=== PATIENT | male | born 1980 | race Caucasian/White ===

== ENCOUNTER 2023-03-02 09:36 | Day surgery (SDC) | payer MEDICARE, OTHER ==
[2023-02-20 15:21] VITALS: BMI 31.4
[~2023-03-02 09:36] MED LIST: DEXAMETHASONE SOD PHOSPHATE 4 MG/ML 1 ML VIAL IV ONE; HYDROmorphone 0.5 MG/0.5 ML SYRINGE IVP PRN; LACTATED RINGERS 1,000 ML IV SCH; LIDOCAINE 1% (10MG/ML) FOR IV START INTRADERMA PRN; ONDANSETRON 4 MG/2 ML VIAL IVP ONE; droPERidol 5 MG/2 ML VIAL IVP PRN
[2023-03-02] MEDS ORDERED: SODIUM CHLORIDE 0.9% 100 ML IV ONE (10:31)
[2023-03-02 10:44] LABS: HCT 37.2 % (39.0-53.0); HGB 12.7 gm/dL (13.0-17.5); MCHC 34.1 g/dL (31.0-37.0); MCV 90.9 fL (80.0-100.0); Mean Platelet Volume 7.8; Platelet Count 195 k/uL (150-450); RBC 4.09 m/uL (4.30-5.90); RDW 14.9 % (11.5-15.5); WBC 4.8 k/uL (3.8-10.6)
[2023-03-02] MEDS ORDERED: fentaNYL (PF) 50 MCG/1 ML VIAL IVP ONE (11:01)
[2023-03-02] MEDS ORDERED: MIDAZOLAM 2 MG/2 ML VIAL IVP ONE (11:01)
[2023-03-02 11:05] LABS: African American GFR (CKD) 11 (>60 ml/min/1.73 sqM); Anion Gap 12 mmol/L; Blood Urea Nitrogen 50 mg/dL (9-20); Calcium 8.7 mg/dL (8.4-10.2); Carbon Dioxide 27 mmol/L (22-30); Chloride 97 mmol/L (98-107); Glucose 187 mg/dL (74-99); Non-African American GFR(CKD) 10 (>60 ml/min/1.73 sqM); Potassium 4.7 mmol/L (3.5-5.1); Sodium 136 mmol/L (137-145)
[2023-03-02] MEDS ORDERED: PROPOFOL 10 MG/ML 20 ML VIAL IV ONE (12:07)
[2023-03-02] MEDS ORDERED: MIDAZOLAM 2 MG/2 ML VIAL ONE (12:07)
[2023-03-02] MEDS ORDERED: ROPIVACAINE 5 MG/ML 30 ML VIAL ONE (12:07)
[2023-03-02] MEDS ORDERED: KETAMINE 10 MG/ML 20 ML VIAL ONE (12:07)
[2023-03-02] MEDS ORDERED: HEPARIN SODIUM,PORCINE 5,000 UNIT/ML 1 ML VIAL ONE (12:07)
[2023-03-02] MEDS ORDERED: LABETALOL 5 MG/ML VIAL MDV ONE (12:07)
[2023-03-02] MEDS ORDERED: fentaNYL (PF) 50 MCG/ML 2 ML AMP ONE (12:07)
[2023-03-02] MEDS ORDERED: SODIUM CHLORIDE 0.9% 500 ML 500 ML IV ONE (12:11)
[2023-03-02] MEDS ORDERED: LIDOCAINE 1% INJ 10MG/ML (20 ML MDV) SQ ONE ×3 (12:32→14:20)
[2023-03-02] MEDS ORDERED: GELATIN SPONGE,ABSORB (LARGE) 1 EACH SPONGE TOPICAL ONE ×2 (12:32→12:55)
[2023-03-02] MEDS ORDERED: HEPARIN SODIUM,PORCINE (1 ML) 2,000 UNIT in SODIUM CHLORIDE 0.9% 500 ML 500 ML IRRIGATION ONE (12:37)
[2023-03-02] MEDS ORDERED: ceFAZolin 2 GM in SODIUM CHLORIDE 0.9% 500 ML 500 ML IRRIGATION ONE (12:39)
[2023-03-02] MEDS ORDERED: THROMBIN (BOVINE) 5,000 UNIT VIAL TOPICAL ONE (12:55)
--- NOTE | 2023-03-02 13:25 | P.ANPRN ---
Procedure Note - Anesthesia - Nerve Block Performed Right Supraclavicular Time Out Performed: Yes (11:00) Date of Procedure: 03/02/23 Procedure Start Time: 11:00 Procedure Stop Time: 11:05 Location of Patient: PreOp Indication: Acute Post-Operative Pain, Requested by Surgeon (Dr Rocha) Sedation Type: Sedate with meaningful contact maintained Preparation: Sterile Prep Position: Supine Catheter: None Needle Types: Pajunk Needle Gauge: Other (see comment) (22g) Ultrasound used to visualize needle placement: Yes Ultrasound used to observe medication spread: Yes Injectate: 0.5% Ropivacaine (see comment for volume) (20cc) Blood Aspirated: No Pain Paresthesia on Injection Noted: No Resistance on Injection: Normal Image Stored and Saved: Yes Events: Uneventful and Well Tolerated
--- NOTE | 2023-03-02 14:42 | P.OP ---
Date of Procedure: 03/02/23 Preoperative Diagnosis: 1:Chronic kidney disease, hematemesis dependent currently being dialyzed via tunneled hemodialysis catheter. 2: Intermittently dysfunctional tunneled hemodialysis catheter. Postoperative Diagnosis: Same. Procedure(s) Performed: 1: Creation of a Beck-type fistula right cephalic vein to right radial artery. 2: Exchange of tunneled hemodialysis catheter through this same incision. Anesthesia: regional (Axillary block for the AV fistula creation and local with IV sedation for the tunneled hemodialysis catheter exchange.), local Surgeon: Todd Rocha Estimated Blood Loss (ml): 10 Pathology: none sent Condition: stable Disposition: no change Indications for Procedure: Patient is a 48-year-old male with a long-standing history of dialysis dependent renal failure who is currently being dialyzed via a tunneled hemodialysis catheter placed via the right internal jugular vein. The catheter has been intermittently dysfunctional and is in need of replacement. Additionally the patient would benefit from more long-term dialysis access and is thus offered a Beck fistula right radial artery to vein position after vein mapping demonstrated the vein to be of appropriate character. The procedure, risk and benefits were discussed the patient. All questions were answered to patient's satisfaction. Consent form was signed Operative Findings: Please see below. Description of Procedure: Patient was brought the upper and placed in the supine position after having received a right axillary block administered by the department anesthesiology. The patient received intravenously administered prophylactic antibiotics in the perioperative phase. Patient's right upper extremity was sterilely prepped and draped in usual manner. Skin incision was made equidistant between the cephalic vein and the radial artery at the wrist level. The incision was deepened through the subcu change tissues. Hemostasis was achieved using electrocautery. The vein was identified and dissected free of investing tissues and appeared to be of appropriate quality for fistula creation purposes. Attention was then turned to the radial artery. This was dissected free of investing tissues and encircled Vesseloops. The patient was systemically heparinized and after adequate circulation time the vein haven't been previously marked was clipped distally and transected and easily reached the artery after mobilization. The Vesseloops surrounding the vein were drawn closed and arteriotomy in the radial artery was made and extended with scissors. Good inflow and backbleeding qualities were noted. The vein was spatulated match the arteriotomy and end-to-side anastomosis between the vein and the artery was completed with 6-0 Prolene suture placed in running fashion. Just prior to completion of the anastomotic line the artery was flushed and backbled and no thrombus was retrieved. The anastomotic line was completed and flow restored through the moapa radial system and into the cephalic vein. One point of bleeding was identified along the anastomotic line and this was controlled with 6-0 Prolene suture. Excellent pulsatile quality within the vein was identified. There was a large vein crossing the forearm draining into the cephalic vein and this vein was ligated to prevent any steal phenomenon. Both wounds were irrigated and were closed with 4-0 Monocryl placed in running fashion. Proper dressings were applied. Palpable radial pulse was noted at the completion of the procedure. Attention was turned to the right lateral neck and anterior chest wall. This area sterilely prepped and draped in usual manner. 1% Xylocaine was utilized for local anesthesia tissues overlying the tunneled catheter at the neck level. Through this anesthetized area skin incision was made carried down through the subcu change tissues. The catheter was identified doubly clamped and transected. A guidewire was then advanced down into the superior vena cava through the catheter and the catheter was removed. Vessel dilator was advanced over the guidewire obtaining hemostasis. The cuff portion of the catheter was dissected free of investing tissues and the remaining portion of the catheter wa s removed in total. 1% Xylocaine was utilized for local anesthesia of the tissues right anterior chest wall just lateral to the previous incision. A tunneled hemodialysis catheter was then tunneled between the 2 incisions assuring the cuff was in the subcu change tissues. Catheter introducer sheath and dilator advanced over the guidewire. Guidewire was withdrawn as was the dilator and through the sheath the catheter was advanced easily and the sheath peeled away. Fluoroscopy demonstrated the catheter to be in good position without twisting or kinking of the catheter. Blood was easily aspirated through both ports of the catheter and then were flushed with heparinized saline solution. Catheter secured to skin with nylon suture. Neck wound was closed with 4-0 Monocryl. Proper dressings were applied. Patient tolerated the procedure well and was taken to the recovery assessment and stable condition. Total fluoroscopy time: 3 seconds. Plan - Discharge Summary Discharge Rx Participant: No New Discharge Prescriptions: No Action carvediloL [Coreg] 25 mg PO BID Torsemide [Demadex] 20 mg PO BID hydrALAZINE HCL [Apresoline] 50 mg PO BID Calcium Acetate [Phoslo] 667 mg PO TID-W/MEALS Pantoprazole [Protonix] 40 mg PO DAILY Gabapentin 300 mg PO TID Discharge Medication List Calcium Acetate [Phoslo] 667 mg PO TID-W/MEALS 02/20/23 [History] Gabapentin 300 mg PO TID 02/20/23 [History] Pantoprazole [Protonix] 40 mg PO DAILY 02/20/23 [History] Torsemide [Demadex] 20 mg PO BID 02/20/23 [History] carvediloL [Coreg] 25 mg PO BID 02/20/23 [History] hydrALAZINE HCL [Apresoline] 50 mg PO BID 02/20/23 [History]
[2023-03-02 14:45] VITALS: TEMP 97.4
[2023-03-02 16:18] VITALS: PULSE 78
[2023-03-02 16:27] VITALS: BP 143/93; RESP 18
--- NOTE | 2023-03-02 16:37 | FL ---
Intraoperative/procedural fluoroscopic services were provided. Total fluoroscopy time is 2.0 seconds with a total of 2 submitted images to PACS. Please see the operative/procedural note for further deta ils. DAP: 0.2099 Gycm2
== END 2023-03-02 16:43 | disposition home or self-care (01) ==
LOC: OR 09:36
PROVIDERS: ATTEND Surgery
DX: N18.6 End stage renal disease (principal); I10 Essential (primary) hypertension; F17.200 Nicotine dependence, unspecified, uncomplicated; Z99.2 Dependence on renal dialysis; K21.9 Gastro-esophageal reflux disease without esophagitis; Z79.891 Long term (current) use of opiate analgesic; Z79.82 Long term (current) use of aspirin; Z79.02 Long term (current) use of antithrombotics/antiplatelets; Z79.899 Other long term (current) drug therapy
CPT/HCPCS: 64415; 80048; 85027; 77001; 36821; 36581; C1750; J2250; J1644; J0690; J2405; J2001; J3010 ×2; J2795; J2704; J1920

== ENCOUNTER 2023-06-26 19:37 | Observation (INO) | payer MEDICARE, OTHER ==
[2023-06-26 23:48] LABS: Basophils # (A) 0.1 k/uL (0-0.2); Basophils % (A) 2 %; Eosinophils # (A) 0.3 k/uL (0-0.7); Eosinophils % (A) 5 %; HCT 40.7 % (39.0-53.0); HGB 13.9 gm/dL (13.0-17.5); Lymphocytes # (A) 1.8 k/uL (1.0-4.8); Lymphocytes % (A) 34 %; MCH 31.9 pg (25.0-35.0); MCV 93.6 fL (80.0-100.0); Mean Platelet Volume 8.5; Monocytes # (A) 0.4 k/uL (0-1.0); Monocytes % (A) 7 %; Neutrophils # (A) 2.6 k/uL (1.3-7.7); Neutrophils % (A) 49 %; Platelet Count 157 k/uL (150-450); RBC 4.35 m/uL (4.30-5.90); RDW 14.3 % (11.5-15.5); WBC 5.4 k/uL (3.8-10.6)
[2023-06-27 00:14] LABS: ALT 24 U/L (4-49); AST 22 U/L (17-59); African American GFR (CKD) 5 (>60 ml/min/1.73 sqM); Albumin 4.5 g/dL (3.5-5.0); Alkaline Phosphatase 116 U/L (38-126); Anion Gap 24 mmol/L; Blood Urea Nitrogen 97 mg/dL (9-20); Calcium 8.1 mg/dL (8.4-10.2); Carbon Dioxide 18 mmol/L (22-30); Chloride 96 mmol/L (98-107); Glucose 217 mg/dL (74-99); Magnesium 2.5 mg/dL (1.6-2.3); Non-African American GFR(CKD) 4 (>60 ml/min/1.73 sqM); Phosphorus 7.5 mg/dL (2.5-4.5); Potassium 5.1 mmol/L (3.5-5.1); Sodium 138 mmol/L (137-145); Total Bilirubin 0.5 mg/dL (0.2-1.3); Total Protein 7.7 g/dL (6.3-8.2)
--- NOTE | 2023-06-27 01:19 | ED ---
General Adult HPI - General Chief complaint: Recheck/Abnormal Lab/Rx Stated complaint: Recheck Time Seen by Provider: 06/26/23 20:55 Source: patient, RN notes reviewed Mode of arrival: ambulatory Limitations: no limitations - History of Present Illness Initial comments: 42 year old male with a past medical history significant for HTN, DM, ESRD considered the emergency department with a chief complaint of hemodialysis fistula problem. He reports that he has supposed dialysis Thursday. His last dialyzed on Thursday06/25/2023. He reports that he attempted to receive dialysis today however they were unable to access his dialysis fistula and removed a clot from the site. Family report no palpable thrill. Denies any known fevers, chills, redness, pain at the site. He is complaining of some mild nausea and one episode of vomiting yesterday. - Related Data Home Medications Medication Instructions Recorded Confirmed Calcium Acetate [PhosLo] 2,001 mg PO TID-W/MEALS 02/20/23 05/01/23 Pantoprazole [Protonix] 40 mg PO DAILY 02/20/23 05/01/23 Torsemide [Demadex] 20 mg PO BID 02/20/23 05/01/23 carvediloL [Coreg] 25 mg PO HS 02/20/23 05/01/23 hydrALAZINE HCL [Apresoline] 50 mg PO HS 02/20/23 05/01/23 Calcium Acetate [PhosLo] 1,334 mg PO DIRECTED PRN 05/01/23 05/01/23 carvediloL [Coreg] 25 mg PO SUTUTHSA 05/01/23 05/01/23 hydrALAZINE HCL 50 mg PO SUTUTHSA 05/01/23 05/01/23 Previous Rx's Medication Instructions Recorded Acetaminophen Tab [Tylenol] 650 mg PO Q6HR PRN tab 05/04/23 Gabapentin [Neurontin] 100 mg PO TID cap 05/04/23 Insulin Detemir (Levemir) [Levemir] 10 unit SQ HS 30 Days #3 each 05/04/23 Allergies Allergy/AdvReac Type Severity Reaction Status Date / Time No Known Allergies Allergy Verified 06/26/23 19:56 Review of Systems ROS Statement: Those systems with pertinent positive or pertinent negative responses have been documented in the HPI. ROS Other: All systems not noted in ROS Statement are negative. Past Medical History Past Medical History: Heart Failure, Diabetes Mellitus, Hypertension, Renal Disease Additional Past Medical History / Comment(s): DIALYSIS. DIET CONTROLLED DM History of Any Multi-Drug Resistant Organisms: None Reported Past Surgical History: Orthopedic Surgery Additional Past Surgical History / Comment(s): TOE AMPUTATION. FOOT SURG. DIALYSIS CATH PLACED. FISTULA. TRACY CAT REMOVAL AND LASER EYE SURG. Past Anesthesia/Blood Transfusion Reactions: No Reported Reaction Past Psychological History: No Psychological Hx Reported Smoking Status: Current every day smoker Past Alcohol Use History: Occasional Past Drug Use History: Marijuana - Past Family History Father Family Medical History: Diabetes Mellitus General Exam - General Exam Comments Initial Comments: General: Alert, in no acute distress Head: atraumatic normocephalic. Eyes PERRL, EOMI intact, mucous membranes moist Respiratory: Lungs clear to auscultation bilaterally Cardiovascular: Regular rate and rhythm Abdominal: Soft without guarding or rebound Extremities: Normal inspection with full range of motion and normal capillary refill, Right forearm fistula without palpable thrill, or audible bruit. NO erythema, edema, tenderness. 2+ radial pulses. Neuroogic: alert and oriented 3, CN II-XII intact, able to ambulate with steady gait Skin: warm dry and intact with normal color Limitations: no limitations Course Vital Signs 06/26/23 06/26/23 06/27/23 19:53 22:39 00:36 Temperature 98.5 F Pulse Rate 85 77 74 Respiratory 18 18 18 Rate Blood Pressure 158/92 182/116 148/93 O2 Sat by Pulse 98 99 98 Oximetry 06/27/23 01:28 Temperature Pulse Rate 80 Respiratory 18 Rate Blood Pressure 150/92 O2 Sat by Pulse 98 Oximetry - Reevaluation(s) Reevaluation #1: 06/27/23 23:31 labs were discussed with primary RN in the. She reports initial symptoms were hemolyzed. Repeat draws were sent. Awaiting laboratory studies for disposition. Reevaluation #2: 06/27/23 01:19 notified of critical result. Patient reevaluated. Resting comfortably. Agreeable with the plan for admission. Reevaluation #3: 06/27/23 02:40 Case is discussed with Dr. Granado who is in the emergency department and agrees and accepts the patient for admission Medical Decision Making - Medical Decision Making Was pt. sent in by a medical professional or institution (DARYN Ng, INTERNAL SPECIALIST, urgent care, hospital, or [place] health care facility...) When possible be specific @ -[No] Did you speak to anyone other than the patient for history (EMS, parent, family, police, friend...)? What history was obtained from this source @ -[No] Did you review nursing and triage notes (agree or disagree)? Why? @ -[I reviewed and agree with nursing and triage notes] Were old charts reviewed (outside hosp., previous admission, EMS record, old EKG, old radiological studies, urgent care reports/EKG's, [place] health care facility records)? Report findings @ -[No old charts were reviewed] Differential Diagnosis (chest pain, altered mental status, abdominal pain women, abdominal pain men, vaginal bleeding, weakness, fever, dyspnea, syncope, headache, dizziness, GI bleed, back pain, seizure, CVA, palpatations, mental health, musculoskeletal)? @ -[not applicable] EKG interpreted by me (3pts min.). @ -[As above] X-rays interpreted by me (1pt min.). @ -[None done] CT interpreted by me (1pt min.). @ -[None done] U/S interpreted by me (1pt. min.). @ -[None done] What testing was considered but not performed or refused? (CT, X-rays, U/S, labs)? Why? @ -[None] What meds were considered but not given or refused? Why? @ -[None] Did you discuss the management of the patient with other professionals (professionals i.e. DARYN Ng, INTERNAL SPECIALIST, lab, RT, psych nurse, renal social worker, small lot operator, teacher, personnel officer, therapeutic case manager)? Give summary @ -Dr. Granado who agrees and accepts the patient for admission and consult to Vascular Was smoking cessation discussed for >3mins.? @ -[No] Was critical care preformed (if so, how long)? @ -[No] Were there social determinants of health that impacted care today? How? (Homelessness, low income, unemployed, alcoholism, drug addiction, transportation, low edu. Level, literacy, decrease access to med. care, [facility], rehab)? @ -[No] Was there de-escalation of care discussed even if they declined (Discuss DNR or withdrawal of care, Hospice)? DNR status @ -[No] What co-morbidities impacted this encounter? (DM, HTN, Smoking, COPD, CAD, Cancer, CVA, ARF, Chemo, Hep., AIDS, mental health diagnosis, sleep apnea, morbid obesity)? @ -HTN, DM Was patient admitted / discharged? Hospital course, mention meds given and route, prescriptions, significant lab abnormalities, going to OR and other pertinent info. @ -Admission. This is a 42-year-old male who presents the emergency department with fistula problem. Patient had a thorough history and physical exam performed. ED physician to right forearm without palpable thrill or bruit. 2+ radial pulses. Patient and laboratory studies. Potassium 5.1, sodium 138 BUN 97, creatinine 12.71 phosphorus 7.5, magnesium 1.5. Case is discussed with Dr. Granado, Who agrees and accepts the patient for admission. Undiagnosed new problem with uncertain prognosis? @ -[No] Drug Therapy requiring intensive monitoring for toxicity (Heparin, Nitro, Insulin, Cardizem)? @ -[No] Were any procedures done? @ -[No] Diagnosis/symptom? @ -AV fistula Malfunction Acute, or Chronic, or Acute on Chronic? @ -Acute Uncomplicated (without systemic symptoms) or Complicated (systemic symptoms)? @ Uncomplicated Side effects of treatment? @ -[No] Exacerbation, Progression, or Severe Exacerbation? @ -[No] Poses a threat to life or bodily function? How? (Chest pain, USA, ID, pneumonia, PE, COPD, DKA, ARF, appy, cholecystitis, CVA, Diverticulitis, Homicidal, Suicidal, threat to staff... and all critical care pts) @ -Yes, - Lab Data Result diagrams: 06/26/23 23:35 06/26/23 23:35 Lab Results 06/26/23 06/26/23 Range/Units 23:35 23:35 WBC 5.4 (3.8-10.6) k/uL RBC 4.35 (4.30-5.90) m/uL Hgb 13.9 (13.0-17.5) gm/dL Hct 40.7 (39.0-53.0) % MCV 93.6 (80.0-100.0) fL MCH 31.9 (25.0-35.0) pg MCHC 34.0 (31.0-37.0) g/dL RDW 14.3 (11.5-15.5) % Plt Count 157 (150-450) k/uL MPV 8.5 Neutrophils % 49 % Lymphocytes % 34 % Monocytes % 7 % Eosinophils % 5 % Basophils % 2 % Neutrophils # 2.6 (1.3-7.7) k/uL Lymphocytes # 1.8 (1.0-4.8) k/uL Monocytes # 0.4 (0-1.0) k/uL Eosinophils # 0.3 (0-0.7) k/uL Basophils # 0.1 (0-0.2) k/uL Sodium 138 (137-145) mmol/L Potassium 5.1 (3.5-5.1) mmol/L Chloride 96 L (98-107) mmol/L Carbon Dioxide 18 L (22-30) mmol/L Anion Gap 24 mmol/L BUN 97 H (9-20) mg/dL Creatinine 12.71 H* (0.66-1.25) mg/dL Est GFR (CKD-EPI)AfAm 5 (>60 ml/min/1.73 sqM) Est GFR (CKD-EPI)NonAf 4 (>60 ml/min/1.73 sqM) Glucose 217 H (74-99) mg/dL Calcium 8.1 L (8.4-10.2) mg/dL Phosphorus 7.5 H (2.5-4.5) mg/dL Magnesium 2.5 H (1.6-2.3) mg/dL Total Bilirubin 0.5 (0.2-1.3) mg/dL AST 22 (17-59) U/L ALT 24 (4-49) U/L Alkaline Phosphatase 116 (38-126) U/L Total Protein 7.7 (6.3-8.2) g/dL Albumin 4.5 (3.5-5.0) g/dL Disposition Clinical Impression: Dialysis AV fistula malfunction Disposition: ADMITTED IP TO THIS [facility] Condition: Fair Referrals: Ming Law MD [Primary Care Provider] - 1-2 days Time of Disposition: 01:20
[2023-06-27] MEDS ORDERED: NALOXONE 0.4 MG/ML 1 ML VIAL IV PRN (03:01)
--- NOTE | 2023-06-27 04:52 | P.HPIM ---
History of Present Illness H&P Date: 06/27/23 Patient is a 42-year-old male with a PMH of ESRD on hemodialysis MWF, type II DM, hypertension, who presents to the emergency room for a malfunctioning AV fistula. Patient reports that his dialysis center had difficulty accessing his RUE fistula during this past week and that earlier today they were unable to access it. They contacted his vascular surgeon Dr. Schwartz who advised the patient to go to the emergency room. Patient has not received his hemodialysis for today. He has no complaints with his right upper extremity. He denied any additional complaints at the time of interview. Denied experiencing chest discomfort, shortness of breath, fever, chills, cough, nausea, vomiting, abd ominal pain, diarrhea. Laboratory evaluation in the emergency room was remarkable for creatinine 12.7, close to 117, and phosphorus 7.5. ED documentation reviewed and case discussed with ED provider. Review of systems: Pertinent positives and negatives as discussed in HPI, a complete review of systems was performed and all other systems are negative. Physical examination: Vital signs reviewed General: non toxic, no distress, appears at stated age, obese Derm: no unusual rashes/lesions, warm Head: atraumatic, normocephalic, symmetric Eyes: EOMI, no lid lag, anicteric sclera, pupils equal round reactive to light ENT: Nose and ears atraumatic Neck: No cervical lymphadenopathy, trachea midline, supple Mouth: no lip lesion, mucus membranes moist Cardiovascular: S1S2 reg, no murmur, positive dorsalis pedis pulse bilateral, no edema Lungs: CTA bilateral, no rhonchi, no rales, no accessory muscle use Abdominal: soft, nontender to palpation, no guarding Ext: muscle strength 5 out of 5 in all 4 extremities grossly, no gross muscle atrophy, no contractures, RUE AV fistula noted without palpable thrill or significant bruit Neuro: CN II-XI grossly intact, no gross focal neuro deficits Psych: Alert, oriented, appropriate affect Assessment: Malfunctioning AV fistula Chronic conditions: Type II DM, hypertension, ESRD Imaging: None performed Data Review: Laboratory evaluation in the emergency room was remarkable for creatinine 12.7, close to 117, and phosphorus 7.5. Plan: Vascular surgery consulted Insulin sliding scale and blood glucose monitoring Continue with home medications once reconciled DVT prophylaxis: Heparin subq The patient is admitted with an anticipated less than 2 midnight stay for evaluation of malfuntioning AV fistula CODE STATUS: Full Code Discussed with: Patient Anticipated discharge place: Home Past Medical History Past Medical History: Heart Failure, Diabetes Mellitus, Hypertension, Renal Disease Additional Past Medical History / Comment(s): DIALYSIS. DIET CONTROLLED DM History of Any Multi-Drug Resistant Organisms: None Reported Past Surgical History: Orthopedic Surgery Additional Past Surgical History / Comment(s): TOE AMPUTATION. FOOT SURG. DI ALYSIS CATH PLACED. FISTULA. TRACY CAT REMOVAL AND LASER EYE SURG. Past Anesthesia/Blood Transfusion Reactions: No Reported Reaction Past Psychological History: No Psychological Hx Reported Smoking Status: Current every day smoker Past Alcohol Use History: Occasional Past Drug Use History: Marijuana - Past Family History Father Family Medical History: Diabetes Mellitus Medications and Allergies Home Medications Medication Instructions Recorded Confirmed Type Calcium Acetate [PhosLo] 2,001 mg PO TID-W/MEALS 02/20/23 05/01/23 History Pantoprazole [Protonix] 40 mg PO DAILY 02/20/23 05/01/23 History Torsemide [Demadex] 20 mg PO BID 02/20/23 05/01/23 History carvediloL [Coreg] 25 mg PO HS 02/20/23 05/01/23 History hydrALAZINE HCL [Apresoline] 50 mg PO HS 02/20/23 05/01/23 History Calcium Acetate [PhosLo] 1,334 mg PO DIRECTED PRN 05/01/23 05/01/23 History carvediloL [Coreg] 25 mg PO SUTUTHSA 05/01/23 05/01/23 History hydrALAZINE HCL 50 mg PO SUTUTHSA 05/01/23 05/01/23 History Acetaminophen Tab [Tylenol] 650 mg PO Q6HR PRN tab 05/04/23 Rx Gabapentin [Neurontin] 100 mg PO TID cap 05/04/23 Rx Insulin Detemir (Levemir) [Levemir] 10 unit SQ HS 30 Days #3 each 05/04/23 Rx Allergies Allergy/AdvReac Type Severity Reaction Status Date / Time No Known Allergies Allergy Verified 06/26/23 19:56 Physical Exam Vitals: Vital Signs Temp Pulse Resp BP Pulse Ox 06/27/23 01:28 80 18 150/92 98 06/27/23 00:36 74 18 148/93 98 06/26/23 22:39 77 18 182/116 99 06/26/23 19:53 98.5 F 85 18 158/92 98 Intake and Output 06/26/23 06/26/23 06/27/23 14:59 22:59 06:59 Other: Weight 106.594 kg Results CBC & Chem 7: 06/26/23 23:35 06/26/23 23:35 Labs: Abnormal Lab Results - Last 24 Hours (Table) 06/26/23 Range/Units 23:35 Chloride 96 L (98-107) mmol/L Carbon Dioxide 18 L (22-30) mmol/L BUN 97 H (9-20) mg/dL Creatinine 12.71 H* (0.66-1.25) mg/dL Glucose 217 H (74-99) mg/dL Calcium 8.1 L (8.4-10.2) mg/dL Phosphorus 7.5 H (2.5-4.5) mg/dL Magnesium 2.5 H (1.6-2.3) mg/dL
[2023-06-27 07:30] LABS: Glucose,Whole Blood 216 mg/dL (70-110)
[2023-06-27] MEDS: INSULIN ASPART (NovoLOG) 100 UNIT/ML VIAL SQ SCH ×4 (07:52→23:09)
[2023-06-27] MEDS: HEPARIN SODIUM,PORCINE 5,000 UNIT/ML 1 ML VIAL SQ SCH ×3 (07:54→23:45)
[2023-06-27 11:36] LABS: Glucose,Whole Blood 235 mg/dL (70-110)
--- NOTE | 2023-06-27 13:13 | P.GSCN ---
History of Present Illness Consult date: 06/27/23 Reason for Consult: 1: Right upper extremity AV dialysis fistula dysfunction/malfunction. History of present illness: Patient is a 42-year-old male who had previously undergone creation of a right upper extremity Beck fistula at the radial artery/cephalic vein position. This a been working quite well for the patient. Earlier this week difficulty was experienced cannulating the fistula although he did have adequate dialysis on Thursday and Thursday of this week. Yesterday cannulation was not possible. The patient was referred to the emergency department. He voices no other complaints. Past Medical History Past Medical History: Heart Failure, Diabetes Mellitus, Hypertension, Renal Disease Additional Past Medical History / Comment(s): DIALYSIS. DIET CONTROLLED DM History of Any Multi-Drug Resistant Organisms: None Reported Past Surgical History: Orthopedic Surgery Additional Past Surgical History / Comment(s): TOE AMPUTATION. FOOT SURG. DIALYSIS CATH PLACED. FISTULA. TRACY CAT REMOVAL AND LASER EYE SURG. Past Anesthesia/Blood Transfusion Reactions: No Reported Reaction Past Psychological History: No Psychological Hx Reported Smoking Status: Current every day smoker Past Alcohol Use History: Occasional Past Drug Use History: Marijuana - Past Family History Father Family Medical History: Diabetes Mellitus Medications and Allergies Home Medications Medication Instructions Recorded Confirmed Type Calcium Acetate [PhosLo] 2,001 mg PO TID-W/MEALS 02/20/23 06/27/23 History Pantoprazole [Protonix] 40 mg PO DAILY 02/20/23 06/27/23 History Torsemide [Demadex] 20 mg PO BID 02/20/23 06/27/23 History carvediloL [Coreg] 25 mg PO HS 02/20/23 06/27/23 History hydrALAZINE HCL [Apresoline] 50 mg PO HS 02/20/23 06/27/23 History Calcium Acetate [PhosLo] 1,334 mg PO DIRECTED PRN 05/01/23 06/27/23 History carvediloL [Coreg] 25 mg PO SUTUTHSA 05/01/23 06/27/23 History hydrALAZINE HCL 50 mg PO SUTUTHSA 05/01/23 06/27/23 History Acetaminophen Tab [Tylenol] 650 mg PO Q6HR PRN tab 05/04/23 06/27/23 Rx Insulin Detemir (Levemir) [Levemir] 10 unit SQ HS 30 Days #3 each 05/04/23 06/27/23 Rx Gabapentin 300 mg PO TID 06/27/23 06/27/23 History Lanthanum Carbonate [Lanthanum 1,000 mg PO TID-W/MEALS 06/27/23 06/27/23 History Carbonate Chew] Allergies Allergy/AdvReac Type Severity Reaction Status Date / Time No Known Allergies Allergy Verified 06/27/23 11:58 Surgical - Exam Osteopathic Statement: *. No significant issues noted on an osteopathic st ructural exam other than those noted in the History and Physical/Consult. Vital Signs Temp Pulse Resp BP Pulse Ox 98.5 F 85 18 158/92 98 06/26/23 19:53 06/26/23 19:53 06/26/23 19:53 06/26/23 19:53 06/26/23 19:53 The right radial pulse is appropriate. It is questionable whether the AV fistula is functional or thrombosed. To further clarify this I aborted a duplex ultrasound the fistula. If the fistula is thrombosed patient will require placement of a tunneled hemodialysis catheter and planning for new access. Results - Labs 06/26/23 23:35 06/26/23 23:35 Abnormal Lab Results - Last 24 Hours (Table) 06/26/23 06/27/23 06/27/23 Range/Units 23:35 07:29 11:32 Chloride 96 L (98-107) mmol/L Carbon Dioxide 18 L (22-30) mmol/L BUN 97 H (9-20) mg/dL Creatinine 12.71 H* (0.66-1.25) mg/dL Glucose 217 H (74-99) mg/dL POC Glucose (mg/dL) 216 H 235 H (70-110) mg/dL Calcium 8.1 L (8.4-10.2) mg/dL Phosphorus 7.5 H (2.5-4.5) mg/dL Magnesium 2.5 H (1.6-2.3) mg/dL Diabetes panel 06/26/23 Range/Units 23:35 Sodium 138 (137-145) mmol/L Potassium 5.1 (3.5-5.1) mmol/L Chloride 96 L (98-107) mmol/L Carbon Dioxide 18 L (22-30) mmol/L BUN 97 H (9-20) mg/dL Creatinine 12.71 H* (0.66-1.25) mg/dL Glucose 217 H (74-99) mg/dL Calcium 8.1 L (8.4-10.2) mg/dL AST 22 (17-59) U/L ALT 24 (4-49) U/L Alkaline Phosphatase 116 (38-126) U/L Total Protein 7.7 (6.3-8.2) g/dL Albumin 4.5 (3.5-5.0) g/dL Calcium panel 06/26/23 Range/Units 23:35 Calcium 8.1 L (8.4-10.2) mg/dL Phosphorus 7.5 H (2.5-4.5) mg/dL Albumin 4.5 (3.5-5.0) g/dL Pituitary panel 06/26/23 Range/Units 23:35 Sodium 138 (137-145) mmol/L Potassium 5.1 (3.5-5.1) mmol/L Chloride 96 L (98-107) mmol/L Carbon Dioxide 18 L (22-30) mmol/L BUN 97 H (9-20) mg/dL Creatinine 12.71 H* (0.66-1.25) mg/dL Glucose 217 H (74-99) mg/dL Calcium 8.1 L (8.4-10.2) mg/dL Adrenal panel 06/26/23 Range/Units 23:35 Sodium 138 (137-145) mmol/L Potassium 5.1 (3.5-5.1) mmol/L Chloride 96 L (98-107) mmol/L Carbon Dioxide 18 L (22-30) mmol/L BUN 97 H (9-20) mg/dL Creatinine 12.71 H* (0.66-1.25) mg/dL Glucose 217 H (74-99) mg/dL Calcium 8.1 L (8.4-10.2) mg/dL Total Bilirubin 0.5 (0.2-1.3) mg/dL AST 22 (17-59) U/L ALT 24 (4-49) U/L Alkaline Phosphatase 116 (38-126) U/L Total Protein 7.7 (6.3-8.2) g/dL Albumin 4.5 (3.5-5.0) g/dL Assessment and Plan Assessment: 1: Dialysis-dependent renal failure. 2: Dysfunctional right upper extremity AV fistula. Plan: 1: We'll obtain duplex ultrasound. If ultrasound demonstrates thrombosis will place a dialysis catheter.
[2023-06-27] MEDS ORDERED: ACETAMINOPHEN TAB 325 MG TAB PO PRN (13:47)
[2023-06-27] MEDS ORDERED: CALCIUM ACETATE 667 MG TAB PO PRN (13:47)
[2023-06-27] MEDS ORDERED: hydrALAZINE HCL 50 MG TAB PO SCH ×4 (14:00→21:00)
[2023-06-27] MEDS: carvediloL 12.5 MG TAB PO SCH (14:56)
--- NOTE | 2023-06-27 15:23 | US ---
EXAMINATION TYPE: US radial artery UE RT DATE OF EXAM: 06/27/2023 COMPARISON: NONE CLINICAL INDICATION: Male, 42 years old with history of RUE AV fistula dysfunction; Right fistula dys function TECHNIQUE color and grayscale images of the right upper extremity AV fistula and renal artery is obta ined along with Doppler waveform analysis. FINDINGS: scanned right lower arm within area of fistula. possible fistula appears thrombosed at lev el of radial artery. radial artery is patent IMPRESSION: 1. Patent fistula in the right upper extremity not identified and is likely occluded. 2. Patent radial artery with normal flow based on waveforms.
[2023-06-27 16:59] LABS: Glucose,Whole Blood 155 mg/dL (70-110)
[2023-06-27] MEDS: GABAPENTIN 300 MG CAP PO SCH ×2 (16:59→23:08)
[2023-06-27] MEDS ORDERED: CALCIUM ACETATE 667 MG TAB PO SCH (17:30)
[2023-06-27 20:40] LABS: Glucose,Whole Blood 209 mg/dL (70-110)
[2023-06-27] MEDS ORDERED: carvediloL 12.5 MG TAB PO SCH (21:00)
[2023-06-27] MEDS ORDERED: INSULIN DETEMIR (LEVEMIR) 100 UNIT/ML SYR SQ ONE ×2 (21:00→23:15)
[2023-06-27] MEDS: TORSEMIDE 20 MG TAB PO SCH (23:41)
[2023-06-28 06:15] LABS: Glucose,Whole Blood 147 mg/dL (70-110)
[2023-06-28] MEDS: INSULIN ASPART (NovoLOG) 100 UNIT/ML VIAL SQ SCH ×2 (06:22→13:29)
[2023-06-28] MEDS ORDERED: PANTOPRAZOLE 40 MG TABLET PO SCH (07:30)
[2023-06-28] MEDS ORDERED: SODIUM CHLORIDE 0.9% 250 ML IV ONE (07:45)
[2023-06-28] MEDS ORDERED: ceFAZolin 2 GM in SODIUM CHLORIDE 0.9% 100 ML IVPB STA (08:07)
[2023-06-28] MEDS: MIDAZOLAM 2 MG/2 ML VIAL IVP ONE ×2 (08:08→08:26)
[2023-06-28] MEDS ORDERED: fentaNYL (PF) 50 MCG/ML 2 ML AMP IVP ONE (08:10)
[2023-06-28] MEDS ORDERED: fentaNYL (PF) 50 MCG/ML 2 ML AMP ONE (08:11)
[2023-06-28] MEDS ORDERED: LIDOCAINE 1% INJ 10MG/ML (20 ML MDV) SQ ONE (08:20)
[2023-06-28 09:41] LABS: BUN/Creat Ratio 7.79 Ratio (12.00-20.00); Basophils # (A) 0.02 X 10*3/uL (0.00-0.10); Basophils % (A) 0.4 %; Calcium 7.9 mg/dL (8.7-10.3); Carbon Dioxide 19.6 mmol/L (21.6-31.8); Chloride 98 mmol/L (96-109); Eosinophils # (A) 0.12 X 10*3/uL (0.04-0.35); Eosinophils % (A) 2.1 %; Glucose 119 mg/dL (70-110); HCT 34.8 % (39.6-50.0); HGB 11.9 g/dL (13.0-17.0); Lymphocytes # (A) 1.57 X 10*3/uL (0.90-5.00); Lymphocytes % (A) 27.7 %; MCH 31.5 pg (27.0-32.0); MCHC 34.2 g/dL (32.0-37.0); MCV 92.1 FL (80.0-97.0); Mean Platelet Volume 10.1 FL (9.5-12.2); Monocytes # (A) 0.48 X 10*3/uL (0.20-1.00); Monocytes % (A) 8.5 %; NRBC Per 100 WBC 0 X 10*3/uL (0.00-0.01); Neutrophils # (A) 3.46 X 10*3/uL (1.80-7.70); Neutrophils % (A) 61.1 %; Platelet Count 175 X 10*3/uL (140-440); Potassium 4.3 mmol/L (3.5-5.5); RBC 3.78 X 10*6/uL (4.40-5.60); RDW 13.5 % (11.5-14.5); Sodium 140 mmol/L (135-145); WBC 5.66 X 10*3/uL (4.50-10.00)
--- NOTE | 2023-06-28 10:08 | XR ---
EXAMINATION TYPE: XR chest 1V portable DATE OF EXAM: 06/28/2023 Comparison: None Clinical History: 42-year-old male NEW HEMODIALYSIS CATHETER PLACEMENT RIGHT CHEST Findings: Right-sided double-lumen hemodialysis catheter with tips at the lower SVC level. The heart is mildly enlarged. Interstitial prominence may be technical due to large body habitus. No berta pulmonary kimberley a or sizable pleural effusion. Impression: Right-sided double-lumen hemodialysis catheter tips in the lower SVC level. Cardiomegaly.
--- NOTE | 2023-06-28 10:37 | P.OP ---
Date of Procedure: 06/28/23 Preoperative Diagnosis: Chronic kidney disease, dialysis dependent. Postoperative Diagnosis: Same. Procedure(s) Performed: Insertion of a tunneled hemodialysis catheter via the right internal jugular vein approach with ultrasound and fluoroscopic guidance. Anesthesia: local (1% Xylocaine with 2 mg of Versed and 50 g administered intravenously for moderate conscious sedation purposes.) Surgeon: Todd Rocha (Lauren Olmstead is dopplerable. He a little bit painful when he) Estimated Blood Loss (ml): 5 Urine output (ml): 0 Pathology: none sent Condition: stable Disposition: no change Indications for Procedure: Patient is a 42-year-old male suffers from dialysis-dependent renal failure who is being dialyzed via a right upper extremity arteriovenous fistula in the cephalic vein to radial artery position. This was working quite well for him until Thursday when at dialysis the fistula was not able to be cannulated. Duplex imaging of the fistula demonstrated the fistula to be completely thrombosed. To allow for a dialysis patient is now offered a tunneled hemodialysis catheter. Limits were discussed. All questions were answered to patient's satisfaction. Consent form was signed. Operative Findings: Patient brought to the special procedure suite. He did receive 2 g of intravenously administered Ancef in the perioperative phase for prophylactic antibiotic therapy. The lateral neck, supraclavicular and anterior chest wall areas were sterilely prepped and draped in usual manner. Utilizing ultrasound the right internal jugular vein was found to be normally patent without thrombus. 1% Xylocaine was utilized for local anesthesia at the confluence the 2 heads of the sternocleidomastoid muscle. With the aid of ultrasound and through the anesthetized area a micropuncture needle was advanced into the internal jugular vein. Guidewire was easily advanced into the superior vena cava as positioned confirmed with fluoroscopy. The needle was withdrawn and over the wire a micropuncture sheath and dilator were advanced. The guidewire and dilator were withdrawn and a 0.035 inch J-tipped guidewire was advanced in the superior vena cava. Its position was confirmed with fluoroscopy. The sheath and dilator were withdrawn. 1% Xylocaine was utilized for local anesthesia to use shoes in the anterior chest wall one finger breath below and lateral to the angle of clavicle. Through this anesthetized area skin incision was made and additional Xylocaine was infiltrated in the subcutaneous tissues between the chest wall and the neck incision. A palindrome type catheter was selected and tunneled between the 2 incisions with the cuff of the catheter being placed in the subcutaneous tissues. Progressively larger dilator were advanced and withdrawn from over the guidewire. The catheter sheath and dilator were advanced over the guidewire. Guidewire and dilator were withdrawn and the sheath and positioned in the superior vena cava at the cavoatrial junction. The sheath was peeled away. There was a bit of a kink in the catheter and this was corrected. Blood was easily aspirated through both ports and each port was then flushed with concentrated heparin solution. Caps were placed on the catheter. Catheter was secured to the anterior chest wall nylon suture and the neck wound was closed with 3-0 Monocryl placed at intradermal position. Proper dressings were applied. Patient tolerated the procedure well. Chest x-ray was taken which demonstrated the catheter to be in good position without evidence of pneumothorax. Total moderate conscious sedation time: 24 minutes. Total fluoroscopy time. 0.6 minutes.
[2023-06-28 12:07] LABS: Glucose,Whole Blood 143 mg/dL (70-110)
--- NOTE | 2023-06-28 12:15 | P.NPCON ---
History of Present Illness - Reason for Consult end stage renal disease - History of Present Illness Reason for consultation: End-stage renal disease History of present illness: Patient is a 42-year-old male seen in renal consultation for end-stage renal disease. He is maintained on hemodialysis on Thursday was a Thursday schedule. Patient went to hemodialysis Thursday and his right upper extremity fistula was noted to be clotted. He was sent to the hospital for further evaluation. He had a permacath placed is morning. He is undergoing hemodialysis at this time. He denies chest pain or shortness of breath. No vomiting. Did have loose bowel movement this morning. No fever or chills. Hemodynamically stable. He does make urine. Patient has long-standing history of diabetes. Vital signs are stable. General: No acute distress. HEENT: Head exam is unremarkable. LUNGS: No audible rhonchi or wheezes. HEART: Rate and Rhythm are regular. ABDOMEN: Nontender. EXTREMITITES: Trace edema. Past Medical History Past Medical History: Heart Failure, Diabetes Mellitus, Hypertension, Renal Disease Additional Past Medical History / Comment(s): DIALYSIS. DIET CONTROLLED DM History of Any Multi-Drug Resistant Organisms: None Reported Past Surgical History: Orthopedic Surgery Additional Past Surgical History / Comment(s): TOE AMPUTATION. FOOT SURG. DIALYSIS CATH PLACED. FISTULA. TRACY CAT REMOVAL AND LASER EYE SURG. Past Anesthesia/Blood Transfusion Reactions: No Reported Reaction Past Psychological History: No Psychological Hx Reported Smoking Status: Current every day smoker Past Alcohol Use History: Occasional Past Drug Use History: Marijuana - Past Family History Father Family Medical History: Diabetes Mellitus Medications and Allergies Home Medications Medication Instructions Recorded Confirmed Type Calcium Acetate [PhosLo] 2,001 mg PO TID-W/MEALS 02/20/23 06/27/23 History Pantoprazole [Protonix] 40 mg PO DAILY 02/20/23 06/27/23 History Torsemide [Demadex] 20 mg PO BID 02/20/23 06/27/23 History carvediloL [Coreg] 25 mg PO HS 02/20/23 06/27/23 History hydrALAZINE HCL [Apresoline] 50 mg PO HS 02/20/23 06/27/23 History Calcium Acetate [PhosLo] 1,334 mg PO DIRECTED PRN 05/01/23 06/27/23 History carvediloL [Coreg] 25 mg PO SUTUTHSA 05/01/23 06/27/23 History hydrALAZINE HCL 50 mg PO SUTUTHSA 05/01/23 06/27/23 History Acetaminophen Tab [Tylenol] 650 mg PO Q6HR PRN tab 05/04/23 06/27/23 Rx Insulin Detemir (Levemir) [Levemir] 10 unit SQ HS 30 Days #3 each 05/04/23 06/27/23 Rx Gabapentin 300 mg PO TID 06/27/23 06/27/23 History Lanthanum Carbonate [Lanthanum 1,000 mg PO TID-W/MEALS 06/27/23 06/27/23 History Carbonate Chew] Allergies Allergy/AdvReac Type Severity Reaction Status Date / Time No Known Allergies Allergy Verified 06/27/23 11:58 Physical Exam Vitals: Vital Signs Temp Pulse Pulse Resp BP BP Pulse Ox 06/28/23 09:00 16 06/28/23 07:00 97.6 F 74 16 145/88 95 06/28/23 02:00 97.9 F 75 155/85 95 06/27/23 20:00 16 06/27/23 18:28 98.1 F 68 16 133/91 97 06/27/23 17:04 74 18 154/99 100 Intake and Output 06/27/23 06/28/23 06/28/23 22:59 06:59 14:59 Intake Total 100 Balance 100 Intake: IV 100 Other: Voiding Method Toilet # Voids 2 1 Results - Lab Results Most recent lab results Calcium 7.9 mg/dL (8.7-10.3) L 06/28/23 03:29 Phosphorus 7.5 mg/dL (2.5-4.5) H 06/26/23 23:35 Magnesium 2.5 mg/dL (1.6-2.3) H 06/26/23 23:35 06/28/23 03:29 06/28/23 03:29 Assessment and Plan Plan: Assessment: 1. End-stage renal disease maintained on hemodialysis on Thursday schedule. 2. Clotted right upper extremity AV fistula. Permacath placed this morning. 3. Diabetes mellitus. 4. Hypertension with chronic kidney disease. 5. Chronic kidney disease mineral bone disease maintained on PhosLo. Plan: Currently seen what undergoing hemodialysis. Next treatment tomorrow per his outpatient schedule. Potential discharge after dialysis today. Follow up with vascular surgery outpatient. Thank you for the consultation. I will continue to follow the patient with you during his hospital stay.
[2023-06-28] MEDS: carvediloL 12.5 MG TAB PO SCH (13:32)
[2023-06-28] MEDS: GABAPENTIN 300 MG CAP PO SCH (13:33)
[2023-06-28] MEDS: TORSEMIDE 20 MG TAB PO SCH (13:34)
--- NOTE | 2023-06-28 14:12 | P.DS ---
Providers Date of admission: 06/27/23 03:48 Expected date of discharge: 06/28/23 Attending physician: Yahaira Granado MD Consults: 06/27/23 03:01 Consult Physician Routine Consulting Provider: Todd Rocha Consult Reason/Comments: Fistula Malfunction Do you want consulting provider notified?: Yes 06/27/23 10:48 Consult Physician Routine Consulting Provider: Dave Flores Consult Reason/Comments: esrd Do you want consulting provider notified?: Yes Primary care physician: Ming Law MD Hospital Course: Discharge Diagnosis: Malfunctioning AV fistula ESRD on hemodialysis Type 2 diabetes Hypertension Hospital Course: 42-year-old male with a PMH of ESRD on hemodialysis MWF, type II DM, hypertension, who presents to the emergency room for a malfunctioning AV fistula. Seen by vascular surgery. Right-sided tunneled hemodialysis catheter placed. Patient receiving hemodialysis today. Nephrology also consulted. Restart his normal hemodialysis schedule tomorrow. Follow-up with vascular surgery and nephrology. Patient seen and examined at bedside. Vital signs reviewed and stable. General: non toxic, no distress, appears at stated age, obese Derm: no unusual rashes/lesions, warm, right-sided chest dressing clean, dry, intact Head: atraumatic, normocephalic, symmetric Eyes: EOMI, no lid lag, anicteric sclera, pupils equal round reactive to light ENT: Nose and ears atraumatic Neck: No cervical lymphadenopathy, trachea midline, supple Mouth: no lip lesion, mucus membranes moist Cardiovascular: S1S2 reg, no murmur, positive dorsalis pedis pulse bilateral, no edema Lungs: CTA bilateral, no rhonchi, no rales, no accessory muscle use Abdominal: soft, nontender to palpation, no guarding Ext: muscle strength 5 out of 5 in all 4 extremities grossly, no gross muscle atrophy, no contractures, RUE AV fistula noted without palpable thrill or significant bruit Neuro: CN II-XI grossly intact, no gross focal neuro deficits Psych: Alert, oriented, appropriate affect A total of 33 minutes of time were spent preparing this complex discharge summary. Patient was discharged on 06/28/23 at 1409. Patient Condition at Discharge: Stable Plan - Discharge Summary New Discharge Prescriptions: Continue carvediloL [Coreg] 25 mg PO HS Torsemide [Demadex] 20 mg PO BID hydrALAZINE HCL [Apresoline] 50 mg PO HS carvediloL [Coreg] 25 mg PO SUTUTHSA Calcium Acetate [PhosLo] 1,334 mg PO DIRECTED PRN PRN Reason: snacks Insulin Detemir (Levemir) [Levemir] 10 unit SQ HS 30 Days #3 each Acetaminophen Tab [Tylenol] 650 mg PO Q6HR PRN tab PRN Reason: Mild Pain Or Fever > 100.5 Lanthanum Carbonate [Lanthanum Carbonate Chew] 1,000 mg PO TID-W/MEALS Calcium Acetate [PhosLo] 2,001 mg PO TID-W/MEALS Pantoprazole [Protonix] 40 mg PO DAILY hydrALAZINE HCL 50 mg PO SUTUTHSA Gabapentin 300 mg PO TID Discharge Medication List Calcium Acetate [PhosLo] 2,001 mg PO TID-W/MEALS 02/20/23 [History] Pantoprazole [Protonix] 40 mg PO DAILY 02/20/23 [History] Torsemide [Demadex] 20 mg PO BID 02/20/23 [History] carvediloL [Coreg] 25 mg PO HS 02/20/23 [History] hydrALAZINE HCL [Apresoline] 50 mg PO HS 02/20/23 [History] Calcium Acetate [PhosLo] 1,334 mg PO DIRECTED PRN 05/01/23 [History] carvediloL [Coreg] 25 mg PO SUTUTHSA 05/01/23 [History] hydrALAZINE HCL 50 mg PO SUTUTHSA 05/01/23 [History] Acetaminophen Tab [Tylenol] 650 mg PO Q6HR PRN tab 05/04/23 [Rx] Insulin Detemir (Levemir) [Levemir] 10 unit SQ HS 30 Days #3 each 05/04/23 [Rx] Gabapentin 300 mg PO TID 06/27/23 [History] Lanthanum Carbonate [Lanthanum Carbonate Chew] 1,000 mg PO TID-W/MEALS 06/27/23 [History] Follow up Appointment(s)/Referral(s): Ming Law MD [Primary Care Provider] - 1-2 days Todd Rocha DO [Doctor of Osteopathic Medicine] - 1 Week Dave Flores DO [STAFF PHYSICIAN] - 1 Week Patient Instructions/Handouts: Dialysis Diet (DC), End Stage Kidney Disease (DC) Activity/Diet/Wound Care/Special Instructions: Please see your PCP and trucker. Also see your vascular surgeon. Discharge Disposition: HOME SELF-CARE
[2023-06-28 14:31] VITALS: BP 137/87; PULSE 71; RESP 15; TEMP 97.9
[2023-06-28] MEDS ORDERED: INSULIN DETEMIR (LEVEMIR) 100 UNIT/ML SYR SQ SCH (21:00)
--- NOTE | 2023-06-29 08:49 | IR ---
EXAMINATION TYPE: IR cvc insert central tunneled DATE OF EXAM: 06/28/2023 COMPARISON: NONE HISTORY: Fluoroscopy time. Fluoroscopy was provided to the referring clinician.
== END 2023-06-28 15:30 | disposition home or self-care (01) ==
LOC: EC 19:37 → 6NMEDSUR 06-27 03:48
PROVIDERS: ADMIT Internal Medicine; ATTEND Internal Medicine
DX: T82.868A Thrombosis due to vascular prosthetic devices, implants and grafts, initial encounter (principal); Y71.2 Prosthetic and other implants, materials and accessory cardiovascular devices associated with adverse incidents; I13.2 Hypertensive heart and chronic kidney disease with heart failure and with stage 5 chronic kidney disease, or end stage renal disease; I50.9 Heart failure, unspecified; N18.6 End stage renal disease; E11.22 Type 2 diabetes mellitus with diabetic chronic kidney disease; M89.8X9 Other specified disorders of bone, unspecified site; F17.200 Nicotine dependence, unspecified, uncomplicated; E66.9 Obesity, unspecified; Z68.33 Body mass index [BMI] 33.0-33.9, adult; Z79.4 Long term (current) use of insulin; Z79.899 Other long term (current) drug therapy
CPT/HCPCS: 96372 ×2; 99285; 36415; 36558; 76937; 77001; 80053; 80048; 83735; 84100; 84132; 85025 ×2; 71045; 93931; G0378 ×2; C1769 ×2; C1750; J2250; J1644 ×2; J0690; J2001; J3010; 90935

== ENCOUNTER 2023-07-15 18:49 | Inpatient (IN) | payer MEDICARE, OTHER ==
[2023-07-15] MEDS ORDERED: ACETAMINOPHEN TAB 500 MG TAB PO STA (20:20)
--- NOTE | 2023-07-15 20:36 | ED ---
Recheck HPI - General Source: patient, family, RN notes reviewed Mode of arrival: ambulatory Limitations: no limitations <Joyce Platt - Last Filed: 07/15/23 20:33> <Alma Phipps - Last Filed: 07/16/23 07:18> - General Chief Complaint: Recheck/Abnormal Lab/Rx Stated Complaint: Abn labs/fever Time Seen by Provider: 07/15/23 20:33 - History of Present Illness Initial Comments: patient is a 42-year-old male presented ER with chief complaint of catheter infection. Patient states he noticed his dialysis catheter is red, strinky, and having drainage. Patient is also endorsing a fever, shortness of breath, chest pain. Patient states that he noticed increasing erythema couple of days ago and dialysis told him to monitor it and go to the ER if any changes. (Joyce Platt) Suman 42-year-old male with past medical history significant for end-stage renal disease on dialysis for the past 2 years. Patient has had failed dialysis access in bilateral upper extremities, he has had a dialysis cath for nearly 2 years now. Patient reports he was first For 18 months before became infected. Since that time he said recurrent infections and axis difficulty. Patient reports that earlier in the week he noted some redness and pus coming from the access area, dialysis nurse and advised him to keep it clean and continue watching it. Patient reports that since that times, more red and more painful swollen there is purulent drainage in his developed fevers and chills. Patient's fever was over 103 today he was advised of the hospital for evaluation. (Alma Phipps) - Related Data Home Medications Medication Instructions Recorded Confirmed Calcium Acetate [PhosLo] 2,001 mg PO TID-W/MEALS 02/20/23 06/27/23 Pantoprazole [Protonix] 40 mg PO DAILY 02/20/23 06/27/23 Torsemide [Demadex] 20 mg PO BID 02/20/23 06/27/23 carvediloL [Coreg] 25 mg PO HS 02/20/23 06/27/23 hydrALAZINE HCL [Apresoline] 50 mg PO HS 02/20/23 06/27/23 Calcium Acetate [PhosLo] 1,334 mg PO DIRECTED PRN 05/01/23 06/27/23 carvediloL [Coreg] 25 mg PO SUTUTHSA 05/01/23 06/27/23 hydrALAZINE HCL 50 mg PO SUTUTHSA 05/01/23 06/27/23 Gabapentin 300 mg PO TID 06/27/23 06/27/23 Lanthanum Carbonate [Lanthanum 1,000 mg PO TID-W/MEALS 06/27/23 06/27/23 Carbonate Chew] Previous Rx's Medication Instructions Recorded Acetaminophen Tab [Tylenol] 650 mg PO Q6HR PRN tab 05/04/23 Insulin Detemir (Levemir) [Levemir] 10 unit SQ HS 30 Days #3 each 05/04/23 Allergies Allergy/AdvReac Type Severity Reaction Status Date / Time No Known Allergies Allergy Verified 07/15/23 20:20 Review of Systems ROS Other: All systems not noted in ROS Statement are negative. <Joyce Platt - Last Filed: 07/15/23 20:33> ROS Other: All systems not noted in ROS Statement are negative. <Alma Phipps - Last Filed: 07/16/23 07:18> ROS Statement: Those systems with pertinent positive or pertinent negative responses have been documented in the HPI. Past Medical History Past Medical History: Heart Failure, Diabetes Mellitus, Hypertension, Renal Disease Additional Past Medical History / Comment(s): DIALYSIS. DIET CONTROLLED DM History of Any Multi-Drug Resistant Organisms: None Reported Past Surgical History: Orthopedic Surgery Additional Past Surgical History / Comment(s): TOE AMPUTATION. FOOT SURG. DIAL YSIS CATH PLACED. FISTULA. TRAYC CAT REMOVAL AND LASER EYE SURG. Past Anesthesia/Blood Transfusion Reactions: No Reported Reaction Past Psychological History: No Psychological Hx Reported Smoking Status: Current every day smoker Past Alcohol Use History: Occasional Past Drug Use History: Marijuana - Past Family History Father Family Medical History: Diabetes Mellitus <Joyce Platt - Last Filed: 07/15/23 20:33> General Exam Limitations: no limitations <Joyce Platt - Last Filed: 07/15/23 20:33> Limitations: no limitations General appearance: alert, other Head exam: Present: atraumatic, normocephalic (Ill appearing) Eye exam: Present: PERRL ENT exam: Present: normal exam Neck exam: Present: normal inspection Respiratory exam: Absent: respiratory distress Cardiovascular Exam: Present: normal rhythm, tachycardia, other (There is dialysis access the right upper chest, the axis point is erythematous with purulent malodorous drainage.) GI/Abdominal exam: Present: soft. Absent: distended Rectal exam: Present: deferred Neurological exam: Present: alert, oriented X3 Psychiatric exam: Present: normal affect <Alma Phipps - Last Filed: 07/16/23 07:18> - General Exam Comments Initial Comments: Visual Physical Exam Vital signs reviewed General: diaphoretic and ill Head: Normocephalic, atraumatic Eyes: PERRLA, EOMI ENT: Airway patent Chest: Nonlabored breathing Skin: surrounding erythema and purulent drainage from dialysis catheter Neuro: Alert and oriented 3 Musculoskeletal: No gross abnormalities (Joyce Platt) Course Vital Signs 07/15/23 07/15/23 07/16/23 20:17 23:16 00:00 Temperature 102.8 F H 103.1 F H 102.8 F H Pulse Rate 114 H 113 H 110 H Respiratory 20 20 22 Rate Blood Pressure 193/110 174/96 177/97 O2 Sat by Pulse 96 93 L 95 Oximetry Procedures - Sepsis Sepsis Focused Exam #1 Time Sepsis Criteria Met: 00:30 Sepsis Focused Exam Date: 07/16/23 Sepsis Focused Exam Time: 02:00 Sepsis Focused Exam Complete: Yes Vital Signs & RN Notes Reviewed: Yes Capillary Refill: < 2 Seconds: Fingers, Toes Peripheral Pulses: Strong: Radial (R), Radial (L) Skin Color: Flushed Cardiovascular Exam: tachycardia <Alma Phipps - Last Filed: 07/16/23 07:18> Medical Decision Making <Joyce Platt - Last Filed: 07/15/23 20:33> - Lab Data Result diagrams: 07/15/23 20:39 07/15/23 20:39 <Alma Phipps - Last Filed: 07/16/23 07:18> - Medical Decision Making I performed the quick note portion of the exam. Electronically signed by Joyce Platt PA-C (Joyce Platt) Was pt. sent in by a medical professional or institution (DARYN Ng, AUDIO/VIDEO TECHNICIAN, urgent care, hospital, or longterm...) When possible be specific @ -Yes - dialysis nurse Did you speak to anyone other than the patient for history (EMS, parent, family, police, friend...)? What history was obtained from this source @ -No Did you review nursing and triage notes (agree or disagree)? Why? @ -I reviewed and agree with nursing and triage notes Were old charts reviewed (outside hosp., previous admission, EMS record, old EKG, old radiological studies, urgent care reports/EKG's, longterm records)? Report findings @ -Previous notes and microbiology ordered Differential Diagnosis (chest pain, altered mental status, abdominal pain women, abdominal pain men, vaginal bleeding, weakness, fever, dyspnea, syncope, headache, dizziness, GI bleed, back pain, seizure, CVA, palpatations, mental health)? @ -Differential Fever: Pneumonia, viral URI, endocarditis, myocarditis, pericarditis, otitis, sinusitis, peritonsillar Abscess, retropharyngeal Abscess, epiglottitis, peritonitis, appendicitis, Tracy cystitis, diverticulitis, hepatitis, colitis, UTI, PID, TOA, pyelonephritis, prostatitis, epididymitis, meningitis, en cephalitis, pulmonary embolism, CVA, thyroid storm, pancreatitis, adrenal crisis, cavernous sinus thrombosis, this is not meant to be an all-inclusive list. EKG interpreted by me (3pts min.). @ -EKG interpreted by me EKG obtained due to tachycardia EKG obtained at 12:15 AM, rate is 119 rhythm is sinus tach normal axis normal intervals, CT 155 QRS 87 QTc [address] elevations or depressions no evidence of ischemia or infarction. X-rays interpreted by me (1pt min.). @ -None done CT interpreted by me (1pt min.). @ -None done U/S interpreted by me (1pt. min.). @ -None done What testing was considered but not performed or refused? (CT, X-rays, U/S, labs)? Why? @ -None What meds were considered but not given or refused? Why? @ -None Did you discuss the management of the patient with other professionals (professionals i.e. , PA, AUDIO/VIDEO TECHNICIAN, lab, RT, psych nurse, social science teacher, etl application developer, teacher, national service officer, immigration case worker)? Give summary @ -Admitting physician Dr Aguilar Was smoking cessation discussed for >3mins.? @ -No Was critical care preformed (if so, how long)? @ -No Were there social determinants of health that impacted care today? How? (Homelessness, low income, unemployed, alcoholism, drug addiction, transportation, low edu. Level, literacy, decrease access to med. care, longterm, rehab)? @ -No Was there de-escalation of care discussed even if they declined (Discuss DNR or withdrawal of care, Hospice)? DNR status @ -No What co-morbidities impacted this encounter? (DM, HTN, Smoking, COPD, CAD, Cancer, CVA, ARF, Chemo, Hep., AIDS, mental health diagnosis, sleep apnea, morbid obesity)? @ -ESRD on Dialysis, obesity Was patient admitted / discharged? Hospital course, mention meds given and route, prescriptions, significant lab abnormalities, going to OR and other pertinent info. @ -Admitted Patient seen and evaluated, septic workup was initiated immediately. Previous infectious disease notes were reviewed patient was previously treated with cefepime and vancomycin which were again ordered. Previous blood cultures showed narvaez susceptible staph patient's fever was treated with 1 g of Tylenol due to patient's end-stage renal disease he cannot take Motrin. Patient's end- stage renal disease he cannot have significant fluid bolus however given the degree of his fever 1 L bolus and gentle IV fluids were ordered. Patient care was discussed with Dr. Petersen who accepts the admission for sepsis likely secondary to line infection and a dialysis patient. Infectious disease, nephrology and vascular surgery consult upon admission. Undiagnosed new problem with uncertain prognosis? @ -Yes Drug Therapy requiring intensive monitoring for toxicity (Heparin, Nitro, Insulin, Cardizem)? @ -No Were any procedures done? @ -No Diagnosis/symptom? @ -Sepsis Acute, or Chronic, or Acute on Chronic? @ -Acute Uncomplicated (without systemic symptoms) or Complicated (systemic symptoms)? @ -default Side effects of treatment? @ -No Exacerbation, Progression, or Severe Exacerbation? @ -No Poses a threat to life or bodily function? How? (Chest pain, [place], [place], pneumonia, PE, COPD, DKA, ARF, appy, cholecystitis, CVA, Diverticulitis, Homicidal, Suic idal, threat to staff... and all critical care pts) @ Yes (Alma Phipps) - Lab Data Lab Results 07/15/23 07/15/23 07/15/23 Range/Units 20:39 20:39 20:39 WBC 8.6 (3.8-10.6) k/uL RBC 4.40 (4.30-5.90) m/uL Hgb 14.2 (13.0-17.5) gm/dL Hct 41.2 (39.0-53.0) % MCV 93.7 (80.0-100.0) fL MCH 32.3 (25.0-35.0) pg MCHC 34.5 (31.0-37.0) g/dL RDW 14.2 (11.5-15.5) % Plt Count 159 (150-450) k/uL MPV 7.6 PT (10.0-12.5) sec INR (<1.2) APTT (22.0-30.0) sec Sodium 137 (137-145) mmol/L Potassium 4.7 (3.5-5.1) mmol/L Chloride 96 L (98-107) mmol/L Carbon Dioxide 25 (22-30) mmol/L Anion Gap 16 mmol/L BUN 56 H (9-20) mg/dL Creatinine 9.30 H* (0.66-1.25) mg/dL Est GFR (CKD-EPI)AfAm 7 (>60 ml/min/1.73 sqM) Est GFR (CKD-EPI)NonAf 6 (>60 ml/min/1.73 sqM) Glucose 123 H (74-99) mg/dL Plasma Lactic Acid Ras 1.2 (0.7-2.0) mmol/L Calcium 8.1 L (8.4-10.2) mg/dL Total Bilirubin 0.8 (0.2-1.3) mg/dL AST 17 (17-59) U/L ALT 16 (4-49) U/L Alkaline Phosphatase 103 (38-126) U/L Total Protein 7.8 (6.3-8.2) g/dL Albumin 4.4 (3.5-5.0) g/dL 07/16/23 Range/Units 00:29 WBC (3.8-10.6) k/uL RBC (4.30-5.90) m/uL Hgb (13.0-17.5) gm/dL Hct (39.0-53.0) % MCV (80.0-100.0) fL MCH (25.0-35.0) pg MCHC (31.0-37.0) g/dL RDW (11.5-15.5) % Plt Count (150-450) k/uL MPV PT 11.9 (10.0-12.5) sec INR 1.1 (<1.2) APTT 28.7 (22.0-30.0) sec Sodium (137-145) mmol/L Potassium (3.5-5.1) mmol/L Chloride (98-107) mmol/L Carbon Dioxide (22-30) mmol/L Anion Gap mmol/L BUN (9-20) mg/dL Creatinine (0.66-1.25) mg/dL Est GFR (CKD-EPI)AfAm (>60 ml/min/1.73 sqM) Est GFR (CKD-EPI)NonAf (>60 ml/min/1.73 sqM) Glucose (74-99) mg/dL Plasma Lactic Acid Ras (0.7-2.0) mmol/L Calcium (8.4-10.2) mg/dL Total Bilirubin (0.2-1.3) mg/dL AST (17-59) U/L ALT (4-49) U/L Alkaline Phosphatase (38-126) U/L Total Protein (6.3-8.2) g/dL Albumin (3.5-5.0) g/dL Disposition <Joyce Platt - Last Filed: 07/15/23 20:33> Is patient prescribed a controlled substance at d/c from ED?: No <Alma Phipps - Last Filed: 07/16/23 07:18> Clinical Impression: Sepsis, Hemodialysis catheter infection, ESRD (end stage renal disease) on dialysis Disposition: ADMITTED IP TO THIS HOSP Condition: Serious
[2023-07-15 21:21] LABS: HCT 41.2 % (39.0-53.0); HGB 14.2 gm/dL (13.0-17.5); MCH 32.3 pg (25.0-35.0); MCHC 34.5 g/dL (31.0-37.0); MCV 93.7 fL (80.0-100.0); Mean Platelet Volume 7.6; Platelet Count 159 k/uL (150-450); RDW 14.2 % (11.5-15.5); WBC 8.6 k/uL (3.8-10.6)
[2023-07-15 21:38] LABS: ALT 16 U/L (4-49); AST 17 U/L (17-59); African American GFR (CKD) 7 (>60 ml/min/1.73 sqM); Albumin 4.4 g/dL (3.5-5.0); Alkaline Phosphatase 103 U/L (38-126); Anion Gap 16 mmol/L; Blood Urea Nitrogen 56 mg/dL (9-20); Calcium 8.1 mg/dL (8.4-10.2); Carbon Dioxide 25 mmol/L (22-30); Chloride 96 mmol/L (98-107); Glucose 123 mg/dL (74-99); Non-African American GFR(CKD) 6 (>60 ml/min/1.73 sqM); Potassium 4.7 mmol/L (3.5-5.1); Sodium 137 mmol/L (137-145); Total Bilirubin 0.8 mg/dL (0.2-1.3); Total Protein 7.8 g/dL (6.3-8.2)
[2023-07-16] MEDS ORDERED: VANCOMYCIN IV PER PHARMACY 1 EACH MISC MISCELLANE PRN (00:04)
[2023-07-16] MEDS ORDERED: CEFEPIME 2 GM in SODIUM CHLORIDE 0.9% 100 ML IVPB STA (00:04)
[2023-07-16] MEDS ORDERED: VANCOMYCIN 1,750 MG in SODIUM CHLORIDE 0.9% 500 ML 500 ML IVPB STA (00:08)
[2023-07-16] MEDS ORDERED: SODIUM CHLORIDE 0.9% 1,000 ML IV ONE (00:16)
[2023-07-16] MEDS ORDERED: ACETAMINOPHEN TAB 325 MG TAB PO PRN ×2 (00:36→03:22)
[2023-07-16] MEDS ORDERED: NALOXONE 0.4 MG/ML 1 ML VIAL IV PRN (00:36)
[2023-07-16] MEDS ORDERED: MORPHINE SULFATE 4 MG/ML SYRINGE IVP STA (00:43)
[2023-07-16 00:52] LABS: INR 1.1 (<1.2); Partial Thromboplastin Time 28.7 sec (22.0-30.0); Prothrombin Time 11.9 sec (10.0-12.5)
[2023-07-16] MEDS: SODIUM CHLORIDE 0.9% 1,000 ML IV SCH ×2 (00:53→15:39)
--- NOTE | 2023-07-16 01:21 | XR ---
EXAMINATION TYPE: XR chest 2V DATE OF EXAM: 07/15/2023 9:13 PM CLINICAL INDICATION:Male, 42 years old with history of fever; [facility] COMPARISON: 06/28/2023 TECHNIQUE: XR chest 2V. FINDINGS: Lines/Tubes: Stable right IJ approach tunneled dialysis catheter with tip over the cavoatrial junction.. Heart/mediastinum: Cardiomediastinal silhouette is well defined. Heart size is stable, mildly enlarg ed. Mediastinum appears within normal limits. Pulmonary vascularity: Mild central vascular congestion. Increased interstitial markings can be seen with chronic changes, with or without superimposed mild edema or pneumonitis. Lungs/Pleura: There is no evidence of pleural effusion, focal consolidation, or pneumothorax. Musculoskeletal: No acute osseous abnormality demonstrated in the limits of the exam. Degenerative c hanges of the spine with slight exaggerated kyphosis. Other findings: None. IMPRESSION: 1. Cardiomegaly with mild vascular congestion. 2. Increased interstitial markings can be seen with chronic changes, with or without superimposed mi ld edema or pneumonitis. 3. No focal airspace disease.
[2023-07-16] MEDS: ACETAMINOPHEN TAB 500 MG TAB PO PRN ×3 (02:26→20:02)
[2023-07-16] MEDS ORDERED: DEXTROSE 50% SYRINGE 50 ML IVP PRN ×2 (03:40)
--- NOTE | 2023-07-16 03:53 | P.HPIM ---
History of Present Illness H&P Date: 07/16/23 Chief Complaint: line infection 42 year old male with hypertension , ESRD on HD right permacath, DM patient coming in due to concerns regarding recurrent right permacath infection, his last HD session was Thursday, skipped Thursday due to the holidays, and Thursday evening he started having pain at insertion site of the line, with yellowish drainage, no bleeding, . he describes feeling nauseated on Thursday evening, with some fevers, he went to HD on Thursday and was told that his line looks infected and he did not get HD session. he was having fevers of 102 . he recently had line infection requiring IV antibiotics and replacing his right permacath which was done about 2 weeks ago review of systems Pertinent positives as noted in HPI. All other systems were reviewed and are negative on exam Constitutional: No acute distress, conversant, pleasant Eyes: Anicteric sclerae, moist conjunctiva, Pupils equal round reactive to light ENMT: NC/AT Oropharynx clear, no erythema, or exudates Neck: Supple, no masses, or JVD No carotid bruits No thyromegaly Lungs: Clear to auscultation Clear to percussion Normal respiratory effort, no accessory muscle use Cardiovascular: Heart regular in rate and rhythm, No murmurs, gallops, or rubs No peripheral edema Abdominal: Soft Nontender, no guarding, rebound or rigidity Abdomen moving with respiration Normoactive bowel sounds No hepatomegaly, No splenomegaly No palpable mass No abdominal wall hernia noted skin: erythema surrounding site of entry of right permacath, tenderness along the right permacath tract. no active drainage. Extremities: right knee wound vac in place No digital cyanosis No clubbing Pedal pulses intact and symmetrical Radial pulses intact and symmetrical No calf tenderness Psychiatric: Alert and oriented to person, place and time Appropriate affect fair judgement Neuro Muscles Strength 5/5 in all 4 extremities with limited exam over right lower extremity due to surgery Sensation to light touch grossly present throughout Cranial nerves II-XII grossly intact Lymphatics: no palpable cervical or supraclavicular lymph nodes Past Medical History Past Medical History: Heart Failure, Diabetes Mellitus, Hypertension, Renal Disease Additional Past Medical History / Comment(s): DIALYSIS. DIET CONTROLLED DM History of Any Multi-Drug Resistant Organisms: None Reported Past Surgical History: Orthopedic Surgery Additional Past Surgical History / Comment(s): TOE AMPUTATION. FOOT SURG. DIALYSIS CATH PLACED. FISTULA. TRACY CAT REMOVAL AND LASER EYE SURG. Past Anesthesia/Blood Transfusion Reactions: No Reported Reaction Past Psychological History: No Psychological Hx Reported Smoking Status: Current every day smoker Past Alcohol Use History: Occasional Past Drug Use History: Marijuana - Past Family History Father Family Medical History: Diabetes Mellitus Medications and Allergies Home Medications Medication Instructions Recorded Confirmed Type Calcium Acetate [PhosLo] 2,001 mg PO TID-W/MEALS 02/20/23 06/27/23 History Pantoprazole [Protonix] 40 mg PO DAILY 02/20/23 06/27/23 History Torsemide [Demadex] 20 mg PO BID 02/20/23 06/27/23 History carvediloL [Coreg] 25 mg PO HS 02/20/23 06/27/23 History hydrALAZINE HCL [Apresoline] 50 mg PO HS 02/20/23 06/27/23 History Calcium Acetate [PhosLo] 1,334 mg PO DIRECTED PRN 05/01/23 06/27/23 History carvediloL [Coreg] 25 mg PO SUTUTHSA 05/01/23 06/27/23 History hydrALAZINE HCL 50 mg PO SUTUTHSA 05/01/23 06/27/23 History Acetaminophen Tab [Tylenol] 650 mg PO Q6HR PRN tab 05/04/23 06/27/23 Rx Insulin Detemir (Levemir) [Levemir] 10 unit SQ HS 30 Days #3 each 05/04/23 06/27/23 Rx Gabapentin 300 mg PO TID 06/27/23 06/27/23 History Lanthanum Carbonate [Lanthanum 1,000 mg PO TID-W/MEALS 06/27/23 06/27/23 History Carbonate Chew] Allergies Allergy/AdvReac Type Severity Reaction Status Date / Time No Known Allergies Allergy Verified 07/15/23 20:20 Physical Exam Vitals: Vital Signs Temp Pulse Resp BP Pulse Ox 07/15/23 23:16 103.1 F H 113 H 20 174/96 93 L 07/15/23 20:17 102.8 F H 114 H 20 193/110 96 Intake and Output 07/15/23 07/15/23 07/16/23 14:59 22:59 06:59 Other: Weight 109.769 kg Results CBC & Chem 7: 07/15/23 20:39 07/15/23 20:39 Labs: Abnormal Lab Results - Last 24 Hours (Table) 07/15/23 Range/Units 20:39 Chloride 96 L (98-107) mmol/L BUN 56 H (9-20) mg/dL Creatinine 9.30 H* (0.66-1.25) mg/dL Glucose 123 H (74-99) mg/dL Calcium 8.1 L (8.4-10.2) mg/dL Assessment and Plan Assessment: 42 year old male with ESRD , recurrent dialysis catheter infection, coming in today based on recommendations of HD center to rule out line infection , I discussed the case with ED do c and I accepted the admission for suspected right permacath infection and nephrology consult for HD with anticipated length of stay > 2 midnights right permacath line infection , recurrent follow up cultures tylenol for fever empiric antibioitics with vancomycin dosing by pharma cefepime 2 gm IVPB Q8hr pain control with opiates IVF hydration with normal saline 75 cc per hour vascular consult ESRD nephro consult for HD Na 137 , K 4.7 unremarkable BUN 56, Cr 9.3 DM insulin sliding scale hypertension resume coreg and hydralazine home meds GI PPX protonix 40 mg po daily DVT PPX heparin sc tid full code blood work showed WBC 8.6 and Hgb 14 unremarkable
[2023-07-16 06:37] LABS: Glucose,Whole Blood 100 mg/dL (70-110)
[2023-07-16] MEDS: INSULIN ASPART (NovoLOG) 100 UNIT/ML VIAL SQ SCH ×4 (06:44→21:37)
[2023-07-16] MEDS: CALCIUM ACETATE 667 MG TAB PO SCH ×3 (06:49→18:36)
[2023-07-16] MEDS: GABAPENTIN 300 MG CAP PO SCH ×3 (07:42→21:37)
[2023-07-16] MEDS: PANTOPRAZOLE 40 MG TABLET PO SCH (07:43)
[2023-07-16] MEDS: HEPARIN SODIUM,PORCINE 5,000 UNIT/ML 1 ML VIAL SQ SCH ×3 (07:43→21:42)
[2023-07-16] MEDS ORDERED: CEFEPIME 2 GM in SODIUM CHLORIDE 0.9% 100 ML IVPB SCH (08:00)
[2023-07-16] MEDS ORDERED: hydrALAZINE HCL 50 MG TAB PO PRN (09:00)
[2023-07-16] MEDS ORDERED: carvediloL 12.5 MG TAB PO PRN (09:00)
--- NOTE | 2023-07-16 10:30 | P.GSCN ---
History of Present Illness Consult date: 07/16/23 Reason for Consult: Dialysis cath Requesting physician: Alma Phipps History of present illness: This is a pleasant 42-year-old white male with a history of diabetes mellitus and end-stage renal disease requiring hemodialysis. Patient states he was diagnosed with diabetes mellitus about 10 years ago and end-stage renal disease on hemodialysis for the last 2 years. Patient had a yesenia fistula that was malfunctioning and required placement of a tunneled catheter which was done on 06/28/[address] Schwartz. Prior to this patient had a infected right IJ HD catheter which was removed by Dr. Lloyd on 05/01/2023. Patient states catheter has been working well, he is a Thursday dialysis fernando edule. He did miss dialysis on Thursday due to the holiday and then Thursday he was not feeling well. He started having fevers and chills at home, noticed redness and drainage from his tunneled catheter and came to emergency department for further evaluation. He has had a max temperature of 103.0F. He did get dialysis yesterday, states he had a full treatment without any difficulty. He does complain of some tenderness surrounding the tunnel catheter site. No leukocytosis on admission. Blood cultures obtained, currently pending. He denies any shortness of breath, chest pain, abdominal pain, nausea or vomiting. Review of Systems A 14 point review systems was completed all pertinent positives and negatives as stated in the HPI. Past Medical History Past Medical History: Heart Failure, Diabetes Mellitus, Hypertension, Renal Disease Additional Past Medical History / Comment(s): DIALYSIS. DIET CONTROLLED DM History of Any Multi-Drug Resistant Organisms: None Reported Past Surgical History: Orthopedic Surgery Additional Past Surgical History / Comment(s): TOE AMPUTATION. FOOT SURG. DIALYSIS CATH PLACED. FISTULA. TRACY CAT REMOVAL AND LASER EYE SURG. Past Anesthesia/Blood Transfusion Reactions: No Reported Reaction Past Psychological History: No Psychological Hx Reported Smoking Status: Current every day smoker Past Alcohol Use History: Occasional Past Drug Use History: Marijuana - Past Family History Father Family Medical History: Diabetes Mellitus Medications and Allergies Home Medications Medication Instructions Recorded Confirmed Type Calcium Acetate [PhosLo] 2,001 mg PO TID-W/MEALS 02/20/23 07/16/23 History Pantoprazole [Protonix] 40 mg PO DAILY 02/20/23 07/16/23 History Torsemide [Demadex] 20 mg PO BID 02/20/23 07/16/23 History carvediloL [Coreg] 25 mg PO BID@0600,2000 02/20/23 07/16/23 History hydrALAZINE HCL [Apresoline] 50 mg PO BID@1200,1600 02/20/23 07/16/23 History Calcium Acetate [PhosLo] 1,334 mg PO BID PRN 05/01/23 07/16/23 History Acetaminophen Tab [Tylenol] 650 mg PO Q6HR PRN tab 05/04/23 07/16/23 Rx Insulin Detemir (Levemir) [Levemir] 10 unit SQ HS 30 Days #3 each 05/04/23 07/16/23 Rx Gabapentin 300 mg PO TID 06/27/23 07/16/23 History Lanthanum Carbonate [Lanthanum 1,000 mg PO TID-W/MEALS 06/27/23 07/16/23 History Carbonate Chew] Allergies Allergy/AdvReac Type Severity Reaction Status Date / Time No Known Allergies Allergy Verified 07/16/23 08:34 Surgical - Exam Vital Signs Temp Pulse Resp BP Pulse Ox 102.8 F H 114 H 20 193/110 96 07/15/23 20:17 07/15/23 20:17 07/15/23 20:17 07/15/23 20:17 07/15/23 20:17 General appearance: The patient is alert, oriented, appears in no acute d istress. HET: Head is normocephalic and atraumatic. Pupils are equal and reactive. Neck: Supple. Chest: Right IJ tunneled catheter intact with surrounding redness, drainage and tenderness to palpation. Heart: Regular. Lungs: Equal expansion, normal respiratory effort. Abdomen: Soft, nontender, nondistended. Extremities: Normal skin color and turgor. Neurological: No focal deficits. Strength and sensation are grossly intact. Results - Labs 07/15/23 20:39 07/15/23 20:39 Abnormal Lab Results - Last 24 Hours (Table) 07/15/23 Range/Units 20:39 Chloride 96 L (98-107) mmol/L BUN 56 H (9-20) mg/dL Creatinine 9.30 H* (0.66-1.25) mg/dL Glucose 123 H (74-99) mg/dL Calcium 8.1 L (8.4-10.2) mg/dL Microbiology - Last 24 Hours (Table) 07/15/23 20:39 Gram Stain - Preliminary Chest Diabetes panel 07/15/23 Range/Units 20:39 Sodium 137 (137-145) mmol/L Potassium 4.7 (3.5-5.1) mmol/L Chloride 96 L (98-107) mmol/L Carbon Dioxide 25 (22-30) mmol/L BUN 56 H (9-20) mg/dL Creatinine 9.30 H* (0.66-1.25) mg/dL Glucose 123 H (74-99) mg/dL Calcium 8.1 L (8.4-10.2) mg/dL AST 17 (17-59) U/L ALT 16 (4-49) U/L Alkaline Phosphatase 103 (38-126) U/L Total Protein 7.8 (6.3-8.2) g/dL Albumin 4.4 (3.5-5.0) g/dL Calcium panel 07/15/23 Range/Units 20:39 Calcium 8.1 L (8.4-10.2) mg/dL Albumin 4.4 (3.5-5.0) g/dL Pituitary panel 07/15/23 Range/Units 20:39 Sodium 137 (137-145) mmol/L Potassium 4.7 (3.5-5.1) mmol/L Chloride 96 L (98-107) mmol/L Carbon Dioxide 25 (22-30) mmol/L BUN 56 H (9-20) mg/dL Creatinine 9.30 H* (0.66-1.25) mg/dL Glucose 123 H (74-99) mg/dL Calcium 8.1 L (8.4-10.2) mg/dL Adrenal panel 07/15/23 Range/Units 20:39 Sodium 137 (137-145) mmol/L Potassium 4.7 (3.5-5.1) mmol/L Chloride 96 L (98-107) mmol/L Carbon Dioxide 25 (22-30) mmol/L BUN 56 H (9-20) mg/dL Creatinine 9.30 H* (0.66-1.25) mg/dL Glucose 123 H (74-99) mg/dL Calcium 8.1 L (8.4-10.2) mg/dL Total Bilirubin 0.8 (0.2-1.3) mg/dL AST 17 (17-59) U/L ALT 16 (4-49) U/L Alkaline Phosphatase 103 (38-126) U/L Total Protein 7.8 (6.3-8.2) g/dL Albumin 4.4 (3.5-5.0) g/dL - Imaging Chest x-ray: report reviewed (Cardiomegaly with mild vascular congestion. Increased interstitial markings can be seen with chronic changes with or without superimposed mild edema or pneumonitis. No focal airspace disease. Stable right IJ approach tunneled dialysis catheter with tip over the cavoatrial junction) Assessment and Plan Assessment: 1. Infected tunneled dialysis catheter 2. Febrile 3. End-stage renal disease on hemodialysis 4. Diabetes mellitus Plan: 1. Discussed patient and plan of care with nephrology Dr. Jaramillo. Patient will get hemodialysis today followed by removal of tunneled hemodialysis catheter 2. Await culture results 3. Continue IV antibiotics as ordered 4. Plan for tunneled dialysis catheter placement on Thursday07/21/[address] Lloyd Thank you for this consultation, we will continue to follow. The impression and plan of care has been dictated as directed. I performed a history and examination of this patient, discussed the same with the dictator. I agree with the dictator's note ,documented as a scribe. Any additional findings or plans will be noted. Due to appearance, and bacteremia was decided removal was essential. Patient did get a run of hemodialysis in hopes to temporize him for a long line holiday. At the bedside, the right chest and neck was prepped and draped in usual sterile fashion. A preprocedure timeout was performed, everyone was in agreement. The area was cleansed with chlorhexidine. 1% lidocaine was anesthetized into the area surrounding tunnel. Gentle traction was performed and the catheter and there was easy dislodgment without significant dissection necessary. The catheter was removed in its entirety. There was purulent drainage from the site. Manual pressure was held at the internal jugular access site. Manual pressure was held until hemostasis was adequate. A dressing was placed. The patient tolerated the procedure well.
[2023-07-16 11:29] LABS: Glucose,Whole Blood 121 mg/dL (70-110)
--- NOTE | 2023-07-16 13:37 | P.NPCON ---
History of Present Illness - Reason for Consult end stage renal disease - History of Present Illness Patient is a 42-year-old male with end-stage renal disease on hemodialysis on a Thursday schedule. Patient is admitted to the hospital with history of fever and drainage from his right IJ permacath. This catheter was placed about 2 months ago. History of previousLY thrombosed AV fistula. No history of nausea vomiting abdominal pain or diarrhea. History of MSSA growth from previous catheter tip on 05/01/2023. Patient has been evaluated by vascular surgery and plan is to remove the d ialysis catheter today after hemodialysis. Review of Systems As per HPI Past Medical History Past Medical History: Heart Failure, Diabetes Mellitus, Hypertension, Renal Disease Additional Past Medical History / Comment(s): DIALYSIS. DIET CONTROLLED DM History of Any Multi-Drug Resistant Organisms: None Reported Past Surgical History: Orthopedic Surgery Additional Past Surgical History / Comment(s): TOE AMPUTATION. FOOT SURG. DIALYSIS CATH PLACED. FISTULA. TRACY CAT REMOVAL AND LASER EYE SURG. Past Anesthesia/Blood Transfusion Reactions: No Reported Reaction Past Psychological History: No Psychological Hx Reported Smoking Status: Current every day smoker Past Alcohol Use History: Occasional Past Drug Use History: Marijuana - Past Family History Father Family Medical History: Diabetes Mellitus Medications and Allergies Home Medications Medication Instructions Recorded Confirmed Type Calcium Acetate [PhosLo] 2,001 mg PO TID-W/MEALS 02/20/23 07/16/23 History Pantoprazole [Protonix] 40 mg PO DAILY 02/20/23 07/16/23 History Torsemide [Demadex] 20 mg PO BID 02/20/23 07/16/23 History carvediloL [Coreg] 25 mg PO BID@0600,2000 02/20/23 07/16/23 History hydrALAZINE HCL [Apresoline] 50 mg PO BID@1200,1600 02/20/23 07/16/23 History Calcium Acetate [PhosLo] 1,334 mg PO BID PRN 05/01/23 07/16/23 History Acetaminophen Tab [Tylenol] 650 mg PO Q6HR PRN tab 05/04/23 07/16/23 Rx Insulin Detemir (Levemir) [Levemir] 10 unit SQ HS 30 Days #3 each 05/04/23 07/16/23 Rx Gabapentin 300 mg PO TID 06/27/23 07/16/23 History Lanthanum Carbonate [Lanthanum 1,000 mg PO TID-W/MEALS 06/27/23 07/16/23 History Carbonate Chew] Allergies Allergy/AdvReac Type Severity Reaction Status Date / Time No Known Allergies Allergy Verified 07/16/23 08:34 Physical Exam Vitals: Vital Signs Temp Pulse Pulse Resp BP BP Pulse Ox 07/16/23 07:28 103.0 F H 128 H 21 187/96 89 L 07/16/23 02:02 104 H 07/16/23 02:00 103.0 F H 120 H 22 172/97 92 L 07/16/23 00:00 102.8 F H 110 H 22 177/97 95 07/15/23 23:16 103.1 F H 113 H 20 174/96 93 L 07/15/23 20:17 102.8 F H 114 H 20 193/110 96 Intake and Output 07/15/23 07/16/23 07/16/23 22:59 06:59 14:59 Intake Total 50 Balance 50 Intake: Oral 50 Other: Weight 109.769 kg 109.769 kg Patient is awake, comfortable, no acute distress Examination of the heart S1 and S2 Examination of the lungs bilateral breath sounds are heard Abdomen is soft nontender Examination of lower extremities shows no significant edema IJ permacath is currently dressed CUT OFF OPERATOR SCORER exam grossly intact Results - Lab Results Most recent lab results Calcium 8.1 mg/dL (8.4-10.2) L 07/15/23 20:39 07/15/23 20:39 07/15/23 20:39 Assessment and Plan Assessment: 1. End-stage renal disease on hemodialysis on a Thursday schedule at the [facility] dialysis unit. 2. Fever secondary to tunnel infection rule out bacteremia from IJ permacath. 3. CK D mineral bone disorder 4. History of infected catheter previously with catheter tip growing staph elizabeth us on 05/01/2023. Plan: Removal of dialysis catheter today after hemodialysis today. Continue with antibiotics New catheter placement once there is no evidence of bacteremia. Thank you for the consultation. We will continue to follow the patient with you during his hospitalization.
[2023-07-16] MEDS ORDERED: LIDOCAINE 1% INJ 10MG/ML (20 ML MDV) SQ ONE (15:01)
--- NOTE | 2023-07-16 15:04 | P.PN ---
Subjective Progress Note Date: 07/16/23 Hospital course: Patient is a very pleasant 42-year-old male with a past medical history of diabetes mellitus, hypertension, and ESRD on dialysis Mondays/Wednesdays/Fridays. He presented to the emergency department secondary to reports of fevers, chills, and yellow purulent drainage from dialysis catheter site. Patient's tunneled dialysis catheter was placed on 06/28/23 status post recent infected right IJ hemodialysis catheter was removed 2 months prior. Patient reports he has been undergoing dialysis as scheduled Mondays/Wednesdays/Fridays. He reports last hemodialysis session was Thursday07/10/23, patient states he missed Thursday secondary to being a holiday and on Thursday he began feeling ill and running a fever. Upon arrival to the emergency department patient underwent full evaluation.. Vital signs reviewed and concerning for severe sepsis with temp 103.1F, heart rate 114, respiratory rate 20, blood pressure 193/110, and SpO2 of 96% on room air. Physical exam: Vital signs reviewed and stable. General: Patient appears acutely ill, cheeks are flushed. Derm: Skin warm and dry, normal coloration for ethnicity. Head: Atraumatic, normocephalic and symmetric. Eyes: EOMs intact, no lid lag, and anicteric sclera Mouth: no lip lesions, mucus membranes moist Cardiovascular: tachycardic rate and regular rhythm no murmur, positive posterior tibial pulses bilaterally, and cap refill < 2 seconds. Tunneled dialysis catheter right anterior chest with surrounding erythema and drainage on dressing Lungs: Respirations even, regular, and unlabored on room air. Lungs CTA bilaterally, no rhonchi, no rales, no wheezing, and no accessory muscle usage. Abdominal: soft, nontender to palpation, no guarding, no appreciable organomegaly Ext: ROM intact. No gross muscle atrophy, no edema, no contractures Neuro: Speech clear, face symmetrical and CN II-XII grossly intact with no noted focal neuro deficits Psych: Alert and oriented to person, place, time, and situation. Appropriate and pleasant affect. Assessment and Plan of Care: Tunneled dialysis catheter with concerns of infection Severe sepsis, suspected secondary to above Blood cultures obtained and sent to lab for analysis. Continuation of IV antibiotics of vancomycin and cefepime 1 g every 12 hours pending culture results. Consult infectious disease. Consult to vascular surgery Cardiac monitoring Tylenol 1000 mg every 6 hours as needed for fever. ESRD, missed dialysis Hypertensive urgency, believed to be secondary to missed dialysis sessions Consult to nephrology for management of dialysis and hypertensive urgency secondary to missed dialysis CODE STATUS: Full code DVT prophylaxis: Heparin Anticipated discharge date: Clinical course to determine Anticipated discharge place: Clinical course to determine Patient was seen independently by Nurse Pracitioner. This document was prepared using [employer] dictation software. Please allow for errors in obstetrical anesthesiologist, while rare they do occur. Objective - Vital Signs Vital signs: Vital Signs Temp 103.0 F H 07/16/23 07:28 Pulse 128 H 07/16/23 07:28 Resp 21 07/16/23 07:28 BP 187/96 07/16/23 07:28 Pulse Ox 89 L 07/16/23 07:28 FiO2 Intake & Output 07/15/23 07/16/23 07/16/23 18:59 06:59 18:59 Intake Total 50 Balance 50 Weight 109.769 kg Intake: Oral 50 - Labs CBC & Chem 7: 07/15/23 20:39 07/15/23 20:39 Labs: Abnormal Lab Results - Last 24 Hours (Table) 07/15/23 Range/Units 20:39 Chloride 96 L (98-107) mmol/L BUN 56 H (9-20) mg/dL Creatinine 9.30 H* (0.66-1.25) mg/dL Glucose 123 H (74-99) mg/dL Calcium 8.1 L (8.4-10.2) mg/dL Microbiology - Last 24 Hours (Table) 07/15/23 20:39 Gram Stain - Preliminary Chest
[2023-07-16] MEDS: hydrALAZINE HCL 50 MG TAB PO SCH ×3 (15:39→18:35)
[2023-07-16] MEDS: ONDANSETRON 4 MG/2 ML VIAL IVP PRN (18:02)
[2023-07-16] MEDS: CEFEPIME 1 GM in SODIUM CHLORIDE 0.9% 50 ML IVPB SCH (18:28)
[2023-07-16] MEDS: carvediloL 12.5 MG TAB PO SCH (20:01)
[2023-07-16 20:10] LABS: Glucose,Whole Blood 160 mg/dL (70-110)
[2023-07-16] MEDS ORDERED: VANCOMYCIN 1,750 MG in SODIUM CHLORIDE 0.9% 500 ML 500 ML IVPB ONE (21:00)
[2023-07-16] MEDS ORDERED: hydrALAZINE HCL 50 MG TAB PO SCH (21:00)
[2023-07-16] MEDS ORDERED: carvediloL 12.5 MG TAB PO SCH (21:00)
[2023-07-17] MEDS: CEFEPIME 1 GM in SODIUM CHLORIDE 0.9% 50 ML IVPB SCH ×2 (02:45→11:56)
[2023-07-17] MEDS: SODIUM CHLORIDE 0.9% 1,000 ML IV SCH (02:54)
[2023-07-17] MEDS: ACETAMINOPHEN TAB 500 MG TAB PO PRN ×2 (04:23→21:20)
[2023-07-17 05:34] LABS: Glucose,Whole Blood 106 mg/dL (70-110)
[2023-07-17] MEDS: INSULIN ASPART (NovoLOG) 100 UNIT/ML VIAL SQ SCH ×4 (06:59→20:08)
[2023-07-17] MEDS: CALCIUM ACETATE 667 MG TAB PO SCH ×3 (07:01→16:31)
[2023-07-17] MEDS: carvediloL 12.5 MG TAB PO SCH ×2 (08:29→21:20)
[2023-07-17] MEDS: GABAPENTIN 300 MG CAP PO SCH (08:29)
[2023-07-17] MEDS: HEPARIN SODIUM,PORCINE 5,000 UNIT/ML 1 ML VIAL SQ SCH ×3 (08:29→23:06)
[2023-07-17] MEDS: PANTOPRAZOLE 40 MG TABLET PO SCH (08:29)
[2023-07-17 11:40] LABS: Glucose,Whole Blood 133 mg/dL (70-110)
[2023-07-17] MEDS: hydrALAZINE HCL 50 MG TAB PO SCH ×2 (11:55→15:45)
--- NOTE | 2023-07-17 14:04 | P.PN ---
Subjective Patient is seen in follow-up for end-stage renal disease. He is maintained on hemodialysis on Thursday schedule. Last hemodialysis treatment was 07/16/2023. Permacath was removed on 07/16/2023 due to infection. Currently resting in bed. Vital signs are stable. General: No acute distress. HEENT: Head exam is unremarkable. LUNGS: No audible rhonchi or wheezes. HEART: Rate and Rhythm are regular. ABDOMEN: Nontender. EXTREMITITES: Trace edema. Objective - Vital Signs Vital signs: Vital Signs Temp 98.9 F 07/17/23 12:02 Pulse 94 07/17/23 06:54 Resp 21 07/17/23 06:54 BP 129/77 07/17/23 12:02 Pulse Ox 94 L 07/17/23 06:54 FiO2 Intake & Output 07/16/23 07/17/23 07/17/23 18:59 06:59 18:59 Intake Total 400 Output Total 400 Balance 0 Intake: Hemodialysis 400 Output: Hemodialysis 400 Other: # Voids 0 2 # Bowel Movements 0 - Labs CBC & Chem 7: 07/15/23 20:39 07/15/23 20:39 Labs: Abnormal Lab Results - Last 24 Hours (Table) 07/16/23 07/17/23 07/17/23 Range/Units 20:09 06:18 11:38 POC Glucose (mg/dL) 160 H 133 H (70-110) mg/dL Hemoglobin A1c 7.3 H (<=6.0) % Microbiology - Last 24 Hours (Table) 07/15/23 20:47 Blood Culture Gram Stain - Preliminary Blood Blood Culture - Preliminary Presumptive Staph aureus 07/15/23 21:02 Blood Culture Gram Stain - Preliminary Blood Blood Culture - Preliminary Presumptive Staph aureus 07/15/23 20:39 Gram Stain - Preliminary Chest Wound Culture - Preliminary Presumptive Staph aureus Assessment and Plan Plan: Assessment: 1. End-stage renal disease maintained on hemodialysis on Thursday schedule. 2. Sepsis secondary to a permacath infection. Blood culture positive for staph aureus. Permacath removed 07/16/2023. 3. Chronic kidney disease mineral bone disease maintained on PhosLo. 4. Hypertension with chronic kidney disease. Controlled. 5. Diabetes mellitus. Plan: Antibiotics per infectious disease. New permacath will be inserted once cleared by infectious disease. Continue to monitor labs daily. Hep-Lock IV fluids. Decrease dose of gabapentin.
--- NOTE | 2023-07-17 14:06 | P.PN ---
Subjective Progress Note Date: 07/17/23 Patient seen and examined. No complaints. Still not feeling great. Mild fever per his report. Objective - Vital Signs Vital signs: Vital Signs Temp 99.2 F 07/17/23 13:22 Pulse 97 07/17/23 13:22 Resp 19 07/17/23 13:22 BP 148/81 07/17/23 13:22 Pulse Ox 96 07/17/23 13:22 FiO2 Intake & Output 07/16/23 07/17/23 07/17/23 18:59 06:59 18:59 Intake Total 400 Output Total 400 Balance 0 Intake: Hemodialysis 400 Output: Hemodialysis 400 Other: # Voids 0 2 # Bowel Movements 0 - Exam Patient sitting at the bedside. No acute distress. Heart appears regular in rate and rhythm. Catheter removal site is clean and dry. No hematoma - Labs CBC & Chem 7: 07/15/23 20:39 07/15/23 20:39 Labs: Abnormal Lab Results - Last 24 Hours (Table) 07/16/23 07/17/23 07/17/23 Range/Units 20:09 06:18 11:38 POC Glucose (mg/dL) 160 H 133 H (70-110) mg/dL Hemoglobin A1c 7.3 H (<=6.0) % Microbiology - Last 24 Hours (Table) 07/15/23 20:47 Blood Culture Gram Stain - Preliminary Blood Blood Culture - Preliminary Presumptive Staph aureus 07/15/23 21:02 Blood Culture Gram Stain - Preliminary Blood Blood Culture - Preliminary Presumptive Staph aureus 07/15/23 20:39 Gram Stain - Preliminary Chest Wound Culture - Preliminary Presumptive Staph aureus Assessment and Plan Assessment: 1. Infected tunneled dialysis catheter 2. Febrile 3. End-stage renal disease on hemodialysis 4. Diabetes mellitus Plan: Catheter removed. Doing well overall. Await line holiday and clearance of bacteremia prior to placement of tunneled dialysis catheter.
--- NOTE | 2023-07-17 15:04 | P.PN ---
Subjective Progress Note Date: 07/17/23 Hospital course: Patient is a very pleasant 42-year-old male with a past medical history of diabetes mellitus, hypertension, and ESRD on dialysis Mondays/Wednesdays/Fridays. He presented to the emergency department secondary to reports of fevers, chills, and yellow purulent drainage from dialysis catheter site. Patient's tunneled dialysis catheter was placed on 06/28/23 status post recent infected right IJ hemodialysis catheter was removed 2 months prior. Patient reports he has been undergoing dialysis as scheduled Mondays/Wednesdays/Fridays. He reports last hemodialysis session was Thursday07/10/23, patient states he missed Thursday secondary to being a holiday and on Thursday he began feeling ill and running a fever. Upon arrival to the emergency department patient underwent full evaluation.. Vital signs reviewed and concerning for severe sepsis with temp 103.1F, heart rate 114, respiratory rate 20, blood pressure 193/110, and SpO2 of 96% on room air. Physical exam: Vital signs reviewed and stable. General: Patient appears acutely ill, cheeks are flushed. Derm: Skin warm and dry, normal coloration for ethnicity. Head: Atraumatic, normocephalic and symmetric. Eyes: EOMs intact, no lid lag, and anicteric sclera Mouth: no lip lesions, mucus membranes moist Cardiovascular: tachycardic rate and regular rhythm no murmur, positive posterior tibial pulses bilaterally, and cap refill < 2 seconds. Dressing from previous tunneled dialysis catheter site (right anterior chest) is clean dry and intact with no signs of bleeding or drainage upon examination. Lungs: Respirations even, regular, and unlabored on room air. Lungs CTA bilaterally, no rhonchi, no rales, no wheezing, and no accessory muscle usage. Abdominal: soft, nontender to palpation, no guarding, no appreciable organomegaly Ext: ROM intact. No gross muscle atrophy, no edema, no contractures Neuro: Speech clear, face symmetrical and CN II-XII grossly intact with no noted focal neuro deficits Psych: Alert and oriented to person, place, time, and situation. Appropriate and pleasant affect. Assessment and Plan of Care: Staph aureus bacteremia Staph aureus Infected Tunneled dialysis catheter site Severe sepsis, suspected secondary to above Blood cultures preliminarily positive for presumptive staph aureus Wound culture obtained from drainage from dialysis catheter site also positive preliminarily for presumptive Staphylococcus aureus. Antibiotics descalated to only cefepime 1 g every 12 hours pending further recommendations from infectious disease. Infectious disease following, appreciate recommendations Vascular surgery following, tunneled dialysis catheter right anterior chest was removed yesterday following completion of dialysis. Patient to remain on continuous telemetry monitoring. Tylenol 1000 mg every 6 hours as needed for fever. Repeat blood cultures until negative ESRD, missed dialysis Hypertensive urgency, believed to be secondary to missed dialysis sessions. Blood pressure much improved after dialysis completion. Nephrology following and managing dialysis. Hypertensive urgency resolved status post completion of dialysis. Patient to continue with Coreg 25 mg twice daily and hydralazine 50 mg twice daily. Insulin-dependent Diabetes mellitus. -Patient to continue Levemir 10 units nightly along with glycemic protocol with NovoLog sliding scale. -Hemoglobin A1c 7.3%. Data reviewed: Vital signs reviewed. Patient continues to run elevated temps currently temp 101.2F this morning with a temperature high of 103.0F over the past 24 hours. Blood pressure 126/73, heart rate 94, respiratory 21, and SpO2 of 94% on room air. Blood cultures preliminarily positive for presumptive staph aureus Wound culture obtained from drainage from dialysis catheter site also positive preliminarily for presumptive Staphylococcus aureus. CODE STATUS: Full code DVT prophylaxis: Heparin Anticipated discharge date: Clinical course to determine Anticipated discharge place: Clinical course to determine Patient was seen independently by Nurse Pracitioner. This document was prepared using [employer] dictation software. Please allow for errors in telesales team leader, while rare they do occur. Martin Scott NP rendered care for this patient independently, reviewed the findings and plan as documented in the note above. I did not physically speak with or examine the patient on this date. Objective - Vital Signs Vital signs: Vital Signs Temp 101.2 F H 07/17/23 06:54 Pulse 94 07/17/23 06:54 Resp 21 07/17/23 06:54 BP 126/73 07/17/23 06:54 Pulse Ox 94 L 07/17/23 06:54 FiO2 Intake & Output 07/16/23 07/17/23 07/17/23 18:59 06:59 18:59 Intake Total 400 Output Total 400 Balance 0 Intake: Hemodialysis 400 Output: Hemodialysis 400 Other: # Voids 0 2 # Bowel Movements 0 - Labs CBC & Chem 7: 07/17/23 15:31 07/17/23 15:31 Labs: Abnormal Lab Results - Last 24 Hours (Table) 07/16/23 07/16/23 Range/Units 11:28 20:09 POC Glucose (mg/dL) 121 H 160 H (70-110) mg/dL Microbiology - Last 24 Hours (Table) 07/15/23 20:39 Gram Stain - Preliminary Chest Wound Culture - Preliminary Presumptive Staph aureus 07/15/23 20:47 Blood Culture Gram Stain - Preliminary Blood 07/15/23 21:02 Blood Culture Gram Stain - Preliminary Blood
[2023-07-17] MEDS: GABAPENTIN 100 MG CAP PO SCH ×2 (15:45→21:20)
[2023-07-17] MEDS ORDERED: GABAPENTIN 300 MG CAP PO SCH (16:00)
[2023-07-17 16:18] LABS: Glucose,Whole Blood 152 mg/dL (70-110)
--- NOTE | 2023-07-17 16:19 | P.CONS ---
History of Present Illness - Reason for Consult Consult date: 07/16/23 Bacteremia Requesting physician: Martin Scott - Chief Complaint Fever and redness at the dialysis catheter site x 1 day - History of Present Illness Patient is a 42-year male with a past medical history difficult for diabetes mellitus hypertension patient did have a history of end-stage and is on dialysis through right chest wall permacatheter, patient did have a previous history of MSSA dialysis catheter infection back in April 2023 that was discontinued and new catheter was placed patient now presenting to the ER concerning for the dialysis catheter site to be right's drinking and having drainage apparently the patient symptoms started few days before presentation to the hospital has been complaining of pain to the right chest wall site of the dialysis catheter to be sharp moderate to severe intensity without any radiation did have associated swelling redness and some drainage with the symptoms the patient was evaluated on presentation to the hospital patient did have a fever of 102.8 F, patient was tachycardic white count was 8.6 creatinine 9.30, patient did have blood cultures drawn which came back positive with gram- positive cocci patient has been on vancomycin infectious disease was consulted for further management of antibiotic therapy Review of Systems Positive point and negatives has been mentioned in the HPI, complete review of systems was performed and all other systems are negative Past Medical History Past Medical History: Heart Failure, Diabetes Mellitus, Hypertension, Renal Disease Additional Past Medical History / Comment(s): DIALYSIS. DIET CONTROLLED DM History of Any Multi-Drug Resistant Organisms: None Reported Past Surgical History: Orthopedic Surgery Additional Past Surgical History / Comment(s): TOE AMPUTATION. FOOT SURG. DIALYSIS CATH PLACED. FISTULA. TRACY CAT REMOVAL AND LASER EYE SURG. Past Anesthesia/Blood Transfusion Reactions: No Reported Reaction Past Psychological History: No Psychological Hx Reported Smoking Status: Current every day smoker Past Alcohol Use History: Occasional Past Drug Use History: Marijuana - Past Family History Father Family Medical History: Diabetes Mellitus Medications and Allergies Home Medications Medication Instructions Recorded Confirmed Type Calcium Acetate [PhosLo] 2,001 mg PO TID-W/MEALS 02/20/23 07/16/23 History Pantoprazole [Protonix] 40 mg PO DAILY 02/20/23 07/16/23 History Torsemide [Demadex] 20 mg PO BID 02/20/23 07/16/23 History carvediloL [Coreg] 25 mg PO BID@0602/20/23 07/16/23 History hydrALAZINE HCL [Apresoline] 50 mg PO BID@1200,1600 02/20/23 07/16/23 History Calcium Acetate [PhosLo] 1,334 mg PO BID PRN 05/01/23 07/16/23 History Acetaminophen Tab [Tylenol] 650 mg PO Q6HR PRN tab 05/04/23 07/16/23 Rx Insulin Detemir (Levemir) [Levemir] 10 unit SQ HS 30 Days #3 each 05/04/23 07/16/23 Rx Gabapentin 300 mg PO TID 06/27/23 07/16/23 History Lanthanum Carbonate [Lanthanum 1,000 mg PO TID-W/MEALS 06/27/23 07/16/23 History Carbonate Chew] Allergies Allergy/AdvReac Type Severity Reaction Status Date / Time No Known Allergies Allergy Verified 07/16/23 08:34 Physical Exam Vitals: Vital Signs Temp Pulse Pulse Resp BP BP Pulse Ox 07/16/23 12:51 100.6 F H 120 H 21 173/85 98 07/16/23 07:28 103.0 F H 128 H 21 187/96 89 L 07/16/23 02:02 104 H 07/16/23 02:00 103.0 F H 120 H 22 172/97 92 L 07/16/23 00:00 102.8 F H 110 H 22 177/97 95 07/15/23 23:16 103.1 F H 113 H 20 174/96 93 L 07/15/23 20:17 102.8 F H 114 H 20 193/110 96 Intake and Output 07/16/23 07/16/23 07/16/23 06:59 14:59 22:59 Intake Total 50 Balance 50 Intake: Oral 50 Other: Weight 109.769 kg GENERAL DESCRIPTION: Middle-aged male lying in bed, no distress. No tachypnea or accessory muscle of respiration use. HEENT: Shows Pallor , no scleral icterus. Oral mucous membrane is dry. No pharyngeal erythema or thrush NECK: Trachea central, no thyromegaly. LUNGS: Unlabored breathing. Clear to auscultation anteriorly. No wheeze or crackle. HEART: S1, S2, regular rate and rhythm. No loud murmur ABDOMEN: Soft, no tenderness , guarding or rigidity, no organomegaly EXTREMITIES: No edema of feet. SKIN: Right chest wall dialysis catheter site did have some swelling and redness no drainage NEUROLOGICAL: The patient is awake, alert, oriented x3, mood and affect normal. Results CBC & Chem 7: 07/22/23 06:29 07/22/23 06:29 Labs: Abnormal Lab Results - Last 24 Hours (Table) 07/15/23 07/16/23 Range/Units 20:39 11:28 Chloride 96 L (98-107) mmol/L BUN 56 H (9-20) mg/dL Creatinine 9.30 H* (0.66-1.25) mg/dL Glucose 123 H (74-99) mg/dL POC Glucose (mg/dL) 121 H (70-110) mg/dL Calcium 8.1 L (8.4-10.2) mg/dL Microbiology - Last 24 Hours (Table) 07/15/23 20:47 Blood Culture Gram Stain - Preliminary Blood 07/15/23 21:02 Blood Culture Gram Stain - Preliminary Blood 07/15/23 20:39 Gram Stain - Preliminary Chest Assessment and Plan (1) Hemodialysis catheter infection Status: Acute Code(s): T82.7XXA - INFECT/INFLM REACT D/T OTH CARDI/VASC DEV/IMPLNT/GRFT, INIT SNOMED Code(s): 537667703 (2) MSSA bacteremia Status: Acute Code(s): R78.81 - BACTEREMIA; B95.61 - METHICILLIN SUSCEP STAPH INFCT CAUSING DIS CLASSD ELSWHR SNOMED Code(s): 654062534 (3) Sepsis Status: Acute Code(s): A41.9 - SEPSIS, UNSPECIFIED ORGANISM SNOMED Code(s): 23277775 Plan: 1patient presented to hospital with sepsis in this patient who did have a fever tachycardia now with evidence of gram-positive bacteremia source is right chest wall dialysis catheter infection with the previous history of MSSA with a question of possible MSSA versus MRSA 2patient has been evaluated by vascular surgery and planning for removal of the dialysis catheter 3blood cultures will be obtained in the a.m. to document clearance of his bacteremia was blood culture negative at 72 hours agreeable to get another catheter as per discussion with vascular surgery 4vancomycin to continue while waiting for the culture to finalize We will follow on clinical condition and cultures to further adjust medication if needed Thank you for this consultation we will follow the patient along with you Dictation was produced using [employer] dictation software. please excuse any grammatical, word or spelling errors. Time with Patient: Greater than 30
--- NOTE | 2023-07-17 16:22 | P.PN ---
Subjective Progress Note Date: 07/17/23 Principal diagnosis: Reason for follow-up is MSSA bacteremia and dialysis catheter infection Patient is a 42-year male with a past medical history difficult for diabetes mellitus hypertension end-stage renal disease on dialysis present to the hospital with sepsis secondary to dialysis catheter infection also evidence of MSSA bacteremia On today's evaluation that is 07/17/2023 patient did spike a fever this morning of 101.2 degrees following the patient is afebrile since then the patient is breathing comfortably on room air right-sided chest pain has decreased in i ntensity no nausea vomiting no abdominal pain no diarrhea. No labs were obtained today blood culture with MSSA Objective - Vital Signs Vital signs: Vital Signs Temp 98.9 F 07/17/23 12:02 Pulse 94 07/17/23 06:54 Resp 21 07/17/23 06:54 BP 129/77 07/17/23 12:02 Pulse Ox 94 L 07/17/23 06:54 FiO2 Intake & Output 07/16/23 07/17/23 07/17/23 18:59 06:59 18:59 Intake Total 400 Output Total 400 Balance 0 Intake: Hemodialysis 400 Output: Hemodialysis 400 Other: # Voids 0 2 # Bowel Movements 0 - Exam GENERAL DESCRIPTION: Middle-age male lying in bed in no distress RESPIRATORY SYSTEM: Unlabored breathing , decreased breath sounds at bases HEART: S1 S2 regular rate and rhythm , ABDOMEN: Soft , no tenderness EXTREMITIES: No edema feet - Labs CBC & Chem 7: 07/15/23 20:39 07/15/23 20:39 Labs: Abnormal Lab Results - Last 24 Hours (Table) 07/16/23 07/17/23 07/17/23 Range/Units 20:09 06:18 11:38 POC Glucose (mg/dL) 160 H 133 H (70-110) mg/dL Hemoglobin A1c 7.3 H (<=6.0) % Microbiology - Last 24 Hours (Table) 07/15/23 20:47 Blood Culture Gram Stain - Preliminary Blood Blood Culture - Preliminary Presumptive Staph aureus 07/15/23 21:02 Blood Culture Gram Stain - Preliminary Blood Blood Culture - Preliminary Presumptive Staph aureus 07/15/23 20:39 Gram Stain - Preliminary Chest Wound Culture - Preliminary Presumptive Staph aureus Assessment and Plan (1) MSSA bacteremia Current Visit: Yes Status: Acute Code(s): R78.81 - BACTEREMIA; B95.61 - M ETHICILLIN SUSCEP STAPH INFCT CAUSING DIS CLASSD ELSWHR SNOMED Code(s): 4 80846074 (2) Hemodialysis catheter infection Current Visit: Yes Status: Acute Code(s): T82.7XXA - INFECT/INFLM REACT D/T OTH CARDI/VASC DEV/IMPLNT/GRFT, INIT SNOMED Code(s): 227146883 (3) Sepsis Current Visit: Yes Status: Acute Code(s): A41.9 - SEPSIS, UNSPECIFIED ORGANISM SNOMED Code(s): 06587506 Plan: 1patient presented to hospital with sepsis in this patient who did have a fever tachycardia now with evidence of gram-positive bacteremia source is right chest wall dialysis catheter infection with the previous history of MSSA with a question of possible MSSA versus MRSA 2right chest wall dialysis catheter was discontinued on 07/16/2023 Has been sent for the culture. 3blood culture has been repeated this morning and will also repeated in the a.m. to document clearance of his bacteremia. 4discontinue cefepime start the patient on cefazolin and monitor clinical course closely Dictation was produced using [employer] dictation software. please excuse any grammatical, word or spelling errors.
[2023-07-17 16:32] LABS: ALT 87 U/L (4-49); AST 102 U/L (17-59); African American GFR (CKD) 8 (>60 ml/min/1.73 sqM); Albumin 3.2 g/dL (3.5-5.0); Albumin/Globulin Ratio 1.1; Alkaline Phosphatase 66 U/L (38-126); Anion Gap 16 mmol/L; Blood Urea Nitrogen 45 mg/dL (9-20); Calcium 7.2 mg/dL (8.4-10.2); Carbon Dioxide 24 mmol/L (22-30); Chloride 91 mmol/L (98-107); Globulin 2.9 g/dL; Glucose 176 mg/dL (74-99); Non-African American GFR(CKD) 7 (>60 ml/min/1.73 sqM); Potassium 4.4 mmol/L (3.5-5.1); Sodium 131 mmol/L (137-145); Total Bilirubin 0.6 mg/dL (0.2-1.3); Total Protein 6.1 g/dL (6.3-8.2)
[2023-07-17 16:34] LABS: HCT 29.9 % (39.0-53.0); MCH 32.3 pg (25.0-35.0); MCHC 34.4 g/dL (31.0-37.0); MCV 93.9 fL (80.0-100.0); Platelet Count 100 k/uL (150-450); RBC 3.19 m/uL (4.30-5.90); RDW 14.7 % (11.5-15.5); WBC 3.3 k/uL (3.8-10.6)
[2023-07-17 17:02] LABS: HGB 10.3 gm/dL (13.0-17.5)
[2023-07-17 19:24] LABS: Glucose,Whole Blood 113 mg/dL (70-110)
[2023-07-17] MEDS: INSULIN DETEMIR (LEVEMIR) 100 UNIT/ML SYR SQ SCH (21:19)
[2023-07-17] MEDS: MORPHINE SULFATE 4 MG/ML SYRINGE IVP PRN (23:05)
[2023-07-18] MEDS: CEFEPIME 1 GM in SODIUM CHLORIDE 0.9% 50 ML IVPB SCH ×2 (00:03→14:21)
[2023-07-18 05:45] LABS: Glucose,Whole Blood 106 mg/dL (70-110)
[2023-07-18] MEDS: INSULIN ASPART (NovoLOG) 100 UNIT/ML VIAL SQ SCH ×4 (05:45→21:12)
[2023-07-18] MEDS: MORPHINE SULFATE 4 MG/ML SYRINGE IVP PRN (05:54)
[2023-07-18] MEDS: carvediloL 12.5 MG TAB PO SCH ×2 (05:59→21:12)
[2023-07-18] MEDS: HEPARIN SODIUM,PORCINE 5,000 UNIT/ML 1 ML VIAL SQ SCH ×3 (08:17→23:19)
[2023-07-18] MEDS: GABAPENTIN 100 MG CAP PO SCH ×3 (08:17→21:12)
[2023-07-18] MEDS: PANTOPRAZOLE 40 MG TABLET PO SCH (08:17)
[2023-07-18] MEDS: ONDANSETRON 4 MG/2 ML VIAL IVP PRN (08:17)
[2023-07-18] MEDS: CALCIUM ACETATE 667 MG TAB PO SCH ×4 (08:18→16:52)
[2023-07-18 10:09] LABS: HCT 31.1 % (39.6-50.0); MCHC 32.2 g/dL (32.0-37.0); MCV 96.3 FL (80.0-97.0); Mean Platelet Volume 11.2 FL (9.5-12.2); NRBC Per 100 WBC 0 X 10*3/uL (0.00-0.01); Platelet Count 97 X 10*3/uL (140-440); RBC 3.23 X 10*6/uL (4.40-5.60); RDW 13.8 % (11.5-14.5); WBC 3.17 X 10*3/uL (4.50-10.00)
[2023-07-18 11:31] LABS: Glucose,Whole Blood 113 mg/dL (70-110)
--- NOTE | 2023-07-18 11:41 | P.PN ---
Subjective Patient is seen in follow-up for end-stage renal disease. He is maintained on hemodialysis on Thursday schedule. Last hemodialysis treatment was 07/16/2023. Permacath was removed on 07/16/2023 due to infection. Currently resting in bed. No active complaints. Vital signs are stable. General: No acute distress. HEENT: Head exam is unremarkable. LUNGS: No audible rhonchi or wheezes. HEART: Rate and Rhythm are regular. ABDOMEN: Nontender. EXTREMITITES: Trace edema. Objective - Vital Signs Vital signs: Vital Signs Temp 98.5 F 07/18/23 08:00 Pulse 87 07/18/23 08:00 Resp 16 07/18/23 08:00 BP 131/73 07/18/23 08:00 Pulse Ox 95 07/18/23 08:00 FiO2 Intake & Output 07/17/23 07/18/23 07/18/23 18:59 06:59 18:59 Other: # Voids 2 2 - Labs CBC & Chem 7: 07/18/23 06:39 07/17/23 15:31 Labs: Abnormal Lab Results - Last 24 Hours (Table) 07/17/23 07/17/23 07/17/23 Range/Units 11:38 15:31 15:31 WBC 3.3 L (3.8-10.6) k/uL RBC 3.19 L (4.30-5.90) m/uL Hgb 10.3 L D (13.0-17.5) gm/dL Hct 29.9 L (39.0-53.0) % Plt Count 100 L (150-450) k/uL Sodium 131 L (137-145) mmol/L Chloride 91 L (98-107) mmol/L BUN 45 H (9-20) mg/dL Creatinine 8.39 H* (0.66-1.25) mg/dL Glucose 176 H (74-99) mg/dL POC Glucose (mg/dL) 133 H (70-110) mg/dL Calcium 7.2 L (8.4-10.2) mg/dL AST 102 H (17-59) U/L ALT 87 H (4-49) U/L Total Protein 6.1 L (6.3-8.2) g/dL Albumin 3.2 L (3.5-5.0) g/dL 07/17/23 07/17/23 07/18/23 Range/Units 16:17 19:23 06:39 WBC 3.17 L (3.8-10.6) k/uL RBC 3.23 L (4.30-5.90) m/uL Hgb 10.0 L (13.0-17.5) gm/dL Hct 31.1 L (39.0-53.0) % Plt Count 97 L (150-450) k/uL Sodium (137-145) mmol/L Chloride (98-107) mmol/L BUN (9-20) mg/dL Creatinine (0.66-1.25) mg/dL Glucose (74-99) mg/dL POC Glucose (mg/dL) 152 H 113 H (70-110) mg/dL Calcium (8.4-10.2) mg/dL AST (17-59) U/L ALT (4-49) U/L Total Protein (6.3-8.2) g/dL Albumin (3.5-5.0) g/dL 07/18/23 Range/Units 11:29 WBC (3.8-10.6) k/uL RBC (4.30-5.90) m/uL Hgb (13.0-17.5) gm/dL Hct (39.0-53.0) % Plt Count (150-450) k/uL Sodium (137-145) mmol/L Chloride (98-107) mmol/L BUN (9-20) mg/dL Creatinine (0.66-1.25) mg/dL Glucose (74-99) mg/dL POC Glucose (mg/dL) 113 H (70-110) mg/dL Calcium (8.4-10.2) mg/dL AST (17-59) U/L ALT (4-49) U/L Total Protein (6.3-8.2) g/dL Albumin (3.5-5.0) g/dL Microbiology - Last 24 Hours (Table) 07/15/23 20:39 Gram Stain - Final Chest Wound Culture - Final Staphylococcus aureus 07/15/23 20:47 Blood Culture Gram Stain - Preliminary Blood Blood Culture - Preliminary Presumptive Staph aureus 07/15/23 21:02 Blood Culture Gram Stain - Preliminary Blood Blood Culture - Preliminary Presumptive Staph aureus Assessment and Plan Plan: Assessment: 1. End-stage renal disease maintained on hemodialysis on Thursday schedule. 2. Sepsis secondary to a permacath infection. Blood culture positive for staph aureus. Permacath removed 07/16/2023. 3. Chronic kidney disease mineral bone disease maintained on PhosLo. 4. Hypertension with chronic kidney disease. Controlled. 5. Diabetes mellitus. Plan: Antibiotics per infectious disease. New permacath will be inserted once cleared by infectious disease. Continue to monitor labs daily. Add torsemide 40 mg twice daily. Renal diet and 1500 mL fluid restriction. Decreased dose of gabapentin.
[2023-07-18 11:55] LABS: ALT 81 U/L (10-49); AST 61 U/L (14-35); Albumin 3.4 g/dL (3.8-4.9); Albumin/Globulin Ratio 1.26 Ratio (1.60-3.17); Alkaline Phosphatase 74 U/L (41-126); BUN/Creat Ratio 4.94 Ratio (12.00-20.00); Blood Urea Nitrogen 48.4 mg/dL (9.0-27.0); Calcium 7.9 mg/dL (8.7-10.3); Carbon Dioxide 21.3 mmol/L (21.6-31.8); Chloride 93 mmol/L (96-109); Globulin 2.7 g/dL (1.6-3.3); Glucose 105 mg/dL (70-110); Sodium 132 mmol/L (135-145); Total Bilirubin 0.4 mg/dL (0.3-1.2); Total Protein 6.1 g/dL (6.2-8.2)
[2023-07-18] MEDS: TORSEMIDE 20 MG TAB PO SCH ×2 (12:51→21:11)
[2023-07-18] MEDS: hydrALAZINE HCL 50 MG TAB PO SCH ×2 (12:52→16:52)
--- NOTE | 2023-07-18 15:18 | P.PN ---
Subjective Progress Note Date: 07/18/23 Hospital course: Patient is a very pleasant 42-year-old male with a past medical history of diabetes mellitus, hypertension, and ESRD on dialysis Mondays/Wednesdays/Fridays. He presented to the emergency department secondary to reports of fevers, chills, and yellow purulent drainage from dialysis catheter site. Patient's tunneled dialysis catheter was placed on 06/28/23 status post recent infected right IJ hemodialysis catheter was removed 2 months prior. Patient reports he has been undergoing dialysis as scheduled Mondays/Wednesdays/Fridays. He reports last hemodialysis session was Thursday07/10/23, patient states he missed Thursday secondary to being a holiday and on Thursday he began feeling ill and running a fever. Upon arrival to the emergency department patient underwent full evaluation.. Vital signs reviewed and concerning for severe sepsis with temp 103.1F, heart rate 114, respiratory rate 20, blood pressure 193/110, and SpO2 of 96% on room air. Physical exam: Vital signs reviewed and stable. General: Patient appears acutely ill, cheeks are flushed. Derm: Skin warm and dry, normal coloration for ethnicity. Head: Atraumatic, normocephalic and symmetric. Eyes: EOMs intact, no lid lag, and anicteric sclera Mouth: no lip lesions, mucus membranes moist Cardiovascular: tachycardic rate and regular rhythm no murmur, positive posterior tibial pulses bilaterally, and cap refill < 2 seconds. Dressing from previous tunneled dialysis catheter site (right anterior chest) is clean dry and intact with no signs of bleeding or drainage upon examination. Lungs: Respirations even, regular, and unlabored on room air. Lungs CTA bilaterally, no rhonchi, no rales, no wheezing, and no accessory muscle usage. Abdominal: soft, nontender to palpation, no guarding, no appreciable organomegaly Ext: ROM intact. No gross muscle atrophy, no edema, no contractures Neuro: Speech clear, face symmetrical and CN II-XII grossly intact with no noted focal neuro deficits Psych: Alert and oriented to person, place, time, and situation. Appropriate and pleasant affect. Assessment and Plan of Care: Staph aureus bacteremia Staph aureus Infected Tunneled dialysis catheter site Severe sepsis, suspected secondary to above Blood cultures positive for Staphylococcus aureus 2 sets. Repeat blood culture obtained 07/17/23 showing no growth to date. Wound culture obtained from drainage from dialysis catheter site also positive for Staphylococcus aureus. Continue IV antibiotics with cefazolin per recommendations of infectious disease Infectious disease following, discussed plan of care Dr. Summers and he is recommending to discontinue cefepime and starting the patient on cefazolin Vascular surgery following, tunneled dialysis catheter right anterior chest was removed yesterday following completion of dialysis. Patient to remain on continuous telemetry monitoring. Tylenol 1000 mg every 6 hours as needed for fever. Metabolic acidosis secondary to ESRD ESRD on dialysis Hypertensive urgency, believed to be secondary to missed dialysis sessions. Blood pressure much improved after dialysis completion. Nephrology following and managing dialysis. Discussed case with Dr. Flores and he is recommending continued close monitoring with repeat daily labs, we will attempt to keep patient off of dialysis until permanent dialysis catheter can be placed, however it was discussed that if electrolytes are not controlled and patient requires dialysis a temporary dialysis catheter may be inserted into the region to enable patient to undergo dialysis pending ability to place a new permanent tunneled dialysis catheter. Nephrology also recommending starting patient on furosemide 40 mg twice daily. Hypertensive urgency resolved status post completion of dialysis. Patient to continue with Coreg 25 mg twice daily and hydralazine 50 mg twice daily. We are monitoring patient and electrolytes very closely while patient is on holiday from dialysis secondary to need of removal of previous tunneled dialysis catheter and awaiting negative blood cultures to schedule reinsertion of a new dialysis catheter. Insulin-dependent Diabetes mellitus. -Patient to continue Levemir 10 units nightly along with glycemic protocol with NovoLog sliding scale. -Blood glucose levels have been stable ranging from 106-152 over the past 24 hours. -Hemoglobin A1c 7.3%. Data reviewed: Vital signs reviewed. Fevers seem to have improved with current temp of 98.5F and temperature high over the past 24 hours being 101.2F. Blood pressure 131/73, heart rate 87, respiratory rate 16, and SpO2 of 95% on room air. Blood cultures positive for Staphylococcus aureus 2 sets, repeat culture obtained 07/17/23 showing no growth to date. Wound culture/dialysis catheter insertion site positive for Staphylococcus aureus. Morning labs reviewed. CBC showing normocytic anemia with hemoglobin of 10.0 and thrombocytopenia with platelet count of 97. BMP showing hyponatremia with sodium 132, hyperchloremia with chloride of 93, hypercarbia of 21.3, an elevated anion gap of 17.70. CODE STATUS: Full code DVT prophylaxis: Heparin Anticipated discharge date: Clinical course to determine Anticipated discharge place: Clinical course to determine Patient was seen independently by Nurse Pracitioner. This document was prepared using [employer] dictation software. Please allow for errors in staffing operations manager, while rare they do occur. Martin Scott STRAP BUCKLER rendered care for this patient independently, reviewed the findings and plan as documented in the note above. I did not physically speak with or examine the patient on this date. Objective - Vital Signs Vital signs: Vital Signs Temp 98.6 F 07/18/23 01:45 Pulse 84 07/18/23 01:45 Resp 18 07/18/23 01:45 BP 133/81 07/18/23 05:48 Pulse Ox 95 07/18/23 01:45 FiO2 Intake & Output 07/17/23 07/18/23 07/18/23 18:59 06:59 18:59 Other: # Voids 2 2 - Labs CBC & Chem 7: 07/18/23 06:39 07/18/23 06:39 Labs: Abnormal Lab Results - Last 24 Hours (Table) 07/17/23 07/17/23 07/17/23 Range/Units 06:18 11:38 15:31 WBC 3.3 L (3.8-10.6) k/uL RBC 3.19 L (4.30-5.90) m/uL Hgb 10.3 L D (13.0-17.5) gm/dL Hct 29.9 L (39.0-53.0) % Plt Count 100 L (150-450) k/uL Sodium (137-145) mmol/L Chloride (98-107) mmol/L BUN (9-20) mg/dL Creatinine (0.66-1.25) mg/dL Glucose (74-99) mg/dL POC Glucose (mg/dL) 133 H (70-110) mg/dL Hemoglobin A1c 7.3 H (<=6.0) % Calcium (8.4-10.2) mg/dL AST (17-59) U/L ALT (4-49) U/L Total Protein (6.3-8.2) g/dL Albumin (3.5-5.0) g/dL 07/17/23 07/17/23 07/17/23 Range/Units 15:31 16:17 19:23 WBC (3.8-10.6) k/uL RBC (4.30-5.90) m/uL Hgb (13.0-17.5) gm/dL Hct (39.0-53.0) % Plt Count (150-450) k/uL Sodium 131 L (137-145) mmol/L Chloride 91 L (98-107) mmol/L BUN 45 H (9-20) mg/dL Creatinine 8.39 H* (0.66-1.25) mg/dL Glucose 176 H (74-99) mg/dL POC Glucose (mg/dL) 152 H 113 H (70-110) mg/dL Hemoglobin A1c (<=6.0) % Calcium 7.2 L (8.4-10.2) mg/dL AST 102 H (17-59) U/L ALT 87 H (4-49) U/L Total Protein 6.1 L (6.3-8.2) g/dL Albumin 3.2 L (3.5-5.0) g/dL Microbiology - Last 24 Hours (Table) 07/15/23 20:39 Gram Stain - Final Chest Wound Culture - Final Staphylococcus aureus 07/15/23 20:47 Blood Culture Gram Stain - Preliminary Blood Blood Culture - Preliminary Presumptive Staph aureus 07/15/23 21:02 Blood Culture Gram Stain - Preliminary Blood Blood Culture - Preliminary Presumptive Staph aureus
[2023-07-18 16:38] LABS: Glucose,Whole Blood 110 mg/dL (70-110)
[2023-07-18 19:38] LABS: Glucose,Whole Blood 176 mg/dL (70-110)
[2023-07-18] MEDS: INSULIN DETEMIR (LEVEMIR) 100 UNIT/ML SYR SQ SCH (21:12)
--- NOTE | 2023-07-18 23:08 | P.PN ---
Subjective Progress Note Date: 07/18/23 Principal diagnosis: Reason for follow-up is MSSA bacteremia and dialysis catheter infection Patient is a 42-year male with a past medical history difficult for diabetes mellitus hypertension end-stage renal disease on dialysis present to the hospital with sepsis secondary to dialysis catheter infection also evidence of MSSA bacteremia On today's evaluation that is 07/18/2023, the patient did have a low-grade fever 100.3 last night however the patient is afebrile since then patient mention not feeling that good however denies any headache or URI symptoms right-sided chest pain has decreased in intensity some nausea but no vomiting no abdominal pain no diarrhea. Patient did have white count of 3.17 creatinine is 9.8 blood culture repeat 07/17/2023 so far negative. Objective - Vital Signs Vital signs: Vital Signs Temp 98.5 F 07/18/23 08:00 Pulse 87 07/18/23 08:00 Resp 16 07/18/23 08:00 BP 131/73 07/18/23 08:00 Pulse Ox 95 07/18/23 08:00 FiO2 Intake & Output 07/17/23 07/18/23 07/18/23 18:59 06:59 18:59 Other: # Voids 2 2 - Exam GENERAL DESCRIPTION: Middle-age male lying in bed in no distress RESPIRATORY SYSTEM: Unlabored breathing , decreased breath sounds at bases HEART: S1 S2 regular rate and rhythm , ABDOMEN: Soft , no tenderness EXTREMITIES: No edema feet - Labs CBC & Chem 7: 07/18/23 06:39 07/18/23 06:39 Labs: Abnormal Lab Results - Last 24 Hours (Table) 07/17/23 07/17/23 07/17/23 Range/Units 15:31 15:31 16:17 WBC 3.3 L (3.8-10.6) k/uL RBC 3.19 L (4.30-5.90) m/uL Hgb 10.3 L D (13.0-17.5) gm/dL Hct 29.9 L (39.0-53.0) % Plt Count 100 L (150-450) k/uL Sodium 131 L (137-145) mmol/L Chloride 91 L (98-107) mmol/L BUN 45 H (9-20) mg/dL Creatinine 8.39 H* (0.66-1.25) mg/dL Glucose 176 H (74-99) mg/dL POC Glucose (mg/dL) 152 H (70-110) mg/dL Calcium 7.2 L (8.4-10.2) mg/dL AST 102 H (17-59) U/L ALT 87 H (4-49) U/L Total Protein 6.1 L (6.3-8.2) g/dL Albumin 3.2 L (3.5-5.0) g/dL 07/17/23 07/18/23 07/18/23 Range/Units 19:23 06:39 11:29 WBC 3.17 L (3.8-10.6) k/uL RBC 3.23 L (4.30-5.90) m/uL Hgb 10.0 L (13.0-17.5) gm/dL Hct 31.1 L (39.0-53.0) % Plt Count 97 L (150-450) k/uL Sodium (137-145) mmol/L Chloride (98-107) mmol/L BUN (9-20) mg/dL Creatinine (0.66-1.25) mg/dL Glucose (74-99) mg/dL POC Glucose (mg/dL) 113 H 113 H (70-110) mg/dL Calcium (8.4-10.2) mg/dL AST (17-59) U/L ALT (4-49) U/L Total Protein (6.3-8.2) g/dL Albumin (3.5-5.0) g/dL Microbiology - Last 24 Hours (Table) 07/15/23 20:39 Gram Stain - Final Chest Wound Culture - Final Staphylococcus aureus 07/15/23 20:47 Blood Culture Gram Stain - Preliminary Blood Blood Culture - Preliminary Presumptive Staph aureus 07/15/23 21:02 Blood Culture Gram Stain - Preliminary Blood Blood Culture - Preliminary Presumptive Staph aureus Assessment and Plan (1) MSSA bacteremia Current Visit: Yes Status: Acute Code(s): R78.81 - BACTEREMIA; B95.61 - M ETHICILLIN SUSCEP STAPH INFCT CAUSING DIS CLASSD ELSWHR SNOMED Code(s): 4 71345129 (2) Hemodialysis catheter infection Current Visit: Yes Status: Acute Code(s): T82.7XXA - INFECT/INFLM REACT D/T OTH CARDI/VASC DEV/IMPLNT/GRFT, INIT SNOMED Code(s): 154335619 (3) Sepsis Current Visit: Yes Status: Acute Code(s): A41.9 - SEPSIS, UNSPECIFIED ORGANISM SNOMED Code(s): 85089968 Plan: 1patient presented to hospital with sepsis in this patient who did have a fever tachycardia now with evidence of gram-positive bacteremia source is right chest wall dialysis catheter infection with the previous history of MSSA with a question of possible MSSA versus MRSA 2right chest wall dialysis catheter was discontinued on 07/16/2023 Has been sent for the culture. 3-Patient did have blood culture repeated on 07/17/2023 so far negative and was also repeated on 07/18/2023. 4we will keep the patient on cefazolin patient will be able to get any abdominal catheter once and blood cultures negative at 72 hours Dictation was produced using [employer] dictation software. please excuse any grammatical, word or spelling errors.
[2023-07-19 06:08] LABS: Glucose,Whole Blood 114 mg/dL (70-110)
[2023-07-19] MEDS: INSULIN ASPART (NovoLOG) 100 UNIT/ML VIAL SQ SCH ×4 (06:22→19:59)
[2023-07-19] MEDS: CALCIUM ACETATE 667 MG TAB PO SCH ×3 (06:43→16:41)
[2023-07-19] MEDS: carvediloL 12.5 MG TAB PO SCH ×2 (06:43→20:46)
[2023-07-19 09:10] LABS: Magnesium 2.1 mg/dL (1.5-2.4)
[2023-07-19] MEDS: GABAPENTIN 100 MG CAP PO SCH ×3 (09:16→20:46)
[2023-07-19] MEDS: TORSEMIDE 20 MG TAB PO SCH (09:16)
[2023-07-19] MEDS: PANTOPRAZOLE 40 MG TABLET PO SCH (09:16)
[2023-07-19] MEDS: HEPARIN SODIUM,PORCINE 5,000 UNIT/ML 1 ML VIAL SQ SCH ×3 (09:16→23:12)
[2023-07-19 10:01] LABS: BUN/Creat Ratio 5.19 Ratio (12.00-20.00); Calcium 7.8 mg/dL (8.7-10.3); Carbon Dioxide 21.9 mmol/L (21.6-31.8); Chloride 92 mmol/L (96-109); Glucose 117 mg/dL (70-110); Sodium 132 mmol/L (135-145)
--- NOTE | 2023-07-19 10:38 | P.PN ---
Subjective Patient is seen in follow-up for end-stage renal disease. He is maintained on hemodialysis on Thursday schedule. Last hemodialysis treatment was 07/16/2023. Permacath was removed on 07/16/2023 due to infection. Currently resting in bed. No active complaints. Vital signs are stable. General: No acute distress. HEENT: Head exam is unremarkable. LUNGS: No audible rhonchi or wheezes. HEART: Rate and Rhythm are regular. ABDOMEN: Nontender. EXTREMITITES: Trace edema. Objective - Vital Signs Vital signs: Vital Signs Temp 98.5 F 07/19/23 07:36 Pulse 74 07/19/23 07:36 Resp 16 07/19/23 07:36 BP 134/80 07/19/23 07:36 Pulse Ox 92 L 07/19/23 07:36 FiO2 - Labs CBC & Chem 7: 07/18/23 06:39 07/19/23 04:21 Labs: Abnormal Lab Results - Last 24 Hours (Table) 07/18/23 07/18/23 07/18/23 Range/Units 06:39 11:29 19:37 Sodium 132 L (135-145) mmol/L Chloride 93 L (96-109) mmol/L Carbon Dioxide 21.3 L (21.6-31.8) mmol/L Anion Gap 17.70 H (4.00-12.00) mmol/L BUN 48.4 H (9.0-27.0) mg/dL Creatinine 9.8 A* (0.6-1.5) mg/dL Est GFR (CKD-EPI) 6 L (>=60) BUN/Creatinine Ratio 4.94 L (12.00-20.00) Ratio Glucose (70-110) mg/dL POC Glucose (mg/dL) 113 H 176 H (70-110) mg/dL Calcium 7.9 L (8.7-10.3) mg/dL AST 61 H (14-35) U/L ALT 81 H (10-49) U/L Total Protein 6.1 L (6.2-8.2) g/dL Albumin 3.4 L (3.8-4.9) g/dL Albumin/Globulin Ratio 1.26 L (1.60-3.17) Ratio 07/19/23 07/19/23 Range/Units 04:21 06:07 Sodium 132 L (135-145) mmol/L Chloride 92 L (96-109) mmol/L Carbon Dioxide (21.6-31.8) mmol/L Anion Gap 18.10 H (4.00-12.00) mmol/L BUN 56.0 H (9.0-27.0) mg/dL Creatinine 10.8 A* (0.6-1.5) mg/dL Est GFR (CKD-EPI) 6 L (>=60) BUN/Creatinine Ratio 5.19 L (12.00-20.00) Ratio Glucose 117 H (70-110) mg/dL POC Glucose (mg/dL) 114 H (70-110) mg/dL Calcium 7.8 L (8.7-10.3) mg/dL AST (14-35) U/L ALT (10-49) U/L Total Protein (6.2-8.2) g/dL Albumin (3.8-4.9) g/dL Albumin/Globulin Ratio (1.60-3.17) Ratio Microbiology - Last 24 Hours (Table) 07/15/23 20:47 Blood Culture Gram Stain - Final Blood Blood Culture - Final Staphylococcus aureus 07/15/23 21:02 Blood Culture Gram Stain - Final Blood Blood Culture - Final Staphylococcus aureus 07/17/23 06:18 Blood Culture - Preliminary Blood Assessment and Plan Plan: Assessment: 1. End-stage renal disease maintained on hemodialysis on Thursday schedule. 2. Sepsis secondary to a permacath infection. Blood culture positive for staph aureus. Permacath removed 07/16/2023. 3. Chronic kidney disease mineral bone disease maintained on PhosLo. 4. Hypertension with chronic kidney disease. Controlled. 5. Diabetes mellitus. Plan: Antibiotics per infectious disease. New permacath will be inserted once cleared by infectious disease. Continue to monitor labs daily. Change torsemide to IV Lasix. Renal diet and 1500 mL fluid restriction. Decreased dose of gabapentin. Follow-up cultures.
[2023-07-19 11:10] LABS: Glucose,Whole Blood 159 mg/dL (70-110)
[2023-07-19] MEDS: hydrALAZINE HCL 50 MG TAB PO SCH ×2 (11:55→16:04)
--- NOTE | 2023-07-19 13:08 | P.PN ---
Subjective Progress Note Date: 07/19/23 Hospital course: Patient is a very pleasant 42-year-old male with a past medical history of diabetes mellitus, hypertension, and ESRD on dialysis Mondays/Wednesdays/Fridays. He presented to the emergency department secondary to reports of fevers, chills, and yellow purulent drainage from dialysis catheter site. Patient's tunneled dialysis catheter was placed on 06/28/23 status post recent infected right IJ hemodialysis catheter was removed 2 months prior. Patient reports he has been undergoing dialysis as scheduled Mondays/Wednesdays/Fridays. He reports last hemodialysis session was Thursday07/10/23, patient states he missed Thursday secondary to being a holiday and on Thursday he began feeling ill and running a fever. Upon arrival to the emergency department patient underwent full evaluation.. Vital signs reviewed and concerning for severe sepsis with temp 103.1F, heart rate 114, respiratory rate 20, blood pressure 193/110, and SpO2 of 96% on room air. Physical exam: Patient seen and fully evaluated at bedside this morning. Patient was sitting up on the edge of bed this morning and appears to be doing well. Patient reports he is starting to feel better overall. Patient has remained afebrile for greater than 24 hours now. Patient denies having any new questions or concerns at this time. Patient was updated on plan and change in medication from torsemide to Lasix. Vital signs reviewed and stable. General: Patient appears acutely ill, cheeks are flushed. Derm: Skin warm and dry, normal coloration for ethnicity. Head: Atraumatic, normocephalic and symmetric. Eyes: EOMs intact, no lid lag, and anicteric sclera Mouth: no lip lesions, mucus membranes moist Cardiovascular: tachycardic rate and regular rhythm no murmur, positive posterior tibial pulses bilaterally, and cap refill < 2 seconds. Dressing from previous tunneled dialysis catheter site (right anterior chest) is clean dry and intact with no signs of bleeding or drainage upon examination. Lungs: Respirations even, regular, and unlabored on room air. Lungs CTA bilaterally, no rhonchi, no rales, no wheezing, and no accessory muscle usage. Abdominal: soft, nontender to palpation, no guarding, no appreciable organomegaly Ext: ROM intact. No gross muscle atrophy, no edema, no contractures Neuro: Speech clear, face symmetrical and CN II-XII grossly intact with no noted focal neuro deficits Psych: Alert and oriented to person, place, time, and situation. Appropriate and pleasant affect. Assessment and Plan of Care: Staph aureus bacteremia Staph aureus Infected Tunneled dialysis catheter site Severe sepsis, suspected secondary to above Blood cultures positive for Staphylococcus aureus 2 sets. Repeat blood culture obtained 07/17/23 showing no growth to date. Wound culture obtained from drainage from dialysis catheter site also positive for Staphylococcus aureus. Continue IV antibiotics with cefazolin per recommendations of infectious disease Infectious disease following, discussed plan of care Dr. Summers and he is recommending to discontinue cefepime and starting the patient on cefazolin Vascular surgery following, tunneled dialysis catheter right anterior chest was removed yesterday following completion of dialysis. Patient to remain on continuous telemetry monitoring. Tylenol 1000 mg every 6 hours as needed for fever. Metabolic acidosis secondary to ESRD ESRD on dialysis Hypertensive urgency, believed to be secondary to missed dialysis sessions. Bl ood pressure much improved after dialysis completion. Nephrology following and managing dialysis. Discussed case with Dr. Flores and he is recommending discontinuation of torsemide and starting patient on Lasix 80 mg IVP twice daily with continued close monitoring and repeat daily labs, we will attempt to keep patient off of dialysis until permanent dialysis catheter can be placed, however it was discussed that if electrolytes are not controlled and patient requires dialysis, a temporary dialysis catheter may be inserted into the region to enable patient to undergo dialysis pending ability to place a new permanent tunneled dialysis catheter. Torsemide discontinued and patient started on Lasix 80 mg IVP twice daily. Continue strict I's and O's and daily weights. Hypertensive urgency resolved status post completion of dialysis. Patient to continue with Coreg 25 mg twice daily and hydralazine 50 mg twice daily. We are monitoring patient and electrolytes very closely while patient is on holiday from dialysis secondary to need of removal of previous tunneled dialysis catheter and awaiting negative blood cultures to schedule reinsertion of a new dialysis catheter. Insulin-dependent Diabetes mellitus. -Patient to continue Levemir 10 units nightly along with glycemic protocol with NovoLog sliding scale. -Blood glucose levels have been stable ranging from 106-152 over the past 24 hours. -Hemoglobin A1c 7.3%. Data reviewed: Vital signs reviewed. Patient has now been afebrile for greater than 24 hours. Morning vital signs reviewed with blood pressure 134/80, heart rate 74, respiratory rate 16, temp 98.5F, SpO2 of 92% on room air. Blood cultures positive for Staphylococcus aureus 2 sets, repeat culture obtained 07/17/23 showing no growth to date. Wound culture/dialysis catheter insertion site positive for Staphylococcus aureus. Morning labs reviewed. BMP showing hyponatremia with sodium of 132, hyperchloremia with chloride of 92, bicarb 21.9, and elevated anion gap of 18.10. BUN 56, creatinine 10.80, and GFR of 6. CODE STATUS: Full code DVT prophylaxis: Heparin Anticipated discharge date: Clinical course to determine Anticipated discharge place: Clinical course to determine Patient was seen independently by Nurse Pracitioner. This document was prepared using [employer] dictation software. Please allow for errors in tinning equipment tender, while rare they do occur. Martin Scott NP rendered care for this patient independently, reviewed the findings and plan as documented in the note above. I did not physically speak with or examine the patient on this date. Objective - Vital Signs Vital signs: Vital Signs Temp 98.5 F 07/19/23 07:36 Pulse 74 07/19/23 07:36 Resp 16 07/19/23 07:36 BP 134/80 07/19/23 07:36 Pulse Ox 92 L 07/19/23 07:36 FiO2 - Labs CBC & Chem 7: 07/19/23 04:21 07/19/23 04:21 Labs: Abnormal Lab Results - Last 24 Hours (Table) 07/18/23 07/18/23 07/18/23 Range/Units 06:39 06:39 11:29 WBC 3.17 L (4.50-10.00) X 10*3/uL RBC 3.23 L (4.40-5.60) X 10*6/uL Hgb 10.0 L (13.0-17.0) g/dL Hct 31.1 L (39.6-50.0) % Plt Count 97 L (140-440) X 10*3/uL Sodium 132 L (135-145) mmol/L Chloride 93 L (96-109) mmol/L Carbon Dioxide 21.3 L (21.6-31.8) mmol/L Anion Gap 17.70 H (4.00-12.00) mmol/L BUN 48.4 H (9.0-27.0) mg/dL Creatinine 9.8 A* (0.6-1.5) mg/dL Est GFR (CKD-EPI) 6 L (>=60) BUN/Creatinine Ratio 4.94 L (12.00-20.00) Ratio POC Glucose (mg/dL) 113 H (70-110) mg/dL Calcium 7.9 L (8.7-10.3) mg/dL AST 61 H (14-35) U/L ALT 81 H (10-49) U/L Total Protein 6.1 L (6.2-8.2) g/dL Albumin 3.4 L (3.8-4.9) g/dL Albumin/Globulin Ratio 1.26 L (1.60-3.17) Ratio 07/18/23 07/19/23 Range/Units 19:37 06:07 WBC (4.50-10.00) X 10*3/uL RBC (4.40-5.60) X 10*6/uL Hgb (13.0-17.0) g/dL Hct (39.6-50.0) % Plt Count (140-440) X 10*3/uL Sodium (135-145) mmol/L Chloride (96-109) mmol/L Carbon Dioxide (21.6-31.8) mmol/L Anion Gap (4.00-12.00) mmol/L BUN (9.0-27.0) mg/dL Creatinine (0.6-1.5) mg/dL Est GFR (CKD-EPI) (>=60) BUN/Creatinine Ratio (12.00-20.00) Ratio POC Glucose (mg/dL) 176 H 114 H (70-110) mg/dL Calcium (8.7-10.3) mg/dL AST (14-35) U/L ALT (10-49) U/L Total Protein (6.2-8.2) g/dL Albumin (3.8-4.9) g/dL Albumin/Globulin Ratio (1.60-3.17) Ratio Microbiology - Last 24 Hours (Table) 07/15/23 20:47 Blood Culture Gram Stain - Final Blood Blood Culture - Final Staphylococcus aureus 07/15/23 21:02 Blood Culture Gram Stain - Final Blood Blood Culture - Final Staphylococcus aureus 07/17/23 06:18 Blood Culture - Preliminary Blood
[2023-07-19 13:21] LABS: HCT 29.8 % (39.6-50.0); HGB 9.8 g/dL (13.0-17.0); MCH 31.2 pg (27.0-32.0); MCHC 32.9 g/dL (32.0-37.0); MCV 94.9 FL (80.0-97.0); Mean Platelet Volume 11.2 FL (9.5-12.2); NRBC Per 100 WBC 0 X 10*3/uL (0.00-0.01); Platelet Count 133 X 10*3/uL (140-440); RBC 3.14 X 10*6/uL (4.40-5.60)
--- NOTE | 2023-07-19 14:14 | P.PN ---
Subjective Progress Note Date: 07/19/23 Patient seen and examined. No complaints. Feeling better. Frustrated with his overall fluid status Objective - Vital Signs Vital signs: Vital Signs Temp 98.5 F 07/19/23 07:36 Pulse 74 07/19/23 07:36 Resp 16 07/19/23 07:36 BP 134/80 07/19/23 07:36 Pulse Ox 92 L 07/19/23 07:36 FiO2 - Exam Patient sitting at the bedside. No acute distress. Heart appears regular in rate and rhythm. Catheter removal site is clean and dry. No hematoma - Labs CBC & Chem 7: 07/19/23 04:21 07/19/23 04:21 Labs: Abnormal Lab Results - Last 24 Hours (Table) 07/18/23 07/19/23 07/19/23 Range/Units 19:37 04:21 04:21 WBC 3.80 L (4.50-10.00) X 10*3/uL RBC 3.14 L (4.40-5.60) X 10*6/uL Hgb 9.8 L (13.0-17.0) g/dL Hct 29.8 L (39.6-50.0) % Plt Count 133 L (140-440) X 10*3/uL Sodium 132 L (135-145) mmol/L Chloride 92 L (96-109) mmol/L Anion Gap 18.10 H (4.00-12.00) mmol/L BUN 56.0 H (9.0-27.0) mg/dL Creatinine 10.8 A* (0.6-1.5) mg/dL Est GFR (CKD-EPI) 6 L (>=60) BUN/Creatinine Ratio 5.19 L (12.00-20.00) Ratio Glucose 117 H (70-110) mg/dL POC Glucose (mg/dL) 176 H (70-110) mg/dL Calcium 7.8 L (8.7-10.3) mg/dL 07/19/23 07/19/23 Range/Units 06:07 11:08 WBC (4.50-10.00) X 10*3/uL RBC (4.40-5.60) X 10*6/uL Hgb (13.0-17.0) g/dL Hct (39.6-50.0) % Plt Count (140-440) X 10*3/uL Sodium (135-145) mmol/L Chloride (96-109) mmol/L Anion Gap (4.00-12.00) mmol/L BUN (9.0-27.0) mg/dL Creatinine (0.6-1.5) mg/dL Est GFR (CKD-EPI) (>=60) BUN/Creatinine Ratio (12.00-20.00) Ratio Glucose (70-110) mg/dL POC Glucose (mg/dL) 114 H 159 H (70-110) mg/dL Calcium (8.7-10.3) mg/dL Microbiology - Last 24 Hours (Table) 07/18/23 06:39 Blood Culture - Preliminary Blood 07/17/23 06:18 Blood Culture - Preliminary Blood 07/15/23 20:47 Blood Culture Gram Stain - Final Blood Blood Culture - Final Staphylococcus aureus 07/15/23 21:02 Blood Culture Gram Stain - Final Blood Blood Culture - Final Staphylococcus aureus Assessment and Plan Assessment: 1. Infected tunneled dialysis catheter 2. Febrile 3. End-stage renal disease on hemodialysis 4. Diabetes mellitus Plan: Continuing line holiday and awaiting clearance of bacteremia prior to placement of tunneled dialysis catheter.. Most recent cultures with no growth, if they continue with no growth, hopeful to place catheter 1/2
--- NOTE | 2023-07-19 15:23 | P.PN ---
Subjective Progress Note Date: 07/19/23 Principal diagnosis: Reason for follow-up is MSSA bacteremia and dialysis catheter infection Patient is a 42-year male with a past medical history difficult for diabetes mellitus hypertension end-stage renal disease on dialysis present to the hospital with sepsis secondary to dialysis catheter infection also evidence of MSSA bacteremia On today's evaluation that is 07/19/2023 patient denies having any fever or any chills, the patient is breathing comfortably on room air patient right-sided chest pain has decreased in intensity but denies any nausea vomiting no abd ominal pain or any diarrhea. The patient white count of 3.0 creatinine is 10.8. Blood culture repeat 07/17/2023 as well as 07/18/2023 so far negative Objective - Vital Signs Vital signs: Vital Signs Temp 98.5 F 07/19/23 07:36 Pulse 74 07/19/23 07:36 Resp 16 07/19/23 07:36 BP 134/80 07/19/23 07:36 Pulse Ox 92 L 07/19/23 07:36 FiO2 - Exam GENERAL DESCRIPTION: Middle-age male lying in bed in no distress RESPIRATORY SYSTEM: Unlabored breathing , decreased breath sounds at bases HEART: S1 S2 regular rate and rhythm , ABDOMEN: Soft , no tenderness EXTREMITIES: No edema feet - Labs CBC & Chem 7: 07/19/23 04:21 07/19/23 04:21 Labs: Abnormal Lab Results - Last 24 Hours (Table) 07/18/23 07/19/23 07/19/23 Range/Units 19:37 04:21 04:21 WBC 3.80 L (4.50-10.00) X 10*3/uL RBC 3.14 L (4.40-5.60) X 10*6/uL Hgb 9.8 L (13.0-17.0) g/dL Hct 29.8 L (39.6-50.0) % Plt Count 133 L (140-440) X 10*3/uL Sodium 132 L (135-145) mmol/L Chloride 92 L (96-109) mmol/L Anion Gap 18.10 H (4.00-12.00) mmol/L BUN 56.0 H (9.0-27.0) mg/dL Creatinine 10.8 A* (0.6-1.5) mg/dL Est GFR (CKD-EPI) 6 L (>=60) BUN/Creatinine Ratio 5.19 L (12.00-20.00) Ratio Glucose 117 H (70-110) mg/dL POC Glucose (mg/dL) 176 H (70-110) mg/dL Calcium 7.8 L (8.7-10.3) mg/dL 07/19/23 07/19/23 Range/Units 06:07 11:08 WBC (4.50-10.00) X 10*3/uL RBC (4.40-5.60) X 10*6/uL Hgb (13.0-17.0) g/dL Hct (39.6-50.0) % Plt Count (140-440) X 10*3/uL Sodium (135-145) mmol/L Chloride (96-109) mmol/L Anion Gap (4.00-12.00) mmol/L BUN (9.0-27.0) mg/dL Creatinine (0.6-1.5) mg/dL Est GFR (CKD-EPI) (>=60) BUN/Creatinine Ratio (12.00-20.00) Ratio Glucose (70-110) mg/dL POC Glucose (mg/dL) 114 H 159 H (70-110) mg/dL Calcium (8.7-10.3) mg/dL Microbiology - Last 24 Hours (Table) 07/18/23 06:39 Blood Culture - Preliminary Blood 07/17/23 06:18 Blood Culture - Preliminary Blood 07/15/23 20:47 Blood Culture Gram Stain - Final Blood Blood Culture - Final Staphylococcus aureus 07/15/23 21:02 Blood Culture Gram Stain - Final Blood Blood Culture - Final Staphylococcus aureus Assessment and Plan (1) MSSA bacteremia Current Visit: Yes Status: Acute Code(s): R78.81 - BACTEREMIA; B95.61 - METHICILLIN SUSCEP STAPH INFCT CAUSING DIS CLASSD ELSWHR SNOMED Code(s): 472799490 (2) Hemodialysis catheter infection Current Visit: Yes Status: Acute Code(s): T82.7XXA - INFECT/INFLM REACT D/T OTH CARDI/VASC DEV/IMPLNT/GRFT, INIT SNOMED Code(s): 096508425 (3) Sepsis Current Visit: Yes Status: Acute Code(s): A41.9 - SEPSIS, UNSPECIFIED ORGANISM SNOMED Code(s): 38977940 Plan: 1patient presented to hospital with sepsis in this patient who did have a fever tachycardia now with evidence of gram-positive bacteremia source is right chest wall dialysis catheter infection with the previous history of MSSA with a question of possible MSSA versus MRSA 2right chest wall dialysis catheter was discontinued on 07/16/2023 , Chest wall cultures are growing MSSA. 3repeat blood culture 07/17/2023 as well as 07/18/2023 so far negative 4patient to continue cefazolin and the blood culture remains to be negative he will be able to get new permacatheter on 07/21/2023 Dictation was produced using [employer] dictation software. please excuse any grammatical, word or spelling errors.
[2023-07-19 16:13] LABS: Glucose,Whole Blood 145 mg/dL (70-110)
[2023-07-19 19:46] LABS: Glucose,Whole Blood 137 mg/dL (70-110)
[2023-07-19] MEDS: FUROSEMIDE 10 MG/ML 10 ML VIAL IV SCH (20:45)
[2023-07-19] MEDS: INSULIN DETEMIR (LEVEMIR) 100 UNIT/ML SYR SQ SCH (20:46)
[2023-07-20 05:52] LABS: Glucose,Whole Blood 135 mg/dL (70-110)
[2023-07-20] MEDS: INSULIN ASPART (NovoLOG) 100 UNIT/ML VIAL SQ SCH ×4 (05:58→20:41)
[2023-07-20] MEDS: carvediloL 12.5 MG TAB PO SCH ×2 (06:07→20:41)
[2023-07-20] MEDS: CALCIUM ACETATE 667 MG TAB PO SCH ×3 (06:07→16:44)
[2023-07-20] MEDS: GABAPENTIN 100 MG CAP PO SCH ×3 (07:46→20:41)
[2023-07-20] MEDS: HEPARIN SODIUM,PORCINE 5,000 UNIT/ML 1 ML VIAL SQ SCH ×3 (07:47→23:04)
[2023-07-20] MEDS: PANTOPRAZOLE 40 MG TABLET PO SCH (07:47)
[2023-07-20] MEDS: FUROSEMIDE 10 MG/ML 10 ML VIAL IV SCH ×2 (09:46→20:41)
[2023-07-20 10:32] LABS: HCT 29.5 % (39.6-50.0); HGB 9.7 g/dL (13.0-17.0); MCH 30.6 pg (27.0-32.0); MCHC 32.9 g/dL (32.0-37.0); MCV 93.1 FL (80.0-97.0); Mean Platelet Volume 10.6 FL (9.5-12.2); NRBC Per 100 WBC 0 X 10*3/uL (0.00-0.01); Platelet Count 141 X 10*3/uL (140-440); RBC 3.17 X 10*6/uL (4.40-5.60); RDW 13.9 % (11.5-14.5); WBC 4.74 X 10*3/uL (4.50-10.00)
[2023-07-20 10:51] LABS: Magnesium 2.2 mg/dL (1.5-2.4)
--- NOTE | 2023-07-20 10:53 | P.PN ---
Subjective Patient is seen in follow-up for end-stage renal disease. He is maintained on hemodialysis on Thursday schedule. Last hemodialysis treatment was 07/16/2023. Permacath was removed on 07/16/2023 due to infection. Currently resting in bed. No active complaints. Vital signs are stable. General: No acute distress. HEENT: Head exam is unremarkable. LUNGS: No audible rhonchi or wheezes. HEART: Rate and Rhythm are regular. ABDOMEN: Nontender. EXTREMITITES: Trace edema. Objective - Vital Signs Vital signs: Vital Signs Temp 98.1 F 07/20/23 06:51 Pulse 73 07/20/23 07:40 Resp 18 07/20/23 06:51 BP 121/64 07/20/23 06:51 Pulse Ox 98 07/20/23 06:51 FiO2 Intake & Output 07/19/23 07/20/23 07/20/23 18:59 06:59 18:59 Output Total 925 Balance -925 Output: Urine 925 Other: # Voids 1 - Labs CBC & Chem 7: 07/20/23 03:55 07/19/23 04:21 Labs: Abnormal Lab Results - Last 24 Hours (Table) 07/19/23 07/19/23 07/19/23 Range/Units 04:21 11:08 16:05 WBC 3.80 L (4.50-10.00) X 10*3/uL RBC 3.14 L (4.40-5.60) X 10*6/uL Hgb 9.8 L (13.0-17.0) g/dL Hct 29.8 L (39.6-50.0) % Plt Count 133 L (140-440) X 10*3/uL POC Glucose (mg/dL) 159 H 145 H (70-110) mg/dL 07/19/23 07/20/23 07/20/23 Range/Units 19:43 03:55 05:50 WBC (4.50-10.00) X 10*3/uL RBC 3.17 L (4.40-5.60) X 10*6/uL Hgb 9.7 L (13.0-17.0) g/dL Hct 29.5 L (39.6-50.0) % Plt Count (140-440) X 10*3/uL POC Glucose (mg/dL) 137 H 135 H (70-110) mg/dL Microbiology - Last 24 Hours (Table) 07/18/23 06:39 Blood Culture - Preliminary Blood 07/17/23 06:18 Blood Culture - Preliminary Blood Assessment and Plan Plan: Assessment: 1. End-stage renal disease maintained on hemodialysis on Thursday schedule. 2. Sepsis secondary to a permacath infection. Blood culture positive for staph aureus. Permacath removed 07/16/2023 - the catheter was placed in the second week of June.. Patient had similar infection in April 2023 and required permacath removal at that time and completed IV antibiotics. 3. Chronic kidney disease mineral bone disease maintained on PhosLo. 4. Hypertension with chronic kidney disease. Controlled. 5. Diabetes mellitus. 6. Anemia of chronic kidney disease. Plan: Antibiotics per infectious disease. New permacath will be inserted once cleared by infectious disease. Continue to monitor labs daily. Maintain IV Lasix. Renal diet and 1500 mL fluid restriction. Decreased dose of gabapentin. Follow-up cultures. Consider echocardiogram/KAYLAN. Add Aranesp Discussed with primary team.
[2023-07-20 11:09] LABS: BUN/Creat Ratio 5.36 Ratio (12.00-20.00); Blood Urea Nitrogen 67.5 mg/dL (9.0-27.0); Calcium 7.9 mg/dL (8.7-10.3); Carbon Dioxide 20.8 mmol/L (21.6-31.8); Chloride 94 mmol/L (96-109); Glucose 154 mg/dL (70-110); Sodium 135 mmol/L (135-145)
[2023-07-20 11:36] LABS: Glucose,Whole Blood 155 mg/dL (70-110)
--- NOTE | 2023-07-20 11:48 | P.PN ---
Subjective Progress Note Date: 07/20/23 Hospital course: Patient is a very pleasant 42-year-old male with a past medical history of diabetes mellitus, hypertension, and ESRD on dialysis Mondays/Wednesdays/Fridays. He presented to the emergency department secondary to reports of fevers, chills, and yellow purulent drainage from dialysis catheter site. Patient's tunneled dialysis catheter was placed on 06/28/23 status post recent infected right IJ hemodialysis catheter was removed 2 months prior. Patient reports he has been undergoing dialysis as scheduled Mondays/Wednesdays/Fridays. He reports last hemodialysis session was Thursday07/10/23, patient states he missed Thursday secondary to being a holiday and on Thursday he began feeling ill and running a fever. Upon arrival to the emergency department patient underwent full evaluation.. Vital signs reviewed and concerning for severe sepsis with temp 103.1F, heart rate 114, respiratory rate 20, blood pressure 193/110, and SpO2 of 96% on room air. Patient was started on IV antibiotics and admitted under our services with consultation to nephrology, vascular surgery, and infectious disease. Blood cultures positive for Staphylococcus aureus 2 sets. Wound culture obtained from drainage from dialysis catheter site also positive for Staphylococcus aureus.Vascular surgery following, tunneled dialysis catheter right anterior chest was removed 07/16/23 following completion of dialysis. Repeat blood culture obtained 07/17/23 showing no growth to date. Tentative plan is for placement of new tunneled catheter on 07/21/23 if repeat blood culture remains negative. Physical exam: Patient seen and fully evaluated at bedside this morning. Patient sleeping and appears comfortable. Showing no signs of acute distress at this time. Vital signs reviewed and stable. General: Patient appears acutely ill, cheeks are flushed. Derm: Skin warm and dry, normal coloration for ethnicity. Head: Atraumatic, normocephalic and symmetric. Eyes: EOMs intact, no lid lag, and anicteric sclera Mouth: no lip lesions, mucus membranes moist Cardiovascular: tachycardic rate and regular rhythm no murmur, positive posterior tibial pulses bilaterally, and cap refill < 2 seconds. Dressing from previous tunneled dialysis catheter site (right anterior chest) is clean dry and intact with no signs of bleeding or drainage upon examination. Lungs: Respirations even, regular, and unlabored on room air. Lungs CTA bilaterally, no rhonchi, no rales, no wheezing, and no accessory muscle usage. Abdominal: soft, nontender to palpation, no guarding, no appreciable organomegaly Ext: ROM intact. No gross muscle atrophy, no edema, no contractures Neuro: Speech clear, face symmetrical and CN II-XII grossly intact with no noted focal neuro deficits Psych: Alert and oriented to person, place, time, and situation. Appropriate and pleasant affect. Assessment and Plan of Care: Staph aureus bacteremia Staph aureus Infected Tunneled dialysis catheter site Severe sepsis, suspected secondary to above Blood cultures positive for Staphylococcus aureus 2 sets. Repeat blood culture obtained 07/17/23 showing no growth to date. Wound culture obtained from drainage from dialysis catheter site also positive for Staphylococcus aureus. Continue IV antibiotics with cefazolin per recommendations of infectious disease Infectious disease following, discussed plan of care Dr. Summers and he is recommending to discontinue cefepime and starting the patient on cefazolin Vascular surgery following, tunneled dialysis catheter right anterior chest was removed 07/16/23 following completion of dialysis. Patient to remain on continuous telemetry monitoring. Tylenol 1000 mg every 6 hours as needed for fever. Metabolic acidosis secondary to ESRD ESRD on dialysis Hypertensive urgency, believed to be secondary to missed dialysis sessions. Blood pressure much improved after dialysis completion. Nephrology following and managing dialysis. Discussed case with Dr. Flores and he is recommending discontinuation of torsemide and starting patient on Lasix 80 mg IVP twice daily with continued close monitoring and repeat daily labs, we will attempt to keep patient off of dialysis until permanent dialysis catheter can be placed, however it was discussed that if electrolytes are not controlled and patient requires dialysis, a temporary dialysis catheter may be inserted into the region to enable patient to undergo dialysis pending ability to place a new permanent tunneled dialysis catheter. Torsemide discontinued and patient started on Lasix 80 mg IVP twice daily. Continue strict I's and O's and daily weights. Hypertensive urgency resolved status post completion of dialysis. Patient to continue with Coreg 25 mg twice daily and hydralazine 50 mg twice daily. We are monitoring patient and electrolytes very closely while patient is on holiday from dialysis secondary to need of removal of previous tunneled dialysis catheter and awaiting negative blood cultures to schedule reinsertion of a new dialysis catheter. Plan is for placement of new tunneled dialysis catheter on 07/21/23 followed by dialysis. Insulin-dependent Diabetes mellitus. -Patient to continue Levemir 10 units nightly along with glycemic protocol with NovoLog sliding scale. -Blood glucose levels have been stable ranging from 106-152 over the past 24 hours. -Hemoglobin A1c 7.3%. Data reviewed: Vital signs reviewed. Patient has now been afebrile for greater than 48 hours. Morning vital signs reviewed with blood pressure 121/64, heart rate 72, respiratory rate 18, temp 98.1F, and SpO2 of 98% on room air. Blood cultures positive for Staphylococcus aureus 2 sets, repeat culture obtained 07/17/23 showing no growth to date. Wound culture/dialysis catheter insertion site positive for Staphylococcus aureus. Morning labs reviewed. CBC showing stable normocytic anemia with hemoglobin of 9.7. BMP revealing chloride 94, bicarb 20.8, anion gap 20.20, BUN of 67.5, creatinine 12.6, and GFR 5. Magnesium normal findings at 2.2. Calcium 7.9. CODE STATUS: Full code DVT prophylaxis: Heparin Anticipated discharge date: Clinical course to determine Anticipated discharge place: Clinical course to determine Patient was seen independently by Nurse Pracitioner. This document was prepared using [employer] dictation software. Please allow for errors in bankruptcy attorney, while rare they do occur. Martin Scott NP rendered care for this patient independently, reviewed the findings and plan as documented in the note above. I did not physically speak with or examine the patient on this date. Objective - Vital Signs Vital signs: Vital Signs Temp 98.1 F 07/20/23 06:51 Pulse 72 07/20/23 06:51 Resp 18 07/20/23 06:51 BP 121/64 07/20/23 06:51 Pulse Ox 98 07/20/23 06:51 FiO2 Intake & Output 07/19/23 07/20/23 07/20/23 18:59 06:59 18:59 Output Total 925 Balance -925 Output: Urine 925 Other: # Voids 1 - Labs CBC & Chem 7: 07/20/23 03:55 07/20/23 03:55 Labs: Abnormal Lab Results - Last 24 Hours (Table) 07/19/23 07/19/23 07/19/23 Range/Units 04:21 04:21 11:08 WBC 3.80 L (4.50-10.00) X 10*3/uL RBC 3.14 L (4.40-5.60) X 10*6/uL Hgb 9.8 L (13.0-17.0) g/dL Hct 29.8 L (39.6-50.0) % Plt Count 133 L (140-440) X 10*3/uL Sodium 132 L (135-145) mmol/L Chloride 92 L (96-109) mmol/L Anion Gap 18.10 H (4.00-12.00) mmol/L BUN 56.0 H (9.0-27.0) mg/dL Creatinine 10.8 A* (0.6-1.5) mg/dL Est GFR (CKD-EPI) 6 L (>=60) BUN/Creatinine Ratio 5.19 L (12.00-20.00) Ratio Glucose 117 H (70-110) mg/dL POC Glucose (mg/dL) 159 H (70-110) mg/dL Calcium 7.8 L (8.7-10.3) mg/dL 07/19/23 07/19/23 07/20/23 Range/Units 16:05 19:43 05:50 WBC (4.50-10.00) X 10*3/uL RBC (4.40-5.60) X 10*6/uL Hgb (13.0-17.0) g/dL Hct (39.6-50.0) % Plt Count (140-440) X 10*3/uL Sodium (135-145) mmol/L Chloride (96-109) mmol/L Anion Gap (4.00-12.00) mmol/L BUN (9.0-27.0) mg/dL Creatinine (0.6-1.5) mg/dL Est GFR (CKD-EPI) (>=60) BUN/Creatinine Ratio (12.00-20.00) Ratio Glucose (70-110) mg/dL POC Glucose (mg/dL) 145 H 137 H 135 H (70-110) mg/dL Calcium (8.7-10.3) mg/dL Microbiology - Last 24 Hours (Table) 07/18/23 06:39 Blood Culture - Preliminary Blood 07/17/23 06:18 Blood Culture - Preliminary Blood
[2023-07-20] MEDS ORDERED: DARBEPOETIN ALFA 40 MCG/0.4 ML SYRINGE SQ SCH (12:00)
[2023-07-20] MEDS: hydrALAZINE HCL 50 MG TAB PO SCH ×2 (12:43→15:19)
--- NOTE | 2023-07-20 15:41 | P.PN ---
Subjective Progress Note Date: 07/20/23 Principal diagnosis: Reason for follow-up is MSSA bacteremia and dialysis catheter infection Patient is a 42-year male with a past medical history difficult for diabetes mellitus hypertension end-stage renal disease on dialysis present to the hospital with sepsis secondary to dialysis catheter infection also evidence of MSSA bacteremia On today's evaluation that is 07/20/2023, the patient remains to be afebrile, the patient is breathing comfortably on room air without need for supplemental oxygen patient denies having any chest pain shortness of breath or cough no n ausea vomiting no abdominal pain and no diarrhea right chest wall discomfort has decreased in intensity. The patient did have white count of 4.74, creatinine is 12.6 blood culture repeat on 07/17/2023 as well as 07/18/2023 has been negative Objective - Vital Signs Vital signs: Vital Signs Temp 98.6 F 07/20/23 13:45 Pulse 61 07/20/23 13:45 Resp 20 07/20/23 13:45 BP 151/84 07/20/23 13:45 Pulse Ox 94 L 07/20/23 13:45 FiO2 Intake & Output 07/19/23 07/20/23 07/20/23 18:59 06:59 18:59 Intake Total 600 Output Total 925 400 Balance -925 200 Intake: Oral 600 Output: Urine 925 400 Other: # Voids 1 - Exam GENERAL DESCRIPTION: Middle-age male lying in bed in no distress RESPIRATORY SYSTEM: Unlabored breathing , decreased breath sounds at bases HEART: S1 S2 regular rate and rhythm , ABDOMEN: Soft , no tenderness EXTREMITIES: No edema feet - Labs CBC & Chem 7: 07/20/23 03:55 07/20/23 03:55 Labs: Abnormal Lab Results - Last 24 Hours (Table) 07/19/23 07/19/23 07/20/23 Range/Units 16:05 19:43 03:55 RBC 3.17 L (4.40-5.60) X 10*6/uL Hgb 9.7 L (13.0-17.0) g/dL Hct 29.5 L (39.6-50.0) % Chloride (96-109) mmol/L Carbon Dioxide (21.6-31.8) mmol/L Anion Gap (4.00-12.00) mmol/L BUN (9.0-27.0) mg/dL Creatinine (0.6-1.5) mg/dL Est GFR (CKD-EPI) (>=60) BUN/Creatinine Ratio (12.00-20.00) Ratio Glucose (70-110) mg/dL POC Glucose (mg/dL) 145 H 137 H (70-110) mg/dL Calcium (8.7-10.3) mg/dL 07/20/23 07/20/23 07/20/23 Range/Units 03:55 05:50 11:35 RBC (4.40-5.60) X 10*6/uL Hgb (13.0-17.0) g/dL Hct (39.6-50.0) % Chloride 94 L (96-109) mmol/L Carbon Dioxide 20.8 L (21.6-31.8) mmol/L Anion Gap 20.20 H (4.00-12.00) mmol/L BUN 67.5 H (9.0-27.0) mg/dL Creatinine 12.6 A* (0.6-1.5) mg/dL Est GFR (CKD-EPI) 5 L (>=60) BUN/Creatinine Ratio 5.36 L (12.00-20.00) Ratio Glucose 154 H (70-110) mg/dL POC Glucose (mg/dL) 135 H 155 H (70-110) mg/dL Calcium 7.9 L (8.7-10.3) mg/dL Microbiology - Last 24 Hours (Table) 07/19/23 04:21 Blood Culture - Preliminary Blood 07/18/23 06:39 Blood Culture - Preliminary Blood 07/17/23 06:18 Blood Culture - Preliminary Blood Assessment and Plan (1) MSSA bacteremia Current Visit: Yes Status: Acute Code(s): R78.81 - BACTEREMIA; B95.61 - METHICILLIN SUSCEP STAPH INFCT CAUSING DIS CLASSD ELSWHR SNOMED Code(s): 317587578 (2) Hemodialysis catheter infection Current Visit: Yes Status: Acute Code(s): T82.7XXA - INFECT/INFLM REACT D/T OTH CARDI/VASC DEV/IMPLNT/GRFT, INIT SNOMED Code(s): 176775804 (3) Sepsis Current Visit: Yes Status: Acute Code(s): A41.9 - SEPSIS, UNSPECIFIED ORGANISM SNOMED Code(s): 74440570 Plan: 1patient presented to hospital with sepsis in this patient who did have a fever tachycardia now with evidence of gram-positive bacteremia source is right chest wall dialysis catheter infection with the previous history of MSSA with a question of possible MSSA versus MRSA 2right chest wall dialysis catheter was discontinued on 07/16/2023 , Chest wall cultures are growing MSSA. 3repeat blood culture 07/17/2023 as well as 07/18/2023 so far negative 4patient seem to have clear his bacteremia he will be able to get a new permacatheter placement on 07/21/2023 the patient be able to get his cefazolin through the dialysis catheter so no need for placement of a PICC line or midline for outpatient IV antibiotics Dictation was produced using [employer] dictation software. please excuse any grammatical, word or spelling errors. Time with Patient: Less than 30
[2023-07-20 16:43] LABS: Glucose,Whole Blood 134 mg/dL (70-110)
[2023-07-20 20:12] LABS: Glucose,Whole Blood 175 mg/dL (70-110)
[2023-07-20] MEDS: INSULIN DETEMIR (LEVEMIR) 100 UNIT/ML SYR SQ SCH (21:17)
[2023-07-21 06:01] LABS: Glucose,Whole Blood 127 mg/dL (70-110)
[2023-07-21] MEDS: INSULIN ASPART (NovoLOG) 100 UNIT/ML VIAL SQ SCH ×4 (06:25→21:19)
[2023-07-21] MEDS: carvediloL 12.5 MG TAB PO SCH ×2 (06:29→22:01)
[2023-07-21] MEDS: HEPARIN SODIUM,PORCINE 5,000 UNIT/ML 1 ML VIAL SQ SCH ×2 (07:42→15:39)
[2023-07-21] MEDS: CALCIUM ACETATE 667 MG TAB PO SCH ×3 (07:43→18:34)
[2023-07-21 08:49] LABS: HCT 27.8 % (39.6-50.0); HGB 9.4 g/dL (13.0-17.0); MCH 31.8 pg (27.0-32.0); MCHC 33.8 g/dL (32.0-37.0); MCV 93.9 FL (80.0-97.0); Mean Platelet Volume 10.6 FL (9.5-12.2); NRBC Per 100 WBC 0 X 10*3/uL (0.00-0.01); Platelet Count 169 X 10*3/uL (140-440); RBC 2.96 X 10*6/uL (4.40-5.60); RDW 13.8 % (11.5-14.5); WBC 5.16 X 10*3/uL (4.50-10.00)
[2023-07-21 08:59] LABS: Magnesium 2.3 mg/dL (1.5-2.4)
[2023-07-21] MEDS: GABAPENTIN 100 MG CAP PO SCH ×3 (09:07→22:01)
[2023-07-21] MEDS: PANTOPRAZOLE 40 MG TABLET PO SCH (09:07)
[2023-07-21] MEDS: FUROSEMIDE 10 MG/ML 10 ML VIAL IV SCH ×3 (09:07→22:01)
[2023-07-21 09:12] LABS: BUN/Creat Ratio 5.82 Ratio (12.00-20.00); Blood Urea Nitrogen 75.7 mg/dL (9.0-27.0); Calcium 7.6 mg/dL (8.7-10.3); Carbon Dioxide 21.3 mmol/L (21.6-31.8); Chloride 98 mmol/L (96-109); Glucose 125 mg/dL (70-110); Potassium 3.9 mmol/L (3.5-5.5); Sodium 138 mmol/L (135-145)
--- NOTE | 2023-07-21 10:47 | P.PN ---
Subjective Patient is seen in follow-up for end-stage renal disease. He is maintained on hemodialysis on Thursday schedule. Last hemodialysis treatment was 07/16/2023. Permacath was removed on 07/16/2023 due to infection. Currently resting in bed. No active complaints. Scheduled for permacath placement and dialysis today. Vital signs are stable. General: No acute distress. HEENT: Head exam is unremarkable. LUNGS: No audible rhonchi or wheezes. HEART: Rate and Rhythm are regular. ABDOMEN: Nontender. EXTREMITITES: Trace edema. Objective - Vital Signs Vital signs: Vital Signs Temp 98 F 07/21/23 08:13 Pulse 64 07/21/23 08:13 Resp 18 07/21/23 08:13 BP 142/81 07/21/23 08:13 Pulse Ox 96 07/21/23 08:13 FiO2 Intake & Output 07/20/23 07/21/23 07/21/23 18:59 06:59 18:59 Intake Total 600 Output Total 400 400 Balance 200 -400 Intake: Oral 600 Output: Urine 400 400 Other: Voiding Method Urinal - Labs CBC & Chem 7: 07/21/23 04:34 07/21/23 04:34 Labs: Abnormal Lab Results - Last 24 Hours (Table) 07/20/23 07/20/23 07/20/23 Range/Units 03:55 11:35 16:42 RBC (4.40-5.60) X 10*6/uL Hgb (13.0-17.0) g/dL Hct (39.6-50.0) % Chloride 94 L (96-109) mmol/L Carbon Dioxide 20.8 L (21.6-31.8) mmol/L Anion Gap 20.20 H (4.00-12.00) mmol/L BUN 67.5 H (9.0-27.0) mg/dL Creatinine 12.6 A* (0.6-1.5) mg/dL Est GFR (CKD-EPI) 5 L (>=60) BUN/Creatinine Ratio 5.36 L (12.00-20.00) Ratio Glucose 154 H (70-110) mg/dL POC Glucose (mg/dL) 155 H 134 H (70-110) mg/dL Calcium 7.9 L (8.7-10.3) mg/dL 07/20/23 07/21/23 07/21/23 Range/Units 20:10 04:34 04:34 RBC 2.96 L (4.40-5.60) X 10*6/uL Hgb 9.4 L (13.0-17.0) g/dL Hct 27.8 L (39.6-50.0) % Chloride (96-109) mmol/L Carbon Dioxide 21.3 L (21.6-31.8) mmol/L Anion Gap 18.70 H (4.00-12.00) mmol/L BUN 75.7 H (9.0-27.0) mg/dL Creatinine 13.0 A* (0.6-1.5) mg/dL Est GFR (CKD-EPI) 4 L (>=60) BUN/Creatinine Ratio 5.82 L (12.00-20.00) Ratio Glucose 125 H (70-110) mg/dL POC Glucose (mg/dL) 175 H (70-110) mg/dL Calcium 7.6 L (8.7-10.3) mg/dL 07/21/23 Range/Units 05:57 RBC (4.40-5.60) X 10*6/uL Hgb (13.0-17.0) g/dL Hct (39.6-50.0) % Chloride (96-109) mmol/L Carbon Dioxide (21.6-31.8) mmol/L Anion Gap (4.00-12.00) mmol/L BUN (9.0-27.0) mg/dL Creatinine (0.6-1.5) mg/dL Est GFR (CKD-EPI) (>=60) BUN/Creatinine Ratio (12.00-20.00) Ratio Glucose (70-110) mg/dL POC Glucose (mg/dL) 127 H (70-110) mg/dL Calcium (8.7-10.3) mg/dL Microbiology - Last 24 Hours (Table) 07/19/23 04:21 Blood Culture - Preliminary Blood 07/18/23 06:39 Blood Culture - Preliminary Blood 07/17/23 06:18 Blood Culture - Preliminary Blood Assessment and Plan Plan: Assessment: 1. End-stage renal disease maintained on hemodialysis on Thursday schedule. 2. Sepsis secondary to a permacath infection. Blood culture positive for staph aureus. Permacath removed 07/16/2023 - the catheter was placed in the second week of June.. Patient had similar infection in April 2023 and required permacath removal at that time and completed IV antibiotics. 3. Chronic kidney disease mineral bone disease maintained on PhosLo. 4. Hypertension with chronic kidney disease. Controlled. 5. Diabetes mellitus. 6. Anemia of chronic kidney disease. On Aranesp. Plan: Antibiotics per infectious disease. Permacath to be placed today. Hemodialysis today and tomorrow. Maintain IV Lasix. Renal diet and 1500 mL fluid restriction. Decreased dose of gabapentin. Follow-up cultures. Follow-up for cardiac rhythm.
--- NOTE | 2023-07-21 11:46 | CA ---
Transthoracic Echo Report Name: Suman Robles Age: 42 Gender: M : 1980 Exam Date: 07/21/2023 10:24 Exam Location: [facility] Ht (in): 70 Wt (lb): 242 Ordering Physician: Martin Scott Attending/Referring Phys: Side Guider Nikhil Gastelum Procedure CPT: Indications: Evaluate structure and function Cardiac Hx: Technical Quality: Technically difficult study Contrast 1: Definity Total Dose (mL): 2 Contrast 2: Total Dose (mL): MEASUREMENTS (Male / Female) Normal Values 2D ECHO LV Diastolic Diameter PLAX 5.0 cm 4.2 - 5.9 / 3.9 - 5.3 cm LV Systolic Diameter PLAX 3.8 cm IVS Diastolic Thickness 1.6 cm 0.6 - 1.0 / 0.6 - 0.9 cm LVPW Diastolic Thickness 1.4 cm 0.6 - 1.0 / 0.6 - 0.9 cm LV Relative Wall Thickness 0.6 RV Internal Dim ED PLAX 3.8 cm LVOT Diameter 2.4 cm Aortic Root Diameter 2.9 cm LA Systolic Diameter LX 3.8 cm 3.0 - 4.0 / 2.7 - 3.8 cm LV Diastolic Volume MOD 4C 113.8 cm??? LV Systolic Volume MOD 4C 48.4 cm??? LV Ejection Fraction MOD 4C 57.4 % LV Cardiac Index MOD 4C 1766.6 cm???/min???m??? LV Diastolic Length 4C 9.1 cm LV Systolic Length 4C 8.1 cm LA Volume 86.6 cm??? 18 - 58 / 22 - 52 cm??? LA Volume Index 36.6 cm???/m??? 16 - 28 cm???/m??? DOPPLER AV Peak Velocity 148.2 cm/s AV Peak Gradient 8.8 mmHg LVOT Peak Velocity 74.3 cm/s LVOT Peak Gradient 2.2 mmHg LVOT Velocity Time Integral 17.7 cm LVOT Stroke Volume 77.3 cm??? LVOT Stroke Volume Index 34.2 ml/m??? LVOT Cardiac Index 2090.9 cm???/min???m??? AV Area Cont Eq pk 2.2 cm??? MV Peak Velocity 134.5 cm/s MV Peak Gradient 7.2 mmHg MV Mean Velocity 57.4 cm/s MV Mean Gradient 1.9 mmHg MV Velocity Time Integral 36.5 cm MR Peak Velocity 302.6 cm/s MR Peak Gradient 36.6 mmHg Mitral E Point Velocity 107.6 cm/s Mitral A Point Velocity 54.4 cm/s Mitral E to A Ratio 2.0 MV Deceleration Time 164.7 ms MV E' Velocity 7.3 cm/s Mitral E to MV E' Ratio 14.8 TR Peak Velocity 293.9 cm/s TR Peak Gradient 34.6 mmHg Right Ventricular Systolic Press 39.6 mmHg PV Peak Velocity 94.4 cm/s PV Peak Gradient 3.6 mmHg FINDINGS Left Ventricle Mildly increased septal wall thickness. Normal LV size. Left ventricular ejection fraction is estimated at 55-60 %. Right Ventricle Normal right ventricular size. RVSP= 40mmHg. Right Atrium Normal right atrial size. Left Atrium Moderately increased left atrial volume. Mildly increased left atrial area. A volume index= 38ml/m2 Mitral Valve Structurally normal mitral valve. Trace MR. Aortic Valve Aortic valve not well visualized yet grossly normal. No aortic valve stenosis or regurgitation. Tricuspid Valve Structurally normal tricuspid valve. Mild TR. Pulmonic Valve Pulmonic valve not well visualized. No pulmonic regurgitation. Pericardium Normal pericardium. Aorta Normal size aortic root. CONCLUSIONS Technically suboptimal study endocardial margins are not well seen. LV size and systolic function appears to be in the normal range. Mild enlargement of left atrium. Mild mitral and tricuspid regurgitation. Mild pulmonary hypertension. Probable fat pad anteriorly no clearcut pericardial effusion Previewed by: Dr. Edwin Alberto MD (Electronically Signed) Final Date: 21 July 2023 11:45
--- NOTE | 2023-07-21 13:06 | P.PN ---
Subjective Progress Note Date: 07/21/23 Principal diagnosis: Reason for follow-up is MSSA bacteremia and dialysis catheter infection Patient is a 42-year male with a past medical history difficult for diabetes mellitus hypertension end-stage renal disease on dialysis present to the hospital with sepsis secondary to dialysis catheter infection also evidence of MSSA bacteremia On today's evaluation that is 07/21/2023 patient remains to be afebrile, the patient is breathing comfortably on room air, the patient denies chest pain shortness of breath or cough., The patient denies nausea vomiting, denies abdom inal pain no diarrhea currently waiting for the permacatheter placement The patient white count of 5.16, creatinine is 13, repeat blood culture 07/17/2023 negative Objective - Vital Signs Vital signs: Vital Signs Temp 98 F 07/21/23 08:13 Pulse 64 07/21/23 08:13 Resp 18 07/21/23 08:13 BP 142/81 07/21/23 08:13 Pulse Ox 96 07/21/23 08:13 FiO2 Intake & Output 07/20/23 07/21/23 07/21/23 18:59 06:59 18:59 Intake Total 600 Output Total 400 400 Balance 200 -400 Intake: Oral 600 Output: Urine 400 400 Other: Voiding Method Urinal - Exam GENERAL DESCRIPTION: Middle-age male lying in bed in no distress RESPIRATORY SYSTEM: Unlabored breathing , decreased breath sounds at bases HEART: S1 S2 regular rate and rhythm , ABDOMEN: Soft , no tenderness EXTREMITIES: No edema feet - Labs CBC & Chem 7: 07/21/23 04:34 07/21/23 04:34 Labs: Abnormal Lab Results - Last 24 Hours (Table) 07/20/23 07/20/23 07/21/23 Range/Units 16:42 20:10 04:34 RBC 2.96 L (4.40-5.60) X 10*6/uL Hgb 9.4 L (13.0-17.0) g/dL Hct 27.8 L (39.6-50.0) % Carbon Dioxide (21.6-31.8) mmol/L Anion Gap (4.00-12.00) mmol/L BUN (9.0-27.0) mg/dL Creatinine (0.6-1.5) mg/dL Est GFR (CKD-EPI) (>=60) BUN/Creatinine Ratio (12.00-20.00) Ratio Glucose (70-110) mg/dL POC Glucose (mg/dL) 134 H 175 H (70-110) mg/dL Calcium (8.7-10.3) mg/dL 07/21/23 07/21/23 Range/Units 04:34 05:57 RBC (4.40-5.60) X 10*6/uL Hgb (13.0-17.0) g/dL Hct (39.6-50.0) % Carbon Dioxide 21.3 L (21.6-31.8) mmol/L Anion Gap 18.70 H (4.00-12.00) mmol/L BUN 75.7 H (9.0-27.0) mg/dL Creatinine 13.0 A* (0.6-1.5) mg/dL Est GFR (CKD-EPI) 4 L (>=60) BUN/Creatinine Ratio 5.82 L (12.00-20.00) Ratio Glucose 125 H (70-110) mg/dL POC Glucose (mg/dL) 127 H (70-110) mg/dL Calcium 7.6 L (8.7-10.3) mg/dL Microbiology - Last 24 Hours (Table) 07/19/23 04:21 Blood Culture - Preliminary Blood 07/18/23 06:39 Blood Culture - Preliminary Blood 07/17/23 06:18 Blood Culture - Preliminary Blood Assessment and Plan (1) MSSA bacteremia Current Visit: Yes Status: Acute Code(s): R78.81 - BACTEREMIA; B95.61 - METHICILLIN SUSCEP STAPH INFCT CAUSING DIS CLASSD ELSWHR SNOMED Code(s): 331651305 (2) Hemodialysis catheter infection Current Visit: Yes Status: Acute Code(s): T82.7XXA - INFECT/INFLM REACT D/T OTH CARDI/VASC DEV/IMPLNT/GRFT, INIT SNOMED Code(s): 414910375 (3) Sepsis Current Visit: Yes Status: Acute Code(s): A41.9 - SEPSIS, UNSPECIFIED ORGANISM SNOMED Code(s): 29980446 Plan: 1patient presented to hospital with sepsis in this patient who did have a fever tachycardia now with evidence of gram-positive bacteremia source is right chest wall dialysis catheter infection with the previous history of MSSA with a question of possible MSSA versus MRSA 2right chest wall dialysis catheter was discontinued on 07/16/2023 , Chest wall cultures are growing MSSA. 3repeat blood culture 07/17/2023 as well as 07/18/2023 so far negative 4patient is currently waiting for permacatheter placement he will continue with cefazolin outpatient cefazolin prescription was provided to the shelter case manager th at can be done to dialysis so we can avoid placement of PICC or midline Dictation was produced using [employer] dictation software. please excuse any grammatical, word or spelling errors. Time with Patient: Less than 30
--- NOTE | 2023-07-21 13:40 | P.PN ---
Subjective Progress Note Date: 07/21/23 Hospital course: Patient is a very pleasant 42-year-old male with a past medical history of diabetes mellitus, hypertension, and ESRD on dialysis Mondays/Wednesdays/Fridays. He presented to the emergency department secondary to reports of fevers, chills, and yellow purulent drainage from dialysis catheter site. Patient's tunneled dialysis catheter was placed on 06/28/23 status post recent infected right IJ hemodialysis catheter was removed 2 months prior. Patient reports he has been undergoing dialysis as scheduled Mondays/Wednesdays/Fridays. He reports last hemodialysis session was Thursday07/10/23, patient states he missed Thursday secondary to being a holiday and on Thursday he began feeling ill and running a fever. Upon arrival to the emergency department patient underwent full evaluation.. Vital signs reviewed and concerning for severe sepsis with temp 103.1F, heart rate 114, respiratory rate 20, blood pressure 193/110, and SpO2 of 96% on room air. Patient was started on IV antibiotics and admitted under our services with consultation to nephrology, vascular surgery, and infectious disease. Blood cultures positive for Staphylococcus aureus 2 sets. Wound culture obtained from drainage from dialysis catheter site also positive for Staphylococcus aureus.Vascular surgery following, tunneled dialysis catheter right anterior chest was removed 07/16/23 following completion of dialysis. Repeat blood culture obtained 07/17/23 showing no growth to date. Tentative plan is for placement of new tunneled catheter on 07/21/23 if repeat blood culture remains negative. Physical exam: Patient seen and fully evaluated at bedside this morning. Patient sitting on the edge of bed this morning, he denies having any complaints or needs at this time. Patient reports feeling better and slightly agitated expressing frustration over length of stay in the hospital. Patient updated plan is for placement of tunneled dialysis catheter later today followed by hemodialysis. Showing no signs of acute distress at this time. Vital signs reviewed and stable. General: Patient appears acutely ill, cheeks are flushed. Derm: Skin warm and dry, normal coloration for ethnicity. Head: Atraumatic, normocephalic and symmetric. Eyes: EOMs intact, no lid lag, and anicteric sclera Mouth: no lip lesions, mucus membranes moist Cardiovascular: tachycardic rate and regular rhythm no murmur, positive posterior tibial pulses bilaterally, and cap refill < 2 seconds. Dressing from previous tunneled dialysis catheter site (right anterior chest) is clean dry and intact with no signs of bleeding or drainage upon examination. Lungs: Respirations even, regular, and unlabored on room air. Lungs CTA bilaterally, no rhonchi, no rales, no wheezing, and no accessory muscle usage. Abdominal: soft, nontender to palpation, no guarding, no appreciable organomegaly Ext: ROM intact. No gross muscle atrophy, no edema, no contractures Neuro: Speech clear, face symmetrical and CN II-XII grossly intact with no noted focal neuro deficits Psych: Alert and oriented to person, place, time, and situation. Appropriate and pleasant affect. Assessment and Plan of Care: Staph aureus bacteremia Staph aureus Infected Tunneled dialysis catheter site Severe sepsis, suspected secondary to above Blood cultures positive for Staphylococcus aureus 2 sets. Repeat blood culture obtained 07/17/23 showing no growth to date. Wound culture obtained from drainage from dialysis catheter site also positive for Staphylococcus aureus. Continue IV antibiotics with cefazolin per recommendations of infectious disease Infectious disease following, discussed plan of care Dr. Summers and he is recommending to discontinue cefepime and starting the patient on cefazolin Vascular surgery following, removed tunneled right dialysis catheter from right anterior chest on 07/16/23 following completion of dialysis and planning to take patient for placement of new tunneled dialysis catheter later today. Patient to remain on continuous telemetry monitoring. Tylenol 1000 mg every 6 hours as needed for fever. Metabolic acidosis secondary to ESRD ESRD on dialysis Hypertensive urgency, believed to be secondary to missed dialysis sessions. Blood pressure much improved after dialysis completion. Nephrology following and managing dialysis. Discussed case with Dr. Flores and he is recommending discontinuation of torsemide and starting patient on Lasix 80 mg IVP twice daily with continued close monitoring and repeat daily labs, we will attempt to keep patient off of dialysis until permanent dialysis catheter can be placed later today. Torsemide discontinued and patient started on Lasix 80 mg IVP twice daily. Continue strict I's and O's and daily weights. Hypertensive urgency resolved status post completion of dialysis. Patient to continue with Coreg 25 mg twice daily and hydralazine 50 mg twice daily. Continued close monitoring with repeat labs to monitor renal and electrolyte function and continuous telemetry monitoring. Plan is for placement of new tunneled dialysis catheter later today followed by hemodialysis. Insulin-dependent Diabetes mellitus. -Patient to continue Levemir 10 units nightly along with glycemic protocol with NovoLog sliding scale. -Blood glucose levels have been stable ranging from 106-152 over the past 24 hours. -Hemoglobin A1c 7.3%. Data reviewed: Vital signs reviewed. Patient has now been afebrile for greater than 72 hours. Morning vital signs reviewed with blood pressure 142/81, heart rate 64, respiratory rate 18, temp 98.0F, SpO2 of 96% on room air. Repeat blood cultures drawn on 07/17/23, 07/18/23, and 07/19/23 are all negative at this time showing no growth to date. Morning labs reviewed. CBC showing stable normocytic anemia with hemoglobin of 9.4. BMP showing stable electrolytes despite further elevation of renal function with potassium 3.9 and magnesium of 2.3. Renal function showing BUN 75.7, creatinine 13.0, and GFR of 4. patient also with persistent metabolic acidosis secondary to ESRD with chloride 98, bicarb 21.3, and anion gap of 18.70. CODE STATUS: Full code DVT prophylaxis: Heparin Anticipated discharge date: Clinical course to determine Anticipated discharge place: Clinical course to determine Patient was seen independently by Nurse Pracitioner. This document was prepared using [employer] dictation software. Please allow for errors in rn night, while rare they do occur. Martin Scott NP rendered care for this patient independently, reviewed the findings and plan as documented in the note above. I did not physically speak with or examine the patient on this date. Objective - Vital Signs Vital signs: Vital Signs Temp 98.6 F 07/21/23 00:47 Pulse 64 07/21/23 00:47 Resp 18 07/21/23 00:47 BP 167/93 07/21/23 00:47 Pulse Ox 97 07/21/23 00:47 FiO2 Intake & Output 07/20/23 07/21/23 07/21/23 18:59 06:59 18:59 Intake Total 600 Output Total 400 400 Balance 200 -400 Intake: Oral 600 Output: Urine 400 400 - Labs CBC & Chem 7: 07/21/23 04:34 07/21/23 04:34 Labs: Abnormal Lab Results - Last 24 Hours (Table) 07/20/23 07/20/23 07/20/23 Range/Units 03:55 03:55 11:35 RBC 3.17 L (4.40-5.60) X 10*6/uL Hgb 9.7 L (13.0-17.0) g/dL Hct 29.5 L (39.6-50.0) % Chloride 94 L (96-109) mmol/L Carbon Dioxide 20.8 L (21.6-31.8) mmol/L Anion Gap 20.20 H (4.00-12.00) mmol/L BUN 67.5 H (9.0-27.0) mg/dL Creatinine 12.6 A* (0.6-1.5) mg/dL Est GFR (CKD-EPI) 5 L (>=60) BUN/Creatinine Ratio 5.36 L (12.00-20.00) Ratio Glucose 154 H (70-110) mg/dL POC Glucose (mg/dL) 155 H (70-110) mg/dL Calcium 7.9 L (8.7-10.3) mg/dL 07/20/23 07/20/23 07/21/23 Range/Units 16:42 20:10 05:57 RBC (4.40-5.60) X 10*6/uL Hgb (13.0-17.0) g/dL Hct (39.6-50.0) % Chloride (96-109) mmol/L Carbon Dioxide (21.6-31.8) mmol/L Anion Gap (4.00-12.00) mmol/L BUN (9.0-27.0) mg/dL Creatinine (0.6-1.5) mg/dL Est GFR (CKD-EPI) (>=60) BUN/Creatinine Ratio (12.00-20.00) Ratio Glucose (70-110) mg/dL POC Glucose (mg/dL) 134 H 175 H 127 H (70-110) mg/dL Calcium (8.7-10.3) mg/dL Microbiology - Last 24 Hours (Table) 07/19/23 04:21 Blood Culture - Preliminary Blood 07/18/23 06:39 Blood Culture - Preliminary Blood 07/17/23 06:18 Blood Culture - Preliminary Blood
[2023-07-21] MEDS: hydrALAZINE HCL 50 MG TAB PO SCH ×2 (13:48→17:53)
[2023-07-21] MEDS ORDERED: SODIUM CHLORIDE 0.9% 250 ML IV ONE (14:40)
[2023-07-21] MEDS ORDERED: fentaNYL (PF) 50 MCG/ML 2 ML AMP ONE (16:31)
[2023-07-21] MEDS: LIDOCAINE 1% INJ 10MG/ML (20 ML MDV) SQ ONE ×2 (16:44→16:50)
[2023-07-21] MEDS ORDERED: MIDAZOLAM 2 MG/2 ML VIAL IVP ONE ×2 (16:45→16:59)
[2023-07-21] MEDS: fentaNYL (PF) 50 MCG/ML 2 ML AMP IVP ONE ×2 (16:45→16:55)
--- NOTE | 2023-07-21 17:22 | P.OP ---
Date of Procedure: 07/21/23 Description of Procedure: Preoperative diagnosis: End-stage renal failure Postoperative diagnosis: Same Procedure: Placement of tunneled hemodialysis catheter via right internal jugular vein ultrasound-guided access Surgeon: Pratik Lloyd D.O. Anesthesia: Local with sedation Estimated blood loss: Minimal Complications: None Condition: Stable Indication for procedure: 42-year-old gentleman with history of incisional disease on hemodialysis via right-sided tunneled hemodialysis catheter who was admitted to the hospital for infection and bacteremia. He had his catheter removed at that time and treated with IV antibiotics with recent blood cultures that are negative and therefore presents today for tunneled dialysis catheter placement. Operative narrative: After written and informed consent was obtained and all risks, benefits and competitions were described the patient was brought to the Trainer and laid in a supine position. The area of the right neck was prepped and draped in the usual sterile fashion. Timeout was performed in normal fashion and antibiotics were administered prior to access. Utilizing ultrasound the right internal jugular vein was visualized and shown to be patent without any thrombus. Under ultrasound guidance the vein was then cannulated with dark nonpulsatile blood flow visualized. Guidewire was placed under direct visualization of fluoroscopy into the superior vena cava. Attention was then placed to the chest wall. A small incision was created on the lateral aspect of the chest wall as well as the access site at the neck. A 23 centimeter palindrome hemodialysis catheter was then tunneled from the chest wall to the neck. Serial dilation was then performed and breakaway sheath was placed into the internal jugular vein under direct visualization of fluoroscopy. The catheter was then placed within the break away sheath the sheath was removed. The ports were assessed for patency and vannessa and flushed easily and then were hep-locked. The catheter was then sutured in place, cleansed and dressings were placed. The patient tolerated procedure well.
--- NOTE | 2023-07-21 18:01 | XR ---
EXAMINATION TYPE: XR chest 1V DATE OF EXAM: 07/21/2023 5:51 PM CLINICAL INDICATION:Male, 42 years old with history of confirm placement of tunneled dialysis cathete r; [facility] COMPARISON: Chest x-ray 07/15/2023 TECHNIQUE: XR chest 1V Portable AP radiograph of the chest.. FINDINGS: Lines/Tubes/Devices: Right IJ approach dual-lumen dialysis catheter has been placed, the tips terminate over the mid right atrium. EKG leads overlie the chest. No indwelling lines are seen. Heart/mediastinum: Heart is mildly enlarged and stable. Mediastinum otherwise appears stable. Pulmonary vascularity: Similar mild pulmonary vascular congestion with increased interstitial marking s suggestive of edema. Lungs/Pleura: No confluent consolidation, sizable effusion, or pneumothorax demonstrated. Musculoskeletal: No acute osseous abnormality demonstrated in the limits of the exam. Degenerative c hanges of the spine and shoulders. Other findings: None. IMPRESSION: 1. Right IJ approach dialysis catheter placed, tips terminating over the mid right atrium. 2. No evidence of pneumothorax. 3. Cardiomegaly with mild vascular congestion and interstitial edema.
[2023-07-21 20:54] LABS: Glucose,Whole Blood 111 mg/dL (70-110)
[2023-07-21] MEDS: ACETAMINOPHEN TAB 500 MG TAB PO PRN (21:24)
[2023-07-21] MEDS: INSULIN DETEMIR (LEVEMIR) 100 UNIT/ML SYR SQ SCH (23:17)
[2023-07-22] MEDS: HEPARIN SODIUM,PORCINE 5,000 UNIT/ML 1 ML VIAL SQ SCH ×2 (00:32→07:59)
[2023-07-22 02:11] VITALS: RESP 16
[2023-07-22 06:11] LABS: Glucose,Whole Blood 166 mg/dL (70-110)
[2023-07-22] MEDS: INSULIN ASPART (NovoLOG) 100 UNIT/ML VIAL SQ SCH ×2 (06:19→11:55)
[2023-07-22] MEDS: carvediloL 12.5 MG TAB PO SCH (06:19)
[2023-07-22 06:47] LABS: HCT 34.7 % (39.0-53.0); HGB 11.6 gm/dL (13.0-17.5); MCH 31.6 pg (25.0-35.0); MCHC 33.6 g/dL (31.0-37.0); MCV 94.2 fL (80.0-100.0); Mean Platelet Volume 8.5; RBC 3.69 m/uL (4.30-5.90); RDW 14.2 % (11.5-15.5); WBC 5.2 k/uL (3.8-10.6)
[2023-07-22 07:04] LABS: African American GFR (CKD) 7 (>60 ml/min/1.73 sqM); Anion Gap 16 mmol/L; Blood Urea Nitrogen 52 mg/dL (9-20); Calcium 7.9 mg/dL (8.4-10.2); Carbon Dioxide 24 mmol/L (22-30); Chloride 96 mmol/L (98-107); Glucose 155 mg/dL (74-99); Non-African American GFR(CKD) 6 (>60 ml/min/1.73 sqM); Platelet Count 241 k/uL (150-450); Potassium 3.7 mmol/L (3.5-5.1); Sodium 136 mmol/L (137-145)
[2023-07-22] MEDS ORDERED: MORPHINE SULFATE 4 MG/ML SYRINGE IVP STA (07:51)
[2023-07-22] MEDS: CALCIUM ACETATE 667 MG TAB PO SCH ×3 (07:58→12:05)
[2023-07-22] MEDS: FUROSEMIDE 10 MG/ML 10 ML VIAL IV SCH (07:59)
[2023-07-22] MEDS: GABAPENTIN 100 MG CAP PO SCH (08:00)
[2023-07-22] MEDS: PANTOPRAZOLE 40 MG TABLET PO SCH (08:00)
[2023-07-22 08:55] VITALS: BP 165/99; PULSE 69; TEMP 98.3
--- NOTE | 2023-07-22 10:17 | P.PN ---
Subjective Patient is seen in follow-up for end-stage renal disease. He is maintained on hemodialysis on Thursday schedule. Permacath was removed on 07/16/2023 due to infection. New permacath placed in 07/21/2023. No problems with dialysis yesterday. Tolerating dialysis well currently. No active complaints. Vital signs are stable. General: No acute distress. HEENT: Head exam is unremarkable. LUNGS: No audible rhonchi or wheezes. HEART: Rate and Rhythm are regular. ABDOMEN: Nontender. EXTREMITITES: Trace edema. Objective - Vital Signs Vital signs: Vital Signs Temp 98.3 F 07/22/23 07:42 Pulse 69 07/22/23 07:42 Resp 16 07/22/23 07:42 BP 165/99 07/22/23 07:42 Pulse Ox 95 07/22/23 07:42 FiO2 Intake & Output 07/21/23 07/22/23 07/22/23 18:59 06:59 18:59 Intake Total 25 400 Output Total 800 3000 Balance -775 -8430 Intake: IV 25 Hemodialysis 400 Output: Urine 800 Hemodialysis 3000 Other: Voiding Method Urinal - Labs CBC & Chem 7: 07/22/23 06:29 07/22/23 06:29 Labs: Abnormal Lab Results - Last 24 Hours (Table) 07/21/23 07/22/23 07/22/23 Range/Units 20:53 06:10 06:29 RBC 3.69 L (4.30-5.90) m/uL Hgb 11.6 L (13.0-17.5) gm/dL Hct 34.7 L (39.0-53.0) % Sodium (137-145) mmol/L Chloride (98-107) mmol/L BUN (9-20) mg/dL Creatinine (0.66-1.25) mg/dL Glucose (74-99) mg/dL POC Glucose (mg/dL) 111 H 166 H (70-110) mg/dL Calcium (8.4-10.2) mg/dL 07/22/23 Range/Units 06:29 RBC (4.30-5.90) m/uL Hgb (13.0-17.5) gm/dL Hct (39.0-53.0) % Sodium 136 L (137-145) mmol/L Chloride 96 L (98-107) mmol/L BUN 52 H (9-20) mg/dL Creatinine 9.40 H* (0.66-1.25) mg/dL Glucose 155 H (74-99) mg/dL POC Glucose (mg/dL) (70-110) mg/dL Calcium 7.9 L (8.4-10.2) mg/dL Microbiology - Last 24 Hours (Table) 07/19/23 04:21 Blood Culture - Preliminary Blood 07/18/23 06:39 Blood Culture - Preliminary Blood Assessment and Plan Plan: Assessment: 1. End-stage renal disease maintained on hemodialysis on Thursday schedule. 2. Sepsis secondary to a permacath infection. Blood culture positive for staph aureus. Permacath removed 07/16/2023 - the catheter was placed in the second we ek of June.. Patient had similar infection in April 2023 and required permacath removal at that time and completed IV antibiotics. 3. Chronic kidney disease mineral bone disease maintained on PhosLo. 4. Hypertension with chronic kidney disease. 5. Diabetes mellitus. 6. Anemia of chronic kidney disease. On Aranesp. Plan: Antibiotics per infectious disease. Permacath placed 07/21/2023. Currently seen while undergoing hemodialysis. Next treatment on Thursday. Stop IV Lasix. Add torsemide 40 mg once daily. Renal diet and 1500 mL fluid restriction. Decreased dose of gabapentin. No vegetation noted on echocardiogram.
--- NOTE | 2023-07-22 10:34 | P.PN ---
Subjective Progress Note Date: 07/22/23 Principal diagnosis: Infected tunneled dialysis catheter Patient is seen and examined sitting up in bed. Currently he states he feels overall okay. Said he's been afebrile. Has a right IJ tunneled catheter placed yesterday. He underwent hemodialysis yesterday without any complications and is about to start hemodialysis again today. Repeat blood cultures preliminary after 72 hours no growth Objective - Vital Signs Vital signs: Vital Signs Temp 98.3 F 07/22/23 07:42 Pulse 69 07/22/23 07:42 Resp 16 07/22/23 07:42 BP 165/99 07/22/23 07:42 Pulse Ox 95 07/22/23 07:42 FiO2 Intake & Output 07/21/23 07/22/23 07/22/23 18:59 06:59 18:59 Intake Total 25 400 Output Total 800 3000 Balance -775 -2600 Intake: IV 25 Hemodialysis 400 Output: Urine 800 Hemodialysis 3000 Other: Voiding Method Urinal - Exam General appearance: The patient is alert, oriented, appears in no acute distress . HET: Head is normocephalic and atraumatic. Pupils are equal and reactive. Neck: Supple. Heart: Regular. Chest: Right IJ tunnel catheter in place and secured. Lungs: Equal expansion, normal respiratory effort. Abdomen: Soft, nontender, nondistended. Extremities: Normal skin color and turgor. Neurological: No focal deficits. - Labs CBC & Chem 7: 07/22/23 06:29 07/22/23 06:29 Labs: Abnormal Lab Results - Last 24 Hours (Table) 07/21/23 07/22/23 07/22/23 Range/Units 20:53 06:10 06:29 RBC 3.69 L (4.30-5.90) m/uL Hgb 11.6 L (13.0-17.5) gm/dL Hct 34.7 L (39.0-53.0) % Sodium (137-145) mmol/L Chloride (98-107) mmol/L BUN (9-20) mg/dL Creatinine (0.66-1.25) mg/dL Glucose (74-99) mg/dL POC Glucose (mg/dL) 111 H 166 H (70-110) mg/dL Calcium (8.4-10.2) mg/dL 07/22/23 Range/Units 06:29 RBC (4.30-5.90) m/uL Hgb (13.0-17.5) gm/dL Hct (39.0-53.0) % Sodium 136 L (137-145) mmol/L Chloride 96 L (98-107) mmol/L BUN 52 H (9-20) mg/dL Creatinine 9.40 H* (0.66-1.25) mg/dL Glucose 155 H (74-99) mg/dL POC Glucose (mg/dL) (70-110) mg/dL Calcium 7.9 L (8.4-10.2) mg/dL Microbiology - Last 24 Hours (Table) 07/19/23 04:21 Blood Culture - Preliminary Blood 07/18/23 06:39 Blood Culture - Preliminary Blood Assessment and Plan Assessment: 1. Infected tunneled dialysis catheter status post removal 2. Febrile 3. End-stage renal disease on hemodialysis, replacement of right IJ tunnel catheter 4. Diabetes mellitus Plan: 1. Continue with hemodialysis as recommended from nephrology 2. Patient to follow-up with Dr. Schwartz as scheduled Thank you for this consultation, we will sign off at this time. The impression and plan of care has been dictated as directed. I performed a history and examination of this patient, discussed the same with the dictator. I agree with the dictator's note ,documented as a scribe. Any additional findings or plans will be noted.
--- NOTE | 2023-07-22 11:18 | P.DS ---
Providers Date of admission: 07/16/23 00:36 Expected date of discharge: 07/22/23 Attending physician: Magaly Aguilar MD Consults: 07/16/23 00:36 Consult Physician Routine Consulting Provider: Todd Rocha Consult Reason/Comments: dialysis cath Do you want consulting provider notified?: Yes, Notify in am Consult Physician Routine Consulting Provider: Latrice Jaramillo Consult Reason/Comments: dialysis Do you want consulting provider notified?: Yes, Notify in am 07/16/23 17:10 Consult Physician Urgent Consulting Provider: Joshua Summers Consult Reason/Comments: bacteremia Do you want consulting provider notified?: Yes Primary care physician: Ming Law MD Hospital Course: Patient is a very pleasant 42-year-old male with PMH of diabetes mellitus, hypertension, and ESRD on dialysis Mondays/Wednesdays/Fridays. He presented to the emergency department secondary to reports of fevers, chills, and yellow purulent drainage from dialysis catheter site. Patient's tunneled dialysis catheter was placed on 06/28/23 status post recent infected right IJ hemodialysis catheter was removed 2 months prior. Patient reports he has been undergoing dialysis as scheduled Mo /Wednesdays/Fridays. He reports last hemodialysis session was Thursday07/10/23, patient states he missed Thursday secondary to being a holiday and on Thursday he began feeling ill and running a fever. Upon arrival to the emergency department patient underwent full evaluation. Vital signs reviewed and concerning for severe sepsis with temp 103.1F, heart rate 114, respiratory rate 20, blood pressure 193/110, and SpO2 of 96% on room air. Patient was started on IV antibiotics and admitted under our services with consultation to nephrology, vascular surgery, and infectious disease. Blood cultures positive for Staphylococcus aureus 2 sets. Wound culture obtained from drainage from dialysis catheter site also positive for Staphylococcus aureus. Vascular surgery following, tunneled dialysis catheter right anterior chest was removed 07/16/23 following completion of dialysis. Repeat blood culture obtained 07/17/23 showing no growth to date. Underwent tunneled hemodialysis catheter via right internal jugular vein ultrasound-guided access on 07/[address] Lloyd. Underwent HD on 07/21 and 07/22. Dr. Summers recommended 2 weeks of cefzolin which was arranged with HD per case management. 07/22 Patient was seen and examined. Upset was told he would be discharged yesterday. Complains of mild pain at the site of R IJ HD catheter. Pertinent studies include CXR, EKG, Echo. Pertinent procedures include tunneled hemodialysis catheter via right internal jugular vein ultrasound-guided access. General: non toxic, no distress, appears at stated age Derm: warm, dry. Dressing from previous tunneled dialysis catheter site (right anterior chest) is clean dry and intact Head: atraumatic, normocephalic, symmetric, R IJ HD catheter. Eyes: EOMI, no lid lag, anicteric sclera Mouth: no lip lesion, mucus membranes moist Cardiovascular: S1S2 reg, no murmur Lungs: CTA bilateral, no rhonchi, no rales , no accessory muscle use Ext: no gross muscle atrophy, no edema, no contractures Neuro: no focal neuro deficits Psych: Alert, oriented, appropriate affect Discharge Diagnosis: Staph aureus bacteremia Staph aureus infected tunneled dialysis catheter site Severe sepsis, suspected secondary to above Metabolic acidosis secondary to ESRD ESRD on dialysis Hypertensive urgency Insulin-dependent Diabetes mellitus This complex discharge took 35 minutes to complete. Patient Condition at Discharge: Stable Plan - Discharge Summary Discharge Rx Participant: No New Discharge Prescriptions: Continue carvediloL [Coreg] 25 mg PO BID@0600,2000 Torsemide [Demadex] 20 mg PO BID hydrALAZINE HCL [Apresoline] 50 mg PO BID@1200,1600 Calcium Acetate [PhosLo] 1,334 mg PO BID PRN PRN Reason: snacks Insulin Detemir (Levemir) [Levemir] 10 unit SQ HS 30 Days #3 each Acetaminophen Tab [Tylenol] 650 mg PO Q6HR PRN tab PRN Reason: Mild Pain Or Fever > 100.5 Lanthanum Carbonate [Lanthanum Carbonate Chew] 1,000 mg PO TID-W/MEALS Calcium Acetate [PhosLo] 2,001 mg PO TID-W/MEALS Pantoprazole [Protonix] 40 mg PO DAILY Gabapentin 300 mg PO TID Discharge Medication List Calcium Acetate [PhosLo] 2,001 mg PO TID-W/MEALS 02/20/23 [History] Pantoprazole [Protonix] 40 mg PO DAILY 02/20/23 [History] Torsemide [Demadex] 20 mg PO BID 02/20/23 [History] carvediloL [Coreg] 25 mg PO BID@0600,2000 02/20/23 [History] hydrALAZINE HCL [Apresoline] 50 mg PO BID@1200,1600 02/20/23 [History] Calcium Acetate [PhosLo] 1,334 mg PO BID PRN 05/01/23 [History] Acetaminophen Tab [Tylenol] 650 mg PO Q6HR PRN tab 05/04/23 [Rx] Insulin Detemir (Levemir) [Levemir] 10 unit SQ HS 30 Days #3 each 05/04/23 [Rx] Gabapentin 300 mg PO TID 06/27/23 [History] Lanthanum Carbonate [Lanthanum Carbonate Chew] 1,000 mg PO TID-W/MEALS 06/27/23 [History] Follow up Appointment(s)/Referral(s): Dialysis,[facility] [NON-STAFF] - 07/22/23 Ming Law MD [Primary Care Provider] - 1-2 days Joshua Summers MD [STAFF PHYSICIAN] - 1 Week (office not answering Please call to schedule appointment ) Activity/Diet/Wound Care/Special Instructions: Cefazolin for 2 weeks with hemodialysis set up. Diet: Renal Discharge Disposition: HOME SELF-CARE
[2023-07-22 11:28] LABS: Glucose,Whole Blood 114 mg/dL (70-110)
[2023-07-22] MEDS: hydrALAZINE HCL 50 MG TAB PO SCH (12:04)
[2023-07-22] MEDS: MORPHINE SULFATE 4 MG/ML SYRINGE IVP PRN (12:33)
[2023-07-23] MEDS ORDERED: TORSEMIDE 20 MG TAB PO SCH (09:00)
--- NOTE | 2023-07-25 11:47 | IR ---
EXAMINATION TYPE: IR cvc insert central tunneled DATE OF EXAM: 07/21/2023 FLUOROSCOPY Dialysis, 3.4m/7.57DAP, 14.5F x 23cm rt IJ dialysis cath. 87 images provided.
--- NOTE | 2023-07-25 20:00 | CDI ---
Documentation Clarification Form Date: 07/25/2023 07:47:49 PM From: Kendra Desai Phone: Admit Date: 07/16/2023 12:36:00 AM Patient Name: Suman Robles Visit Number: [id number] Discharge Date: 07/22/2023 01:20:00 PM ATTENTION: The Clinical Documentation Specialists (CDI) and [facility] Coding Staff appreciate your assistance in clarifying documentation. Please respond to the clarification below the line at the bottom and electronically sign. The CDI & [facility] Coding staff will review the response and follow-up if needed. Please note: Queries are made part of the Legal Health Record. If you have any questions, please contact the author of this message via ITS. Dr. Marie Oleary Your patient has the documented diagnosis of unspecified CHF per the Patients Medical History. Additional information regarding the type and acuity of CHF is requested. History/Risk Factors: 42yo M, tunneled HD Cath w Staph aureus severe sepsis, metabolic acidosis, ESRD, HTN w urgency, IDDMII, anemia, obesity, smoker Clinical Indicators: VS/Pulse OX: 93- 96 Echocardiogram Results: Technically suboptimalstudyendocardial margins are not well seen. LV size and SFx appears to be in the normal range. Mildenlargementof LA. MildMR, TR. MildPHTN. Probablefat padanteriorlynoclear-cutpericardial effusion Chest X Ray: Cardiomegalywith mild vascularcongestion. Increased interstitial markings can be seen with chronic changes, with or without superimposed mildedemaorpneumonitis. Treatment: Stop IV Lasix. Add torsemide 40 mg once daily. Renal diet and 1500 mL fluidrestriction. Decreased dose of gabapentin. In your professional opinion, can you please clarify the acuity and type of CHF if known? [ ] Chronic Systolic Heart Failure (reduced EF) [ ] Chronic Diastolic Heart Failure (preserved EF) [ ] Chronic Systolic & Diastolic Heart Failure [ X ] Other, please specify____mild pulm HTN, no CHF [ ] Unable to determine (Template Last Revised: August 2020) MTDD
--- NOTE | 2023-07-29 18:14 | P.PN ---
Subjective Progress Note Date: 07/22/23 Principal diagnosis: Reason for follow-up is MSSA bacteremia and dialysis catheter infection Patient is a 42-year male with a past medical history difficult for diabetes mellitus hypertension end-stage renal disease on dialysis present to the hospital with sepsis secondary to dialysis catheter infection also evidence of MSSA bacteremia On today's evaluation that is 07/22/2023 patient continues to be afebrile, the patient is breathing comfortably on room air, the patient denies chest pain shortness of breath or cough., The patient denies nausea vomiting, denies ab dominal pain no diarrhea, the patient did have permacatheter placement and currently undergoing dialysis The patient white count of 5.2, creatinine is 9.40 repeat blood culture 07/17/2023 negative Objective - Vital Signs Vital signs: Vital Signs Temp 98.3 F 07/22/23 07:42 Pulse 69 07/22/23 07:42 Resp 16 07/22/23 07:42 BP 165/99 07/22/23 07:42 Pulse Ox 95 07/22/23 07:42 FiO2 Intake & Output 07/21/23 07/22/23 07/22/23 18:59 06:59 18:59 Intake Total 25 400 Output Total 800 3000 Balance -035 -8380 Intake: IV 25 Hemodialysis 400 Output: Urine 800 Hemodialysis 3000 Other: Voiding Method Urinal - Exam GENERAL DESCRIPTION: Middle-age male lying in bed in no distress RESPIRATORY SYSTEM: Unlabored breathing , decreased breath sounds at bases HEART: S1 S2 regular rate and rhythm , ABDOMEN: Soft , no tenderness EXTREMITIES: No edema feet - Labs CBC & Chem 7: 07/22/23 06:29 07/22/23 06:29 Labs: Abnormal Lab Results - Last 24 Hours (Table) 07/21/23 07/22/23 07/22/23 Range/Units 20:53 06:10 06:29 RBC 3.69 L (4.30-5.90) m/uL Hgb 11.6 L (13.0-17.5) gm/dL Hct 34.7 L (39.0-53.0) % Sodium (137-145) mmol/L Chloride (98-107) mmol/L BUN (9-20) mg/dL Creatinine (0.66-1.25) mg/dL Glucose (74-99) mg/dL POC Glucose (mg/dL) 111 H 166 H (70-110) mg/dL Calcium (8.4-10.2) mg/dL 07/22/23 07/22/23 Range/Units 06:29 11:26 RBC (4.30-5.90) m/uL Hgb (13.0-17.5) gm/dL Hct (39.0-53.0) % Sodium 136 L (137-145) mmol/L Chloride 96 L (98-107) mmol/L BUN 52 H (9-20) mg/dL Creatinine 9.40 H* (0.66-1.25) mg/dL Glucose 155 H (74-99) mg/dL POC Glucose (mg/dL) 114 H (70-110) mg/dL Calcium 7.9 L (8.4-10.2) mg/dL Microbiology - Last 24 Hours (Table) 07/19/23 04:21 Blood Culture - Preliminary Blood 07/18/23 06:39 Blood Culture - Preliminary Blood Assessment and Plan (1) MSSA bacteremia Status: Acute Code(s): R78.81 - BACTEREMIA; B95.61 - METHICILLIN SUSCEP STAPH INFCT CAUSING DIS CLASSD ELSWHR SNOMED Code(s): 448316490 (2) Hemodialysis catheter infection Status: Acute Code(s): T82.7XXA - INFECT/INFLM REACT D/T OTH CARDI/VASC DEV/IMPLNT/GRFT, INIT SNOMED Code(s): 729370888 (3) Sepsis Status: Acute Code(s): A41.9 - SEPSIS, UNSPECIFIED ORGANISM SNOMED Code(s): 59218126 Plan: 1patient presented to hospital with sepsis in this patient who did have a fever tachycardia now with evidence of gram-positive bacteremia source is right chest wall dialysis catheter infection with the previous history of MSSA with a question of possible MSSA versus MRSA 2right chest wall dialysis catheter was discontinued on 07/16/2023 , Chest wall cultures are growing MSSA. 3repeat blood culture 07/17/2023 as well as 07/18/2023 so far negative 4patient did have a new permacatheter placement, plan is to continue with the cefazolin through the dialysis x 2 weeks prescription was provided to the case coordinator and close outpatient follow-up Dictation was produced using dragon dictation software. please excuse any grammatical, word or spelling errors. Time with Patient: Less than 30
== END 2023-07-22 13:20 | disposition home or self-care (01) | DRG 314 ==
LOC: EC 18:49 → 4SSUR 07-16 00:36
PROVIDERS: ADMIT Internal Medicine; ATTEND Internal Medicine
PROC: 5A1D70Z Performance of Urinary Filtration, Intermittent, Less than 6 Hours Per Day (ICD-10-PCS; 2023-07-16)
PROC: 02PYX3Z Removal of Infusion Device from Great Vessel, External Approach (ICD-10-PCS; 2023-07-16)
PROC: 0JH63XZ Insertion of Tunneled Vascular Access Device into Chest Subcutaneous Tissue and Fascia, Percutaneous Approach (ICD-10-PCS; principal; 2023-07-21 15:30)
PROC: 02HV33Z Insertion of Infusion Device into Superior Vena Cava, Percutaneous Approach (ICD-10-PCS; 2023-07-21 15:30)
DX: T80.211A Bloodstream infection due to central venous catheter, initial encounter (principal); A41.01 Sepsis due to Methicillin susceptible Staphylococcus aureus; N18.6 End stage renal disease; R65.20 Severe sepsis without septic shock; E87.20 Acidosis, unspecified; I13.11 Hypertensive heart and chronic kidney disease without heart failure, with stage 5 chronic kidney disease, or end stage renal disease; I27.20 Pulmonary hypertension, unspecified; E11.22 Type 2 diabetes mellitus with diabetic chronic kidney disease; Z89.429 Acquired absence of other toe(s), unspecified side; Z99.2 Dependence on renal dialysis; Z79.4 Long term (current) use of insulin; D63.1 Anemia in chronic kidney disease; F17.210 Nicotine dependence, cigarettes, uncomplicated; E66.9 Obesity, unspecified; I16.0 Hypertensive urgency; M89.8X9 Other specified disorders of bone, unspecified site; Y71.1 Therapeutic (nonsurgical) and rehabilitative cardiovascular devices associated with adverse incidents; Z68.34 Body mass index [BMI] 34.0-34.9, adult; Z86.19 Personal history of other infectious and parasitic diseases; Z86.718 Personal history of other venous thrombosis and embolism; Z28.310 Unvaccinated for COVID-19; Z79.899 Other long term (current) drug therapy
CPT/HCPCS: 36415; 36558; 71045; 71046; 76937; 77001; 80048; 80053; 80202; 83036; 83605; 83735; 85027; 85610; 85730; 87040; 87070; 87077; 87186; 87205; 87636; 90935; 93005; 93306; 96365; 96375; 99285

== ENCOUNTER 2023-10-01 14:25 | Emergency (ER) | payer MEDICARE, OTHER ==
[2023-10-01] MEDS: ALTEPLASE 2 MG VIAL (CATHFLO) IV STA ×2 (16:09)
[2023-10-01 16:36] LABS: Basophils # (A) 0.1 k/uL (0-0.2); Basophils % (A) 1 %; Eosinophils # (A) 0.6 k/uL (0-0.7); Eosinophils % (A) 8 %; HCT 34.6 % (39.0-53.0); HGB 11.5 gm/dL (13.0-17.5); Lymphocytes # (A) 1.5 k/uL (1.0-4.8); Lymphocytes % (A) 21 %; MCH 31.8 pg (25.0-35.0); MCHC 33.1 g/dL (31.0-37.0); Mean Platelet Volume 7.9; Monocytes # (A) 0.4 k/uL (0-1.0); Monocytes % (A) 5 %; Neutrophils # (A) 4.5 k/uL (1.3-7.7); Neutrophils % (A) 63 %; Platelet Count 182 k/uL (150-450); RDW 14.1 % (11.5-15.5); WBC 7.1 k/uL (3.8-10.6)
[2023-10-01 16:56] LABS: ALT <6 U/L (4-49); AST 17 U/L (17-59); African American GFR (CKD) 5 (>60 ml/min/1.73 sqM); Albumin 3.7 g/dL (3.5-5.0); Alkaline Phosphatase 74 U/L (38-126); Anion Gap 8 mmol/L; Blood Urea Nitrogen 69 mg/dL (9-20); Calcium 8.6 mg/dL (8.4-10.2); Carbon Dioxide 21 mmol/L (22-30); Chloride 111 mmol/L (98-107); Glucose 116 mg/dL (74-99); Non-African American GFR(CKD) 5 (>60 ml/min/1.73 sqM); Potassium 5.9 mmol/L (3.5-5.1); Sodium 140 mmol/L (137-145); Total Bilirubin 0.5 mg/dL (0.2-1.3); Total Protein 6.6 g/dL (6.3-8.2)
--- NOTE | 2023-10-01 17:02 | ED ---
General Adult HPI <Rodrick Muir - Last Filed: 10/01/23 21:58> - General Source: patient, RN notes reviewed Mode of arrival: ambulatory Limitations: no limitations <Constance Falcon - Last Filed: 10/06/23 15:58> - General Chief complaint: Recheck/Abnormal Lab/Rx Stated complaint: dialysis catheter plugged Time Seen by Provider: 10/01/23 15:35 - History of Present Illness Initial comments: 43-year-old male presents to the emergency department for chronic dialysis catheter. Patient was sent in by Dr. Mike. Patient typically has dialysis Thursday, Thursday, Thursday. Last dialysis was >1 week ago. He attempted to go to dialysis today but states his port was clogged and was unable to have dialysis performed. (Constance Falcon) - Related Data Home Medications Medication Instructions Recorded Confirmed Calcium Acetate [PhosLo] 2,001 mg PO TID-W/MEALS 02/20/23 07/16/23 Pantoprazole [Protonix] 40 mg PO DAILY 02/20/23 07/16/23 Torsemide [Demadex] 20 mg PO BID 02/20/23 07/16/23 carvediloL [Coreg] 25 mg PO BID@0600,2000 02/20/23 07/16/23 hydrALAZINE HCL [Apresoline] 50 mg PO BID@1200,1600 02/20/23 07/16/23 Calcium Acetate [PhosLo] 1,334 mg PO BID PRN 05/01/23 07/16/23 Gabapentin 300 mg PO TID 06/27/23 07/16/23 Lanthanum Carbonate [Lanthanum 1,000 mg PO TID-W/MEALS 06/27/23 07/16/23 Carbonate Chewable] Previous Rx's Medication Instructions Recorded Acetaminophen Tab [Tylenol] 650 mg PO Q6HR PRN tab 05/04/23 Insulin Detemir (Levemir) [Levemir] 10 unit SQ HS 30 Days #3 each 05/04/23 Allergies Allergy/AdvReac Type Severity Reaction Status Date / Time No Known Allergies Allergy Verified 10/01/23 14:55 Review of Systems ROS Other: All systems not noted in ROS Statement are negative. <Rodrick Muir - Last Filed: 10/01/23 21:58> ROS Other: All systems not noted in ROS Statement are negative. <RonaldmorenaConstance magaña - Last Filed: 10/06/23 15:58> ROS Statement: Those systems with pertinent positive or pertinent negative responses have been documented in the HPI. Past Medical History Past Medical History: Heart Failure, Diabetes Mellitus, Hypertension, Renal Disease Additional Past Medical History / Comment(s): DIALYSIS M,W,F. DIET CONTROLLED DM History of Any Multi-Drug Resistant Organisms: None Reported Past Surgical History: Orthopedic Surgery Additional Past Surgical History / Comment(s): TOE AMPUTATION. FOOT SURG. DIALYSIS CATH PLACED. FISTULA. TRACY CAT REMOVAL AND LASER EYE SURG. Past Anesthesia/Blood Transfusion Reactions: No Reported Reaction Past Psychological History: No Psychological Hx Reported Smoking Status: Current every day smoker Past Alcohol Use History: Occasional Past Drug Use History: Marijuana - Past Family History Father Family Medical History: Diabetes Mellitus <TerrieConstance - Last Filed: 10/06/23 15:58> General Exam Limitations: no limitations General appearance: alert, in no apparent distress Head exam: Present: atraumatic, normocephalic, normal inspection Eye exam: Present: normal appearance, PERRL, EOMI. Absent: scleral icterus, conjunctival injection, periorbital swelling ENT exam: Present: normal exam, mucous membranes moist Respiratory exam: Present: normal lung sounds bilaterally. Absent: respiratory distress, wheezes, rales, rhonchi, stridor Cardiovascular Exam: Present: regular rate, normal rhythm, normal heart sounds. Absent: systolic murmur, diastolic murmur, rubs, gallop, clicks Extremities exam: Present: normal inspection, full ROM, normal capillary refill. Absent: tenderness, pedal edema, joint swelling, calf tenderness Neurological exam: Present: alert, oriented X3 Psychiatric exam: Present: normal affect, normal mood Skin exam: Present: warm, dry, intact, normal color. Absent: rash <TerrieConstance - Last Filed: 10/06/23 15:58> Course Vital Signs 10/01/23 10/01/23 10/01/23 14:52 20:47 22:03 Temperature 98.4 F 98.3 F 98.9 F Pulse Rate 83 91 Pulse Rate [ 82 Right Brachial] Respiratory 18 18 16 Rate Blood Pressure 171/94 162/93 Blood Pressure 168/98 [Right Arm] O2 Sat by Pulse 97 95 Oximetry Medical Decision Making - Lab Data Result diagrams: 10/01/23 16:16 10/01/23 16:16 <Rodrick Muir - Last Filed: 10/01/23 21:58> - Lab Data Result diagrams: 10/01/23 16:16 10/01/23 16:16 <RonaldmorenaConstance magaña - Last Filed: 10/06/23 15:58> - Medical Decision Making Was pt. sent in by a medical professional or institution (, DARYN, ACUTE CARE OCCUPATIONAL THERAPIST, urgent care, hospital, or group home...) When possible be specific @ -No Did you speak to anyone other than the patient for history (EMS, parent, family, police, friend...)? What history was obtained from this source @ -No Did you review nursing and triage notes (agree or disagree)? Why? @ -I reviewed and agree with nursing and triage notes Were old charts reviewed (outside hosp., previous admission, EMS record, old EKG, old radiological studies, urgent care reports/EKG's, group home records)? Report findings @ -No old charts were reviewed Differential Diagnosis (chest pain, altered mental status, abdominal pain women, abdominal pain men, vaginal bleeding, weakness, fever, dyspnea, syncope, headache, dizziness, GI bleed, back pain, seizure, CVA, palpatations, mental health, musculoskeletal)? @ -Not applicable EKG interpreted by me (3pts min.). @ -None X-rays interpreted by me (1pt min.). @ -None done CT interpreted by me (1pt min.). @ -None done U/S interpreted by me (1pt. min.). @ -None done What testing was considered but not performed or refused? (CT, X-rays, U/S, labs)? Why? @ -None What meds were considered but not given or refused? Why? @ -None Did you discuss the management of the patient with other professionals (professionals i.e. DARYN Ng, ACUTE CARE OCCUPATIONAL THERAPIST, lab, RT, psych nurse, manager social responsibility, tile setter, teacher, chief technology officer, telehealth case manager)? Give summary @ -Management discussed with Dr. Mike, patient's access is functioning and he is receiving dialysis patient will follow-up tomorrow for outpatient dialysis Was smoking cessation discussed for >3mins.? @ -No Was critical care preformed (if so, how long)? @ -No Were there social determinants of health that impacted care today? How? (Homelessness, low income, unemployed, alcoholism, drug addiction, transportation, low edu. Level, literacy, decrease access to med. care, longterm, rehab)? @ -No Was there de-escalation of care discussed even if they declined (Discuss DNR or withdrawal of care, Hospice)? DNR status @ -No What co-morbidities impacted this encounter? (DM, HTN, Smoking, COPD, CAD, Cancer, CVA, ARF, Chemo, Hep., AIDS, mental health diagnosis, sleep apnea, morbid obesity)? @ -None Was patient admitted / discharged? Hospital course, mention meds given and route, prescriptions, significant lab abnormalities, going to OR and other pertinent info. @ -Discharge. Patient presented to the emergency department for evaluation of clogged dialysis catheter. Patient was sent in by Dr. Mike his salesperson jewelry. Dr. Mike inputted orders for an alteplase flush. Patient was evaluated by dialysis nurse, port was flushed and again functional. Laboratory studies were received from patient, potassium 5.9, creatinine 11.69, consistent with not having dialysis for over 1 week. Patient will undergo dialysis in the emergency department today. Discussed with Dr. Mike laboratory studies and that the patient is receiving dialysis. Patient can be discharged home since his port is functioning appropriately and he will follow-up for his outpatient dialysis tomorrow. Undiagnosed new problem with uncertain prognosis? @ -No Drug Therapy requiring intensive monitoring for toxicity (Heparin, Nitro, Insulin, Cardizem)? @ -No Were any procedures done? @ -No Diagnosis/symptom? @ -Dialysis port issue Acute, or Chronic, or Acute on Chronic? @ -Acute Uncomplicated (without systemic symptoms) or Complicated (systemic symptoms)? @ -Uncomplicated Side effects of treatment? @ -No Exacerbation, Progression, or Severe Exacerbation? @ -No Poses a threat to life or bodily function? How? (Chest pain, USA, CA, pneumonia, PE, COPD, DKA, ARF, appy, cholecystitis, CVA, Diverticulitis, Homicidal, Suicidal, threat to staff... and all critical care pts) @ -No (Constance Falcon) - Lab Data Lab Results 10/01/23 10/01/23 10/01/23 Range/Units 16:16 16:16 20:35 WBC 7.1 (3.8-10.6) k/uL RBC 3.60 L (4.30-5.90) m/uL Hgb 11.5 L (13.0-17.5) gm/dL Hct 34.6 L (39.0-53.0) % MCV 96.0 (80.0-100.0) fL MCH 31.8 (25.0-35.0) pg MCHC 33.1 (31.0-37.0) g/dL RDW 14.1 (11.5-15.5) % Plt Count 182 (150-450) k/uL MPV 7.9 Neutrophils % 63 % Lymphocytes % 21 % Monocytes % 5 % Eosinophils % 8 % Basophils % 1 % Neutrophils # 4.5 (1.3-7.7) k/uL Lymphocytes # 1.5 (1.0-4.8) k/uL Monocytes # 0.4 (0-1.0) k/uL Eosinophils # 0.6 (0-0.7) k/uL Basophils # 0.1 (0-0.2) k/uL PT 10.6 (10.0-12.5) sec INR 1.0 (<1.2) APTT 26.3 (22.0-30.0) sec Sodium 140 (137-145) mmol/L Potassium 5.9 H (3.5-5.1) mmol/L Chloride 111 H (98-107) mmol/L Carbon Dioxide 21 L (22-30) mmol/L Anion Gap 8 mmol/L BUN 69 H (9-20) mg/dL Creatinine 11.69 H* (0.66-1.25) mg/dL Est GFR (CKD-EPI)AfAm 5 (>60 ml/min/1.73 sqM) Est GFR (CKD-EPI)NonAf 5 (>60 ml/min/1.73 sqM) Glucose 116 H (74-99) mg/dL Calcium 8.6 (8.4-10.2) mg/dL Total Bilirubin 0.5 (0.2-1.3) mg/dL AST 17 (17-59) U/L ALT <6 (4-49) U/L Alkaline Phosphatase 74 (38-126) U/L Total Protein 6.6 (6.3-8.2) g/dL Albumin 3.7 (3.5-5.0) g/dL Disposition <Rodrick Muir - Last Filed: 10/01/23 21:58> Is patient prescribed a controlled substance at d/c from ED?: No <Constance Falcon - Last Filed: 10/06/23 15:58> Clinical Impression: Chronic kidney disease requiring chronic dialysis Disposition: HOME SELF-CARE Condition: Stable Additional Instructions: Follow up for your outpatient dialysis tomorrow. Return to the emergency department for new or worsening symptoms. Referrals: Carmen Morris FNPBC [Primary Care Provider] - 1-2 days
[2023-10-01 21:02] LABS: Partial Thromboplastin Time 26.3 sec (22.0-30.0); Prothrombin Time 10.6 sec (10.0-12.5)
[2023-10-01 22:12] VITALS: BP 162/93; PULSE 91; RESP 16; TEMP 98.9
== END 2023-10-01 22:04 | disposition home or self-care (01) ==
LOC: EC 14:25
DX: T82.49XA Other complication of vascular dialysis catheter, initial encounter (principal); I13.2 Hypertensive heart and chronic kidney disease with heart failure and with stage 5 chronic kidney disease, or end stage renal disease; E11.22 Type 2 diabetes mellitus with diabetic chronic kidney disease; N18.6 End stage renal disease; I50.9 Heart failure, unspecified; F17.200 Nicotine dependence, unspecified, uncomplicated; Z99.2 Dependence on renal dialysis; Z79.899 Other long term (current) drug therapy
CPT/HCPCS: 99283; 37195; 36415; 90935; 80053; 85025; 85610; 85730; J2997

== ENCOUNTER 2024-02-28 21:00 | Inpatient (IN) | payer MEDICARE ==
[~2024-02-28 21:00] MED LIST changes: +ACETAMINOPHEN IV (For NPO) 1,000 MG/100 ML VIAL ONE; -DEXAMETHASONE SOD PHOSPHATE 4 MG/ML 1 ML VIAL IV ONE; -HYDROmorphone 0.5 MG/0.5 ML SYRINGE IVP PRN; -LACTATED RINGERS 1,000 ML IV SCH; -LIDOCAINE 1% (10MG/ML) FOR IV START INTRADERMA PRN; -ONDANSETRON 4 MG/2 ML VIAL IVP ONE; +SODIUM CHLORIDE 0.9% 1,000 ML BAG ONE; +cefTRIAXone IN SWFI 1,000 MG/10 ML SYRINGE IVP ONE; -droPERidol 5 MG/2 ML VIAL IVP PRN
[2024-02-28] MEDS ORDERED: NALOXONE 0.4 MG/ML 1 ML VIAL ONE (21:18)
[2024-02-28] MEDS ORDERED: DEXTROSE 50% SYRINGE 50 ML IVP ONE (22:43)
[2024-02-28] MEDS ORDERED: INSULIN REGULAR 100 UNIT/ML VIAL (IV) ONE (22:44)
[2024-02-28] MEDS ORDERED: VANCOMYCIN 1,000 MG VIAL ONE (23:00)
[2024-02-28] MEDS ORDERED: SODIUM CHLORIDE 0.9% 500 ML BAG ONE (23:00)
[2024-02-28] MEDS ORDERED: CALCIUM GLUCONATE IN NACL 100 ML IVPB ONE (23:08)
[2024-02-29] MEDS ORDERED: SODIUM CHLORIDE 0.9% 100 ML BAG IV ONE (02:00)
[2024-02-29] MEDS ORDERED: DEXTROSE 50% SYRINGE 50 ML IVP ONE (13:58)
[2024-02-29] MEDS ORDERED: INSULIN REGULAR 100 UNIT/ML VIAL (IV) ONE (13:59)
[2024-02-29] MEDS ORDERED: PIPERACILLIN-TAZOBACTAM 3.375 GM VIAL ONE (14:02)
[2024-02-29] MEDS ORDERED: CALCIUM GLUCONATE IN NACL 100 ML IVPB ONE (14:10)
[2024-02-29] MEDS ORDERED: ACETAMINOPHEN TAB 325 MG TAB ONE (22:09)
[2024-03-01] MEDS ORDERED: PIPERACILLIN-TAZOBACTAM 3.375 GM VIAL ONE ×2 (03:32→16:01)
[2024-03-01] MEDS ORDERED: PANTOPRAZOLE 40 MG/10 ML VIAL ONE (09:55)
[2024-03-01] MEDS ORDERED: ONDANSETRON 4 MG/2 ML VIAL ONE (10:12)
[2024-03-01] MEDS ORDERED: LORazepam 2 MG/ML INJ ONE (10:13)
[2024-03-01] MEDS ORDERED: LIDOCAINE 1% INJ 10MG/ML (20 ML MDV) ONE (13:26)
[2024-03-01] MEDS ORDERED: RIVAROXABAN 2.5 MG TABLET PO ONE (21:00)
[2024-03-01] MEDS ORDERED: PANTOPRAZOLE 40 MG TABLET PO ONE (21:42)
[2024-03-01] MEDS ORDERED: hydrALAZINE HCL 50 MG TAB ONE (21:42)
[2024-03-01] MEDS ORDERED: carvediloL 12.5 MG TAB ONE (21:43)
[2024-03-01] MEDS ORDERED: TORSEMIDE 20 MG TAB ONE (21:43)
[2024-03-02] MEDS ORDERED: LORazepam 2 MG/ML INJ ONE (01:36)
[2024-03-02] MEDS ORDERED: PANTOPRAZOLE 40 MG TABLET PO ONE (06:51)
[2024-03-02] MEDS ORDERED: carvediloL 12.5 MG TAB ONE ×2 (09:14→21:30)
[2024-03-02] MEDS ORDERED: hydrALAZINE HCL 50 MG TAB ONE ×3 (12:18→21:30)
[2024-03-02] MEDS ORDERED: TORSEMIDE 20 MG TAB ONE ×2 (12:18→21:30)
[2024-03-02] MEDS ORDERED: MORPHINE SULFATE 2 MG/ML SYRINGE ONE ×2 (18:00→22:02)
[2024-03-03] MEDS ORDERED: ACETAMINOPHEN TAB 325 MG TAB ONE (01:22)
[2024-03-03] MEDS ORDERED: MORPHINE SULFATE 2 MG/ML SYRINGE ONE ×3 (01:59→23:59)
[2024-03-03] MEDS ORDERED: PANTOPRAZOLE 40 MG TABLET PO ONE (06:38)
[2024-03-03] MEDS ORDERED: TORSEMIDE 20 MG TAB ONE ×2 (09:30→20:43)
[2024-03-03] MEDS ORDERED: hydrALAZINE HCL 50 MG TAB ONE ×3 (09:30→20:43)
[2024-03-03] MEDS ORDERED: carvediloL 12.5 MG TAB ONE ×2 (09:30→20:43)
[2024-03-03] MEDS ORDERED: HYDROcodone/APAP 5-325MG 1 EACH TAB ONE ×2 (13:57→20:43)
[2024-03-03] MEDS ORDERED: DARBEPOETIN ALFA 40 MCG/0.4 ML SYRINGE ONE (23:59)
[2024-03-03] MEDS ORDERED: SODIUM CHLORIDE 0.9% 50 ML BAG IV ONE (23:59)
[2024-03-03] MEDS ORDERED: SODIUM CHLORIDE 0.9% 1,000 ML BAG ONE (23:59)
[2024-03-03] MEDS ORDERED: ALTEPLASE 2 MG VIAL (CATHFLO) ONE (23:59)
[2024-03-04] MEDS ORDERED: HYDROcodone/APAP 5-325MG 1 EACH TAB ONE ×4 (02:35→20:33)
[2024-03-04] MEDS ORDERED: PANTOPRAZOLE 40 MG TABLET PO ONE (06:18)
[2024-03-04] MEDS ORDERED: LIDOCAINE 1% INJ 10MG/ML (20 ML MDV) ONE (13:51)
[2024-03-04] MEDS ORDERED: hydrALAZINE HCL 50 MG TAB ONE ×2 (14:24→20:33)
[2024-03-04] MEDS ORDERED: TORSEMIDE 20 MG TAB ONE (20:33)
[2024-03-04] MEDS ORDERED: carvediloL 12.5 MG TAB ONE (20:33)
[2024-03-05] MEDS ORDERED: HYDROcodone/APAP 5-325MG 1 EACH TAB ONE ×6 (00:49→20:40)
[2024-03-05] MEDS ORDERED: PANTOPRAZOLE 40 MG TABLET PO ONE (06:13)
[2024-03-05] MEDS ORDERED: hydrALAZINE HCL 50 MG TAB ONE ×3 (06:13→20:39)
[2024-03-05] MEDS ORDERED: carvediloL 12.5 MG TAB ONE ×2 (08:54→20:40)
[2024-03-05] MEDS ORDERED: TORSEMIDE 20 MG TAB ONE ×2 (08:54→20:40)
[2024-03-05] MEDS ORDERED: SODIUM CHLORIDE 0.9% 50 ML BAG IV ONE (23:59)
[2024-03-06] MEDS ORDERED: HYDROcodone/APAP 5-325MG 1 EACH TAB ONE ×5 (00:46→20:54)
[2024-03-06] MEDS ORDERED: hydrALAZINE HCL 50 MG TAB ONE ×3 (05:40→20:53)
[2024-03-06] MEDS ORDERED: PANTOPRAZOLE 40 MG TABLET PO ONE (09:36)
[2024-03-06] MEDS ORDERED: carvediloL 12.5 MG TAB ONE ×2 (09:37→20:54)
[2024-03-06] MEDS ORDERED: TORSEMIDE 20 MG TAB ONE ×2 (09:37→20:54)
[2024-03-06] MEDS ORDERED: LIDOCAINE 4% PATCH TOPICAL ONE ×2 (15:22→17:58)
[2024-03-06] MEDS ORDERED: DEXTROSE 5% IN WATER 50 ML BAG ONE (23:59)
[2024-03-07] MEDS ORDERED: HYDROcodone/APAP 5-325MG 1 EACH TAB ONE ×2 (01:11→05:16)
[2024-03-07] MEDS ORDERED: PANTOPRAZOLE 40 MG TABLET PO ONE ×2 (06:57→10:02)
[2024-03-07] MEDS ORDERED: TORSEMIDE 20 MG TAB ONE ×2 (10:02→20:58)
[2024-03-07] MEDS ORDERED: carvediloL 12.5 MG TAB ONE ×2 (10:03→20:59)
[2024-03-07] MEDS ORDERED: LIDOCAINE 4% PATCH TOPICAL ONE (10:04)
[2024-03-07] MEDS ORDERED: hydrALAZINE HCL 50 MG TAB ONE ×2 (13:32→20:58)
[2024-03-07] MEDS ORDERED: HYDROcodone/APAP 7.5-325MG 1 EACH TAB ONE ×2 (14:54→20:58)
[2024-03-07] MEDS ORDERED: LORazepam 2 MG/ML INJ ONE (16:01)
[2024-03-07] MEDS ORDERED: DEXTROSE 5% IN WATER 50 ML BAG ONE (23:59)
[2024-03-08] MEDS ORDERED: HYDROcodone/APAP 7.5-325MG 1 EACH TAB ONE ×5 (01:31→20:12)
[2024-03-08] MEDS ORDERED: PANTOPRAZOLE 40 MG TABLET PO ONE (05:43)
[2024-03-08] MEDS ORDERED: hydrALAZINE HCL 50 MG TAB ONE ×3 (05:43→21:02)
[2024-03-08] MEDS ORDERED: LIDOCAINE 4% PATCH TOPICAL ONE (09:38)
[2024-03-08] MEDS ORDERED: TORSEMIDE 20 MG TAB ONE ×2 (09:38→19:57)
[2024-03-08] MEDS ORDERED: carvediloL 12.5 MG TAB ONE ×2 (09:38→19:58)
[2024-03-08] MEDS ORDERED: DEXTROSE 5% IN WATER 50 ML BAG ONE (23:59)
[2024-03-09] MEDS ORDERED: HYDROcodone/APAP 7.5-325MG 1 EACH TAB ONE ×3 (03:14→20:00)
[2024-03-09] MEDS ORDERED: hydrALAZINE HCL 50 MG TAB ONE ×2 (06:24→20:00)
[2024-03-09] MEDS ORDERED: PANTOPRAZOLE 40 MG TABLET PO ONE (06:24)
[2024-03-09] MEDS ORDERED: carvediloL 12.5 MG TAB ONE ×2 (08:06→20:00)
[2024-03-09] MEDS ORDERED: TORSEMIDE 20 MG TAB ONE ×2 (08:06→20:00)
[2024-03-09] MEDS ORDERED: LIDOCAINE 4% PATCH TOPICAL ONE (09:22)
[2024-03-09] MEDS ORDERED: DEXTROSE 5% IN WATER 50 ML BAG ONE (23:59)
[2024-03-10] MEDS ORDERED: PANTOPRAZOLE 40 MG TABLET PO ONE (04:56)
[2024-03-10] MEDS ORDERED: hydrALAZINE HCL 50 MG TAB ONE ×2 (05:21→19:55)
[2024-03-10] MEDS ORDERED: HYDROcodone/APAP 7.5-325MG 1 EACH TAB ONE ×3 (05:22→19:55)
[2024-03-10] MEDS ORDERED: carvediloL 12.5 MG TAB ONE ×2 (08:06→19:56)
[2024-03-10] MEDS ORDERED: TORSEMIDE 20 MG TAB ONE ×2 (08:06→19:56)
[2024-03-10] MEDS ORDERED: LIDOCAINE 4% PATCH TOPICAL ONE (08:06)
[2024-03-10] MEDS ORDERED: SODIUM BICARBONATE TAB 650 MG TAB ONE (19:56)
[2024-03-10] MEDS ORDERED: DEXTROSE 5% IN WATER 50 ML BAG ONE (23:59)
[2024-03-10] MEDS ORDERED: NIFEdipine 10 MG CAP PO ONE ×2 (23:59)
[2024-03-10] MEDS ORDERED: DARBEPOETIN ALFA 40 MCG/0.4 ML SYRINGE ONE (23:59)
[2024-03-10] MEDS ORDERED: SODIUM CHLORIDE 0.9% 1,000 ML BAG ONE (23:59)
[2024-03-10] MEDS ORDERED: RIVAROXABAN 2.5 MG TABLET PO ONE (23:59)
[2024-03-11] MEDS ORDERED: hydrALAZINE HCL 50 MG TAB ONE ×2 (08:28→20:48)
[2024-03-11] MEDS ORDERED: HYDROcodone/APAP 7.5-325MG 1 EACH TAB ONE (08:28)
[2024-03-11] MEDS ORDERED: TORSEMIDE 20 MG TAB ONE ×2 (08:29→20:49)
[2024-03-11] MEDS ORDERED: LIDOCAINE 4% PATCH TOPICAL ONE (08:29)
[2024-03-11] MEDS ORDERED: carvediloL 12.5 MG TAB ONE ×2 (08:29→20:49)
[2024-03-11] MEDS ORDERED: SODIUM BICARBONATE TAB 650 MG TAB ONE ×2 (08:29→20:48)
[2024-03-11] MEDS ORDERED: fentaNYL (PF) 50 MCG/ML 2 ML AMP ONE (10:29)
[2024-03-11] MEDS ORDERED: MIDAZOLAM 2 MG/2 ML VIAL ONE ×2 (10:29→11:09)
[2024-03-11] MEDS ORDERED: SODIUM CHLORIDE 0.9% 500 ML BAG ONE (10:30)
[2024-03-11] MEDS ORDERED: HYDROmorphone 0.5 MG/0.5 ML SYRINGE ONE (20:49)
[2024-03-11] MEDS ORDERED: DEXTROSE 5% IN WATER 50 ML BAG ONE (23:59)
[2024-03-11] MEDS ORDERED: NIFEdipine 10 MG CAP PO ONE (23:59)
[2024-03-12] MEDS ORDERED: HYDROmorphone 0.5 MG/0.5 ML SYRINGE ONE ×5 (02:12→23:47)
[2024-03-12] MEDS ORDERED: hydrALAZINE HCL 50 MG TAB ONE ×4 (07:44→20:50)
[2024-03-12] MEDS ORDERED: SODIUM BICARBONATE TAB 650 MG TAB ONE ×2 (07:44→20:44)
[2024-03-12] MEDS ORDERED: LIDOCAINE 4% PATCH TOPICAL ONE (07:44)
[2024-03-12] MEDS ORDERED: TORSEMIDE 20 MG TAB ONE ×3 (07:44→23:59)
[2024-03-12] MEDS ORDERED: carvediloL 12.5 MG TAB ONE ×3 (07:45→23:59)
[2024-03-12] MEDS ORDERED: PANTOPRAZOLE 40 MG TABLET PO ONE (08:05)
[2024-03-12] MEDS ORDERED: RIVAROXABAN 15 MG TAB ONE (08:38)
[2024-03-12] MEDS ORDERED: DEXTROSE 5% IN WATER 50 ML BAG ONE (23:59)
[2024-03-12] MEDS ORDERED: RIVAROXABAN 2.5 MG TABLET PO ONE (23:59)
[2024-03-12] MEDS ORDERED: NIFEdipine 10 MG CAP PO ONE (23:59)
[2024-03-13] MEDS ORDERED: ACETAMINOPHEN TAB 325 MG TAB PO PRN
[2024-03-13] MEDS ORDERED: ONDANSETRON 4 MG/2 ML VIAL IVP PRN
[2024-03-13] MEDS: NAFCILLIN 2 GM in DEXTROSE 5% IN WATER 100 ML IVPB SCH (03:14)
[2024-03-13] MEDS: HYDROmorphone 0.5 MG/0.5 ML SYRINGE IVP PRN (03:50)
[2024-03-13] MEDS: SODIUM CHLORIDE 0.9% 1,000 ML IV SCH (03:52)
[2024-03-13 04:57] LABS: HCT 33.9 % (39.0-53.0); HGB 11.1 gm/dL (13.0-17.5); Hypochromasia Slight; MCH 30.8 pg (25.0-35.0); MCHC 32.8 g/dL (31.0-37.0); Mean Platelet Volume 7.7; Platelet Count 406 k/uL (150-450); RBC 3.61 m/uL (4.30-5.90); RDW 15.1 % (11.5-15.5)
[2024-03-13 05:32] LABS: African American GFR (CKD) 8 (>60 ml/min/1.73 sqM); Anion Gap 12 mmol/L; Blood Urea Nitrogen 39 mg/dL (9-20); Calcium 8.1 mg/dL (8.4-10.2); Carbon Dioxide 24 mmol/L (22-30); Chloride 97 mmol/L (98-107); Glucose 88 mg/dL (74-99); Magnesium 2.1 mg/dL (1.6-2.3); Non-African American GFR(CKD) 7 (>60 ml/min/1.73 sqM); Potassium 3.4 mmol/L (3.5-5.1); Sodium 133 mmol/L (137-145)
[2024-03-13] MEDS: HYDROcodone/APAP 7.5-325MG 1 EACH TAB PO PRN (06:17)
[2024-03-13] MEDS: PANTOPRAZOLE 40 MG TABLET PO SCH (06:17)
[2024-03-13] MEDS: carvediloL 12.5 MG TAB PO SCH (06:17)
[2024-03-13] MEDS: hydrALAZINE HCL 50 MG TAB PO SCH (08:22)
[2024-03-13] MEDS: TORSEMIDE 20 MG TAB PO SCH (08:22)
[2024-03-13] MEDS: LIDOCAINE 4% PATCH TOPICAL SCH (08:22)
[2024-03-13] MEDS: NIFEdipine 10 MG CAP PO SCH (08:24)
[2024-03-13] MEDS: RIVAROXABAN 2.5 MG TABLET PO SCH (08:34)
[2024-03-13] MEDS: SODIUM BICARBONATE TAB 650 MG TAB PO SCH (08:34)
[2024-03-13] MEDS ORDERED: NIFEdipine 10 MG CAP PO SCH (09:00)
--- NOTE | 2024-03-13 10:50 | P.PN ---
Subjective Patient is seen in follow-up for end-stage renal disease. He is maintained on hemodialysis on Thursday schedule. Temporary dialysis catheter placed March 11, 2024. No problems with dialysis yesterday. No active complaints. Vital signs are stable. General: No acute distress. HEENT: Head exam is unremarkable. On nasal cannula. LUNGS: No audible rhonchi or wheezes. HEART: Rate and Rhythm are regular. ABDOMEN: Nontender. EXTREMITITES: No edema. Objective - Vital Signs Vital signs: Vital Signs Temp 97.8 F 03/13/24 04:00 Pulse 86 03/13/24 08:00 Resp 18 03/13/24 08:00 BP 181/86 03/13/24 08:00 Pulse Ox 97 03/13/24 08:00 FiO2 Intake & Output 03/12/24 03/13/24 03/13/24 18:59 06:59 18:59 Weight 98.5 kg - Labs CBC & Chem 7: 03/13/24 03:38 03/13/24 03:38 Labs: Abnormal Lab Results - Last 24 Hours (Table) 03/13/24 03/13/24 Range/Units 03:38 03:38 RBC 3.61 L (4.30-5.90) m/uL Hgb 11.1 L (13.0-17.5) gm/dL Hct 33.9 L (39.0-53.0) % Sodium 133 L (137-145) mmol/L Potassium 3.4 L (3.5-5.1) mmol/L Chloride 97 L (98-107) mmol/L BUN 39 H (9-20) mg/dL Creatinine 8.12 H* (0.66-1.25) mg/dL Calcium 8.1 L (8.4-10.2) mg/dL Assessment and Plan Plan: Assessment: #1. End-stage renal disease maintained on hemodialysis on Thursday schedule. 2. MSSA bacteremia status post line holiday. Temporary dialysis catheter placed March 11, 2024. On IV antibiotics. ID following. 3. Hypertension with chronic kidney disease. 4. Anemia of chronic kidney disease maintained on Aranesp. 5. CKD-MBD. Plan: HD tomorrow. Check phosphorus level. Nifedipine dose increased. Add as needed hydralazine as well. Permanent catheter placement pending. Vascular surgery following.
[2024-03-13 11:40] LABS: Glucose,Whole Blood 96 mg/dL (70-110)
[2024-03-13] MEDS: POTASSIUM CHLORIDE ER 20 MEQ TAB.ER PO STA (11:47)
[2024-03-13] MEDS: hydrALAZINE HCL 20 MG/ML 1 ML VIAL IVP PRN (11:53)
--- NOTE | 2024-03-13 11:59 | P.PN ---
Subjective Progress Note Date: 03/13/24 Principal diagnosis: End-stage renal disease Patient doing well. Temporary dialysis catheter functioning well without issues. Objective - Vital Signs Vital signs: Vital Signs Temp 97.8 F 03/13/24 04:00 Pulse 79 03/13/24 11:55 Resp 16 03/13/24 11:55 BP 170/79 03/13/24 11:55 Pulse Ox 94 L 03/13/24 11:55 FiO2 Intake & Output 03/12/24 03/13/24 03/13/24 18:59 06:59 18:59 Weight 98.5 kg - Exam Left femoral temp cath clean, dry and intact. - Labs CBC & Chem 7: 03/13/24 03:38 03/13/24 03:38 Labs: Abnormal Lab Results - Last 24 Hours (Table) 03/13/24 03/13/24 Range/Units 03:38 03:38 RBC 3.61 L (4.30-5.90) m/uL Hgb 11.1 L (13.0-17.5) gm/dL Hct 33.9 L (39.0-53.0) % Sodium 133 L (137-145) mmol/L Potassium 3.4 L (3.5-5.1) mmol/L Chloride 97 L (98-107) mmol/L BUN 39 H (9-20) mg/dL Creatinine 8.12 H* (0.66-1.25) mg/dL Calcium 8.1 L (8.4-10.2) mg/dL Assessment and Plan Assessment: #1 end-stage renal disease on hemodialysis #2 status post left femoral vein temporary catheter placement #3 bacteremia Plan: Hemodialysis per nephrology Will place tunneled hemodialysis catheter when stable and no evidence of bacteremia.
--- NOTE | 2024-03-13 14:53 | P.PN ---
Subjective Progress Note Date: 03/13/24 Principal diagnosis: Reason for follow up with MSSA bacteremia secondary to dialysis catheter infection Patient is a 43-year-old male with multiple comorbidities including renal failure on hemodialysis admitted to the hospital with MSSA bacteremia concerning for right groin dialysis catheter infection which has been discontinued, did require temporary dialysis catheter placement for hemodialysis. On today's evaluation that is 03/13/2024,the patient denies any fever or any chills, patient is breathing comfortably on room air, the patient denies chest pain shortness of breath and no significant cough, patient denies abdominal pain, no nausea vomiting or diarrhea. Patient white count 6.0, creatinine is 8.12 Objective - Vital Signs Vital signs: Vital Signs Temp 97.8 F 03/13/24 04:00 Pulse 79 03/13/24 11:55 Resp 16 03/13/24 11:55 BP 170/79 03/13/24 11:55 Pulse Ox 94 L 03/13/24 11:55 FiO2 Intake & Output 03/12/24 03/13/24 03/13/24 18:59 06:59 18:59 Weight 98.5 kg - Exam GENERAL DESCRIPTION: Middle-aged male lying in bed in no distress RESPIRATORY SYSTEM: Unlabored breathing , decreased breath sounds at bases HEART: S1 S2 regular rate and rhythm , ABDOMEN: Soft , no tenderness EXTREMITIES: No edema feet - Labs CBC & Chem 7: 03/13/24 03:38 03/13/24 03:38 Labs: Abnormal Lab Results - Last 24 Hours (Table) 03/13/24 03/13/24 Range/Units 03:38 03:38 RBC 3.61 L (4.30-5.90) m/uL Hgb 11.1 L (13.0-17.5) gm/dL Hct 33.9 L (39.0-53.0) % Sodium 133 L (137-145) mmol/L Potassium 3.4 L (3.5-5.1) mmol/L Chloride 97 L (98-107) mmol/L BUN 39 H (9-20) mg/dL Creatinine 8.12 H* (0.66-1.25) mg/dL Calcium 8.1 L (8.4-10.2) mg/dL Assessment and Plan (1) Hemodialysis catheter infection Current Visit: No Status: Acute Code(s): T82.7XXA - INFECT/INFLM REACT D/T OTH CARDI/VASC DEV/IMPLNT/GRFT, INIT SNOMED Code(s): 343191195 (2) MSSA bacteremia Current Visit: No Status: Acute Code(s): R78.81 - BACTEREMIA; B95.61 - METHICILLIN SUSCEP STAPH INFCT CAUSING DIS CLASSD ELSWHR SNOMED Code(s): 874685755 Plan: 1patient with MSSA bacteremia source is likely right groin dialysis catheter infection which has been discontinued patient did have a negative KAYLAN and also have a negative MRI of the cervical spine 2patient currently being treated with a Naficillin waiting for repeat blood culture to be finalized and if negative he will be able to get a permanent dialysis catheter Dictation was produced using [employer] dictation software. please excuse any grammatical, word or spelling errors. Time with Patient: Less than 30
[2024-03-13 16:53] LABS: Glucose,Whole Blood 114 mg/dL (70-110)
[2024-03-13] MEDS: diphenhydrAMINE 25 MG CAP PO PRN (19:06)
[2024-03-13 20:35] LABS: Glucose,Whole Blood 97 mg/dL (70-110)
[2024-03-14 06:14] LABS: Glucose,Whole Blood 103 mg/dL (70-110)
--- NOTE | 2024-03-14 08:00 | P.PN ---
Subjective Progress Note Date: 03/13/24 Hospital Course: 43-year-old male with history of ESRD on hemodialysis, frequent line infections, frequent bacteremia, hypertension presented with MSSA bacteremia. KAYLAN negative for endocarditis, blood cultures repeated, most recent reportedly negative. Had a temporary dialysis catheter placed. Pending permanent dialysis catheter placement. Subjective: Patient seen and examined at bedside. No acute events overnight. Pertinent positives and negatives as discussed above, a complete review of systems was performed and all other systems are negative. Vitals Signs Reviewed. General: Nontoxic, no distress, appears at stated age Derm: Warm, dry, left groin catheter site clean, dry, intact Head: Atraumatic, normocephalic, symmetric Eyes: EOMI, no lid lag, anicteric sclera Mouth: No lip lesion, mucus membranes moist Cardiovascular: S1S2 reg, no murmur Lungs: CTA bilateral, no rhonchi, no rales, no accessory muscle use Abdominal: Soft, nontender to palpation, no guarding, no appreciable organomegaly Ext: No gross muscle atrophy, no edema, no contractures Neuro: CN II-XI grossly intact, no focal neuro deficits Psych: Alert, oriented, appropriate affect Data Reviewed Today: Pertinent Labs: WBC 6, hemoglobin 11.1, platelet 4 6, creatinine 8.12, potassium 3.4, magnesium 2.1 Imaging: No new imaging Assessment and Plan: Active: MSSA bacteremia Hemodialysis catheter infection, status post removal ESRD on hemodialysis Mild hyponatremia Mild hypokalemia Hypertension Anemia of chronic kidney disease PAD/CAD? -ID note reviewed, continue nafcillin 2 g IV every 4 hours -Nephrology note reviewed, as needed hydralazine added, continue carvedilol 12.5 twice daily, hydralazine 100 3 times daily, nifedipine 30 twice daily, torsemide 20 twice daily, bicarb 650 twice daily -Cardiology also following, on Xarelto 2.5 twice daily -Continue hemodialysis -Needs permanent dialysis catheter placement DVT ppx: Xarelto Code status: Full code Anticipated discharge place: Pending clinical course Anticipated discharge time: Pending clinical course Objective - Vital Signs Vital signs: Vital Signs Temp 97.8 F 03/14/24 03:59 Pulse 89 03/14/24 03:59 Resp 17 03/14/24 03:59 BP 174/81 03/14/24 04:46 Pulse Ox 97 03/14/24 03:59 FiO2 Intake & Output 03/13/24 03/14/24 03/14/24 18:59 06:59 18:59 Weight 98.3 kg Other: # Bowel Movements 1 - Labs CBC & Chem 7: 03/13/24 03:38 03/13/24 03:38 Labs: Abnormal Lab Results - Last 24 Hours (Table) 03/13/24 Range/Units 16:51 POC Glucose (mg/dL) 114 H (70-110) mg/dL
[2024-03-14 08:17] LABS: Basophils % (A) 0 %; Eosinophils # (A) 0.3 k/uL (0-0.7); Eosinophils % (A) 4 %; HCT 38.4 % (39.0-53.0); HGB 12.2 gm/dL (13.0-17.5); Lymphocytes # (A) 0.9 k/uL (1.0-4.8); Lymphocytes % (A) 12 %; MCH 30.4 pg (25.0-35.0); MCHC 31.7 g/dL (31.0-37.0); MCV 95.8 fL (80.0-100.0); Mean Platelet Volume 8.3; Monocytes # (A) 0.3 k/uL (0-1.0); Monocytes % (A) 4 %; Neutrophils % (A) 80 %; Platelet Count 419 k/uL (150-450); RBC 4.01 m/uL (4.30-5.90); RDW 15.5 % (11.5-15.5); WBC 7.5 k/uL (3.8-10.6)
[2024-03-14] MEDS: LORazepam 2 MG/ML INJ IV PRN (08:39)
[2024-03-14 08:56] LABS: African American GFR (CKD) 7 (>60 ml/min/1.73 sqM); Anion Gap 16 mmol/L; Blood Urea Nitrogen 47 mg/dL (9-20); Calcium 8.8 mg/dL (8.4-10.2); Carbon Dioxide 20 mmol/L (22-30); Chloride 99 mmol/L (98-107); Glucose 92 mg/dL (74-99); Magnesium 2.2 mg/dL (1.6-2.3); Non-African American GFR(CKD) 6 (>60 ml/min/1.73 sqM); Potassium 3.7 mmol/L (3.5-5.1); Sodium 135 mmol/L (137-145)
--- NOTE | 2024-03-14 10:22 | P.PN ---
Subjective Patient is seen in follow-up for end-stage renal disease. He is maintained on hemodialysis on Thursday schedule. Temporary dialysis catheter placed March 11, 2024. No active complaints. Vital signs are stable. Blood pressure high. General: No acute distress. HEENT: Head exam is unremarkable. On room air. LUNGS: No audible rhonchi or wheezes. HEART: Rate and Rhythm are regular. ABDOMEN: Nontender. EXTREMITITES: No edema. Objective - Vital Signs Vital signs: Vital Signs Temp 97.9 F 03/14/24 08:00 Pulse 91 03/14/24 08:00 Resp 16 03/14/24 08:00 BP 202/91 03/14/24 08:00 Pulse Ox 95 03/14/24 09:43 FiO2 Intake & Output 03/13/24 03/14/24 03/14/24 18:59 06:59 18:59 Weight 98.3 kg Other: # Bowel Movements 1 - Labs CBC & Chem 7: 03/14/24 07:08 03/14/24 07:08 Labs: Abnormal Lab Results - Last 24 Hours (Table) 03/13/24 03/14/24 03/14/24 Range/Units 16:51 07:08 07:08 RBC 4.01 L (4.30-5.90) m/uL Hgb 12.2 L (13.0-17.5) gm/dL Hct 38.4 L (39.0-53.0) % Lymphocytes # 0.9 L (1.0-4.8) k/uL Sodium 135 L (137-145) mmol/L Carbon Dioxide 20 L (22-30) mmol/L BUN 47 H (9-20) mg/dL Creatinine 9.93 H* (0.66-1.25) mg/dL POC Glucose (mg/dL) 114 H (70-110) mg/dL Assessment and Plan Plan: Assessment: #1. End-stage renal disease maintained on hemodialysis on Thursday schedule. 2. MSSA bacteremia status post line holiday. Temporary dialysis catheter placed March 11, 2024. On IV antibiotics. ID following. 3. Hypertension with chronic kidney disease. 4. Anemia of chronic kidney disease maintained on Aranesp. 5. CKD-MBD. Plan: HD today. Increase dose of Coreg to 25 mg twice daily. Increase dose of nifedipine to 60 mg twice daily. Maintain torsemide. Maintain as needed hydralazine. Follow-up phosphorus level. Permanent catheter placement pending. Vascular surgery following.
[2024-03-14 11:36] LABS: Glucose,Whole Blood 116 mg/dL (70-110)
[2024-03-14] MEDS: HYDROcodone/APAP 7.5-325MG 1 EACH TAB ONE ×2 (11:37→11:58)
[2024-03-14] MEDS: HYDROmorphone 0.5 MG/0.5 ML SYRINGE ONE ×9 (11:37→11:58)
[2024-03-14] MEDS: PANTOPRAZOLE 40 MG TABLET PO ONE ×2 (11:37→11:58)
[2024-03-14] MEDS: hydrALAZINE HCL 20 MG/ML 1 ML VIAL ONE ×3 (11:38→11:58)
[2024-03-14] MEDS: diphenhydrAMINE 25 MG CAP ONE ×2 (11:38→11:58)
[2024-03-14] MEDS: POTASSIUM CHLORIDE ER 20 MEQ TAB.ER PO ONE (11:38)
[2024-03-14] MEDS: LORazepam 2 MG/ML INJ ONE (11:58)
[2024-03-14] MEDS: CALCIUM ACETATE 667 MG TAB PO SCH (12:12)
[2024-03-14 16:21] LABS: Glucose,Whole Blood 128 mg/dL (70-110)
[2024-03-14] MEDS: carvediloL 12.5 MG TAB PO SCH (16:21)
--- NOTE | 2024-03-14 17:34 | P.PN ---
Subjective Progress Note Date: 03/14/24 Hospital Course: 43-year-old male with history of ESRD on hemodialysis, frequent line infections, frequent bacteremia, hypertension presented with MSSA bacteremia. KAYLAN negative for endocarditis, blood cultures repeated, most recent reportedly negative. Had a temporary dialysis catheter placed. Pending permanent dialysis catheter placement. Subjective: Patient seen and examined at bedside. No acute events overnight. Pertinent positives and negatives as discussed above, a complete review of systems was performed and all other systems are negative. Vitals Signs Reviewed. General: Nontoxic, no distress, appears at stated age Derm: Warm, dry, left groin catheter site clean, dry, intact Head: Atraumatic, normocephalic, symmetric Eyes: EOMI, no lid lag, anicteric sclera Mouth: No lip lesion, mucus membranes moist Cardiovascular: S1S2 reg, no murmur Lungs: CTA bilateral, no rhonchi, no rales, no accessory muscle use Abdominal: Soft, nontender to palpation, no guarding, no appreciable organomegaly Ext: No gross muscle atrophy, no edema, no contractures Neuro: CN II-XI grossly intact, no focal neuro deficits Psych: Alert, oriented, appropriate affect Data Reviewed Today: Pertinent Labs: WBC 7.5, hemoglobin 12.2, platelet 419, sodium 135, potassium 3.7, creatinine 9.93, Phos 9.1, magnesium 2.2, blood sugars range between 92-1 28 Imaging: No new imaging Assessment and Plan: Active: MSSA bacteremia Hemodialysis catheter infection, status post removal ESRD on hemodialysis Mild hyponatremia Mild hypokalemia Hypophosphatemia Hypertension Anemia of chronic kidney disease PAD/CAD? -ID following, continue nafcillin 2 g IV every 4 hours -Nephrology note reviewed, carvedilol increased to 25 twice daily, nifedipine increased to 60 twice daily, continue as needed hydralazine added, hydralazine 100 3 times daily, torsemide 20 twice daily, bicarb 650 twice daily -PhosLo 3 times daily added -Cardiology also following, on Xarelto 2.5 twice daily -Continue hemodialysis -Needs permanent dialysis catheter placement, likely today or tomorrow Pruritic rash -Possibly secondary to uremia -Currently on Benadryl oral 25 twice daily as needed DVT ppx: Xarelto Code status: Full code Anticipated discharge place: Pending clinical course Anticipated discharge time: Pending clinical course Objective - Vital Signs Vital signs: Vital Signs Temp 98.1 F 03/14/24 16:00 Pulse 89 03/14/24 16:00 Resp 18 03/14/24 16:00 BP 172/81 03/14/24 16:00 Pulse Ox 95 03/14/24 16:00 FiO2 Intake & Output 03/13/24 03/14/24 03/14/24 18:59 06:59 18:59 Intake Total 400 Output Total 6400 Balance -6000 Weight 98.3 kg Intake: Hemodialysis 400 Output: Hemodialysis 3400 Hemodialysis Net Amount 3000 Other: # Bowel Movements 1 - Labs CBC & Chem 7: 03/14/24 07:08 03/14/24 07:08 Labs: Abnormal Lab Results - Last 24 Hours (Table) 03/14/24 03/14/24 03/14/24 Range/Units 07:08 07:08 07:08 RBC 4.01 L (4.30-5.90) m/uL Hgb 12.2 L (13.0-17.5) gm/dL Hct 38.4 L (39.0-53.0) % Lymphocytes # 0.9 L (1.0-4.8) k/uL Sodium 135 L (137-145) mmol/L Carbon Dioxide 20 L (22-30) mmol/L BUN 47 H (9-20) mg/dL Creatinine 9.93 H* (0.66-1.25) mg/dL POC Glucose (mg/dL) (70-110) mg/dL Phosphorus 9.1 H* (2.5-4.5) mg/dL 03/14/24 03/14/24 Range/Units 11:35 16:19 RBC (4.30-5.90) m/uL Hgb (13.0-17.5) gm/dL Hct (39.0-53.0) % Lymphocytes # (1.0-4.8) k/uL Sodium (137-145) mmol/L Carbon Dioxide (22-30) mmol/L BUN (9-20) mg/dL Creatinine (0.66-1.25) mg/dL POC Glucose (mg/dL) 116 H 128 H (70-110) mg/dL Phosphorus (2.5-4.5) mg/dL
[2024-03-14 20:09] LABS: Glucose,Whole Blood 131 mg/dL (70-110)
[2024-03-14] MEDS: NIFEdipine 10 MG CAP PO SCH (20:30)
[2024-03-15 05:37] LABS: Glucose,Whole Blood 109 mg/dL (70-110)
--- NOTE | 2024-03-15 10:48 | P.PN ---
Subjective Patient is seen in follow-up for end-stage renal disease. He is maintained on hemodialysis on Thursday schedule. Temporary dialysis catheter placed March 11, 2024. No active complaints. Vital signs are stable. General: No acute distress. HEENT: Head exam is unremarkable. On room air. LUNGS: No audible rhonchi or wheezes. HEART: Rate and Rhythm are regular. ABDOMEN: Nontender. EXTREMITITES: No edema. Objective - Vital Signs Vital signs: Vital Signs Temp 99.1 F 03/15/24 07:50 Pulse 79 03/15/24 07:51 Resp 16 03/15/24 07:51 BP 154/71 03/15/24 07:50 Pulse Ox 97 03/15/24 07:50 FiO2 Intake & Output 03/14/24 03/15/24 03/15/24 18:59 06:59 18:59 Intake Total 400 240 Output Total 6400 Balance -6000 240 Weight 98.3 kg Intake: Oral 240 Hemodialysis 400 Output: Hemodialysis 3400 Hemodialysis Net Amount 3000 Other: # Voids 0 # Bowel Movements 0 - Labs CBC & Chem 7: 03/14/24 07:08 03/14/24 07:08 Labs: Abnormal Lab Results - Last 24 Hours (Table) 03/14/24 03/14/24 03/14/24 Range/Units 07:08 11:35 16:19 POC Glucose (mg/dL) 116 H 128 H (70-110) mg/dL Phosphorus 9.1 H* (2.5-4.5) mg/dL 03/14/24 Range/Units 20:08 POC Glucose (mg/dL) 131 H (70-110) mg/dL Phosphorus (2.5-4.5) mg/dL Assessment and Plan Plan: Assessment: 1. End-stage renal disease maintained on hemodialysis on Thursday schedule. 2. MSSA bacteremia status post line holiday. Temporary dialysis catheter placed March 11, 2024. On IV antibiotics. ID following. 3. Hypertension with chronic kidney disease. 4. Anemia of chronic kidney disease maintained on Aranesp. 5. Chronic kidney disease mineral bone disease maintained on PhosLo. Phosphorus level 9.1 dated March 14, 2024. Plan: Hemodialysis tomorrow. Maintain torsemide. Maintain as needed hydralazine. Increase dose of PhosLo. Permanent catheter placement pending. Vascular surgery following.
--- NOTE | 2024-03-15 11:23 | P.PN ---
Subjective Progress Note Date: 03/14/24 Principal diagnosis: Reason for follow up with MSSA bacteremia secondary to dialysis catheter infection Patient is a 43-year-old male with multiple comorbidities including renal failure on hemodialysis admitted to the hospital with MSSA bacteremia concerning for right groin dialysis catheter infection which has been discontinued, did require temporary dialysis catheter placement for hemodialysis. On today's evaluation that is 03/14/2024,the patient remains to be afebrile, patient is on room air not requiring supplemental oxygen and denies any shortness of breath no chest pain or cough.Patient denies having any nausea or vomiting, no abdominal pain and no diarrhea has been reported, no new symptoms. Patient white count 7.5, creatinine is 9.93 Objective - Vital Signs Vital signs: Vital Signs Temp 97.9 F 03/14/24 12:00 Pulse 83 03/14/24 12:00 Resp 16 03/14/24 12:00 BP 147/79 03/14/24 12:00 Pulse Ox 94 L 03/14/24 12:00 FiO2 Intake & Output 03/13/24 03/14/24 03/14/24 18:59 06:59 18:59 Weight 98.3 kg Other: # Bowel Movements 1 - Exam GENERAL DESCRIPTION: Middle-aged male lying in bed in no distress RESPIRATORY SYSTEM: Unlabored breathing , decreased breath sounds at bases HEART: S1 S2 regular rate and rhythm , ABDOMEN: Soft , no tenderness EXTREMITIES: No edema feet - Labs CBC & Chem 7: 03/14/24 07:08 03/14/24 07:08 Labs: Abnormal Lab Results - Last 24 Hours (Table) 03/13/24 03/14/24 03/14/24 Range/Units 16:51 07:08 07:08 RBC 4.01 L (4.30-5.90) m/uL Hgb 12.2 L (13.0-17.5) gm/dL Hct 38.4 L (39.0-53.0) % Lymphocytes # 0.9 L (1.0-4.8) k/uL Sodium 135 L (137-145) mmol/L Carbon Dioxide 20 L (22-30) mmol/L BUN 47 H (9-20) mg/dL Creatinine 9.93 H* (0.66-1.25) mg/dL POC Glucose (mg/dL) 114 H (70-110) mg/dL Phosphorus (2.5-4.5) mg/dL 03/14/24 03/14/24 Range/Units 07:08 11:35 RBC (4.30-5.90) m/uL Hgb (13.0-17.5) gm/dL Hct (39.0-53.0) % Lymphocytes # (1.0-4.8) k/uL Sodium (137-145) mmol/L Carbon Dioxide (22-30) mmol/L BUN (9-20) mg/dL Creatinine (0.66-1.25) mg/dL POC Glucose (mg/dL) 116 H (70-110) mg/dL Phosphorus 9.1 H* (2.5-4.5) mg/dL Assessment and Plan (1) Hemodialysis catheter infection Current Visit: No Status: Acute Code(s): T82.7XXA - INFECT/INFLM REACT D/T OTH CARDI/VASC DEV/IMPLNT/GRFT, INIT SNOMED Code(s): 447305052 (2) MSSA bacteremia Current Visit: No Status: Acute Code(s): R78.81 - BACTEREMIA; B95.61 - METHICILLIN SUSCEP STAPH INFCT CAUSING DIS CLASSD ELSWHR SNOMED Code(s): 168515954 Plan: 1patient with MSSA bacteremia source is likely right groin dialysis catheter infection which has been discontinued patient did have a negative KAYLAN and also have a negative MRI of the cervical spine 2patient on Naficillin waiting for repeat blood culture to be finalized to clear the patient for permanent dialysis catheter placement and monitor clinical course closely Dictation was produced using [employer] dictation software. please excuse any grammatical, word or spelling errors. Time with Patient: Less than 30
[2024-03-15 11:35] LABS: Glucose,Whole Blood 142 mg/dL (70-110)
[2024-03-15] MEDS: CALCIUM ACETATE 667 MG TAB PO SCH (12:18)
--- NOTE | 2024-03-15 12:29 | P.PN ---
Subjective Progress Note Date: 03/15/24 Principal diagnosis: End-stage renal disease Patient doing well. Temporary dialysis catheter functioning well without issues. Objective - Vital Signs Vital signs: Vital Signs Temp 99.1 F 03/15/24 07:50 Pulse 79 03/15/24 07:51 Resp 16 03/15/24 07:51 BP 154/71 03/15/24 07:50 Pulse Ox 97 03/15/24 07:50 FiO2 Intake & Output 03/14/24 03/15/24 03/15/24 18:59 06:59 18:59 Intake Total 400 240 Output Total 6400 Balance -6000 240 Weight 98.3 kg Intake: Oral 240 Hemodialysis 400 Output: Hemodialysis 3400 Hemodialysis Net Amount 3000 Other: # Voids 0 1 # Bowel Movements 0 1 - Exam Left femoral temp cath clean, dry and intact. - Labs CBC & Chem 7: 03/14/24 07:08 03/14/24 07:08 Labs: Abnormal Lab Results - Last 24 Hours (Table) 03/14/24 03/14/24 03/15/24 Range/Units 16:19 20:08 11:29 POC Glucose (mg/dL) 128 H 131 H 142 H (70-110) mg/dL Assessment and Plan Assessment: #1 end-stage renal disease on hemodialysis #2 status post left femoral vein temporary catheter placement #3 bacteremia Plan: Hemodialysis per nephrology Will schedule tunneled hemodialysis catheter with Dr. Rocha .
--- NOTE | 2024-03-15 13:23 | P.PN ---
Subjective Progress Note Date: 03/15/24 Subjective: Patient seen and examined at bedside. No acute events overnight. Pertinent positives and negatives as discussed above, a complete review of systems was performed and all other systems are negative. Vitals Signs Reviewed. General: Nontoxic, no distress, appears at stated age Derm: Warm, dry, left groin catheter site clean, dry, intact Head: Atraumatic, normocephalic, symmetric Eyes: EOMI, no lid lag, anicteric sclera Mouth: No lip lesion, mucus membranes moist Cardiovascular: S1S2 reg, no murmur Lungs: CTA bilateral, no rhonchi, no rales, no accessory muscle use Abdominal: Soft, nontender to palpation, no guarding, no appreciable organomegaly Ext: No gross muscle atrophy, no edema, no contractures Neuro: CN II-XI grossly intact, no focal neuro deficits Psych: Alert, oriented, appropriate affect Data Reviewed Today: Imaging: No new imaging Assessment and Plan: 1. MSSA bacteremia secondary to hemodialysis catheter -Continue with nafcillin 2 g IV every 4 hours -ID following: Per ID blood culture to be drawn today, permanent dialysis cath pending negative blood culture 2. ESRD on hemodialysis Mild hyponatremia Mild hypokalemia Hypophosphatemia Hypertension Anemia of chronic kidney disease - Hemodialysis on every Thursday, Thursday, Thursday - Permanent dialysis catheter pending negative blood culture - Continue renal diet -Continue with carvedilol 25 twice daily, nifedipine 60 twice daily, continue as needed IV hydralazine and hydralazine 100 mg p.o. 3 times, torsemide 20 twice daily, bicarb 650 twice daily -Continue with PhosLo 3 times daily -Cardiology also following, on Xarelto 2.5 twice daily 3. Pruritic rash -Possibly secondary to uremia -Currently on Benadryl oral 25 twice daily as needed DVT ppx: Xarelto Code status: Full code Anticipated discharge place: Pending clinical course Anticipated discharge time: Pending clinical course I saw and evaluated the patient during the dunn and critical portions of this encounter, and discussed the case in detail with the resident author of this note, I agree with the Assessment and Plan, and my changes, if any, are highlighted in blue. Objective - Vital Signs Vital signs: Vital Signs Temp 99.1 F 03/15/24 07:50 Pulse 79 03/15/24 07:51 Resp 16 08/27/24 07:51 BP 154/71 03/15/24 07:50 Pulse Ox 97 03/15/24 07:50 FiO2 Intake & Output 03/14/24 03/15/24 03/15/24 18:59 06:59 18:59 Intake Total 400 240 Output Total 6400 Balance -6000 240 Weight 98.3 kg Intake: Oral 240 Hemodialysis 400 Output: Hemodialysis 3400 Hemodialysis Net Amount 3000 Other: # Voids 0 1 # Bowel Movements 0 1 - Labs CBC & Chem 7: 03/14/24 07:08 03/14/24 07:08 Labs: Abnormal Lab Results - Last 24 Hours (Table) 03/14/24 03/14/24 03/15/24 Range/Units 16:19 20:08 11:29 POC Glucose (mg/dL) 128 H 131 H 142 H (70-110) mg/dL
--- NOTE | 2024-03-15 14:43 | P.PN ---
Subjective Progress Note Date: 03/15/24 Principal diagnosis: Reason for follow up with MSSA bacteremia secondary to dialysis catheter infection Patient is a 43-year-old male with multiple comorbidities including renal failure on hemodialysis admitted to the hospital with MSSA bacteremia concerning for right groin dialysis catheter infection which has been discontinued, did require temporary dialysis catheter placement for hemodialysis. On today's evaluation that is 03/15/2024, the patient continues to be afebrile, the patient is on room air and breathing comfortably, the Pt denies having any chest pain or cough, the patient denies having any abdominal pain no vomiting or any diarrhea has been reported by the nursing staff, no new symptoms. No new lab has been obtained today Objective - Vital Signs Vital signs: Vital Signs Temp 99.1 F 03/15/24 07:50 Pulse 79 03/15/24 07:51 Resp 16 03/15/24 07:51 BP 154/71 03/15/24 07:50 Pulse Ox 97 03/15/24 07:50 FiO2 Intake & Output 03/14/24 03/15/24 03/15/24 18:59 06:59 18:59 Intake Total 400 240 Output Total 6400 Balance -6000 240 Weight 98.3 kg Intake: Oral 240 Hemodialysis 400 Output: Hemodialysis 3400 Hemodialysis Net Amount 3000 Other: # Voids 0 # Bowel Movements 0 - Exam GENERAL DESCRIPTION: Middle-aged male lying in bed in no distress RESPIRATORY SYSTEM: Unlabored breathing , decreased breath sounds at bases HEART: S1 S2 regular rate and rhythm , ABDOMEN: Soft , no tenderness EXTREMITIES: No edema feet - Labs CBC & Chem 7: 03/14/24 07:08 03/14/24 07:08 Labs: Abnormal Lab Results - Last 24 Hours (Table) 03/14/24 03/14/24 03/14/24 Range/Units 11:35 16:19 20:08 POC Glucose (mg/dL) 116 H 128 H 131 H (70-110) mg/dL Assessment and Plan (1) Hemodialysis catheter infection Current Visit: No Status: Acute Code(s): T82.7XXA - INFECT/INFLM REACT D/T OTH CARDI/VASC DEV/IMPLNT/GRFT, INIT SNOMED Code(s): 608911804 (2) MSSA bacteremia Current Visit: No Status: Acute Code(s): R78.81 - BACTEREMIA; B95.61 - METHICILLIN SUSCEP STAPH INFCT CAUSING DIS CLASSD ELSWHR SNOMED Code(s): 956483293 Plan: 1patient with MSSA bacteremia source is likely right groin dialysis catheter infection which has been discontinued patient did have a negative KAYLAN and also have a negative MRI of the cervical spine 2patient on Naficillin, we are still waiting for any ulcer from the micro lab regarding his follow-up blood culture nursing staff to contact the micro lab will also get a blood cultures today Dictation was produced using [employer] dictation software. please excuse any grammatical, word or spelling errors. Time with Patient: Less than 30
[2024-03-15 16:50] LABS: Glucose,Whole Blood 139 mg/dL (70-110)
[2024-03-15 20:26] LABS: Glucose,Whole Blood 111 mg/dL (70-110)
[2024-03-16 06:04] LABS: Glucose,Whole Blood 94 mg/dL (70-110)
--- NOTE | 2024-03-16 09:52 | P.PN ---
Subjective Progress Note Date: 03/16/24 Principal diagnosis: End-stage renal disease Patient doing well. Temporary dialysis catheter functioning well without issues. Currently getting dialysis Objective - Vital Signs Vital signs: Vital Signs Temp 98.7 F 03/16/24 07:56 Pulse 79 03/16/24 07:57 Resp 18 03/16/24 07:57 BP 168/81 03/16/24 07:56 Pulse Ox 95 03/16/24 07:56 FiO2 Intake & Output 03/15/24 03/16/24 03/16/24 18:59 06:59 18:59 Intake Total 480 Balance 480 Weight 96.7 kg Intake: Oral 480 Other: # Voids 1 1 # Bowel Movements 1 1 - Exam Left femoral temp cath clean, dry and intact. - Labs CBC & Chem 7: 03/14/24 07:08 03/14/24 07:08 Labs: Abnormal Lab Results - Last 24 Hours (Table) 03/15/24 03/15/24 03/15/24 Range/Units 11:29 16:48 20:23 POC Glucose (mg/dL) 142 H 139 H 111 H (70-110) mg/dL Assessment and Plan Assessment: #1 end-stage renal disease on hemodialysis #2 status post left femoral vein temporary catheter placement #3 bacteremia Plan: Hemodialysis per nephrology Will schedule tunneled hemodialysis catheter with Dr. Rocha .
--- NOTE | 2024-03-16 10:21 | P.PN ---
Subjective Patient is seen in follow-up for end-stage renal disease. He is maintained on hemodialysis on Thursday schedule. Temporary dialysis catheter placed March 11, 2024. No active complaints. Tolerating dialysis well. Vital signs are stable. General: No acute distress. HEENT: Head exam is unremarkable. On room air. LUNGS: No audible rhonchi or wheezes. HEART: Rate and Rhythm are regular. ABDOMEN: Nontender. EXTREMITITES: No edema. Objective - Vital Signs Vital signs: Vital Signs Temp 98.7 F 03/16/24 07:56 Pulse 79 03/16/24 07:57 Resp 18 03/16/24 07:57 BP 168/81 03/16/24 07:56 Pulse Ox 95 03/16/24 07:56 FiO2 Intake & Output 03/15/24 03/16/24 03/16/24 18:59 06:59 18:59 Intake Total 480 Balance 480 Weight 96.7 kg Intake: Oral 480 Other: # Voids 1 1 # Bowel Movements 1 1 - Labs CBC & Chem 7: 03/14/24 07:08 03/14/24 07:08 Labs: Abnormal Lab Results - Last 24 Hours (Table) 03/15/24 03/15/24 03/15/24 Range/Units 11:29 16:48 20:23 POC Glucose (mg/dL) 142 H 139 H 111 H (70-110) mg/dL Assessment and Plan Plan: Assessment: 1. End-stage renal disease maintained on hemodialysis on Thursday schedule. 2. MSSA bacteremia status post line holiday. Temporary dialysis catheter placed March 11, 2024. On IV antibiotics. ID following. 3. Hypertension with chronic kidney disease. 4. Anemia of chronic kidney disease maintained on Aranesp. 5. Chronic kidney disease mineral bone disease maintained on PhosLo (dose increased March 15, 2024). Phosphorus level 9.1 dated March 14, 2024. Plan: Currently seen while undergoing hemodialysis. Maintain torsemide. Maintain as needed hydralazine. Permanent catheter placement pending -scheduled for tomorrow. Discussed with vascular surgery.
[2024-03-16 11:21] VITALS: BMI 30.6
[2024-03-16 11:40] LABS: Glucose,Whole Blood 91 mg/dL (70-110)
--- NOTE | 2024-03-16 12:12 | P.PN ---
Subjective Progress Note Date: 03/16/24 Principal diagnosis: Reason for follow up with MSSA bacteremia secondary to dialysis catheter infection Patient is a 43-year-old male with multiple comorbidities including renal failure on hemodialysis admitted to the hospital with MSSA bacteremia concerning for right groin dialysis catheter infection which has been discontinued, did require temporary dialysis catheter placement for hemodialysis. On today's evaluation that is 03/16/2024, Patient is afebrile patient is currently on room air and denies having any shortness of breath, the patient denies any chest pain or cough, the patient denies any nausea vomiting did not have any abdominal pain and no diarrhea, no new symptoms undergoing dialysis. No new labs were drawn today Objective - Vital Signs Vital signs: Vital Signs Temp 98.7 F 03/16/24 07:56 Pulse 74 03/16/24 11:25 Resp 18 03/16/24 11:25 BP 174/90 03/16/24 11:25 Pulse Ox 97 03/16/24 11:25 FiO2 Intake & Output 03/15/24 03/16/24 03/16/24 18:59 06:59 18:59 Intake Total 480 Balance 480 Weight 96.7 kg 96.7 kg Intake: Oral 480 Other: # Voids 1 1 # Bowel Movements 1 1 - Exam GENERAL DESCRIPTION: Middle-aged male lying in bed in no distress RESPIRATORY SYSTEM: Unlabored breathing , decreased breath sounds at bases HEART: S1 S2 regular rate and rhythm , ABDOMEN: Soft , no tenderness EXTREMITIES: No edema feet - Labs CBC & Chem 7: 03/14/24 07:08 03/14/24 07:08 Labs: Abnormal Lab Results - Last 24 Hours (Table) 03/15/24 03/15/24 Range/Units 16:48 20:23 POC Glucose (mg/dL) 139 H 111 H (70-110) mg/dL Assessment and Plan (1) Hemodialysis catheter infection Current Visit: No Status: Acute Code(s): T82.7XXA - INFECT/INFLM REACT D/T OTH CARDI/VASC DEV/IMPLNT/GRFT, INIT SNOMED Code(s): 991964482 (2) MSSA bacteremia Current Visit: No Status: Acute Code(s): R78.81 - BACTEREMIA; B95.61 - METHICILLIN SUSCEP STAPH INFCT CAUSING DIS CLASSD ELSWHR SNOMED Code(s): 728375329 Plan: 1patient with MSSA bacteremia source is likely right groin dialysis catheter infection which has been discontinued patient did have a negative KAYLAN and also have a negative MRI of the cervical spine 2patient remains to be afebrile white count has been normal, patient currently being treated Naficillin, once follow-up blood culture negative he will be able to get a permanent dialysis catheter Dictation was produced using [employer] dictation software. please excuse any grammatical, word or spelling errors. Time with Patient: Less than 30
--- NOTE | 2024-03-16 13:52 | P.PN ---
Subjective Progress Note Date: 03/16/24 Subjective: Patient seen and examined at bedside. No acute events overnight. Pertinent positives and negatives as discussed above, a complete review of systems was performed and all other systems are negative. Vitals Signs Reviewed. General: Nontoxic, no distress, appears at stated age Derm: Warm, dry, left groin catheter site clean, dry, intact Head: Atraumatic, normocephalic, symmetric Eyes: EOMI, no lid lag, anicteric sclera Mouth: No lip lesion, mucus membranes moist Cardiovascular: S1S2 reg, no murmur Lungs: CTA bilateral, no rhonchi, no rales, no accessory muscle use Abdominal: Soft, nontender to palpation, no guarding, no appreciable organomegaly Ext: No gross muscle atrophy, no edema, no contractures Neuro: CN II-XI grossly intact, no focal neuro deficits Psych: Alert, oriented, appropriate affect Data Reviewed Today: Imaging: No new imaging Assessment and Plan: 1. MSSA bacteremia secondary to hemodialysis catheter -Continue with nafcillin 2 g IV every 4 hours -ID following: Per ID blood culture to be drawn today, permanent dialysis cath pending negative blood culture 2. ESRD on hemodialysis Mild hyponatremia Mild hypokalemia Hypophosphatemia Hypertension Anemia of chronic kidney disease - Hemodialysis on every Thursday, Thursday, Thursday - Permanent dialysis catheter pending negative blood culture - Continue renal diet -Continue with carvedilol 25 twice daily, nifedipine 60 twice daily, continue as needed IV hydralazine and hydralazine 100 mg p.o. 3 times, torsemide 20 twice daily, bicarb 650 twice daily -Continue with PhosLo 3 times daily -Cardiology also following, on Xarelto 2.5 twice daily 3. Pruritic rash -Possibly secondary to uremia -Currently on Benadryl oral 25 twice daily as needed DVT ppx: Xarelto Code status: Full code Anticipated discharge place: Pending clinical course Anticipated discharge time: Pending clinical course Objective - Vital Signs Vital signs: Vital Signs Temp 97.6 F 03/16/24 13:22 Pulse 75 03/16/24 13:22 Resp 20 03/16/24 13:22 BP 158/94 03/16/24 13:22 Pulse Ox 98 03/16/24 13:14 FiO2 Intake & Output 03/15/24 03/16/24 03/16/24 18:59 06:59 18:59 Intake Total 480 400 Output Total 6400 Balance 480 -6000 Weight 96.7 kg 96.7 kg Intake: Oral 480 Hemodialysis 400 Output: Hemodialysis 3400 Hemodialysis Net Amount 3000 Other: # Voids 1 1 1 # Bowel Movements 1 1 1 - Labs CBC & Chem 7: 03/14/24 07:08 03/14/24 07:08 Labs: Abnormal Lab Results - Last 24 Hours (Table) 03/15/24 03/15/24 Range/Units 16:48 20:23 POC Glucose (mg/dL) 139 H 111 H (70-110) mg/dL
[2024-03-16 17:02] LABS: Glucose,Whole Blood 146 mg/dL (70-110)
[2024-03-16 20:35] LABS: Glucose,Whole Blood 103 mg/dL (70-110)
[2024-03-16] MEDS ORDERED: GABAPENTIN 300 MG CAP ONE (22:00)
[2024-03-17] MEDS ORDERED: HYDROmorphone 0.5 MG/0.5 ML SYRINGE ONE (01:20)
[2024-03-17 04:37] LABS: HCT 34.8 % (39.0-53.0); Hypochromasia Slight; MCH 30.5 pg (25.0-35.0); MCHC 31.7 g/dL (31.0-37.0); MCV 96.3 fL (80.0-100.0); Mean Platelet Volume 8.2; Platelet Count 323 k/uL (150-450); RBC 3.61 m/uL (4.30-5.90); RDW 15.5 % (11.5-15.5); WBC 5.8 k/uL (3.8-10.6)
[2024-03-17] MEDS: GABAPENTIN 300 MG CAP PO SCH (05:05)
[2024-03-17 05:14] LABS: ALT 14 U/L (4-49); AST 21 U/L (17-59); African American GFR (CKD) 9 (>60 ml/min/1.73 sqM); Albumin 3.6 g/dL (3.5-5.0); Alkaline Phosphatase 65 U/L (38-126); Anion Gap 13 mmol/L; Blood Urea Nitrogen 20 mg/dL (9-20); Calcium 9.1 mg/dL (8.4-10.2); Carbon Dioxide 25 mmol/L (22-30); Chloride 94 mmol/L (98-107); Glucose 97 mg/dL (74-99); Non-African American GFR(CKD) 8 (>60 ml/min/1.73 sqM); Potassium 3.3 mmol/L (3.5-5.1); Sodium 132 mmol/L (137-145); Total Bilirubin 1.5 mg/dL (0.2-1.3); Total Protein 7.5 g/dL (6.3-8.2)
[2024-03-17 06:15] LABS: Glucose,Whole Blood 102 mg/dL (70-110)
[2024-03-17] MEDS: DARBEPOETIN ALFA 40 MCG/0.4 ML SYRINGE SQ SCH (08:22)
--- NOTE | 2024-03-17 10:05 | P.PN ---
Subjective Patient is seen in follow-up for end-stage renal disease. He is maintained on hemodialysis on Thursday schedule. Temporary dialysis catheter placed March 11, 2024. No active complaints. No problems with dialysis yesterday. Vital signs are stable. General: No acute distress. HEENT: Head exam is unremarkable. On room air. LUNGS: No audible rhonchi or wheezes. HEART: Rate and Rhythm are regular. ABDOMEN: Nontender. EXTREMITITES: No edema. Objective - Vital Signs Vital signs: Vital Signs Temp 98.2 F 03/17/24 08:00 Pulse 82 03/17/24 08:00 Resp 16 03/17/24 08:00 BP 181/86 03/17/24 08:00 Pulse Ox 95 03/17/24 08:00 FiO2 Intake & Output 03/16/24 03/17/24 03/17/24 18:59 06:59 18:59 Intake Total 400 Output Total 6400 Balance -6000 Weight 96.7 kg 93.1 kg Intake: Hemodialysis 400 Output: Hemodialysis 3400 Hemodialysis Net Amount 3000 Other: # Voids 1 1 # Bowel Movements 1 1 - Labs CBC & Chem 7: 03/17/24 02:51 03/17/24 02:51 Labs: Abnormal Lab Results - Last 24 Hours (Table) 03/16/24 03/17/24 03/17/24 Range/Units 16:51 02:51 02:51 RBC 3.61 L (4.30-5.90) m/uL Hgb 11.0 L (13.0-17.5) gm/dL Hct 34.8 L (39.0-53.0) % Sodium 132 L (137-145) mmol/L Potassium 3.3 L (3.5-5.1) mmol/L Chloride 94 L (98-107) mmol/L Creatinine 7.75 H* (0.66-1.25) mg/dL POC Glucose (mg/dL) 146 H (70-110) mg/dL Total Bilirubin 1.5 H (0.2-1.3) mg/dL Microbiology - Last 24 Hours (Table) 03/15/24 12:09 Blood Culture - Preliminary Blood Assessment and Plan Plan: Assessment: 1. End-stage renal disease maintained on hemodialysis on Thursday schedule. 2. MSSA bacteremia status post line holiday. Temporary dialysis catheter placed March 11, 2024. On IV antibiotics. ID following. 3. Hypertension with chronic kidney disease. 4. Anemia of chronic kidney disease maintained on Aranesp. 5. Chronic kidney disease mineral bone disease maintained on PhosLo (dose increased March 15, 2024). Phosphorus level 9.1 dated March 14, 2024. Plan: Hemodialysis tomorrow. Maintain torsemide. Maintain as needed hydralazine. Permanent catheter placement pending -scheduled for today.
[2024-03-17 11:29] LABS: Glucose,Whole Blood 107 mg/dL (70-110)
[2024-03-17] MEDS: POTASSIUM CHLORIDE ER 20 MEQ TAB.ER PO STA (12:14)
[2024-03-17] MEDS ORDERED: HEPARIN SODIUM 1,000 UN/ML (10ML VL) ONE (12:18)
[2024-03-17] MEDS ORDERED: LIDOCAINE 1% INJ 10MG/ML (20 ML MDV) ONE (12:19)
--- NOTE | 2024-03-17 12:23 | P.PN ---
Subjective Progress Note Date: 03/17/24 Principal diagnosis: Hemodialysis dependent renal failure. Objective - Vital Signs Vital signs: Vital Signs Temp 98.2 F 03/17/24 08:00 Pulse 72 03/17/24 12:00 Resp 16 03/17/24 12:00 BP 140/72 03/17/24 12:00 Pulse Ox 95 03/17/24 12:00 FiO2 Intake & Output 03/16/24 03/17/24 03/17/24 18:59 06:59 18:59 Intake Total 400 Output Total 6400 Balance -6000 Weight 96.7 kg 93.1 kg Intake: Hemodialysis 400 Output: Hemodialysis 3400 Hemodialysis Net Amount 3000 Other: # Voids 1 1 # Bowel Movements 1 1 - Exam Patient is awake and alert. We discussed planned dialysis catheter placement. I indicated that we will try to place from either the right or left internal jugular vein approach however previous attempts at this have been met with the degree of difficulty/failure secondary to venous thrombosis. Patient clearly understands he may require a catheter to be replaced in the femoral area. All questions were answered patient's satisfaction. - Labs CBC & Chem 7: 03/17/24 02:51 03/17/24 02:51 Labs: Abnormal Lab Results - Last 24 Hours (Table) 03/16/24 03/17/24 03/17/24 Range/Units 16:51 02:51 02:51 RBC 3.61 L (4.30-5.90) m/uL Hgb 11.0 L (13.0-17.5) gm/dL Hct 34.8 L (39.0-53.0) % Sodium 132 L (137-145) mmol/L Potassium 3.3 L (3.5-5.1) mmol/L Chloride 94 L (98-107) mmol/L Creatinine 7.75 H* (0.66-1.25) mg/dL POC Glucose (mg/dL) 146 H (70-110) mg/dL Total Bilirubin 1.5 H (0.2-1.3) mg/dL Microbiology - Last 24 Hours (Table) 03/15/24 12:09 Blood Culture - Preliminary Blood Assessment and Plan Assessment: Renal failure, dialysis dependent Plan: Placement of tunneled hemodialysis catheter today.
[2024-03-17] MEDS ORDERED: fentaNYL (PF) 50 MCG/ML 2 ML AMP ONE (12:33)
[2024-03-17] MEDS ORDERED: MIDAZOLAM 2 MG/2 ML VIAL ONE (12:34)
[2024-03-17] MEDS: fentaNYL (PF) 50 MCG/ML 2 ML AMP IVP ONE (13:10)
[2024-03-17] MEDS: MIDAZOLAM 2 MG/2 ML VIAL IVP ONE (13:10)
[2024-03-17] MEDS: LIDOCAINE 1% INJ 10MG/ML (20 ML MDV) SQ ONE (13:14)
[2024-03-17] MEDS: SODIUM CHLORIDE 0.9% 500 ML 500 ML IV ONE (13:52)
--- NOTE | 2024-03-17 14:45 | XR ---
EXAMINATION TYPE: XR chest 1V confirm line [facility] DATE OF EXAM: 03/17/2024 COMPARISON: 07/21/2023 HISTORY: 43-year-old male hemodialysis catheter placement TECHNIQUE: Single frontal view of the chest is obtained. FINDINGS: Heart upper limits of normal in size. Right-sided double-lumen hemodialysis catheter tip n oted at the cavoatrial junction. No consolidation or pleural effusion. IMPRESSION: Right-sided hemodialysis catheter tips at the cavoatrial junction. No acute cardiopulmon emigdio process.
--- NOTE | 2024-03-17 15:14 | P.OP ---
Date of Procedure: 03/17/24 Preoperative Diagnosis: Chronic kidney disease, hemodialysis dependent. Postoperative Diagnosis: Same. Procedure(s) Performed: 1: Ultrasound-guided cannulation right internal jugular vein. 2: Placement of a tunneled hemodialysis catheter via the right internal jugular vein approach with fluoroscopic guidance. 3: Moderate conscious sedation for 40 minutes. Anesthesia: local (2% Xylocaine), other (50 mcg of fentanyl and 2 mg of Versed for moderate conscious sedation.) Surgeon: Todd Rocha Estimated Blood Loss (ml): 10 IV fluids (ml): 0 Pathology: none sent Condition: stable Disposition: no change Indications for Procedure: Patient is a 43-year-old male with a longstanding history of hemodialysis dependent renal failure. He has been experiencing multiple recurrent catheter infections and this has required extended hospitalization and administration of IV antibiotics. He is currently being dialyzed via a nontunneled catheter placed via the right femoral vein approach. Patient has been cleared from an infectious disease standpoint for placement of a new tunneled hemodialysis catheter. The procedure, risk and benefits were discussed with the patient. All questions were answered to patient's satisfaction. Consent form signed. Description of Procedure: Patient was brought to the cardiac cath suite. His antibiotic regimen was continued. The cervical, supraclavicular and anterior chest wall areas were sterilely prepped and draped in usual manner. Utilizing ultrasound the right internal jugular vein was interrogated. This was found to be normally patent with no thrombus noted and easily compressed. 1% Xylocaine was utilized for local anesthesia of the tissues overlying this venous segment. Through thisarea with aid of ultrasound a micropuncture needle was utilized to cannulate the vein. Once cannulated soft tipped guidewires were advanced into the vein. The needle was withdrawn and a micropuncture sheath and dilator were advanced over the guidewire. Fluoroscopy demonstrated the wire to be in the appropriate anatomic location. 1% Xylocaine visualized for local anesthesia tissues 1 fingerbreadth below and lateral to the angle of the clavicle on the right. Xylocaine was injected in the soft tissues between this area and the right neck wound. Skin incision was made and a 19 cm tunneled hemodialysis catheter was brought through this incision to the neck incision. The micropuncture dilator and wire were removed and a 0.035 inch J-tip guidewire was advanced into the superior vena cava. Its position was confirmed with fluoroscopy. The sheath was removed and vascular dilators were advanced and removed from over the guidewire. Finally the catheter sheath and dilator were advanced over the guidewire. Guidewire and dilator were withdrawn and the catheter was advanced through the sheath and the sheath was peeled away. The distal tip of the catheter was found on fluoroscopy to be in good position. There appeared to be some kinking of the catheter in the neck area. The soft tissues were mobilized in this area and in an LPO projection the catheter was found to have no kinking. Blood was then easily aspirated via both ports and each port was blocked with appropriate volume of heparinized solution. Caps were placed. Catheter was secured to the skin with nylon suture in the neck wound was closed with 4-0 Monocryl placed in the intradermal position. Appropriate dressings were applied. Patient tolerated the procedure well and was returned to his room in satisfactory and stable condition. A chest x-ray will be obtained to confirm placement of the catheter and to rule out the possibility of a pneumothorax.
[2024-03-17] MEDS ORDERED: oxyCODONE-APAP 10-325MG 1 EACH TAB PO PRN (15:39)
--- NOTE | 2024-03-17 16:05 | P.PN ---
Subjective Progress Note Date: 03/17/24 Principal diagnosis: Reason for follow up with MSSA bacteremia secondary to dialysis catheter infection Patient is a 43-year-old male with multiple comorbidities including renal failure on hemodialysis admitted to the hospital with MSSA bacteremia concerning for right groin dialysis catheter infection which has been discontinued, did require temporary dialysis catheter placement for hemodialysis. On today's evaluation that is 03/17/2024, patient has been afebrile, patient is breathing comfortably and is currently on room air, patient denies having any significant cough no chest pain shortness of breath, patient denies nausea vomiting or diarrhea and no abdominal pain, did have a right IJ dialysis catheter placement today did have slight bleeding from it. The patient went what is 5.8, creatinine 7.75 Objective - Vital Signs Vital signs: Vital Signs Temp 98.2 F 03/17/24 08:00 Pulse 72 03/17/24 12:00 Resp 16 03/17/24 12:00 BP 140/72 03/17/24 12:00 Pulse Ox 95 03/17/24 12:00 FiO2 Intake & Output 03/16/24 03/17/24 03/17/24 18:59 06:59 18:59 Intake Total 400 50 Output Total 6400 Balance -6000 50 Weight 96.7 kg 93.1 kg Intake: IV 50 Hemodialysis 400 Output: Hemodialysis 3400 Hemodialysis Net Amount 3000 Other: # Voids 1 1 # Bowel Movements 1 1 - Exam GENERAL DESCRIPTION: Middle-aged male lying in bed in no distress RESPIRATORY SYSTEM: Unlabored breathing , decreased breath sounds at bases HEART: S1 S2 regular rate and rhythm , ABDOMEN: Soft , no tenderness EXTREMITIES: No edema feet - Labs CBC & Chem 7: 03/17/24 02:51 03/17/24 02:51 Labs: Abnormal Lab Results - Last 24 Hours (Table) 03/16/24 03/17/24 03/17/24 Range/Units 16:51 02:51 02:51 RBC 3.61 L (4.30-5.90) m/uL Hgb 11.0 L (13.0-17.5) gm/dL Hct 34.8 L (39.0-53.0) % Sodium 132 L (137-145) mmol/L Potassium 3.3 L (3.5-5.1) mmol/L Chloride 94 L (98-107) mmol/L Creatinine 7.75 H* (0.66-1.25) mg/dL POC Glucose (mg/dL) 146 H (70-110) mg/dL Total Bilirubin 1.5 H (0.2-1.3) mg/dL Microbiology - Last 24 Hours (Table) 03/15/24 12:09 Blood Culture - Preliminary Blood Assessment and Plan (1) Hemodialysis catheter infection Current Visit: No Status: Acute Code(s): T82.7XXA - INFECT/INFLM REACT D/T OTH CARDI/VASC DEV/IMPLNT/GRFT, INIT SNOMED Code(s): 487194508 (2) MSSA bacteremia Current Visit: No Status: Acute Code(s): R78.81 - BACTEREMIA; B95.61 - METHICILLIN SUSCEP STAPH INFCT CAUSING DIS CLASSD ELSWHR SNOMED Code(s): 303385232 Plan: 1patient with MSSA bacteremia source is likely right groin dialysis catheter infection which has been discontinued patient did have a negative KAYLAN and also have a negative MRI of the cervical spine 2patient did have a right IJ dialysis catheter placement once successfully dialyzed through the right IJ the groin dialysis catheter will be discontinued as per discussion with the vascular surgeon 3-patient is currently being treated with Naficillin, however we will switch to cefazolin through the dialysis on discharge Dictation was produced using [employer] dictation software. please excuse any grammatical, word or spelling errors. Time with Patient: Less than 30
[2024-03-17 16:50] LABS: Glucose,Whole Blood 133 mg/dL (70-110)
--- NOTE | 2024-03-17 18:07 | P.PN ---
Subjective Progress Note Date: 03/17/24 Subjective: Patient seen and examined at bedside. No acute events overnight. Pertinent positives and negatives as discussed above, a complete review of systems was performed and all other systems are negative. Vitals Signs Reviewed. General: Nontoxic, no distress, appears at stated age Derm: Warm, dry, left groin catheter site clean, dry, intact Head: Atraumatic, normocephalic, symmetric Eyes: EOMI, no lid lag, anicteric sclera Mouth: No lip lesion, mucus membranes moist Cardiovascular: S1S2 reg, no murmur Lungs: CTA bilateral, no rhonchi, no rales, no accessory muscle use Abdominal: Soft, nontender to palpation, no guarding, no appreciable organomegaly Ext: No gross muscle atrophy, no edema, no contractures Neuro: CN II-XI grossly intact, no focal neuro deficits Psych: Alert, oriented, appropriate affect Data Reviewed Today: WBC 5.8, hemoglobin 11.0, hematocrit 34.8, MCV 96.3, sodium 132, potassium 3.3, chloride 94, bicarb 25, anion gap 13, BUN 20, creatinine 7.75, EGFR 8, glucose 97, calcium 9.1, total bili 1.5, AST 21, ALT 14, alkaline phosphatase 65, albumin 3.6 Imaging: No new imaging Assessment and Plan: 1. MSSA bacteremia secondary to hemodialysis catheter - Continue with nafcillin 2 g IV every 4 hours - ID following: Patient is currently being treated with nafcillin, however will be switched to cefazolin through dialysis on discharge 2. ESRD on hemodialysis Mild hyponatremia Mild hypokalemia Hypophosphatemia Hypertension Anemia of chronic kidney disease - Hemodialysis on every Thursday, Thursday, Thursday - permanent dialysis catheter placed via right internal jugular vein on 03/17/2024 - Continue renal diet - Continue with carvedilol 25 twice daily, nifedipine 60 twice daily, continue as needed IV hydralazine and hydralazine 100 mg p.o. 3 times, torsemide 20 twice daily, bicarb 650 twice daily - Continue with PhosLo 3 times daily - Cardiology also following, on Xarelto 2.5 twice daily 3. Pruritic rash - Possibly secondary to uremia - Currently on Benadryl oral 25 twice daily as needed DVT ppx: Xarelto Code status: Full code Anticipated discharge place: Pending clinical course Anticipated discharge time: Pending clinical course Patient was seen and examined by me and the resident. I agree with the subjective and objective as above. We discussed the assessment and plan as do cumented below: Patient reports persistent shoulder pain though improved. Plans for permacath today with Vascular. MSSA bacteremia secondary to hemodialysis catheter: Continue Nafcillin 2g IV Q4H. ID on board. Repeat BCx negative so far. ESRD on hemodialysis: Nephrology on board. Resume HD on MWF schedule. Hyponatremia: Hopeful improvement with HD. Hypokalemia: KCl 40 meq PO x 1 today. Hyperphosphatemia: Phoslo 1334 mg PO TID. Hypertension: Coreg 25 mg PO BID. Hydralazine 100 mg PO TID. Procardia 60 mg PO BID. Anemia of chronic kidney disease Objective - Vital Signs Vital signs: Vital Signs Temp 98.3 F 03/17/24 05:00 Pulse 62 03/17/24 05:00 Resp 16 03/17/24 05:00 BP 158/72 03/17/24 05:00 Pulse Ox 97 03/17/24 05:00 FiO2 Intake & Output 03/16/24 03/17/24 03/17/24 18:59 06:59 18:59 Intake Total 400 Output Total 6400 Balance -6000 Weight 96.7 kg 93.1 kg Intake: Hemodialysis 400 Output: Hemodialysis 3400 Hemodialysis Net Amount 3000 Other: # Voids 1 1 # Bowel Movements 1 1 - Labs CBC & Chem 7: 03/17/24 02:51 03/17/24 02:51 Labs: Abnormal Lab Results - Last 24 Hours (Table) 03/16/24 03/17/24 03/17/24 Range/Units 16:51 02:51 02:51 RBC 3.61 L (4.30-5.90) m/uL Hgb 11.0 L (13.0-17.5) gm/dL Hct 34.8 L (39.0-53.0) % Sodium 132 L (137-145) mmol/L Potassium 3.3 L (3.5-5.1) mmol/L Chloride 94 L (98-107) mmol/L Creatinine 7.75 H* (0.66-1.25) mg/dL POC Glucose (mg/dL) 146 H (70-110) mg/dL Total Bilirubin 1.5 H (0.2-1.3) mg/dL Microbiology - Last 24 Hours (Table) 03/15/24 12:09 Blood Culture - Preliminary Blood
[2024-03-17 20:01] LABS: Glucose,Whole Blood 121 mg/dL (70-110)
[2024-03-18 06:00] LABS: Glucose,Whole Blood 153 mg/dL (70-110)
--- NOTE | 2024-03-18 10:16 | P.PN ---
Subjective Patient is seen in follow-up for end-stage renal disease. He is maintained on hemodialysis on Thursday schedule. Temporary dialysis catheter placed March 11, 2024. Permacath placed March 17, 2024. Tolerating dialysis well. No active complaints. Vital signs are stable. General: No acute distress. HEENT: Head exam is unremarkable. On room air. LUNGS: No audible rhonchi or wheezes. HEART: Rate and Rhythm are regular. ABDOMEN: Nontender. EXTREMITITES: No edema. Objective - Vital Signs Vital signs: Vital Signs Temp 98.3 F 03/18/24 08:00 Pulse 74 03/18/24 08:00 Resp 16 03/18/24 08:00 BP 164/79 03/18/24 08:00 Pulse Ox 94 L 03/18/24 08:00 FiO2 Intake & Output 03/17/24 03/18/24 03/18/24 18:59 06:59 18:59 Intake Total 762 Balance 762 Weight 93.4 kg Intake: IV 50 Oral 712 Other: # Voids 3 # Bowel Movements 1 - Labs CBC & Chem 7: 03/17/24 02:51 03/17/24 02:51 Labs: Abnormal Lab Results - Last 24 Hours (Table) 03/17/24 03/17/24 03/18/24 Range/Units 16:46 20:00 05:58 POC Glucose (mg/dL) 133 H 121 H 153 H (70-110) mg/dL Microbiology - Last 24 Hours (Table) 03/15/24 12:09 Blood Culture - Preliminary Blood Assessment and Plan Plan: Assessment: 1. End-stage renal disease maintained on hemodialysis on Thursday schedule. 2. MSSA bacteremia status post line holiday. Temporary dialysis catheter placed March 11, 2024. Permacath placed March 17, 2024. On IV antibiotics. ID following. 3. Hypertension with chronic kidney disease. 4. Anemia of chronic kidney disease maintained on Aranesp. 5. Chronic kidney disease mineral bone disease maintained on PhosLo (dose increased March 15, 2024). Phosphorus level 9.1 dated March 14, 2024. Plan: Currently seen while undergoing hemodialysis. Maintain torsemide. Maintain as needed hydralazine. Permacath placed March 17, 2024. If no problems with dialysis today, temporary dialysis catheter will be removed.
[2024-03-18 11:39] LABS: Glucose,Whole Blood 126 mg/dL (70-110)
--- NOTE | 2024-03-18 11:43 | P.PN ---
Subjective Progress Note Date: 03/18/24 Principal diagnosis: End-stage renal disease Patient doing well. Currently getting dialysis via right tunneled catheter without issues. Objective - Vital Signs Vital signs: Vital Signs Temp 98.3 F 03/18/24 08:00 Pulse 74 03/18/24 08:00 Resp 16 03/18/24 08:00 BP 164/79 03/18/24 08:00 Pulse Ox 94 L 03/18/24 08:00 FiO2 Intake & Output 03/17/24 03/18/24 03/18/24 18:59 06:59 18:59 Intake Total 762 Balance 762 Weight 93.4 kg Intake: IV 50 Oral 712 Other: # Voids 3 # Bowel Movements 1 - Exam Left femoral temp cath clean, dry and intact. Right chest catheter clean, dry and intact - Labs CBC & Chem 7: 03/17/24 02:51 03/17/24 02:51 Labs: Abnormal Lab Results - Last 24 Hours (Table) 03/17/24 03/17/24 03/18/24 Range/Units 16:46 20:00 05:58 POC Glucose (mg/dL) 133 H 121 H 153 H (70-110) mg/dL 03/18/24 Range/Units 11:38 POC Glucose (mg/dL) 126 H (70-110) mg/dL Microbiology - Last 24 Hours (Table) 03/15/24 12:09 Blood Culture - Preliminary Blood Assessment and Plan Assessment: #1 end-stage renal disease on hemodialysis #2 status post left femoral vein temporary catheter placement #3 bacteremia- resolved #4 POD 1 right tunneled dialysis catheter Plan: Ok to remove left temporary catheter Stable for discharge from vascular standpoint. Follow up with Dr. Rocha in 2 weeks. Will sign off.
--- NOTE | 2024-03-18 12:14 | P.PN ---
Subjective Progress Note Date: 03/18/24 Principal diagnosis: Reason for follow up with MSSA bacteremia secondary to dialysis catheter infection Patient is a 43-year-old male with multiple comorbidities including renal failure on hemodialysis admitted to the hospital with MSSA bacteremia concerning for right groin dialysis catheter infection which has been discontinued, did require temporary dialysis catheter placement for hemodialysis. On today's evaluation that is 03/18/2024, Patient is afebrile this morning patient denies having any chest pain shortness of breath or cough, the patient is breathing comfortably and currently on room air, patient denies any abdominal pain no diarrhea no nausea no vomiting currently undergoing dialysis through the right IJ permacatheter. And no new lab has been obtained today blood culture from 03/15/2024 so far negative Objective - Vital Signs Vital signs: Vital Signs Temp 97.7 F 03/18/24 12:09 Pulse 81 03/18/24 12:09 Resp 18 03/18/24 12:09 BP 128/73 03/18/24 12:09 Pulse Ox 100 03/18/24 11:59 FiO2 Intake & Output 03/17/24 03/18/24 03/18/24 18:59 06:59 18:59 Intake Total 762 400 Output Total 6600 Balance 762 -6200 Weight 93.4 kg Intake: IV 50 Oral 712 Hemodialysis 400 Output: Hemodialysis 3500 Hemodialysis Net Amount 3100 Other: # Voids 3 # Bowel Movements 1 - Exam GENERAL DESCRIPTION: Middle-aged male lying in bed in no distress RESPIRATORY SYSTEM: Unlabored breathing , decreased breath sounds at bases HEART: S1 S2 regular rate and rhythm , ABDOMEN: Soft , no tenderness EXTREMITIES: No edema feet - Labs CBC & Chem 7: 03/17/24 02:51 03/17/24 02:51 Labs: Abnormal Lab Results - Last 24 Hours (Table) 03/17/24 03/17/24 03/18/24 Range/Units 16:46 20:00 05:58 POC Glucose (mg/dL) 133 H 121 H 153 H (70-110) mg/dL 03/18/24 Range/Units 11:38 POC Glucose (mg/dL) 126 H (70-110) mg/dL Microbiology - Last 24 Hours (Table) 03/15/24 12:09 Blood Culture - Preliminary Blood Assessment and Plan (1) Hemodialysis catheter infection Current Visit: No Status: Acute Code(s): T82.7XXA - INFECT/INFLM REACT D/T OTH CARDI/VASC DEV/IMPLNT/GRFT, INIT SNOMED Code(s): 550186378 (2) MSSA bacteremia Current Visit: No Status: Acute Code(s): R78.81 - BACTEREMIA; B95.61 - METHICILLIN SUSCEP STAPH INFCT CAUSING DIS CLASSD ELSWHR SNOMED Code(s): 539998450 Plan: 1patient with MSSA bacteremia source is likely right groin dialysis catheter infection which has been discontinued patient did have a negative KAYLAN and also have a negative MRI of the cervical spine 2patient did have a right IJ dialysis catheter placement once successfully dialyzed through the right IJ the groin dialysis catheter should be discontinued 3-patient to continue with Naficillin while inpatient, however however plan to finish therapy with cefazolin through the dialysis on discharge, prescription provided to the catalytic case operator Dictation was produced using [employer] dictation software. please excuse any grammatical, word or spelling errors. Time with Patient: Less than 30
[2024-03-18 15:15] LABS: HCT 40.3 % (39.0-53.0); HGB 12.4 gm/dL (13.0-17.5); Hypochromasia Marked; MCH 29.7 pg (25.0-35.0); MCHC 30.8 g/dL (31.0-37.0); MCV 96.5 fL (80.0-100.0); Platelet Count 329 k/uL (150-450); RBC 4.18 m/uL (4.30-5.90); RDW 15.3 % (11.5-15.5); WBC 7.9 k/uL (3.8-10.6)
[2024-03-18 15:50] LABS: African American GFR (CKD) 12 (>60 ml/min/1.73 sqM); Anion Gap 11 mmol/L; Blood Urea Nitrogen 16 mg/dL (9-20); Calcium 9.2 mg/dL (8.4-10.2); Carbon Dioxide 28 mmol/L (22-30); Chloride 96 mmol/L (98-107); Glucose 178 mg/dL (74-99); Non-African American GFR(CKD) 10 (>60 ml/min/1.73 sqM); Potassium 3.4 mmol/L (3.5-5.1); Sodium 135 mmol/L (137-145)
[2024-03-18 16:03] LABS: Glucose,Whole Blood 197 mg/dL (70-110)
--- NOTE | 2024-03-18 16:31 | P.DS ---
Providers Date of admission: 02/29/24 12:34 Attending physician: Magaly Aguilar MD Discharge Diagnosis: 1. MSSA bacteremia secondary to hemodialysis catheter 2. ESRD on hemodialysis 3. Hypertension 4. Anemia of the chronic kidney disease 5. Hypokalemia 6. Hyponatremia 7. Hyperphosphatemia Hospital Course: 43-year-old man with past medical history of end-stage renal disease, hypertension, hyperlipidemia, DVT presented to the ER on 02/28/2024 for evaluation of altered mental status. Patient gets intermittent hemodialysis through right femoral Mohamud catheter on Mondays, Wednesdays, Fridays. On 02/26/2024, he had an abridged dialysis session due to inability to tolerate the procedure. It was not clear as to why he was unable to tolerate the whole procedure. Apparently, his daughter was trying to get in touch with the patient called 911 when she found the patient in his house with altered mental status and lethargy. He was subsequently brought into the hospital for further evaluation. According to the patient, he is here for visit and all limits states today right shoulder pain which is very significant with any sort of movement. Pain started 1 to 2 days ago it was acute onset. In the ER, the patient was febrile with maximum temperature 102.2, blood pressure 120/76, heart rate 75, 97% saturation on room air. WBC 10.8, hemoglobin 10.8, platelet count 97. Sodium 126, potassium 6.1, chloride 91, bicarb 17, BUN 86, creatinine 13.5. Magnesium 2.1, calcium 8.2, phosphorus 9.1. EKG demonstrated ectopic atrial rhythm with PT with left axis deviation with no evidence of ischemia. Chest x- ray did show increased pulmonary vascularity, borderline cardiomegaly. Troponin was 0.04. COVID, influenza A, B, RSV were all negative. Patient was initially started on empiric antibiotic vancomycin and Zosyn. Vascular surgery was consulted with removal of permacath. Nephrology was consulted for ESRD. Urine and blood culture were drawn. Patient was noticed to have positive blood culture for with Staph aureus and therefore infectious disease was consulted. Patient patient was started on IV nafcillin for MSSA bacteremia based on culture and sensitivity report. In the interim, cardiology was consulted for the evaluation of heart valves for the concerns of endocarditis. KAYLAN was unremarkable for endocarditis. Left ventricle ejection fraction was 50%. MRI of the cervical spine without contrast was performed on 03/07/2024 which showed no evidence for disc herniation or significant spinal canal stenosis. Patient reported progressive improvement in the right shoulder pain. Patient continued to have schedule hemodialysis sessions on Mondays, Wednesdays, and Fridays while he was hospitalized. Repeat blood culture report on 03/17/2024 was unremarkable for bacterial growth. Patient had a placement of tunneled hemodialysis catheter via the right internal jugular vein by Dr. Rocha on 03/17/2024. Patient to be discharged on 03/18/2024 with cefazolin through dialysis as per infectious disease. Discharge medications: New medications:nifedipine 60 mg p.o. twice daily, hydralazine 100 mg p.o. 3 times daily, Percocet 10-325 mg p.o. every 4 hours as needed, sodium bicarbonate 650 mg p.o. twice daily Home medications: carvedilol 25 mg p.o. twice daily, torsemide 20 mg p.o. twice daily, PhosLo 133 4 mg p.o. twice daily as needed, Tylenol 650 mg p.o. every 6 hours as needed, lanthanum carbonate 1000 mg p.o. 3 times daily, gabapentin 300 mg p.o. 3 times daily, PhosLo 2001 mg p.o. 3 times daily, Protonix 40 mg p.o. daily Discharge instructions: Outpatient follow-up with PCP in 1 to 2 days, infectious disease and 1 week, orthopedic in 1 week and vascular in 2 weeks. Patient is going to continue with renal diet Patient is informed that he will receive his antibiotic during hemodialysis has been set up by case management Vital signs reviewed. Gen: in no apparent distress, resting comfortably in bed Eyes: PERRL, no scleral injection or icterus HENT: normocephalic, atraumatic, good hearing acuity, moist mucous membranes Resp: CTAB, no rales, rhonchi, or wheezes CVS: normal S1 and S2, no murmurs, rubs or gallops, no edema GI: soft, NTTP, ND, no hepatosplenomegaly : no suprapubic tenderness, no CVAT MSK: no clubbing, no cyanosis, no noted contractures of extremities Skin: Right IJV hemodialysis catheter is in place Neuro: CN II-XII intact Psych: cooperative, euthymic mood, insight and judgment intact Consults: 02/28/24 22:40 Consult Physician Routine Consulting Provider: Octavio Vicente Consult Reason/Comments: right shoulder pain Do you want consulting provider notified?: Already Contacted Consult Physician Routine Consulting Provider: Joshua Summers Consult Reason/Comments: bacteremia Do you want consulting provider notified?: Already Contacted 03/01/24 13:30 Consult Physician Routine Consulting Provider: Marlen Oliva Consult Reason/Comments: dialysis catheter, original consult for removal Do you want consulting provider notified?: Already Contacted 03/12/24 20:27 Consult Physician Routine Consulting Provider: Dave Flores Consult Reason/Comments: chronic renal failure, dialysis dependent Do you want consulting provider notified?: Already Contacted Primary care physician: Stated None Hospital Course: Patient was seen and examined by me and the resident. I agree with the subjective and objective as above. We discussed the assessment and plan as documented below: Patient reports persistent shoulder pain though improved. Underwent permacath with Vascular yesterday and successful HD session today. Discussed with BRENT E[facility], patient is homeless and does not qualify for SNF. He plans to stay at a [facility]el near for the time being. Rides to HD is arranged through his insurance as prior to his admission. He was get infusion of Cefzolin during his HD sessions. Advised to follow up with PCP within 1-2 days, Vascular surgery within 2 weeks, Infectious disease within 1 week and Orthopedic Sx within 1 week of discharge. New prescriptions sent to his pharmacy. Discharge Diagnosis: MSSA bacteremia secondary to hemodialysis catheter ESRD on hemodialysis Hyponatremia Hypokalemia Hyperphosphatemia Hypertension Anemia of chronic kidney disease This complex discharge took 35 minutes to complete. Patient Condition at Discharge: Stable Plan - Discharge Summary New Discharge Prescriptions: New NIFEdipine [Adalat CC] 60 mg PO BID #60 tab hydrALAZINE HCL [Apresoline] 100 mg PO TID #90 tab oxyCODONE-APAP 10-325MG [Percocet 10-325 mg] 1 each PO Q4HR PRN #18 tab PRN Reason: Pain Sodium Bicarbonate Tab 650 mg PO BID #60 tab Rivaroxaban [Xarelto] 2.5 mg PO BID tab Continue carvediloL [Coreg] 25 mg PO BID@0600,2000 Torsemide [Demadex] 20 mg PO BID Calcium Acetate [PhosLo] 1,334 mg PO BID PRN PRN Reason: snacks Acetaminophen Tab [Tylenol] 650 mg PO Q6HR PRN tab PRN Reason: Mild Pain Or Fever > 100.5 Lanthanum Carbonate [Lanthanum Carbonate Chewable] 1,000 mg PO TID-W/MEALS Gabapentin 300 mg PO TID #90 cap Calcium Acetate [PhosLo] 2,001 mg PO TID-W/MEALS Pantoprazole [Protonix] 40 mg PO DAILY Discontinued hydrALAZINE HCL [Apresoline] 50 mg PO BID@1200,1600 Insulin Detemir (Levemir) [Levemir] 10 unit SQ HS 30 Days #3 each Discharge Medication List Calcium Acetate [PhosLo] 2,001 mg PO TID-W/MEALS 02/20/23 [History] Pantoprazole [Protonix] 40 mg PO DAILY 02/20/23 [History] Torsemide [Demadex] 20 mg PO BID 02/20/23 [History] carvediloL [Coreg] 25 mg PO BID@0600,2000 02/20/23 [History] Calcium Acetate [PhosLo] 1,334 mg PO BID PRN 05/01/23 [History] Acetaminophen Tab [Tylenol] 650 mg PO Q6HR PRN tab 05/04/23 [Rx] Lanthanum Carbonate [Lanthanum Carbonate Chewable] 1,000 mg PO TID-W/MEALS 06/27/23 [History] Gabapentin 300 mg PO TID #90 cap 03/18/24 [Rx] NIFEdipine [Adalat CC] 60 mg PO BID #60 tab 03/18/24 [Rx] Rivaroxaban [Xarelto] 2.5 mg PO BID tab 03/18/24 [Rx] Sodium Bicarbonate Tab 650 mg PO BID #60 tab 03/18/24 [Rx] hydrALAZINE HCL [Apresoline] 100 mg PO TID #90 tab 03/18/24 [Rx] oxyCODONE-APAP 10-325MG [Percocet 10-325 mg] 1 each PO Q4HR PRN #18 tab 03/18/24 [Rx] Follow up Appointment(s)/Referral(s): Todd Rocha DO [Doctor of Osteopathic Medicine] - 2 Weeks Nonstaff,Physician [REFERRING] - 1-2 Days Joshua Summers MD [STAFF PHYSICIAN] - 1 Week Octavio Vicente MD [STAFF PHYSICIAN] - 1 Week Activity/Diet/Wound Care/Special Instructions: Diet: Renal You will receive antibiotics during your hemodialysis which has been set up by Case management. DO NOT MISS ANY HEMODIALYSIS APPOINTMENTS. Discharge/Stand Alone Forms: [facility], [facility] Shel[facility], Who Do I Call?, Community Resources, Outpatient Counseling Discharge Disposition: HOME SELF-CARE
[2024-03-18 20:36] LABS: Glucose,Whole Blood 180 mg/dL (70-110)
[2024-03-19 06:31] LABS: Glucose,Whole Blood 214 mg/dL (70-110)
[2024-03-19 07:58] VITALS: TEMP 98.6
[2024-03-19 11:45] VITALS: BP 110/72; PULSE 71; RESP 16
--- NOTE | 2024-03-19 12:16 | P.PN ---
Subjective Patient is seen for follow-up for end-stage renal disease. Status post removal of temporary dialysis catheter this morning. Patient tolerated hemodialysis well with right tunneled IJ catheter. Plans for discharge today. No significant complaints today. Objective - Vital Signs Vital signs: Vital Signs Temp 98.6 F 03/19/24 07:57 Pulse 71 03/19/24 11:45 Resp 16 03/19/24 11:45 BP 110/72 03/19/24 11:45 Pulse Ox 97 03/19/24 11:45 FiO2 Intake & Output 03/18/24 03/19/24 03/19/24 18:59 06:59 18:59 Intake Total 400 700 Output Total 6600 Balance -6200 700 Weight 92.3 kg Intake: Intake, IV Titration 160 Amount Nafcillin 2 gm In 100 Dextrose 5% in Water 100 ml @ 100 mls/hr IVPB Q4HR [facility] Rx#:[id number] Sodium Chloride 0.9% 1, 60 000 ml @ 20 mls/hr IV . Q24H [facility] Rx#:[id number] Oral 540 Hemodialysis 400 Output: Hemodialysis 3500 Hemodialysis Net Amount 3100 Other: Voiding Method Toilet Toilet - Exam Patient is awake, comfortable, no acute distress. Patient appears euvolemic. Examination of lower extremities shows no significant edema MEDICAL DELIVERY DRIVER exam grossly intact. - Labs CBC & Chem 7: 03/18/24 14:59 03/18/24 14:59 Labs: Abnormal Lab Results - Last 24 Hours (Table) 03/18/24 03/18/24 03/18/24 Range/Units 14:59 14:59 16:02 RBC 4.18 L (4.30-5.90) m/uL Hgb 12.4 L (13.0-17.5) gm/dL MCHC 30.8 L (31.0-37.0) g/dL Sodium 135 L (137-145) mmol/L Potassium 3.4 L (3.5-5.1) mmol/L Chloride 96 L (98-107) mmol/L Creatinine 6.24 H (0.66-1.25) mg/dL Glucose 178 H (74-99) mg/dL POC Glucose (mg/dL) 197 H (70-110) mg/dL 03/18/24 03/19/24 Range/Units 20:34 06:28 RBC (4.30-5.90) m/uL Hgb (13.0-17.5) gm/dL MCHC (31.0-37.0) g/dL Sodium (137-145) mmol/L Potassium (3.5-5.1) mmol/L Chloride (98-107) mmol/L Creatinine (0.66-1.25) mg/dL Glucose (74-99) mg/dL POC Glucose (mg/dL) 180 H 214 H (70-110) mg/dL Microbiology - Last 24 Hours (Table) 03/15/24 12:09 Blood Culture - Preliminary Blood Assessment and Plan Assessment: 1. End-stage renal disease maintained on hemodialysis on Thursday schedule. 2. MSSA bacteremia status post line holiday. Temporary dialysis catheter placed March 11, 2024. Permacath placed March 17, 2024. On IV antibiotics. ID following. 3. Hypertension with chronic kidney disease. 4. Anemia of chronic kidney disease maintained on Aranesp. 5. Chronic kidney disease mineral bone disease maintained on PhosLo (dose increased March 15, 2024). Phosphorus level 9.1 dated March 14, 2024. Plan: Stable for discharge from nephrology standpoint. Follow-up as outpatient for hemodialysis.
--- NOTE | 2024-03-20 13:24 | P.PN ---
Subjective Progress Note Date: 03/19/24 Principal diagnosis: Reason for follow up with MSSA bacteremia secondary to dialysis catheter infection Patient is a 43-year-old male with multiple comorbidities including renal failure on hemodialysis admitted to the hospital with MSSA bacteremia concerning for right groin dialysis catheter infection which has been discontinued, did require temporary dialysis catheter placement for hemodialysis. On today's evaluation that is 03/19/2024,the patient denies any fever or any chills, patient is breathing comfortably on room air, the patient denies chest pain shortness of breath and no significant cough, patient denies abdominal pain, no nausea vomiting or diarrhea. Patient is feeling better no new symptoms. Patient white count 7.9, creatinine 6.04 blood culture 03/15/2024 has been negative Objective - Vital Signs Vital signs: Vital Signs Temp 98.0 F 03/19/24 03:12 Pulse 99 03/19/24 06:36 Resp 16 03/19/24 06:36 BP 118/86 03/19/24 06:36 Pulse Ox 99 03/19/24 06:36 FiO2 Intake & Output 03/18/24 03/19/24 03/19/24 18:59 06:59 18:59 Intake Total 400 700 Output Total 6600 Balance -6200 700 Weight 92.3 kg Intake: Intake, IV Titration 160 Amount Nafcillin 2 gm In 100 Dextrose 5% in Water 100 ml @ 100 mls/hr IVPB Q4HR [facility] Rx#:[id number] Sodium Chloride 0.9% 1, 60 000 ml @ 20 mls/hr IV . Q24H [facility] Rx#:[id number] Oral 540 Hemodialysis 400 Output: Hemodialysis 3500 Hemodialysis Net Amount 3100 Other: Voiding Method Toilet - Exam GENERAL DESCRIPTION: Middle-aged male lying in bed in no distress RESPIRATORY SYSTEM: Unlabored breathing , decreased breath sounds at bases HEART: S1 S2 regular rate and rhythm , ABDOMEN: Soft , no tenderness EXTREMITIES: No edema feet - Labs CBC & Chem 7: 03/18/24 14:59 03/18/24 14:59 Labs: Abnormal Lab Results - Last 24 Hours (Table) 03/18/24 03/18/24 03/18/24 Range/Units 11:38 14:59 14:59 RBC 4.18 L (4.30-5.90) m/uL Hgb 12.4 L (13.0-17.5) gm/dL MCHC 30.8 L (31.0-37.0) g/dL Sodium 135 L (137-145) mmol/L Potassium 3.4 L (3.5-5.1) mmol/L Chloride 96 L (98-107) mmol/L Creatinine 6.24 H (0.66-1.25) mg/dL Glucose 178 H (74-99) mg/dL POC Glucose (mg/dL) 126 H (70-110) mg/dL 03/18/24 03/18/24 03/19/24 Range/Units 16:02 20:34 06:28 RBC (4.30-5.90) m/uL Hgb (13.0-17.5) gm/dL MCHC (31.0-37.0) g/dL Sodium (137-145) mmol/L Potassium (3.5-5.1) mmol/L Chloride (98-107) mmol/L Creatinine (0.66-1.25) mg/dL Glucose (74-99) mg/dL POC Glucose (mg/dL) 197 H 180 H 214 H (70-110) mg/dL Microbiology - Last 24 Hours (Table) 03/15/24 12:09 Blood Culture - Preliminary Blood Assessment and Plan (1) Hemodialysis catheter infection Status: Acute Code(s): T82.7XXA - INFECT/INFLM REACT D/T OTH CARDI/VASC DEV/IMPLNT/GRFT, INIT SNOMED Code(s): 335132580 (2) MSSA bacteremia Status: Acute Code(s): R78.81 - BACTEREMIA; B95.61 - METHICILLIN SUSCEP STAPH INFCT CAUSING DIS CLASSD ELSWHR SNOMED Code(s): 881377192 Plan: 1patient with MSSA bacteremia source is likely right groin dialysis catheter infection which has been discontinued patient did have a negative KAYLAN and also have a negative MRI of the cervical spine 2patient did have a right IJ dialysis catheter placement once successfully dialyzed through the right IJ the groin dialysis catheter should be discontinued before discharge 3-patient has cleared his bacteremia, plan to finish therapy with cefazolin with dialysis x 2 weeks prescription already given to the disability case manager yesterday and close outpatient follow-up Dictation was produced using [employer] software. please excuse any grammatical, word or spelling errors. Time with Patient: Less than 30
--- NOTE | 2024-03-25 08:45 | CA ---
Transthoracic Echo Report Name: Suman Robles Age: 43 Gender: M : 1980 Exam Date: 03/05/2024 11:03 Exam Location: [place] [facility] Ht (in): 70 Wt (lb): 226 Ordering Physician: Attending/Referring Phys: Farm Rancher Carmen Arana RDCS Procedure CPT: Indications: Cardiac Hx: Technical Quality: Technically difficult study Contrast 1: Definity Total Dose (mL): 2 Contrast 2: Total Dose (mL): MEASUREMENTS (Male / Female) Normal Values 2D ECHO LV Diastolic Diameter PLAX 5.3 cm 4.2 - 5.9 / 3.9 - 5.3 cm LV Systolic Diameter PLAX 3.7 cm IVS Diastolic Thickness 1.0 cm 0.6 - 1.0 / 0.6 - 0.9 cm LVPW Diastolic Thickness 1.3 cm 0.6 - 1.0 / 0.6 - 0.9 cm LV Relative Wall Thickness 0.4 LVOT Diameter 2.4 cm LV Diastolic Volume MOD BP 122.2 cm??? 67 - 155 / 56 - 104 cm??? LV Systolic Volume MOD BP 60.7 cm??? 22 - 58 / 19 - 49 cm??? LV Ejection Fraction MOD BP 50.3 % >= 55 % LV Cardiac Index MOD BP 1911.3 cm???/min???m??? LV Diastolic Volume MOD 4C 133.4 cm??? LV Systolic Volume MOD 4C 64.5 cm??? LV Ejection Fraction MOD 4C 51.7 % LV Cardiac Index MOD 4C 2146.2 cm???/min???m??? LV Diastolic Length 4C 9.7 cm LV Systolic Length 4C 8.7 cm LV Diastolic Volume MOD 2C 107.8 cm??? LV Systolic Volume MOD 2C 56.2 cm??? LV Ejection Fraction MOD 2C 47.9 % LV Cardiac Index MOD 2C 1606.2 cm???/min???m??? LV Diastolic Length 2C 9.3 cm LV Systolic Length 2C 8.5 cm LA Volume 93.1 cm??? 18 - 58 / 22 - 52 cm??? LA Volume Index 40.8 cm???/m??? 16 - 28 cm???/m??? Ascending Aorta Diameter 2.8 cm DOPPLER AV Peak Velocity 168.1 cm/s AV Peak Gradient 11.3 mmHg AV Mean Velocity 125.2 cm/s AV Mean Gradient 6.7 mmHg AV Velocity Time Integral 34.8 cm LVOT Peak Velocity 112.4 cm/s LVOT Peak Gradient 5.1 mmHg LVOT Velocity Time Integral 22.6 cm LVOT Stroke Volume 98.3 cm??? LVOT Stroke Volume Index 44.7 ml/m??? LVOT Cardiac Index 3059.0 cm???/min???m??? AV Area Cont Eq vti 2.8 cm??? AV Area Cont Eq pk 2.9 cm??? MV Area PHT 4.6 cm??? Mitral E Point Velocity 61.1 cm/s Mitral A Point Velocity 91.2 cm/s Mitral E to A Ratio 0.7 MV Deceleration Time 164.1 ms PV Peak Velocity 125.8 cm/s PV Peak Gradient 6.3 mmHg FINDINGS Left Ventricle Left ventricular ejection fraction is estimated at 50 %. Mildly increased left ventricular systolic volume. Mildly decreased left ventricular ejection fraction. Left ventricular wall thickness normal. No obvious regional wall motion abnormalities. Right Ventricle Normal right ventricular size and function. Unable to estimate the right ventricular systolic pressure. Right Atrium Normal right atrial size. Left Atrium Severely increased left atrial volume. Mildly increased left atrial area. Mitral Valve Structurally normal mitral valve. No mitral stenosis, regurgitation or prolapse. Aortic Valve Aortic valve not well visualized. No aortic valve stenosis or regurgitation. Tricuspid Valve Structurally normal tricuspid valve. No tricuspid stenosis. No tricuspid regurgitation. Pulmonic Valve Pulmonic valve not well visualized. Pericardium No pericardial effusion. Aorta Normal size aortic root and proximal ascending aorta. CONCLUSIONS Left ventricular ejection fraction 50% Mildly dilated left atrium No pericardial effusion Previewed by: Dr. Lenny Drew DO (Electronically Signed) Final Date: 05 March 2024 17:59
--- NOTE | 2024-03-26 19:55 | US ---
EXAM: US Duplex Right Lower Extremity Veins CLINICAL HISTORY: Right leg pain TECHNIQUE: Real-time duplex ultrasound scan of the right lower extremity veins integrating B-mode two dimensional vascular structure, Doppler spectral analysis, color flow Doppler imaging and compression. COMPARISON: No relevant prior studies available. FINDINGS: Deep veins:Unremarkable. No DVT in the visualized common femoral, femoral, proximal deep femoral or popliteal veins. The veins demonstrate normal color flow, are normally compressible, with normal phasic flow and/or augmentation response. Superficial veins:Unremarkable. No thrombus in the visualized great saphenous vein. Soft tissues:No acute findings. No popliteal cyst. IMPRESSION: Normal right lower extremity duplex venous ultrasound. Radiologist: Nathan Gonzalez MD Electronically Signed: 02/29/24 01:09 Study ready at 23:45 and initial results transmitted at 01:09 [facility]
--- NOTE | 2024-03-28 17:22 | CT ---
Patient Suman Robles ID [id number] Order # EXAMINATION TYPE: CT chest wo con DATE OF EXAM: 03/05/2024 COMPARISON: No comparison available on downtime PACS. HISTORY: Right shoulder chest pain CT DLP: 7 5.9 mGycm, Automated exposure control for dose reduction was used. CONTRAST: Performed injected with 0 mL of Isovue 300. TECHNIQUE: Axial images were obtained at 5 mm thick sections. Reconstructed images are reviewed on [employer] computer in the coronal plane. FINDINGS: Portion of the thyroid visualized is normal. Bilateral lung consolidations are present. Air bronchograms are present. Correlate for pneumonia. Fol low-up to clearing is recommended. There is some nodular type density within the right middle lobe measuring 3.6 cm and possibly the arvin gula measuring 3.0 cm. Mass should be potentially within the differential and follow-up is recommende d. No enlarged mediastinal or hilar adenopathy is evident. The ascending aorta diameter at the level o f the main pulmonary artery is 3.2 cm. The main pulmonary artery diameter at the bifurcation is 2.[address] sections are obtained through the upper abdomen. Spleen appears somewhat prominent. This m easures 15.5 cm. Normal less than 12.5 cm. IMPRESSION: 1. Bibasilar consolidations. Correlate for pneumonia. Follow-up to clearing is recommended. Underlyin g mass is not excluded. 2. Splenomegaly
--- NOTE | 2024-03-29 11:14 | MR ---
Patient: Suman Robles Ordering Physician: Unknown, Unknown ID: [id number] Phone, Pager: Phone: N /A Pager: N/A : N/A Age/Gender: N/A, O Primary Location: N/A Procedure: MR cervical spine wo con Lauren martinez Date: 03/07/2024 3:36:34 PM EXAMINATION TYPE: MR cervical spine wo con DATE OF EXAM: 03/07/2024 5:22 PM CLINICAL INDICATION: Right shoulder pain COMPARISON: None. TECHNIQUE: Multi planar, multi sequence imaging was performed utilizing: T1-weighted, T2-weighted, an d turbo inversion recovery imaging of the cervical spine. IV Contrast: cc (none if empty) FINDINGS: Alignment: The cervical vertebral bodies have preserved heights. Alignment is within normal limits gi mariam patient positioning. Bones: Osteophytes and disc space narrowing most pronounced at the C5-C7 vertebral levels. Cord: The spinal cord is unremarkable with regards to their signal intensity and morphology. Discs: Intervertebral disc signal is maintained. C2-C3: No significant disc pathology. The spinal canal is patent. No neural foraminal stenosis. C3-C4: No significant disc pathology. The spinal canal is patent. No neural foraminal stenosis. C4-C5: No significant disc pathology. The spinal canal is patent. No neural foraminal stenosis. C5-C6: No significant disc pathology. The spinal canal is patent. No neural foraminal stenosis. C6-C7: No significant disc pathology. The spinal canal is patent. No neural foraminal stenosis. C7-T1: No significant disc pathology. The spinal canal is patent. No neural foraminal stenosis. Other: Edema within the musculature of the posterior neck. IMPRESSION: 1. No evidence for disc herniation or significant spinal canal stenosis. 2. Minimal disc degeneration with associated osteoarthritic changes. 3. Posterior neck musculature edema correlate for muscle strain .
--- NOTE | 2024-04-05 15:29 | XR ---
Patient: Suman Robles Ordering Physician: Unknown, Unknown ID: [id number] Phone, Pager: Phone: N /A Pager: N/A : N/A Age/Gender: N/A, O Primary Location: N/A Procedure: XR CERVICAL SPINE COMP Mynor dy Date: 03/07/2024 4:56:00 PM EXAMINATION TYPE: Cervical Spine X-Ray Complete DATE OF EXAM: 03/08/2024 CLINICAL HISTORY: pain COMPARISON: NONE TECHNIQUE: Frontal, lateral, oblique, swimmers, and open mouth view of the cervical spine are obtaine d. FINDINGS: The cervical spine is visualized in its entirety from C1 thru the top of T1 level. It is s atisfactory in alignment without evidence of acute fracture or dislocation. The pre-vertebral soft t issue appears within normal limits. Disc spaces are well preserved. The C1-C2 articulation is unremar kable on the open mouth view. The oblique images are within normal limits. IMPRESSION: No acute fracture or dislocation is seen in the cervical spine.ICD 10 NO FRACTURE, INITI AL EVALUATION
--- NOTE | 2024-04-05 15:49 | US ---
[facility] Patient Suman Robles ID [id number] Order # Procedure US VENOUS DUPLEX UPPER BILAT EXAMINATION TYPE: US venous doppler duplex UE BI DATE OF EXAM: 03/03/2024 COMPARISON: THIS EXAM WAS READ DURING PACS DOWNTIME, NO PRIORS AVAILABLE. CLINICAL INDICATION: Pain SIDE PERFORMED: Bilateral Rt IJV distal subclavian vein, cephalic, brachial and radial veins neg for DVT/SVT Right Arm: Negative for DVT,- Rt prox and mid subclavian veins, axillary and basilic veins not visual ized Left Arm: Negative for DVT, negative for deep vein thrombosis in superficial venous thrombophlebitis. IMPRESSION: Grayscale, color doppler, spectral doppler imaging performed of the deep veins of the upper extremiti es. There is normal flow, compressibility and vascular waveforms.
--- NOTE | 2024-04-06 05:58 | XR ---
Site ID [facility] Patient Suman Robles ID [id number] Order # Procedure 1v cxr portable EXAMINATION TYPE: XR chest 1V DATE OF EXAM: 03/03/2024 1:42 PM CLINICAL INDICATION: Hypoxemia COMPARISON: THIS EXAM WAS READ DURING PACS DOWNTIME, NO PRIORS AVAILABLE. TECHNIQUE: XR chest 1V Frontal view of the chest. FINDINGS: Lungs/Pleura: Diffuse airspace opacities are seen throughout the lungs. There is no evidence of pleur al effusion, or pneumothorax. Pulmonary vascularity: Unremarkable. Heart/mediastinum: Cardiomediastinal silhouette is partially obscured due to overlying and adjacent o pacities. Musculoskeletal: No acute osseous pathology. IMPRESSION: Diffuse airspace opacities correlate for pneumonia. Attention follow-up imaging. Correlate with serum BNP to exclude a component of pulmonary edema.
--- NOTE | 2024-04-13 14:49 | XR ---
Patient Suman Robles ID [id number] [id number] Order # Procedure SHOULDER RIGHT EXAMINATION TYPE: XR shoulder complete RT DATE OF EXAM: 03/02/2024 12:42 PM CLINICAL INDICATION: Pain COMPARISON: THIS EXAM WAS READ DURING PACS DOWNTIME, NO PRIORS AVAILABLE. TECHNIQUE: XR shoulder complete RT; examined in AP, internally rotated and scapular Y projections. FINDINGS: No evidence of acute osseous pathology, joint dislocation, or soft tissue swelling. The remaining po rtions of the visualized chest are unremarkable. Degeneration changes of the acromion, distal clavic le with osteophyte formation. There is osteophyte formation of the glenoid and humeral head. There is joint space narrowing of glenohumeral joint. IMPRESSION: 1. No acute osseous pathology. 2. Mild shoulder osteoarthrosis.
--- NOTE | 2024-04-13 14:54 | XR ---
Patient Suman Robles ID [id number] [id number] Order # Procedure 1 VIEW CXR EXAMINATION TYPE: XR chest 1V DATE OF EXAM: 03/02/2024 12:16 PM CLINICAL INDICATION: Shortness of breath COMPARISON: None THIS EXAM WAS READ DURING PACS DOWNTIME, NO PRIORS AVAILABLE. TECHNIQUE: XR chest 1V Frontal view of the chest. FINDINGS: Lungs/Pleura: There is no evidence of pleural effusion, focal consolidation, or pneumothorax. Pulmonary vascularity: Pulmonary vascular congestion. Heart/mediastinum: Cardiomediastinal silhouette is unremarkable. Musculoskeletal: No acute osseous pathology. Other findings: None IMPRESSION: Cardiomegaly and mild pulmonary vascular congestion. Correlate with BNP for congestive heart failure versus pneumonia.
--- NOTE | 2024-04-14 14:40 | CONS ---
Date of service 03/01/2024 CONSULTATION LOCATION: 365. REASON FOR CONSULTATION: Bacteremia. HISTORY OF PRESENT ILLNESS: The patient is a 43-year-old male with a past medical history significant for end-stage renal disease, on dialysis; currently, he did have dialysis catheter in the right groin area, that apparently has been replaced about a month ago. Reason for replacement, the patient mentioned, was not working and he is currently getting dialysis on Thursday, Thursday, and Thursday. The patient presented to the hospital 2 days ago on 02/28/2024 for evaluation of fever, right shoulder pain, mental status changes. During workup, the patient was noticed to have positive blood culture with Staph aureus, prompted this consultation. The patient has been complaining of pain to the right shoulder area, that apparently has been getting worse over the last week or so. The patient denies any history of any trauma. The patient complaining of pain to be sharp, almost 10/10 in severity without any radiation. The patient denies any headache or URI symptoms. No chest pain, shortness of breath, or cough, and no abdominal pain, and did not mention having any problem with the right groin dialysis catheter. REVIEW OF SYSTEMS: Positive points have been mentioned in the HPI. Rest of systems has been negative. PAST MEDICAL HISTORY: Reviewed. PAST SURGICAL HISTORY: Reviewed. SOCIAL HISTORY: Reviewed. FAMILY HISTORY: Reviewed. ALLERGIES: No known drug allergies. MEDICATIONS: Currently, the patient is on: 1. Zosyn. 2. Vancomycin. 3. Protonix. 4. Tylenol. 5. Lorazepam. 6. Zofran. PHYSICAL EXAMINATION: VITAL SIGNS: His blood pressure is 163/82 with a pulse of 110, temperature 98.2. He is 93% on 4 L nasal cannula. GENERAL DESCRIPTION: This is a middle-aged male lying in bed in no distress. No tachypnea or accessory muscle of respiration use. HEENT: Shows slight pallor. No scleral icterus. Oral mucous membranes are moist. NECK: Trachea is midline. No thyromegaly. LUNGS: Unlabored breathing. Clear to auscultation anteriorly. HEART: S1, S2. Regular rate and rhythm. ABDOMEN: Soft, no tenderness. No guarding. No rigidity. EXTREMITIES: No edema noted on feet examination. Right shoulder area, currently does not have any swelling redness, warmth. Did have tenderness to touch. The right groin catheter remains to be intact with no surrounding swelling, redness, or drainage. NEUROLOGIC: The patient is awake, alert, oriented x3. Mood and affect normal. LABORATORY DATA: BUN is 88, creatinine is 8.79, hemoglobin of 10.6, white blood cell 7.35. Influenza, RSV, and COVID testing were negative. Blood culture apparently reported positive for Staph aureus. DIAGNOSTIC IMPRESSION AND PLAN: The patient presented to the hospital with mental status changes and this patient is now with evidence of Staphylococcus aureus bacteremia. Concern for possible dialysis- catheter related. Has been complaining of pain to the right shoulder area; however, the patient currently does not have any swelling or redness. 1. -septic joint not entirely excluded. 2. -Blood culture should be repeated to document clearance of his bacteremia. 3. -may benefit from removal of dialysis catheter and sending the tip for culture. 4. - The patient will benefit from aspiration of the right shoulder to rule out septic joint. This was discussed with the admitting team. 5. We will keep the patient on vancomycin; however, discontinue Zosyn and monitor clinical course closely. MMODL / IJN: [id number] / BLUE
--- NOTE | 2024-04-14 14:40 | PN ---
Date of service is 03/03/2024 PROGRESS NOTE LOCATION: 365. REASON FOR FOLLOWUP: Staph aureus bacteremia likely dialysis catheter infection. INTERVAL HISTORY: The patient is afebrile. He is currently breathing comfortably on room air. No chest pain or cough. No vomiting, diarrhea. There are no changes reported. PHYSICAL EXAMINATION: VITAL SIGNS: Blood pressure 122/74, pulse of 74, temperature 98.8. GENERAL DESCRIPTION: This is a middle-aged male, lying in bed, in no distress. RESPIRATORY SYSTEM: Unlabored breathing. Clear to auscultation anteriorly. HEART: S1, S2. Regular rate and rhythm. ABDOMEN: Soft. No tenderness. EXTREMITIES: No edema of the feet. LABORATORY DATA: White count 9.19, creatinine 0.7. Blood culture with Staph aureus. Sensitivities pending. DIAGNOSTIC IMPRESSION AND PLAN: The patient with recurrent Staphylococcus aureus infection. Current episode is more likely related to dialysis catheter infection. Vascular Surgery is asking for WBC scan can be ordered as well as an echocardiogram. Continue vancomycin while waiting for sensitivity and monitor clinical course closely. MMODL / IJN: [id number] / MTDD
--- NOTE | 2024-04-14 14:40 | PN ---
Date of service is 03/02/2024 PROGRESS NOTE LOCATION: 365. REASON FOR FOLLOWUP: MRSA bacteremia concerning for a dialysis catheter infection. INTERVAL HISTORY: The patient is afebrile. She is breathing comfortably. The patient denies having any chest pain, shortness of breath, or cough. Denies any worsening pain to the right shoulder area. PHYSICAL EXAMINATION: VITAL SIGNS: Blood pressure 141/90, pulse of 79, temperature 98.2. GENERAL DESCRIPTION: This is a middle-aged male, lying in bed, in no distress. RESPIRATORY SYSTEM: Unlabored breathing. Clear to auscultation anteriorly. HEART: S1, S2. Regular rate and rhythm. ABDOMEN: Soft. No distention or rigidity. EXTREMITIES: No edema in the feet. LABORATORY DATA: Repeat cultures currently pending. DIAGNOSTIC IMPRESSION AND PLAN: The patient was admitted to the hospital with sepsis secondary to possible right groin dialysis catheter infection with MRSA bacteremia. We are waiting on repeat cultures. The patient is covered with vancomycin. Possible plan for removal of the dialysis catheter. Vascular Surgery has been consulted. Discussed with the Nephrology. MMODL / IJN: [id number] / BLUE
--- NOTE | 2024-04-14 14:41 | PN ---
PROGRESS NOTE DATE OF SERVICE: 03/04/2024 REASON FOR FOLLOWUP: MSSA bacteremia, dialysis, catheter infection. INTERVAL HISTORY: The patient is afebrile. She is breathing comfortably. The patient was undergoing dialysis when seen in the morning, subsequently has been evaluated by Vascular Surgery and did have removal of his dialysis catheter. The patient denies any chest pain, shortness of breath, or cough. No abdominal pain. No pain to the right shoulder. However, has decreased in intensity. PHYSICAL EXAMINATION: VITAL SIGNS: Blood pressure 121/64, pulse of 72, temperature 97.8. He is 94% on 2 L nasal cannula. GENERAL DESCRIPTION: He is a middle-aged male lying in bed in no distress. RESPIRATORY SYSTEM: Unlabored breathing, clear to auscultation anteriorly. HEART: S1, S2. Regular rate and rhythm. ABDOMEN: Soft. No tenderness. EXTREMITIES: No edema in the feet. LABS: White count 9.5. Blood culture report discussed with the pharmacy is MSSA. DIAGNOSTIC IMPRESSION AND PLAN: The patient with MSSA, bacteremia, high clinical suspicious for dialysis catheter infection which has been discontinued. Catheter tip has been sent. Blood culture will be repeated today as well as tomorrow to make sure he did have clearance of his bacteremia for placing another dialysis catheter. We will also obtain a nasal swab for MSSA colonization and the patient will benefit from pHisoHex shower daily for the next few days to decrease risk of skin contamination. Care has been discussed in detail with the vascular surgeon yesterday as well as today. Antibiotic has been switched to nafcillin. Vanco has been discontinued. MMODL / IJN: [id number] / BLUE
--- NOTE | 2024-04-14 14:42 | PN ---
PROGRESS NOTE DATE OF SERVICE: 03/05/2024 REASON FOR FOLLOWUP: MSSA bacteremia, dialysis catheter infection. INTERVAL HISTORY: The patient is afebrile. He is breathing comfortably on nasal cannula oxygen. Denies any chest pain, shortness of breath or cough. Has been complaining of pain to the right shoulder, but no worsening. No vomiting or diarrhea has been reported. PHYSICAL EXAMINATION: VITAL SIGNS: Blood pressure 146/102, pulse of 86, temperature is 98.8. GENERAL DESCRIPTION: This is a middle-aged male lying in bed, in no distress. RESPIRATORY SYSTEM: Unlabored breathing. Clear to auscultation anteriorly. HEART: S1, S2. Regular rate and rhythm. ABDOMEN: Soft. No tenderness. LABORATORY DATA: Repeat cultures are currently pending. DIAGNOSTIC IMPRESSION AND PLAN: The patient with MSSA bacteremia concerning for possible dialysis catheter infection which has been removed. We are currently waiting for repeat culture to finalize. The patient is on nafcillin, nasal swab for MSSA colonization has been requested. He will benefit from a 5/hour daily before placement of a new catheter to decrease risk of recurrent infection. Questions and concerns were answered. MMODL / IJN: [id number] / BLUE
--- NOTE | 2024-04-14 14:43 | PN ---
PROGRESS NOTE DATE OF SERVICE: 03/06/2024 LOCATION: 365. REASON FOR FOLLOWUP: MSSA bacteremia secondary to dialysis catheter infection. INTERVAL HISTORY: The patient is afebrile. He is breathing comfortably. Pain to the right shoulder has decreased. No chest pain, shortness of breath, or cough. No abdominal pain or diarrhea. PHYSICAL EXAMINATION: VITAL SIGNS: Blood pressure 155/81 with a pulse of 73, temperature 98, he is 96% on room air. GENERAL DESCRIPTION: This is a middle-aged male, lying in bed, in no distress. RESPIRATORY SYSTEM: Unlabored breathing. Clear to auscultation anteriorly. HEART: S1, S2. Regular rate and rhythm. ABDOMEN: Soft. No tenderness. LABORATORY DATA: White count 7.68. Repeat cultures are currently pending. DIAGNOSTIC IMPRESSION AND PLAN: The patient with methicillin-susceptible Staphylococcus aureus bacteremia concerning likely for right groin dialysis catheter which has been discontinued. We are currently waiting for the catheter tip and repeat blood cultures to be finalized. Continue with nafcillin. Has been advised to have pHisoHex showers daily to decrease risk of recurrent infection. Continue supportive care. MMODL / IJN: [id number] / BLUE
--- NOTE | 2024-04-14 14:44 | PN ---
Date of service is 03/09/2024 PROGRESS NOTE LOCATION: 365. REASON FOR FOLLOWUP: MSSA bacteremia. INTERVAL HISTORY: The patient is afebrile. He is breathing comfortably. Denies any chest pain, shortness of breath, or cough. No abdominal pain or any worsening pain in the right shoulder area. No diarrhea. PHYSICAL EXAMINATION: VITAL SIGNS: Blood pressure 167/80 with a pulse of 70, temperature 98, he is 95% on room air. GENERAL DESCRIPTION: The patient is a middle-aged male, lying in bed, in no distress. RESPIRATORY SYSTEM: Unlabored breathing. Clear to auscultation anteriorly. HEART: S1, S2. Regular rate and rhythm. ABDOMEN: Soft, no tenderness. LAB: This patient did have a blood culture, report in the chart finalized on March 08, 2024, to be positive; however, collection date is not reported. DIAGNOSTIC IMPRESSION AND PLAN: The patient with methicillin-sensitive Staphylococcus aureus bacteremia. Initial concern for the right groin dialysis catheter, has been discontinued. Still having positive blood culture. Concern for possible endovascular source. Blood cultures will be repeated today as well as tomorrow. He should have a KAYLAN to make sure no evidence of any endocarditis. For now, continue with nafcillin. This was discussed with the resident physician taking care of this patient. MMODL / IJN: [id number] / BLUE
--- NOTE | 2024-04-14 14:44 | PN ---
Date of service is 03/07/2024 PROGRESS NOTE REASON FOR FOLLOWUP: MSSA bacteremia secondary to dialysis catheter infection. INTERVAL HISTORY: The patient is afebrile. He is breathing comfortably. Pain to the right shoulder has slightly decreased. No chest pain, shortness of breath, or cough. No abdominal pain or diarrhea. PHYSICAL EXAMINATION: VITAL SIGNS: Blood pressure 154/70 with a pulse of 73, temperature of 98.8. GENERAL DESCRIPTION: This is a middle-aged male, lying in bed, in no distress. RESPIRATORY SYSTEM: Unlabored breathing. Clear to auscultation anteriorly. HEART: S1, S2. Regular rate and rhythm. ABDOMEN: Soft. EXTREMITIES: No edema of the feet. LABORATORY DATA: White count 6.99. Repeat cultures currently pending. DIAGNOSTIC IMPRESSION AND PLAN: Patient with MSSA bacteremia, source likely dialysis catheter, which was discontinued. Currently waiting for the catheter and repeat culture finalized. We will wait to make sure the patient has cleared his bacteremia for clearing him for another Perma catheter placement. Also complaining of some pain to the spine area. MRI has been discussed with the admitting team, which will be ordered, and those will be followed. MMODL / IJN: [id number] / BLUE
--- NOTE | 2024-04-14 14:44 | PN ---
PROGRESS NOTE DATE OF SERVICE: 03/08/2024 REASON FOR FOLLOWUP: MSSA bacteremia. INTERVAL HISTORY: The patient is afebrile. The patient is breathing comfortably. No chest pain, shortness of breath, or cough. No nausea, vomiting. No abdominal pain. Pain to the shoulder area has slightly decreased in intensity. PHYSICAL EXAMINATION: VITAL SIGNS: Blood pressure 162/81 with a pulse of 74, temperature 98.7. He is 94% on room air. GENERAL: The patient is a middle-aged male, up in the chair, in no distress. RESPIRATORY SYSTEM: Unlabored breathing. Clear to auscultation anteriorly. HEART: S1, S2. Regular rate and rhythm. ABDOMEN: Soft. No tenderness. EXTREMITIES: No edema in feet. LABORATORY DATA: White count 6.72. Repeat blood culture and catheter tip culture pending. He did have an MRI of the cervical spine. Did not show any lesion suspicious for infection. DIAGNOSTIC IMPRESSION AND PLAN: Patient with methicillin-sensitive Staphylococcus aureus bacteremia, source likely right groin dialysis catheter infection, which has been discontinued. The patient did have an echocardiogram. Did not show any vegetation. MRI of the cervical spine did not show any suspicion for diskitis. We are currently waiting for the catheter tip and blood culture repeat to be finalized. Once negative, he will be able to get another dialysis catheter. Has also been advised daily pHisoHex or chlorhexidine showers to decontaminate his body from Staph aureus and decrease risk of recurrent infection. Continue with nafcillin. Questions answered. MMODL / IJN: [id number] /
--- NOTE | 2024-04-14 14:45 | PN ---
PROGRESS NOTE DATE OF SERVICE: 03/10/2024 LOCATION: 365. REASON FOR FOLLOWUP: MSSA bacteremia, dialysis catheter infection. INTERVAL HISTORY: The patient is afebrile. The patient is currently breathing comfortably on room air. Denies any chest pain. No shortness of breath or cough. No worsening pain in the right shoulder area. No abdominal pain or diarrhea. PHYSICAL EXAMINATION: VITAL SIGNS: Blood pressure 177/84, pulse 88, temperature 97.8, he is 91% on room air. GENERAL DESCRIPTION: This is a middle-aged male, lying in bed, in no distress. RESPIRATORY SYSTEM: Unlabored breathing. Clear to auscultation anteriorly. HEART: S1, S2. Regular rate and rhythm. ABDOMEN: Soft. No tenderness. EXTREMITIES: No edema in the feet. LABORATORY DATA: White count 7.10. Repeat cultures are currently pending. DIAGNOSTIC IMPRESSION AND PLAN: The patient with methicillin-susceptible Staphylococcus aureus bacteremia. Repeat cultures are currently pending. The patient is on nafcillin. Once his repeat cultures are negative, he will need to get a new PermCath. For now, continue with nafcillin. MMODL / IJN: [id number] /
--- NOTE | 2024-04-14 14:46 | PN ---
PROGRESS NOTE DATE OF SERVICE: 03/11/2024 LOCATION: 365. REASON FOR FOLLOWUP: MSSA bacteremia. INTERVAL HISTORY: The patient is afebrile. The patient is breathing comfortably on nasal cannula oxygen. Denies any chest pain, shortness of breath, or cough. No vomiting, diarrhea, or changes has been reported. PHYSICAL EXAMINATION: VITAL SIGNS: Blood pressure 132/69, pulse of 75, temperature is 98.7, he is 97% on room air. GENERAL DESCRIPTION: The patient is a middle-aged male, lying in bed, in no distress. RESPIRATORY SYSTEM: Unlabored breathing. Clear to auscultation anteriorly. HEART: S1, S2. Regular rate and rhythm. ABDOMEN: Soft, no tenderness. EXTREMITIES: No edema in the feet. LABORATORY DATA: White count 6.11. Repeat blood cultures are currently pending. DIAGNOSTIC IMPRESSION AND PLAN: The patient with MSSA bacteremia, source likely Perma catheter has been discontinued. The patient did have a KAYLAN that was negative for any vegetation as well by report from the nursing staff. The patient to continue with nafcillin. We will wait for the negative blood culture before placing a Perma catheter. We will get a temporary catheter today as per discussion with Vascular SHADING PAINTER. MMODL / IJN: [id number] /
--- NOTE | 2024-04-14 14:47 | PN ---
PROGRESS NOTE DATE OF SERVICE: 03/12/2024 LOCATION: 365. REASON FOR FOLLOWUP: MSSA bacteremia. INTERVAL HISTORY: The patient is afebrile. The patient is breathing comfortably. The patient denies having any chest pain, shortness of breath, or cough. No nausea, no vomiting. No abdominal pain or diarrhea. EXAMINATION: VITAL SIGNS: Blood pressure is 172/82, pulse of 75, temperature 97.9. He is 95% on room air. GENERAL DESCRIPTION: This is a middle-aged male, lying in bed in no distress. RESPIRATORY SYSTEM: Unlabored breathing. Clear to auscultation anteriorly. HEART: S1, S2. Regular rate and rhythm. ABDOMEN: Soft, no tenderness. EXTREMITIES: No edema in the feet. LABS: White count 6.07. Repeat blood cultures are currently pending. DIAGNOSTIC IMPRESSION AND PLAN: The patient with MSSA bacteremia, concerning for right groin dialysis catheter which has been discontinued. KAYLAN was negative for any vegetation. The patient is covered with nafcillin. Currently waiting for the repeat culture and monitor clinical course closely. Questions and concerns were answered. MMODL / IJN: [id number] /
--- NOTE | 2024-04-16 16:33 | IR ---
EXAMINATION TYPE: IR cvc insert central tunneled DATE OF EXAM: 03/17/2024 2:06 PM COMPARISON: Pre Operative Images if available both CT/MRI or plain film CLINICAL INDICATION: Male, 43 years old with history of Hemodialysis catheter insertion, 0.9min fluor o, 0.889Tzpl1; TECHNIQUE: IR cvc insert central tunneled, multiple fluoroscopic images provided for procedure. Total fluoroscopy time: 0.9 minutes Total submitted images to PACS: 33 DAP: 0.395 Gycm2 . IMPRESSION: 1. Report was generated for administrative purposes only. 2. Please see the operative/procedural note for further details. [facility], , 04/16/2024 4:30 PM
--- NOTE | 2024-04-19 14:19 | XR ---
EXAM: 2 radiographic views of the chest. DATE: 02/28/2024 21:38 INDICATION: AMS COMPARISON: None, please note PACS downtime occurred during the radiologist interpretation of these i mages with limited priors/reports.. TECHNIQUE: Frontal and lateral views of the chest. FINDINGS: Lungs/Pleura: Low lung volumes are present. There is no evidence of pleural effusion, focal consolida tion, or pneumothorax. Pulmonary vascularity: Unremarkable. Heart/mediastinum: Cardiomediastinal silhouette is enlarged . Musculoskeletal: No acute osseous pathology. IMPRESSION: Low lung volumes with diffuse haziness to lungs correlate for pulmonary edema versus atelectasis. [facility], , 04/19/2024 2:17 PM
== END 2024-03-19 11:55 | disposition home or self-care (01) | DRG 314 ==
LOC: 3SCARD 21:00 → 6NMEDSUR 02-29 12:34 → UNDOADMIN 02-29 12:34 → 3SCARD 02-29 21:00 → 6NMEDSUR 03-12 18:53 → 3SCARD 03-12 18:53 → UNDODISIN 03-19 11:55
PROVIDERS: ADMIT Internal Medicine; ATTEND Internal Medicine
PROC: 5A1D70Z Performance of Urinary Filtration, Intermittent, Less than 6 Hours Per Day (ICD-10-PCS; 2024-02-29)
PROC: B24BZZ4 Ultrasonography of Heart with Aorta, Transesophageal (ICD-10-PCS; 2024-03-11)
PROC: 02HV33Z Insertion of Infusion Device into Superior Vena Cava, Percutaneous Approach (ICD-10-PCS; 2024-03-11)
PROC: 0JH63XZ Insertion of Tunneled Vascular Access Device into Chest Subcutaneous Tissue and Fascia, Percutaneous Approach (ICD-10-PCS; principal; 2024-03-17 12:30)
PROC: 02HV33Z Insertion of Infusion Device into Superior Vena Cava, Percutaneous Approach (ICD-10-PCS; 2024-03-17 12:30)
PROC: 5A1D70Z Performance of Urinary Filtration, Intermittent, Less than 6 Hours Per Day (ICD-10-PCS; 2024-03-17 12:30)
DX: T80.211A Bloodstream infection due to central venous catheter, initial encounter (principal); G93.41 Metabolic encephalopathy; J96.01 Acute respiratory failure with hypoxia; N18.6 End stage renal disease; I12.0 Hypertensive chronic kidney disease with stage 5 chronic kidney disease or end stage renal disease; I48.20 Chronic atrial fibrillation, unspecified; R78.81 Bacteremia; E87.20 Acidosis, unspecified; E87.1 Hypo-osmolality and hyponatremia; D69.6 Thrombocytopenia, unspecified; E11.22 Type 2 diabetes mellitus with diabetic chronic kidney disease; Z99.2 Dependence on renal dialysis; D63.1 Anemia in chronic kidney disease; E83.39 Other disorders of phosphorus metabolism; B95.61 Methicillin susceptible Staphylococcus aureus infection as the cause of diseases classified elsewhere; T40.605A Adverse effect of unspecified narcotics, initial encounter; E78.5 Hyperlipidemia, unspecified; M89.8X9 Other specified disorders of bone, unspecified site; E87.5 Hyperkalemia; E87.6 Hypokalemia; L29.9 Pruritus, unspecified; M19.011 Primary osteoarthritis, right shoulder; Y71.1 Therapeutic (nonsurgical) and rehabilitative cardiovascular devices associated with adverse incidents; Z79.899 Other long term (current) drug therapy; Z86.718 Personal history of other venous thrombosis and embolism
CPT/HCPCS: 36558; 71045; 71046; 71250; 72050; 72141; 76937; 77001; 80048; 80053; 83735; 84100; 85025; 85027; 85652; 87040; 87070; 87077; 87186; 87324; 90935; 93306; 93970; 94640; 94760; 96361; 96365; 96366; 96367; 96368; 96375; 99291

== ENCOUNTER 2025-01-08 03:51 | Emergency (ER) | payer MEDICARE, OTHER ==
[2025-01-08 03:56] VITALS: TEMP 98.3
[2025-01-08] MEDS: LIDOCAINE 2%-EPI 1:100,000 20 ML VIAL SQ STA (04:26)
[2025-01-08 04:40] LABS: Basophils # (A) 0.08 10*3/uL (0.00-0.10); Basophils % (A) 1.3 %; Eosinophils # (A) 0.23 10*3/uL (0.04-0.35); Eosinophils % (A) 3.8 %; HCT 34.2 % (39.6-50.0); HGB 11.6 g/dL (13.0-17.0); Lymphocytes # (A) 1.73 10*3/uL (0.90-5.00); Lymphocytes % (A) 28.5 %; MCH 34.5 pg (27.0-32.0); MCHC 33.9 g/dL (32.0-37.0); MCV 101.8 fL (80.0-97.0); Mean Platelet Volume 10.3 fL (9.5-12.2); Monocytes # (A) 0.62 10*3/uL (0.20-1.00); Monocytes % (A) 10.2 %; Neutrophils # (A) 3.37 10*3/uL (1.80-7.70); Neutrophils % (A) 55.5 %; Platelet Count 200 10*3/uL (140-440); RBC 3.36 10*6/uL (4.40-5.60); RDW 14.4 % (11.5-14.5); WBC 6.07 10*3/uL (4.50-10.00)
[2025-01-08] MEDS: LIDOCAINE 1%-EPI 1:100,000 20 ML VIAL SQ STA (04:44)
--- NOTE | 2025-01-08 04:51 | ED ---
Fall HPI - General Chief Complaint: Fall Stated Complaint: Fall Time Seen by Provider: 01/08/25 03:58 Source: patient, RN notes reviewed, old records reviewed Mode of arrival: wheelchair Limitations: no limitations - History of Present Illness Initial Comments: This is a 44-year-old female to the ER for evaluation patient presents today for evaluation regards to fall from bed and laceration to right ear. Patient is losing a significant amount of blood does come in with bandage to the right ear with minimal bleeding. Patient has symptoms of lightheadedness dizziness and weakness no blood thinners MD Complaint: fall -: hour(s) Fall From: from height (distance) When Fall Occurred: 1-3 hours [employer] Fall Witnessed: yes, by family Place Fall Occurred: home Loss of Consciousness: none Prolonged Down Time?: no Symptoms Prior to Fall: none Location: face Severity: severe Severity scale (1-10): 8 Context: tripped/slipped Associated Symptoms: headache - Related Data Home Medications Medication Instructions Recorded Confirmed Calcium Acetate [PhosLo] 2,001 mg PO TID-W/MEALS 02/20/23 07/16/23 Pantoprazole [Protonix] 40 mg PO DAILY 02/20/23 07/16/23 Torsemide [Demadex] 20 mg PO BID 02/20/23 07/16/23 carvediloL [Coreg] 25 mg PO BID@0600,199902/20/23 07/16/23 Calcium Acetate [PhosLo] 1,334 mg PO BID PRN 05/01/23 07/16/23 Lanthanum Carbonate [Lanthanum 1,000 mg PO TID-W/MEALS 06/27/23 07/16/23 Carbonate Chewable] Previous Rx's Medication Instructions Recorded Acetaminophen Tab [Tylenol] 650 mg PO Q6HR PRN tab 05/04/23 Gabapentin 300 mg PO TID #90 cap 03/18/24 NIFEdipine [Adalat CC] 60 mg PO BID #60 tab 03/18/24 Rivaroxaban [Xarelto] 2.5 mg PO BID tab 03/18/24 Sodium Bicarbonate Tab 650 mg PO BID #60 tab 03/18/24 hydrALAZINE HCL [Apresoline] 100 mg PO TID #90 tab 03/18/24 oxyCODONE-APAP 10-325MG [Percocet 1 each PO Q4HR PRN #18 tab 03/18/24 10-325 mg] Allergies Allergy/AdvReac Type Severity Reaction Status Date / Time No Known Allergies Allergy Verified 01/08/25 03:52 Review of Systems ROS Statement: Those systems with pertinent positive or pertinent negative responses have been documented in the HPI. ROS Other: All systems not noted in ROS Statement are negative. Past Medical History Past Medical History: Heart Failure, Diabetes Mellitus, Hypertension, Renal Disease Additional Past Medical History / Comment(s): DIALYSIS M,W,F. DIET CONTROLLED DM History of Any Multi-Drug Resistant Organisms: None Reported Past Surgical History: Orthopedic Surgery Additional Past Surgical History / Comment(s): TOE AMPUTATION. FOOT SURG. DIALYSIS CATH PLACED. FISTULA. TRACY CAT REMOVAL AND LASER EYE SURG. Past Anesthesia/Blood Transfusion Reactions: No Reported Reaction Past Psychological History: No Psychological Hx Reported Smoking Status: Current every day smoker Past Alcohol Use History: Occasional Past Drug Use History: Marijuana - Past Family History Father Family Medical History: Diabetes Mellitus General Exam Limitations: no limitations General appearance: alert, anxious, lethargic, in distress Head exam: Present: normocephalic, normal inspection. Absent: atraumatic (significant laceration above ear R with arterial laceration and squirting blood) Eye exam: Present: normal appearance, PERRL, EOMI. Absent: scleral icterus, co njunctival injection, periorbital swelling ENT exam: Present: normal exam, mucous membranes moist Neck exam: Present: normal inspection. Absent: tenderness, meningismus, lymphadenopathy Respiratory exam: Present: normal lung sounds bilaterally. Absent: respiratory distress, wheezes, rales, rhonchi, stridor Cardiovascular Exam: Present: normal rhythm, tachycardia, normal heart sounds. Absent: systolic murmur, diastolic murmur, rubs, gallop, clicks GI/Abdominal exam: Present: soft, normal bowel sounds. Absent: distended, tenderness, guarding, rebound, rigid Extremities exam: Present: normal inspection, full ROM, normal capillary refill. Absent: tenderness, pedal edema, joint swelling, calf tenderness Back exam: Present: normal inspection Neurological exam: Present: alert, oriented X3, CN II-XII intact Psychiatric exam: Present: normal affect, normal mood Skin exam: Present: warm, dry, intact, normal color. Absent: rash Course Vital Signs 01/08/25 01/08/25 03:53 04:44 Temperature 98.3 F Pulse Rate 81 67 Respiratory 18 16 Rate Blood Pressure 138/84 94/56 O2 Sat by Pulse 97 98 Oximetry - Reevaluation(s) Reevaluation #1: 01/08/25 04:49 Medical records reviewed Reevaluation #2: 01/08/25 04:49 Laceration is repaired bleeding does appear to be stopped Reevaluation #3: 01/08/25 04:49 Patient informed of results questions answered Reevaluation #4: Was pt. sent in by a medical professional or institution (, DARYN, PRACTICE SPECIALIST, urgent care, hospital, or skilled nursing...) When possible be specific @ -no Did you speak to anyone other than the patient for history (EMS, parent, family, police, friend...)? What history was obtained from this source @ -no Did you review nursing and triage notes (agree or disagree)? Why? @ -agree Are old charts reviewed (outside hosp., previous admission, EMS record, old EKG, old radiological studies, urgent care reports/EKG's, skilled nursing records)? Report findings @ -yes Differential Diagnosis (chest pain, altered mental status, abdominal pain women, abdominal pain men, vaginal bleeding, weakness, fever, dyspnea, syncope, headache, dizziness, GI bleed, back pain, seizure, CVA, palpatations, mental health, musculoskeletal)? @ -prior EKG interpreted by me (3pts min.). @ -yes X-rays interpreted by me (1pt min.). @ -yes negative for acute disease CT interpreted by me (1pt min.). @ -no U/S interpreted by me (1pt. min.). @ -no What testing was considered but not performed or refused? (CT, X-rays, U/S, labs)? Why? @ -none What meds were considered but not given or refused? Why? @ -none Did you discuss the management of the patient with other professionals (professionals i.e. DARYN Ng, PRACTICE SPECIALIST, lab, RT, psych nurse, social media specialist, hardness inspector, teacher, parachute/combatant diver officer, leather case finisher)? Give summary @ -no Was smoking cessation discussed for >3mins.? @ -no Was critical care preformed (if so, how long)? @ -no Were there social determinants of health that impacted care today? How? (Homele ssness, low income, unemployed, alcoholism, drug addiction, transportation, low edu. Level, literacy, decrease access to med. care, usp, rehab)? @ -none Was there de-escalation of care discussed even if they declined (Discuss DNR or withdrawal of care, Hospice)? DNR status @ -no What co-morbidities impacted this encounter? (DM, HTN, Smoking, COPD, CAD, Cancer, CVA, ARF, Chemo, Hep., AIDS, mental health diagnosis, sleep apnea, morbid obesity)? @ -none Was patient admitted / discharged? Hospital course, mention meds given and route, prescriptions, significant lab abnormalities, going to OR and other pertinent info. @ - Undiagnosed new problem with uncertain prognosis? @ -no Drug Therapy requiring intensive monitoring for toxicity (Heparin, Nitro, Insulin, Cardizem)? @ -no Were any procedures done? @ -no Diagnosis/symptom? @ - Acute, or Chronic, or Acute on Chronic? @ -Acute Uncomplicated (without systemic symptoms) or Complicated (systemic symptoms)? @ -Complicated Side effects of treatment? @ -no Exacerbation, Progression, or Severe Exacerbation? @ -exacerbation Poses a threat to life or bodily function? How? (Chest pain, [place], [place], pneumonia, PE, COPD, DKA, ARF, appy, cholecystitis, CVA, Diverticulitis, Homicidal, Suicidal, threat to staff... and all critical care pts) @ -yes Procedures - Laceration Laceration #1 Consent Obtained: verbal consent Indication: laceration Site: face Description: linear, stellate Depth: simple, single layer Size of Sutures: 4-0 Technique: simple, interrupted Complications: pain Patient Tolerated Procedure: well Medical Decision Making - Medical Decision Making 44 male with significant facial laceration and arterial laceration of the face. Laceration is repaired here in the ER with cessation of bleeding, wound is cleaned and bandaged, sutures here is repaired and patient can be discharged home - Lab Data Result diagrams: 01/08/25 04:28 Lab Results 01/08/25 01/08/25 Range/Units 04:10 04:28 WBC 6.07 (4.50-10.00) 10*3/uL RBC 3.36 L (4.40-5.60) 10*6/uL Hgb 11.6 L (13.0-17.0) g/dL Hct 34.2 L (39.6-50.0) % MCV 101.8 H (80.0-97.0) fL MCH 34.5 H (27.0-32.0) pg MCHC 33.9 (32.0-37.0) g/dL Plt Count 200 (140-440) 10*3/uL MPV 10.3 (9.5-12.2) fL Immature Gran % (Auto) 0.7 % Neutrophils % 55.5 % Lymphocytes % 28.5 % Monocytes % 10.2 % Eosinophils % 3.8 % Basophils % 1.3 % Immature Gran # 0.04 (0.00-0.04) 10*3/uL Neutrophils # 3.37 (1.80-7.70) 10*3/uL Lymphocytes # 1.73 (0.90-5.00) 10*3/uL Monocytes # 0.62 (0.20-1.00) 10*3/uL Eosinophils # 0.23 (0.04-0.35) 10*3/uL Basophils # 0.08 (0.00-0.10) 10*3/uL Blood Type Recheck No Previous Record Bld Type Recheck Status CABO Indicated Spec Expiration Date 01/11/20252309 Critical Care Time Critical Care Time: Yes Total Critical Care Time: 31 Disposition Clinical Impression: Fall, Laceration of right ear, Laceration of artery, Near syncope Disposition: HOME SELF-CARE Condition: Good Instructions (If sedation given, give patient instructions): Facial Laceration (ED), Care For Your Stitches (ED) Is patient prescribed a controlled substance at d/c from ED?: No Referrals: Tru Abraham MD [Primary Care Provider] - 1-2 days Time of Disposition: 06:00
[2025-01-08 04:54] LABS: ALT 16 U/L (4-49); AST 24 U/L (17-59); African American GFR (CKD) 6 (>60 ml/min/1.73 sqM); Albumin 4.5 g/dL (3.5-5.0); Alkaline Phosphatase 70 U/L (38-126); Anion Gap 19 mmol/L; Blood Urea Nitrogen 61 mg/dL (9-20); Calcium 9.8 mg/dL (8.4-10.2); Carbon Dioxide 23 mmol/L (22-30); Chloride 96 mmol/L (98-107); Glucose 186 mg/dL (74-99); Non-African American GFR(CKD) 5 (>60 ml/min/1.73 sqM); Potassium 4.3 mmol/L (3.5-5.1); Sodium 138 mmol/L (137-145); Total Bilirubin 0.5 mg/dL (0.2-1.3); Total Protein 7.3 g/dL (6.3-8.2)
[2025-01-08 04:59] LABS: Prothrombin Time 10.8 sec (10.0-12.5)
[2025-01-08 05:20] VITALS: RESP 18
[2025-01-08 07:01] VITALS: BP 142/85; PULSE 67
== END 2025-01-08 07:23 | disposition home or self-care (01) ==
LOC: EC 03:51
DX: S01.311A Laceration without foreign body of right ear, initial encounter (principal); R00.0 Tachycardia, unspecified; F17.200 Nicotine dependence, unspecified, uncomplicated; W06.XXXA Fall from bed, initial encounter; Y92.009 Unspecified place in unspecified non-institutional (private) residence as the place of occurrence of the external cause
CPT/HCPCS: 12011; 36415; 80053; 85025; 85610; 85730; 86850; 86900; 86901; 99284